=== PATIENT | male | born 1940 | race Caucasian/White ===

== ENCOUNTER 2016-09-26 13:39 | Observation (INO) | payer OTHER, MEDICARE ==
[~2016-09-26] VITALS: Ht 175.3 cm; Wt 65.2 kg
[~2016-09-26 13:39] MED LIST: AMLO-110 PO; ASPI81TA28 PO; ATOR-22 PO; CLOP1TAB15 PO; CYAN100020 PO; ISOS30TA35 PO; MECL1TAB42 PO; METO25TA3 PO; NTRGSL/4 SL; ONDA8TAB6 SL; PRT/20 PO
[2016-09-26] MEDS ORDERED: ASPIRIN 81 MG CHEW PO STA (13:55)
--- NOTE | 2016-09-26 14:14 | DIAGNOSTIC IMAGING REPORT ---
CHEST ONE VIEW PORTABLE CLINICAL HISTORY: Chest pain. COMPARISON STUDY: Chest radiograph June 01, 2014. FINDINGS: There is no pneumothorax or pleural effusion. Cardiac size is normal. Mediastinal contours are normal. There is mild lower lung interstitial thickening. There is no lobar consolidation. There may be underlying emphysema. IMPRESSION: Mild lower lung interstitial thickening. This may reflect atelectasis. An infectious process or pulmonary edema could appear similar but are considered less likely. Electronically signed by: Eliseo Mendenhall M.D. 09/26/2016 2:13 PM Dictated Date/Time: 09/26/2016 2:11 PM
[2016-09-26 14:17] LABS: BASO % 0.2 %; BASO ABS # 0.01 K/uL (0-0.2); COMPLETE YES; EOS % 2.7 %; HEMATOCRIT 39.3 % (42-52); IG% 0.2 %; LYMPH ABS # 1.26 K/uL (1.2-3.4); MEAN CELL VOLUME 88.1 fL (80-100); MEAN CORPUSCULAR HEMOGLOBIN 29.8 pg (25-34); MEAN CORPUSCULAR HGB CONC 33.8 g/dl (32-36); MEAN PLATELET VOLUME 9.4 fL (7.4-10.4); MONO % 8.4 %; NEUT % 65.5 %; PLATELET COUNT 200 K/uL (130-400); RED BLOOD COUNT 4.46 M/uL (4.7-6.1); WHITE BLOOD COUNT 5.48 K/uL (4.8-10.8)
[2016-09-26 14:33] LABS: PARTIAL THROMBOPLASTIN RATIO 1.2; PROTHROMBIN TIME (PATIENT) 11.1 SECONDS (9.0-12.0)
[2016-09-26 14:37] LABS: BUN/CREATININE RATIO 12.4 (10-20); CALCIUM 8.8 mg/dl (8.5-10.1); CREATININE 1.3 mg/dl (0.60-1.40); POTASSIUM 3.8 mmol/L (3.5-5.1)
[2016-09-26 14:41] LABS: CKMB/CK RATIO 1.2 (0-3.0)
--- NOTE | 2016-09-26 15:30 | EMERGENCY ROOM VISIT NOTE ---
History Report prepared by Jose Antonio: Nic Saldana Under the Supervision of: Dr. Ramana Morales D.O. First contact with patient: 13:50 Chief Complaint: CHEST PAIN Stated Complaint: CHEST PAIN Nursing Triage Summary: pt here with chest pain x one hour . pt states pain is in mid chest, intermittently. took 2 nitro at home with min relief. hx of mi in 2013 with no stent placement. pt states some sob, no diaphoresis or nausea. History of Present Illness The patient is a 76 year old male who presents to the Emergency Room with complaints of an episode of chest pain beginning about 1 hour ago. He notes he woke up with the pain and that it does not radiate. He reports the pain resolved upon taking 2 nitroglycerin. He denies any shortness of breath or leg swelling with his symptoms. but admits to having baseline shortness of breath upon exertion beginning about 1 year ago. He also notes having diarrhea at baseline. 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 He notes he saw Dr. Ramirez 2 weeks ago for a regular check-up. He had a similar episode of chest pain 3 weeks ago, and discussed taking nitroglycerin with Dr. Ramirez. The patient states he follows with Yoni Hermosillo PA-C for cardiology, and notes his medications were recently changed. The patient states he recently wore a 24 hour monitor which he returned yesterday. He has not received the results of that study. Source of History: patient Onset: about 1 hour ago Position: chest Quality: other (chest pain) Timing: other (episode) Modifying Factors (Relieving): other (2 nitroglycerin) Associated Symptoms: + diarrhea (baseline), No SOB Note: The patient denies leg swelling. Review of Systems See HPI for pertinent positives & negatives. A total of 10 systems reviewed and were otherwise negative. Past Medical & Surgical Medical Problems: (1) CAD (coronary artery disease) (2) Calculus Of Kidney (3) Chest pain (4) CKD (chronic kidney disease) stage 3, GFR 30-59 ml/min (5) COPD, mild (6) Coron Atheroscler Nos Type Vessel, [place] Or Graft (7) Dyslipidemia (8) Emphysema Nec (9) GERD (gastroesophageal reflux disease) (10) HTN (hypertension) (11) Hypertrophy (Benign) Of Prostate W/O Urinary Obst & Oth Luts (12) Moderate aortic stenosis (13) Unilat Inguinal Hernia Surgical Problems: (1) H/O coronary angioplasty (2) History of back surgery (3) History of inguinal hernia repair Family History Cancer Hypertension Social History Smoking Status: Never Smoker Marital Status: Housing Status: lives alone Occupation Status: retired Current/Historical Medications Scheduled Amlodipine (Norvasc), 5 MG PO DAILY Atorvastatin (Lipitor), 20 MG PO DAILY Cyanocobalamin (Vitamin B12), 1,000 MG PO DAILY Isosorbide Mononitrate Ext Rel (Imdur Ext Rel), 15 MG PO DAILY Metoprolol Succ (Toprol Xl) (Toprol-Xl), 12.5 MG PO DAILY Pantoprazole (Protonix), 20 MG PO DAILY Scheduled PRN Meclizine Hcl (Meclizine Hcl), 1 TAB PO TID PRN for dizziness Nitroglycerin (Nitrostat), 0.4 MG SL UD PRN for Chest Pain Ondansetron Hcl (Zofran), 8 MG SL Q8 PRN for Nausea or Vomiting Allergies Coded Allergies: Iodinated Diagnostic Agents (Verified Allergy, Unknown, RASH, 09/26/16) Pt reports allergy to Iodinated contrast. No Food allergy to Iodine per pt. Tetracycline (Verified Allergy, Unknown, Unknown., 09/26/16) Reported by PT. Physical Exam Vital Signs Date Time Temp Pulse Resp B/P Pulse Ox O2 Delivery O2 Flow Rate FiO2 09/26/16 15:28 158/92 09/26/16 15:09 66 26 95 Room Air 09/26/16 14:58 120/71 09/26/16 14:39 75 14 96 Room Air 09/26/16 14:28 135/81 09/26/16 14:10 95 Room Air 09/26/16 14:10 95 Room Air 09/26/16 14:09 70 13 97 09/26/16 14:05 74 09/26/16 13:58 147/91 09/26/16 13:49 36.4 77 16 170/87 95 Room Air Physical Exam GENERAL: Patient is awake alert, mildly anxious but comfortable; does not appear to be in pain. EYES: The conjunctivae are clear. The pupils are round and reactive. EARS, NOSE, MOUTH AND THROAT: The nose is without any evidence of any deformity. Mucous membranes are moist tongue is midline NECK: The neck is nontender and supple. RESPIRATORY: Normal respiratory effort is noted there is no evidence of wheezing rhonchi or rales CARDIOVASCULAR: Regular rate and rhythm noted there no murmurs rubs or gallops normal S1 normal S2 GASTROINTESTINAL: The abdomen is soft. Bowel sounds are present in all quadrants. Abdomen is nontender MUSCULOSKELETAL/EXTREMITIES: There is no evidence of gross deformity full range of motion is noted in the hips and shoulders SKIN: Trace pedal edema bilaterally noted. NEUROLOGIC: Patient is awake alert and oriented x3. Medical Decision & Procedures ER Provider Diagnostic Interpretation: Radiology results as stated below per my review and radiologist interpretation: CHEST ONE VIEW PORTABLE FINDINGS: There is no pneumothorax or pleural effusion. Cardiac size is normal. Mediastinal contours are normal. There is mild lower lung interstitial thickening. There is no lobar consolidation. There may be underlying emphysema. IMPRESSION: Mild lower lung interstitial thickening. This may reflect atelectasis. An infectious process or pulmonary edema could appear similar but are considered less likely. Electronically signed by: Eliseo Mendenhall M.D. 09/26/2016 2:13 PM Dictated Date/Time: 09/26/2016 2:11 PM Laboratory Results 09/26/16 14:07 Red Blood Count 4.46, Mean Corpuscular Volume 88.1, Mean Corpuscular Hemoglobin 29.8, Mean Corpuscular Hemoglobin Concent 33.8, Mean Platelet Volume 9.4, Neutrophils (%) (Auto) 65.5, Lymphocytes (%) (Auto) 23.0, Monocytes (%) (Auto) 8.4, Eosinophils (%) (Auto) 2.7, Basophils (%) (Auto) 0.2, Neutrophils # (Auto) 3.59, Lymphocytes # (Auto) 1.26, Monocytes # (Auto) 0.46, Eosinophils # (Auto) 0.15, Basophils # (Auto) 0.01 09/26/16 14:07 Test 09/26/16 14:07 09/26/16 14:15 White Blood Count 5.48 K/uL (4.8-10.8) Red Blood Count 4.46 M/uL (4.7-6.1) Hemoglobin 13.3 g/dL (14.0-18.0) Hematocrit 39.3 % (42-52) Mean Corpuscular Volume 88.1 fL (80-100) Mean Corpuscular Hemoglobin 29.8 pg (25-34) Mean Corpuscular Hemoglobin Concent 33.8 g/dl (32-36) Platelet Count 200 K/uL (130-400) Mean Platelet Volume 9.4 fL (7.4-10.4) Neutrophils (%) (Auto) 65.5 % Lymphocytes (%) (Auto) 23.0 % Monocytes (%) (Auto) 8.4 % Eosinophils (%) (Auto) 2.7 % Basophils (%) (Auto) 0.2 % Neutrophils # (Auto) 3.59 K/uL (1.4-6.5) Lymphocytes # (Auto) 1.26 K/uL (1.2-3.4) Monocytes # (Auto) 0.46 K/uL (0.11-0.59) Eosinophils # (Auto) 0.15 K/uL (0-0.5) Basophils # (Auto) 0.01 K/uL (0-0.2) RDW Standard Deviation 44.2 fL (36.4-46.3) RDW Coefficient of Variation 13.7 % (11.5-14.5) Immature Granulocyte % (Auto) 0.2 % Immature Granulocyte # (Auto) 0.01 K/uL (0.00-0.02) Prothrombin Time 11.1 SECONDS (9.0-12.0) Prothromb Time International Ratio 1.0 (0.9-1.1) Activated Partial Thromboplast Time 30.0 SECONDS (21.0-31.0) Partial Thromboplastin Ratio 1.2 Anion Gap 12.0 mmol/L (3-11) Est Creatinine Clear Calc Drug Dose 44.4 ml/min Estimated GFR () 61.4 Estimated GFR (Non- 53.0 BUN/Creatinine Ratio 12.4 (10-20) Calcium Level 8.8 mg/dl (8.5-10.1) Total Bilirubin 0.5 mg/dl (0.2-1) Direct Bilirubin 0.1 mg/dl (0-0.2) Aspartate Amino Transf (AST/SGOT) 21 U/L (15-37) Alanine Aminotransferase (ALT/SGPT) 18 U/L (12-78) Alkaline Phosphatase 99 U/L (45-117) Total Creatine Kinase 196 U/L (39-308) Creatine Kinase MB 2.3 ng/ml (0.5-3.6) Creatine Kinase MB Ratio 1.2 (0-3.0) Total Protein 6.9 gm/dl (6.4-8.2) Albumin 3.7 gm/dl (3.4-5.0) Lipase 229 U/L (73-393) Bedside Troponin I 0.010 ng/ml (0-0.045) Laboratory results per my review. Medications Administered Medications (Trade) Dose Ordered Sig/Amber Route Start Time Stop Time Status Last Admin Dose Admin Aspirin (Aspirin Chew) 324 mg NOW STAT PO 09/26/16 13:55 09/26/16 13:56 DC 09/26/16 14:40 324 MG ECG Indication: chest pain Rate (beats per minute): 72 Rhythm: normal sinus Findings: no ectopy, other (no ST abnormalities) Comparison ECG Date: October 25, 2015 Change: no significant change ED Course 1352: The patient was evaluated in room C11A. A complete history and physical examination were performed. 1355: Ordered Aspirin 324 mg PO. 1500:I discussed the patient's case with Dr. Madrigal. The patient will be evaluated for further management. Medical Decision Prior records/ancillary studies reviewed. Triage Nursing notes reviewed. Additional history obtained from the patient's daughter. The patient's history was concerning for chest pain. Differential diagnosis: Etiologies such as cardiac ischemia, aortic dissection, pulmonary embolism, pneumonia, pneumothorax, musculoskeletal, infections, pericarditis, myocarditis , esophageal rupture, gastrointestinal, as well as others were entertained. The patient is a 76-year-old male who presented to the emergency department for evaluation of anterior chest pain. The patient describes an episode he had a few weeks ago for he developed chest pain at rest. He saw his primary care physician for this pain and was told to use his nitroglycerin if the pain returned. The patient doesn't a history of coronary artery disease. He had a heart catheterization in 2013 but he had some complications from this catheterization. He has known coronary artery disease. The patient nitroglycerin prior to arrival with good resolution of his pain. His EKG did not show any acute changes from previous. His initial cardiac biomarkers were negative. I discussed the patient's laboratory and radiographic studies with him. I also discussed the limitations of the emergency department workup for chest pain with him. Given the patient's past medical history and his use of nitrates at this time I do feel that he is high risk and this could represent a new angina pattern for him. This reason I discussed his case with the on-call [facility] hospitalist group. They've agreed to evaluate the patient in the emergency department for further management and disposition. Consults Time Called: 1455 Consulting Physician: Dr. Madrigal Returned Call: 1500 I discussed the patient's case with Dr. Madrigal. The patient will be evaluated for further management. Scribe Attestation The scribe's documentation has been prepared under my direction and personally reviewed by me in its entirety. I confirm that the note above accurately reflects all work, treatment, procedures, and medical decision making performed by me. Departure Information Dispostion Being Evaluated By Hospitalist Referrals Fritz Ramirez D.O. (PCP) Patient Instructions My [facility]
[2016-09-26] MEDS ORDERED: LORAZEPAM 0.5 MG TAB PO PRN (15:45)
[2016-09-26] MEDS ORDERED: NITROGLYCERIN 0.4 MG SL PER TAB CHARGE SL PRN (15:45)
[2016-09-26] MEDS ORDERED: MECLIZINE HCL 25 MG TAB PO PRN (15:45)
[2016-09-26] MEDS ORDERED: ACETAMINOPHEN 325 MG TAB PO PRN (15:45)
[2016-09-26] MEDS ORDERED: ONDANSETRON INJ 2 MG/ML 2 ML VIAL IV PRN (15:45)
[2016-09-26] MEDS ORDERED: HYT/2 PO (15:58)
[2016-09-26] MEDS ORDERED: ARFO15NE INH (15:58)
[2016-09-26] MEDS ORDERED: LORA-741 PO (15:58)
[2016-09-26] MEDS ORDERED: FINA5TAB4 PO (15:58)
[2016-09-26] MEDS ORDERED: ERYOPO OPB (15:58)
[2016-09-26] MEDS ORDERED: CLOP1TAB5 PO (15:58)
[2016-09-26] MEDS ORDERED: TERA5CAP PO (15:58)
[2016-09-26] MEDS ORDERED: KETO0.5S33 OPL (15:58)
[2016-09-26] MEDS ORDERED: ISOS30TA3 PO (15:58)
[2016-09-26] MEDS ORDERED: CLS1 PO (15:58)
--- NOTE | 2016-09-26 16:20 | History and Physical ---
History & Physical Date & Time of Service: Sep 26, 2016 at 16:02 Chief Complaint: Chest Pain Primary Care Physician: Fritz Ramirez D.O. History of Present Illness Source: patient This is a 76 y/o male with PMHx of CAD, mild COPD, CKD stage 3, HTN, Dyslipidemia and other problems as outlined below who presents to the ED c/o chest pain that began this afternoon. Pt reports that he was woken up from an afternoon nap with chest pain. He describes the chest pain as 10/10 central substernal chest pain that did not radiate anywhere. Sxs were assoc with SOB. He took 2 nitro which relieved most of his pain. He estimates that the pain persisted for about an hour and a half. Pt mentions he had a mild episode of chest pain 3 weeks ago which resolved without intervention. He saw his trousseau consultant who increased his Imdur and ordered a 24-hour Holter. The Holter monitor (pt wore yesterday) results were unremarkable. Pt has a history of CAD. 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 A cardiac catheterization was attempted @ [facility]. The catheterization was unsuccessful as LAD ended up dissecting during the procedure. No stents were placed and patient was managed medically. Pt follows with cardiology, Dr. Green. Pt denies fever/chills, diaphoresis, palpitations, abd pain, N/V, bowel or bladder issues, LE edema , calf pain, lightheadedness/dizziness. In the ED, vitals are stable. Pt is afebrile with no leukocytosis. Initial troponin is negative and EKG unremarkable. Pt is currently chest pain free and will be admitted for further evaluation and treatment. Past Medical/Surgical History Medical Problems: (1) CAD (coronary artery disease) Status: Chronic (2) Calculus Of Kidney Status: Chronic (3) CKD (chronic kidney disease) stage 3, GFR 30-59 ml/min Status: Chronic (4) COPD, mild Status: Chronic (5) Coron Atheroscler Nos Type Vessel, [place] Or Graft Status: Chronic (6) Dyslipidemia Status: Chronic (7) Emphysema Nec Status: Chronic (8) GERD (gastroesophageal reflux disease) Status: Chronic (9) HTN (hypertension) Status: Chronic (10) Hypertrophy (Benign) Of Prostate W/O Urinary Obst & Oth Luts Status: Chronic (11) Moderate aortic stenosis Status: Chronic (12) Unilat Inguinal Hernia Status: Chronic Surgical Problems: (1) H/O coronary angioplasty Permanent Comment: PTCA, CARDIAC ANGIOPLASTY, PERCUTANEOUS, 1 ARTERY performed by Paty Rasheed MD at [facility] [place] 05/23/14 Status: Resolved (2) History of back surgery Permanent Comment: Lumbar Spine Fusion ,Post Interbody Status: Resolved (3) History of inguinal hernia repair Permanent Comment: R inguinal hernia repair with mesh performed by Dr. Vazquez 2005 Status: Resolved Family History Cancer Hypertension Social History Smoking Status: Former Smoker (25 pack year history; quit 2013) Alcohol Use: none Drug Use: none Marital Status: Housing status: lives alone Occupational Status: retired Immunizations History of Influenza Vaccine: Unknown History of Tetanus Vaccine?: Unknown History of Pneumococcal: Unknown History of Hepatitis B Vaccine: Unknown Multi-Drug Resistant Organisms History of MDRO: No Allergies Coded Allergies: Iodinated Diagnostic Agents (Verified Allergy, Unknown, RASH, 09/26/16) Pt reports allergy to Iodinated contrast. No Food allergy to Iodine per pt. Tetracycline (Verified Allergy, Unknown, Unknown., 09/26/16) Reported by PT. Home Medications Scheduled Amlodipine (Norvasc), 5 MG PO DAILY Atorvastatin (Lipitor), 20 MG PO DAILY Clopidogrel Bisulfate (Plavix), 75 MG PO DAILY Colestipol HCl (Colestid), 1 GM PO DAILY Cyanocobalamin (Vitamin B12), 1,000 MG PO DAILY Erythromycin Opth (Erythromycin Opth), 0.25 INCH OPB HS Finasteride (Proscar), 5 MG PO DAILY Isosorbide Mononitrate Ext Rel (Imdur Ext Rel), 30 MG PO DAILY Ketorolac Tromethamine (Ophth) (Acular Oph), 1 DROPS OPL QID Metoprolol Succ (Toprol Xl) (Toprol-Xl), 12.5 MG PO DAILY Terazosin Hcl (Hytrin), 5 MG PO HS Terazosin Hcl (Hytrin), 2 MG PO HS Scheduled PRN Arformoterol Tartrate (Brovana), 15 MCG INH BID PRN for SOB/Wheezing Lorazepam (Ativan), 0.5 MG PO TID PRN for Anxiety Meclizine Hcl (Meclizine Hcl), 1 TAB PO TID PRN for dizziness Nitroglycerin (Nitrostat), 0.4 MG SL UD PRN for Chest Pain Ondansetron Hcl (Zofran), 8 MG SL Q8 PRN for Nausea or Vomiting Review of Systems Constitutional: + fatigue, No chills, No fever, No sweats, No weakness Eyes: No worsening of vision ENT: No hearing loss Respiratory: + shortness of breath (resolved), No cough Cardiovascular: + chest pain, No claudication, No edema Abdomen: No constipation, No diarrhea, No nausea, No pain, No vomiting Musculoskeletal: No calf pain, No swelling Genitourinary - Male: No dysuria Neurologic: No weakness Psychiatric: No depression symptoms Endocrine: + fatigue Hematologic / Lymphatic: No abnormal bleeding/bruising Integumentary: No new/changing skin lesions Physical Exam Vital Signs Date Time Temp Pulse Resp B/P Pulse Ox O2 Delivery O2 Flow Rate FiO2 09/26/16 15:28 158/92 09/26/16 15:09 66 26 95 Room Air 09/26/16 14:58 120/71 09/26/16 14:39 75 14 96 Room Air 09/26/16 14:28 135/81 09/26/16 14:10 95 Room Air 09/26/16 14:10 95 Room Air 09/26/16 14:09 70 13 97 09/26/16 14:05 74 09/26/16 13:58 147/91 09/26/16 13:49 36.4 77 16 170/87 95 Room Air General Appearance: WD/WN, no apparent distress, + pertinent finding (Pt is sitting up in bed with daughter at bedside ) Head: normocephalic, atraumatic Eyes: normal inspection ENT: hearing grossly normal Neck: supple Respiratory/Chest: chest non-tender, lungs clear, normal breath sounds, no respiratory distress Cardiovascular: regular rate, rhythm, no edema, no murmur Abdomen/GI: normal bowel sounds, non tender, soft Back: normal inspection Extremities/Musculoskelatal: normal inspection, no calf tenderness, no pedal edema Neurologic/Psych: alert, normal mood/affect, oriented x 3 Skin: normal color, warm/dry Diagnostics Laboratory Results Results Past 24 Hours Test 09/26/16 14:07 09/26/16 14:15 Range/Units White Blood Count 5.48 4.8-10.8 K/uL Red Blood Count 4.46 4.7-6.1 M/uL Hemoglobin 13.3 14.0-18.0 g/dL Hematocrit 39.3 42-52 % Mean Corpuscular Volume 88.1 80-100 fL Mean Corpuscular Hemoglobin 29.8 25-34 pg Mean Corpuscular Hemoglobin Concent 33.8 32-36 g/dl Platelet Count 200 130-400 K/uL Mean Platelet Volume 9.4 7.4-10.4 fL Neutrophils (%) (Auto) 65.5 % Lymphocytes (%) (Auto) 23.0 % Monocytes (%) (Auto) 8.4 % Eosinophils (%) (Auto) 2.7 % Basophils (%) (Auto) 0.2 % Neutrophils # (Auto) 3.59 1.4-6.5 K/uL Lymphocytes # (Auto) 1.26 1.2-3.4 K/uL Monocytes # (Auto) 0.46 0.11-0.59 K/uL Eosinophils # (Auto) 0.15 0-0.5 K/uL Basophils # (Auto) 0.01 0-0.2 K/uL RDW Standard Deviation 44.2 36.4-46.3 fL RDW Coefficient of Variation 13.7 11.5-14.5 % Immature Granulocyte % (Auto) 0.2 % Immature Granulocyte # (Auto) 0.01 0.00-0.02 K/uL Prothrombin Time 11.1 9.0-12.0 SECONDS Prothromb Time International Ratio 1.0 0.9-1.1 Activated Partial Thromboplast Time 30.0 21.0-31.0 SECONDS Partial Thromboplastin Ratio 1.2 Sodium Level 144 136-145 mmol/L Potassium Level 3.8 3.5-5.1 mmol/L Chloride Level 108 98-107 mmol/L Carbon Dioxide Level 24 21-32 mmol/L Anion Gap 12.0 3-11 mmol/L Blood Urea Nitrogen 16 7-18 mg/dl Creatinine 1.30 0.60-1.40 mg/dl Est Creatinine Clear Calc Drug Dose 44.4 ml/min Estimated GFR () 61.4 Estimated GFR (Non- 53.0 BUN/Creatinine Ratio 12.4 10-20 Random Glucose 107 70-99 mg/dl Calcium Level 8.8 8.5-10.1 mg/dl Total Bilirubin 0.5 0.2-1 mg/dl Direct Bilirubin 0.1 0-0.2 mg/dl Aspartate Amino Transf (AST/SGOT) 21 15-37 U/L Alanine Aminotransferase (ALT/SGPT) 18 12-78 U/L Alkaline Phosphatase 99 45-117 U/L Total Creatine Kinase 196 39-308 U/L Creatine Kinase MB 2.3 0.5-3.6 ng/ml Creatine Kinase MB Ratio 1.2 0-3.0 Total Protein 6.9 6.4-8.2 gm/dl Albumin 3.7 3.4-5.0 gm/dl Lipase 229 73-393 U/L Bedside Troponin I 0.010 0-0.045 ng/ml Diagnostic Radiology CXR IMPRESSION: Mild lower lung interstitial thickening. This may reflect atelectasis. An infectious process or pulmonary edema could appear similar but are considered less likely. EKG EKG: NSR at 72 bpm with possible L atrial enlargement; no change when compared to EKG from 10/28/15 Impression Assessment and Plan CHEST PAIN R/O ACS -observation status to telemetry; h/o CAD s/p heart catheterization in 2013 (se HPI) -RFs include prior tobacco use, CAD, HTN, Dyslipidemia, age and sex -EKG no acute ischemic change ;repeat EKG PRN chest pain and in AM -Initial troponin is negative; continue to monitor with serial cardiac enzymes q6h -obtain echo to r/o cardiac wall motion abnormalities -cont Plavix, BB, statin and Imdur; nitro PRN -consult cardiology, Dr. See-pending input -pt is currently chest pain free -continue to monitor CKD STAGE 3 -creatinine is at baseline -cont to monitor daily and avoid nephrotoxic agents when able MILD COPD -stable; no evidence of acute exacerbation -cont inhalers -pt quit smoking 2 years ago BPH -cont Proscar and Hytrin HTN -BP stable -cont amlodipine and metoprolol -monitor DYSLIPIDEMIA -cont statin DVT PROPHYLAXIS -subq heparin CODE STATUS -FULL CODE per discussion with patient DISPO Observation status until further workup is complete. Pt seen in collaboration with Dr. Madrigal. Please see his addendum for further details. Thanks! agree with above h and p.Briefly 76M with hx of cad and cath done [id number] at [place] complicated by LAd dissection and since then on medical management presents with chest pain. About 3 weeks ago had chest pain which resolved on its own. Again today woke from chest pain in afternoon and it took two nitros to relieve his pain.Currently pain free and denies any sob. hemodynamics stable. p/e Ge not in distress cvs s1 and s2 heard no murmurs Rs cta b/l no added sounds Abd benign [employer] non focal ext no edema a/p Chest pain rule out Acs hx of cad and complicated cath with LAD dissection in 2013 initial troponin and ekg unremarkable f/u serial CE continue home meds of , plavix, b adam, Imdur, amlodipine and statin cardiology consult monitor in tele VTE Prophylaxis VTE Risk Assessment Done? Y/N: Yes Risk Level: Moderate
[2016-09-26] MEDS ORDERED: NITROGLYCERIN 0.4 MG SL PER TAB CHARGE ONE ×2 (17:33→17:35)
[2016-09-26] MEDS ORDERED: IV FLUIDS COMPLETED PRN (19:00)
[2016-09-26 19:20] VITALS: O2SAT 98
[2016-09-26 19:36] VITALS: BP 184/89; PULSE 61; TEMP 36.4; Ht 175.3 cm; Wt 65.2 kg
[2016-09-26] MEDS: ATORVASTATIN 20 MG TAB PO SCH (21:39)
[2016-09-26] MEDS: FINASTERIDE 5 MG TAB PO SCH (21:39)
[2016-09-26] MEDS: KETOROLAC 0.5% OP SOLN 3 ML BTL OPL SCH (21:39)
[2016-09-26] MEDS: ERYTHROMYCIN OP OINT 5 MG/GM 3.5 GM TUBE OPB SCH (21:39)
[2016-09-26] MEDS: HEPARIN SOD 5000 UNIT/0.5 ML CARP SQ SCH (21:42)
[2016-09-27] VITALS (8 sets, daily range): BP systolic 103–173; BP diastolic 61–93; PULSE 56–69; TEMP 36.4–36.8; O2SAT 95–98
[2016-09-27 02:17] LABS: HEMATOCRIT 37.3 % (42-52); MEAN CELL VOLUME 89.4 fL (80-100); MEAN CORPUSCULAR HEMOGLOBIN 30.2 pg (25-34); MEAN CORPUSCULAR HGB CONC 33.8 g/dl (32-36); MEAN PLATELET VOLUME 9.9 fL (7.4-10.4); PLATELET COUNT 189 K/uL (130-400); RED BLOOD COUNT 4.17 M/uL (4.7-6.1); WHITE BLOOD COUNT 5.44 K/uL (4.8-10.8)
[2016-09-27] MEDS: HEPARIN SOD 5000 UNIT/0.5 ML CARP SQ SCH ×3 (06:16→21:35)
[2016-09-27] MEDS: AMLODIPINE BESYLATE 5 MG TAB PO SCH (07:19)
[2016-09-27] MEDS: CYANOCOBALAMIN 500 MCG TAB (VIT B-12) PO SCH (07:20)
[2016-09-27] MEDS: METOPROLOL SUCC 25MG EXT REL TAB PO SCH (07:20)
[2016-09-27] MEDS: COLESTIPOL HCL 1 GM TAB PO SCH (07:21)
[2016-09-27] MEDS: CLOPIDOGREL BISULFATE 75 MG TAB PO SCH (07:21)
[2016-09-27] MEDS: KETOROLAC 0.5% OP SOLN 3 ML BTL OPL SCH ×4 (07:22→20:15)
[2016-09-27] MEDS: ISOSORBIDE MONONITRATE 30 MG TABCR PO SCH (08:32)
--- NOTE | 2016-09-27 10:20 | DIAGNOSTIC IMAGING REPORT ---
BILATERAL LOWER EXTREMITY VENOUS DOPPLER CLINICAL HISTORY: Chest pain. History of deep venous thrombus. COMPARISON STUDY: Left lower extremity venous Doppler May 31, 2014 TECHNIQUE: Sonography of the deep venous system of the bilateral lower extremities was performed. Compression and augmentation were evaluated. FINDINGS: The bilateral common femoral, superficial femoral and popliteal veins were compressible. Augmentation was normal. Flow was shown within the deep calf vessels. IMPRESSION: No evidence of deep venous thrombus within the bilateral lower extremities. Electronically signed by: Eliseo Mendenhall M.D. 09/27/2016 10:19 AM Dictated Date/Time: 09/27/2016 10:18 AM
[2016-09-27 11:13] LABS: BUN/CREATININE RATIO 13.1 (10-20); CALCIUM 8.9 mg/dl (8.5-10.1); CREATININE 1.2 mg/dl (0.60-1.40); POTASSIUM 3.9 mmol/L (3.5-5.1)
[2016-09-27] MEDS ORDERED: DiphenhydrAMINE INJ 25 MG in SYRINGE 0 ML IV STA (11:17)
--- NOTE | 2016-09-27 11:22 | Cardiology Progress Note ---
Cardiology Progress Note Cardiology consult in progress. Pt with h/o past DVT. LEVDuplex was neative. D-dimer elevated. Has contrast allergy with documented rash. Did well with prednisone and benadryl prep before cardiac cath in 2013. Plan : need stat CT to r/o PE. Solucortef 100 mg IV x 1 stat, benadryl, pepcid IV stat, IVF NS for renal prophylaxis. Trini Morales DO
--- NOTE | 2016-09-27 11:23 | Progress Note ---
Internal Med Progress Note Date of Service: Sep 27, 2016. Provider Documentation: SUBJECTIVE: Seen and examined at bedside. Currently denies any chest pain, SOB, dizziness, nausea, palpitations. Offers no complaints. OBJECTIVE: Vital Signs-as noted below Physical Exam: General Appearance:Thin, fragile, no apparent distress Head: normocephalic, Atraumatic Eyes: normal inspection, EOMI, PERRLA Neck: supple, Trachea midline Respiratory/Chest: Normal breath sounds, CTA, No accessory muscle use Cardiovascular: S1, S2, No murmur Abdomen/GI:Soft, Non tender, Bowel sounds present Extremities/Musculoskelatal:normal inspection, no calf tenderness, no edema Neurologic/Psych:AAOX3, grossly no focal neurological deficits Skin: normal color, warm Lab data as noted below. ASSESSMENT & PLAN: CHEST PAIN R/O ACS Patient has h/o CAD s/p heart catheterization in 2013 complicated cath with LAD dissection at the time RFs: Former tobacco use, CAD, HTN, Dyslipidemia, age and sex EKG:no acute ischemic change Troponin: negative X 2 ECHO: pending continue Plavix, BB, statin and Imdur; nitro PRN Appreciate cardiology help ELEVATED D-dimer: Venous Doppler: Negative for DVT Will get CTA for PE : pending CKD STAGE III creatinine is at baseline cont to monitor daily and avoid nephrotoxic agents when able MILD COPD stable; no evidence of acute exacerbation continue inhalers Quit smoking 2 years ago BPH continue Proscar and Hytrin HTN stable continue amlodipine and metoprolol DYSLIPIDEMIA continue statin DVT PROPHYLAXIS Heparin SQ CODE STATUS -FULL CODE per discussion with patient DISPOSITION: Continue to monitor in Tele Vital Signs: Date Time Temp Pulse Resp B/P Pulse Ox O2 Delivery O2 Flow Rate FiO2 09/27/16 10:35 144/81 09/27/16 08:35 162/79 09/27/16 08:00 Room Air 09/27/16 07:35 36.8 56 18 171/93 97 Room Air 09/27/16 04:17 36.7 56 20 173/81 97 Room Air 09/27/16 04:00 Room Air 09/27/16 00:11 36.5 57 20 166/82 97 Room Air 09/26/16 23:59 Room Air 09/26/16 20:00 Room Air 09/26/16 19:36 36.4 61 22 184/89 Room Air 09/26/16 19:20 36.4 63 21 190/103 98 09/26/16 18:43 63 21 98 09/26/16 18:13 62 19 97 09/26/16 17:43 70 19 09/26/16 17:39 62 18 190/103 100 Room Air 09/26/16 17:38 190/103 09/26/16 17:25 /53 09/26/16 15:43 62 19 98 09/26/16 15:38 63 17 98 09/26/16 15:33 66 16 97 Room Air 09/26/16 15:28 158/92 09/26/16 15:09 66 26 95 Room Air 09/26/16 14:58 120/71 09/26/16 14:39 75 14 96 Room Air 09/26/16 14:28 135/81 09/26/16 14:10 95 Room Air 09/26/16 14:10 95 Room Air 09/26/16 14:09 70 13 97 09/26/16 14:05 74 09/26/16 13:58 147/91 09/26/16 13:49 36.4 77 16 170/87 95 Room Air Lab Results: Results Past 24 Hours Test 09/26/16 14:07 09/26/16 14:15 09/26/16 20:15 09/27/16 02:00 Range/Units White Blood Count 5.48 5.44 4.8-10.8 K/uL Red Blood Count 4.46 4.17 4.7-6.1 M/uL Hemoglobin 13.3 12.6 14.0-18.0 g/dL Hematocrit 39.3 37.3 42-52 % Mean Corpuscular Volume 88.1 89.4 80-100 fL Mean Corpuscular Hemoglobin 29.8 30.2 25-34 pg Mean Corpuscular Hemoglobin Concent 33.8 33.8 32-36 g/dl Platelet Count 200 189 130-400 K/uL Mean Platelet Volume 9.4 9.9 7.4-10.4 fL Neutrophils (%) (Auto) 65.5 % Lymphocytes (%) (Auto) 23.0 % Monocytes (%) (Auto) 8.4 % Eosinophils (%) (Auto) 2.7 % Basophils (%) (Auto) 0.2 % Neutrophils # (Auto) 3.59 1.4-6.5 K/uL Lymphocytes # (Auto) 1.26 1.2-3.4 K/uL Monocytes # (Auto) 0.46 0.11-0.59 K/uL Eosinophils # (Auto) 0.15 0-0.5 K/uL Basophils # (Auto) 0.01 0-0.2 K/uL RDW Standard Deviation 44.2 45.3 36.4-46.3 fL RDW Coefficient of Variation 13.7 13.7 11.5-14.5 % Immature Granulocyte % (Auto) 0.2 % Immature Granulocyte # (Auto) 0.01 0.00-0.02 K/uL Prothrombin Time 11.1 9.0-12.0 SECONDS Prothromb Time International Ratio 1.0 0.9-1.1 Activated Partial Thromboplast Time 30.0 21.0-31.0 SECONDS Partial Thromboplastin Ratio 1.2 Sodium Level 144 136-145 mmol/L Potassium Level 3.8 3.5-5.1 mmol/L Chloride Level 108 98-107 mmol/L Carbon Dioxide Level 24 21-32 mmol/L Anion Gap 12.0 3-11 mmol/L Blood Urea Nitrogen 16 7-18 mg/dl Creatinine 1.30 0.60-1.40 mg/dl Est Creatinine Clear Calc Drug Dose 44.4 ml/min Estimated GFR () 61.4 Estimated GFR (Non- 53.0 BUN/Creatinine Ratio 12.4 10-20 Random Glucose 107 70-99 mg/dl Calcium Level 8.8 8.5-10.1 mg/dl Total Bilirubin 0.5 0.2-1 mg/dl Direct Bilirubin 0.1 0-0.2 mg/dl Aspartate Amino Transf (AST/SGOT) 21 15-37 U/L Alanine Aminotransferase (ALT/SGPT) 18 12-78 U/L Alkaline Phosphatase 99 45-117 U/L Total Creatine Kinase 196 39-308 U/L Creatine Kinase MB 2.3 2.0 1.9 0.5-3.6 ng/ml Creatine Kinase MB Ratio 1.2 0-3.0 Total Protein 6.9 6.4-8.2 gm/dl Albumin 3.7 3.4-5.0 gm/dl Lipase 229 73-393 U/L Bedside Troponin I 0.010 0-0.045 ng/ml Troponin I < 0.015 < 0.015 0-0.045 ng/ml Test 09/27/16 10:26 Range/Units D-Dimer 950 0-500 ug/L FEU Sodium Level 143 136-145 mmol/L Potassium Level 3.9 3.5-5.1 mmol/L Chloride Level 107 98-107 mmol/L Carbon Dioxide Level 29 21-32 mmol/L Anion Gap 7.0 3-11 mmol/L Blood Urea Nitrogen 16 7-18 mg/dl Creatinine 1.20 0.60-1.40 mg/dl Est Creatinine Clear Calc Drug Dose 47.5 ml/min Estimated GFR () 67.7 Estimated GFR (Non- 58.4 BUN/Creatinine Ratio 13.1 10-20 Random Glucose 83 70-99 mg/dl Calcium Level 8.9 8.5-10.1 mg/dl
[2016-09-27] MEDS ORDERED: SODIUM CHLORIDE 0.9% 1000ML 1,000 ML IV SCH (11:30)
[2016-09-27] MEDS ORDERED: OPTIRAY 320 IV PRN (11:30)
[2016-09-27] MEDS ORDERED: DiphenhydrAMINE HCL 50 MG/ML VIAL IV SCH (12:00)
[2016-09-27] MEDS ORDERED: HYDROCORTISONE IV 100 MG in SYRINGE 0 ML IV SCH (12:00)
[2016-09-27] MEDS ORDERED: FAMOTIDINE IV INJ 20 MG in DEXTROSE 5% 100ML 100 ML IV SCH (12:00)
--- NOTE | 2016-09-27 12:20 | ECHOCARDIOGRAM REPORT ---
*NOTICE TO RECEIVING [employer]Y This information is strictly Confidential and protected under [place] law. [place] law prohibits you from making any further disclosure of this information unless further disclosure is expressly permitted by the written consent of the person to whom it pertains or is authorized by law. A general authorization for the release of medical or other information is not sufficient for this purpose. Hospital accepts no responsibility if the information is made available to any other person, INCLUDING THE PATIENT. Interpretation Summary * Name: KIKO GORDON JR Study Date: 09/27/2016 10:14 AM BP: 162/79 mmHg * Patient Location: .2T\S\S236\S\1 HR: 65 * : 1940 (M/d/yyy) Gender: Male Height: 69 in * Age: 76 yrs Ethnicity: [place] Weight: 143 lb * Ordering Physician: Mary Hernandez * Referring Physician: Self, Referred * Performed By: Suni Isaac RCS * * Reason For Study: CHEST PAIN / R/O ACS * BSA: 1.8 m2 * -- Conclusions -- * There is a small wall motion abnormality in the mid and apical portion of the anterior wall with hypokinesis of the segments. * Left ventricular systolic function is normal. * Ejection Fraction = 55-60%. * The Doppler data and 2 D appearance of the aortic valve are discordant. The Doppler suggest only mild aortic stenosis, the appearance of the valve appears consistent with moderate aortic stenosis. * Mild to moderate valvular aortic stenosis. * Compared to the prior study dated 10/19/15, the LAD territory wall motion abnormality is felt to not be new, just better visualized on the current study as the wall motion abnormality was previously reported in 2014. Procedure Details * A complete two-dimensional transthoracic echocardiogram was performed (2D, M-mode, Doppler and color flow Doppler). Left Ventricle * The left ventricle is normal in size. * There is mild concentric left ventricular hypertrophy. * Ejection Fraction = 55-60%. * Left ventricular systolic function is normal. * There is a small wall motion abnormality in the mid and apical portion of the anterior wall with hypokinesis of the segments. Right Ventricle * The right ventricle is normal in size and function. Atria * The left atrial size is normal. * Right atrial size is normal. * There is no evidence of atrial septal defect, but resolution does not allow assessment for a patent foramen ovale. Mitral Valve * The mitral valve is normal. * There is no mitral valve stenosis. * Significant mitral regurgitation is absent. Tricuspid Valve * The tricuspid valve is normal. * There is no tricuspid stenosis. * Significant tricuspid regurgitation is absent. Aortic Valve * The aortic valve is moderately calcified. * The Doppler data and 2 D appearance of the aortic valve are discordant. The Doppler suggest only mild aortic stenosis, the appearce of the valve appears consistent with moderate aortic stenosis. * Mild to moderate valvular aortic stenosis. * There is no significant aortic regurgitation. Pulmonic Valve * The pulmonary valve is not well seen, but the Doppler examination is normal without significant regurgitation or stenosis. Great Vessels * The aortic root and proximal ascending aorta are normal sized. Pericardium/Pleural * There is a small anterior loculated pericardial effusion. * There are no echocardiographic indications of cardiac tamponade. Left Ventricular Diastolic Function * Grade I diastolic dysfunction, (abnormal relaxation pattern). MMode 2D Measurements and Calculations IVSd 1.1 cm IVSs 1.1 cm LVIDd 3.9 cm LVIDs 2.9 cm LVPWd 1.1 cm LVPWs 1.1 cm IVS/LVPW 1.0 FS 25.5 % EDV(Teich) 66.5 ml ESV(Teich) 32.7 ml EF(Teich) 50.9 % EDV(cubed) 60.0 ml ESV(cubed) 24.8 ml EF(cubed) 58.6 % % IVS thick 0.22 % % LVPW thick 3.9 % LV mass(C)d 144.4 grams LV mass(C)dI 80.6 grams/m\S\2 LV mass(C)s 96.9 grams LV mass(C)sI 54.1 grams/m\S\2 SV(Teich) 33.8 ml SI(Teich) 18.9 ml/m\S\2 SV(cubed) 35.2 ml SI(cubed) 19.6 ml/m\S\2 Ao root diam 2.7 cm Ao root area 5.6 cm\S\2 LA dimension 2.8 cm LA/Ao 1.0 LVOT diam 2.0 cm LVOT area 3.1 cm\S\2 LVAd ap4 17.4 cm\S\2 LVLd ap4 6.3 cm EDV(MOD-sp4) 38.8 ml EDV(sp4-el) 40.6 ml LVAs ap4 9.5 cm\S\2 LVLs ap4 5.8 cm ESV(MOD-sp4) 13.3 ml ESV(sp4-el) 13.0 ml EF(MOD-sp4) 65.7 % EF(sp4-el) 67.9 % LVAd ap2 28.0 cm\S\2 LVLd ap2 8.1 cm EDV(MOD-sp2) 78.0 ml EDV(sp2-el) 82.5 ml LVAs ap2 15.5 cm\S\2 LVLs ap2 6.6 cm ESV(MOD-sp2) 29.9 ml ESV(sp2-el) 31.1 ml EF(MOD-sp2) 61.7 % EF(sp2-el) 62.3 % LVLd %diff 21.4 % EDV(MOD-bp) 62.1 ml LVLs %diff 11.1 % ESV(MOD-bp) 21.1 ml EF(MOD-bp) 66.0 % SV(MOD-sp4) 25.5 ml SI(MOD-sp4) 14.2 ml/m\S\2 SV(MOD-sp2) 48.1 ml SI(MOD-sp2) 26.9 ml/m\S\2 SV(MOD-bp) 41.0 ml SI(MOD-bp) 22.9 ml/m\S\2 SV(sp4-el) 27.5 ml SI(sp4-el) 15.4 ml/m\S\2 SV(sp2-el) 51.4 ml SI(sp2-el) 28.7 ml/m\S\2 Doppler Measurements and Calculations MV E max sy[place] 57.7 cm/sec MV A max [place] 51.8 cm/sec MV E/A 1.1 MV P1/2t max [place] 64.7 cm/sec MV P1/2t 92.1 msec MVA(P1/2t) 2.4 cm\S\2 MV dec slope 205.8 cm/sec\S\2 MV dec time 0.39 sec Ao V2 max 248.2 cm/sec Ao max PG 24.7 mmHg Ao max PG (full) 21.6 mmHg Ao V2 mean 146.2 cm/sec Ao mean PG 10.6 mmHg Ao V2 VTI 46.0 cm ARTUR(V,A) 1.1 cm\S\2 ARTUR(V,D) 1.1 cm\S\2 LV V1 max PG 3.0 mmHg LV V1 max 86.8 cm/sec SV(Ao) 259.3 ml SI(Ao) 144.8 ml/m\S\2 PA V2 max 116.5 cm/sec PA max PG 5.4 mmHg TR max sy[place] 253.1 cm/sec
--- NOTE | 2016-09-27 14:06 | DIAGNOSTIC IMAGING REPORT ---
CT ANGIOGRAPHY OF THE CHEST, PULMONARY EMBOLUS PROTOCOL CLINICAL HISTORY: Chest pain. Elevated d-dimer. COMPARISON STUDY: Chest radiograph June 01, 2014 and September 26, 2016. TECHNIQUE: The patient was premedicated for an iodinated IV contrast allergy. Following IV administration of 99 mL of Optiray-320, helical axial images of the chest were obtained utilizing the pulmonary embolus protocol. Maximal intensity projections and sagittal and coronal reformats were viewed on an independent 3D workstation. IV contrast was administered without complication. CT DOSE: 301.72 mGy.cm FINDINGS: No pulmonary emboli are identified. The size of the heart is at the upper limits of normal. There is extensive coronary artery calcification. No enlarged thoracic lymph nodes are present. Bilateral hilar lymph nodes are noted. There is moderate emphysema. There is no consolidation to suggest pneumonia. Central airways are patent. Mild ground glass opacities represent atelectasis. No pneumothorax or pleural effusion is present. Bony thorax and upper abdomen are unremarkable. There is moderate atherosclerotic plaque of the thoracic aorta. There is no evidence for dissection of the thoracic aorta although the distal descending thoracic aorta is suboptimally opacified. IMPRESSION: 1. No pulmonary emboli identified. 2. No acute intrathoracic findings. 3. Moderate emphysema. No consolidation to suggest pneumonia. 4. Borderline cardiomegaly with extensive coronary artery calcification. Electronically signed by: Eliseo Mendenhall M.D. 09/27/2016 2:05 PM Dictated Date/Time: 09/27/2016 1:52 PM
--- NOTE | 2016-09-27 14:45 | Cardiology Consultation ---
Cardiology Consultation Date of Consultation: Sep 27, 2016 History of Present Illness Tyler Eason is a 76 year old male seen in cardiology consultation per the request of James Multani PA-C For the evaluation of chest discomfort. The patient states that yesterday he was taking a nap and he woke up appropriately with severe midline chest discomfort that concerned him significantly. He took a nitroglycerin with little change in his symptoms. He took a second nitroglycerin on his own home any feels that the symptoms improved to a mild degree. He called his daughter lives nearby and ultimately she brought him to the emergency department by private automobile. In the emergency department he also noted a left shoulder discomfort that went into his anterior chest. EKG revealed sinus rhythm, with mild repolarization changes in the form of subtle T- wave inversions in the lateral leads which were unchanged compared to a prior tracing at [facility] in October,. his cardiac enzymes have been negative x3, and he rested well overnight, and is without chest discomfort today. History Past Medical History: Mild to moderate aortic stenosis CAD: in 2013 a routine echocardiogram had been performed to follow up his aortic valve murmur revealing new anteroseptal, apical wall motion abnormality. An EKG revealed changes of an age undetermined anterior anteroseptal infarction. Further testing with pharmacologic nuclear stress testing revealed that he silent LAD territory myocardial infarction with scar in superimposed ischemia. Diagnostic cardiac catheterization performed 04/18/2014 at [facility] by Dr. Green revealed a complete proximal LAD occlusion with [id number] collaterals. Patient was initially treated with medication, but ultimately had recurrent symptoms and was referred for high risk percutaneous coronary intervention on 05/23/2014. The cardiac catheterization was technically challenging, ultimately unsuccessful and no stent could be passed through the calcified obstruction. There was a small dissection noted in the LAD, and ultimately continued medical management was recommended with noted residual 99% stenosis. 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 His daughter, Gabriela, told me that this continues to be difficult for the patient and he has been tearful this week. He is a former smoker, 25 pack years, he does not use alcohol, he lives independently and his daught Family History: father with history of lung disease Review Of Systems a 10 point review of systems was reviewed is negative with the exception of that noted above Allergies Coded Allergies: Iodinated Diagnostic Agents (Verified Allergy, Unknown, RASH, 09/26/16) Pt reports allergy to Iodinated contrast. No Food allergy to Iodine per pt. Tetracycline (Verified Allergy, Unknown, Unknown., 09/26/16) Reported by PT. Medications Reported Home Medications Medications Dose Route/Sig Max Daily Dose Days Date Category Dose Instructions Brovana (Arformoterol Tartrate) 15 Mcg/2 Ml Neb 15 Mcg INH BID PRN 09/26/16 Reported Ativan (Lorazepam) 0.5 Mg Tab 0.5 Mg PO TID PRN 09/26/16 Reported Acular Oph (Ketorolac Tromethamine (Ophth)) 0.5 % Marie 1 Drops OPL QID 09/26/16 Reported Erythromycin Opth (Erythromycin) 12 Appln/3.5 Gm Oint 0.25 Inch OPB HS 09/26/16 Reported Hytrin (Terazosin Hcl) 2 Mg Cap 2 Mg PO HS 09/26/16 Reported Take 5 mg PO HS in addition to 2mg for a total of 7mg PO HS Hytrin (Terazosin Hcl) 5 Mg Cap 5 Mg PO HS 09/26/16 Reported Take 5 mg PO HS in addition to 2mg for a total of 7mg PO HS Proscar (Finasteride) 5 Mg Tab 5 Mg PO DAILY 09/26/16 Reported Imdur Ext Rel (Isosorbide Mononitrate) 30 Mg Ertab 30 Mg PO DAILY 09/26/16 Reported Colestid (Colestipol HCl) 1 Gm Tab 1 Gm PO DAILY 09/26/16 Reported Plavix (Clopidogrel Bisulfate) 75 Mg Tab 75 Mg PO DAILY 09/26/16 Reported Zofran (Ondansetron HCl) 8 Mg Tab 8 Mg SL Q8 PRN 10/26/15 Reported Meclizine Hcl 25 Mg Tab 1 Tab PO TID PRN 30 10/26/15 Reported Norvasc (Amlodipine Besylate) 5 Mg Tab 5 Mg PO DAILY 10/26/15 Reported Lipitor (Atorvastatin Calcium) 20 Mg Tab 20 Mg PO DAILY 10/18/15 Reported Toprol-Xl (Metoprolol Succinate) 25 Mg Tabcr 12.5 Mg PO DAILY 10/18/15 Reported Vitamin B12 (Cyanocobalamin) 1,000 Mcg Tab 1,000 Mg PO DAILY 04/12/15 Reported Nitrostat (Nitroglycerin) 0.4 Mg Tab 0.4 Mg SL UD PRN 05/31/[address] ONE TABLET UNDER THE TONGUE EVERY FIVE MINUTES DIRECTED IF NEEDED FOR CHEST PAIN. Physical Exam Vital Signs (Last 8hrs): Last 8 Hrs Date Time Temp Pulse Resp B/P Pulse Ox O2 Delivery O2 Flow Rate FiO2 09/27/16 12:00 Room Air 09/27/16 11:46 36.5 61 20 145/82 98 Room Air 09/27/16 10:35 144/81 09/27/16 08:35 162/79 09/27/16 08:00 Room Air 09/27/16 07:35 36.8 56 18 171/93 97 Room Air General Appearance: Alert and Oriented x3. NAD. Head: Normocephalic Atraumatic. Eyes: PERRLA, EOMI, conjunctiva and sclera clear Neck: Supple. No carotid bruits noted. No JVD. No HJD. Respiratory: Breath sounds clear to auscultation bilaterally. No w/r/r. Cardiovascular: Reg rate and rhythm. 1/6 systolic murmur Abdomen: Normal bowel sounds, soft nontender. no abdominal bruits. Extremities: No edema, no clubbing or cyanosis. distal pulses 2/4 bilaterally. Neuro: No focal deficits. Psychiatric: Normal affect. Data Last Resulted 09/27/16 02:00 Last Resulted 09/27/16 10:26 Past 24 Hours Test 09/26/16 20:15 09/27/16 02:00 Range/Units Creatine Kinase MB 2.0 1.9 0.5-3.6 ng/ml Creatine Kinase MB Ratio 0-3.0 Troponin I < 0.015 < 0.015 0-0.045 ng/ml Imaging: CT was negative for pulmonary embolism, lower extremity venous duplex was negative for DVT EKG: as noted above, with lateral ST changes, noted in 2015, although a little bit more prominent than his recent tracing performed in the office in September, Telemetry reviewed: sinus rhythm Assessment & Plan Impression: 76-year-old male 1. chest discomfort, with stable EKG, and negative serial cardiac enzymes 2. Elevated D-dimer, follow up lower extremity venous duplex and CT angiogram were negative for DVT and pulmonary embolism 3. Hypertension with elevated blood pressure this admission 4. Stable mild to moderate aortic stenosis on echocardiogram performed today 5. Stable LAD territory wall motion abnormality with preserved LV EF Recommendations: Patient had a recent Holter monitor within the last week as an outpatient which revealed stable mild supraventricular ectopy. His symptoms are somewhat concerning for angina especially given his past history. I however I am concerned that his stress test will not help with his management as given his chronic LAD occlusion, I anticipate that stress testing will definitely be abnormal, and it would be difficult to distinguish between LAD territory ischemia versus new circumflex or RCA territory ischemia. I discussed the strategy of going right to cardiac catheterization to know for sure if he has progressive disease. The patient however is very hesitant about this as he had a difficult time with his last procedure with complications. He would prefer to avoid any invasive procedure if at all possible. We therefore decided to proceed with conservative medication changes in observation. He is not on the standard medication treatment for known chronic coronary artery disease due to past intolerance is to multiple agents. At his recent outpatient visit, he has been encouraged to take isosorbide mononitrate which she thought had been helping as an outpatient. His possible, that this episode does not represent a new anginal event, and that it is related to emotional distress, as the patient has apparently been having a difficult time emotionally this week. Since CT is negative, I think we could increase his activity as tolerated, and see if his chest pain is reproduced. Assuming that he remains stable, perhaps we can treat his hypertension and continue to treat his presumed underlying coronary artery disease conservatively. If he develops breakthrough angina, the benefits and risks of coronary angiography may have to be readdressed. I discussed this with his daughter Gabriela, she was in agreement with proceeding with conservative therapy. Hank Morales DO
[2016-09-27] MEDS: ERYTHROMYCIN OP OINT 5 MG/GM 3.5 GM TUBE OPB SCH (20:15)
[2016-09-28] VITALS: BP 146/79; PULSE 65; TEMP 36.4; O2SAT 95
[2016-09-28 04:00] VITALS: BP 135/76; PULSE 66; TEMP 36.6; O2SAT 96
[2016-09-28 05:45] LABS: BASO % 0.4 %; BASO ABS # 0.03 K/uL (0-0.2); COMPLETE YES; EOS % 1.6 %; HEMATOCRIT 40.7 % (42-52); IG% 0.1 %; LYMPH % 24.6 %; LYMPH ABS # 2.04 K/uL (1.2-3.4); MEAN CELL VOLUME 88.5 fL (80-100); MEAN CORPUSCULAR HEMOGLOBIN 29.8 pg (25-34); MEAN CORPUSCULAR HGB CONC 33.7 g/dl (32-36); MEAN PLATELET VOLUME 9.6 fL (7.4-10.4); MONO % 8.9 %; NEUT % 64.4 %; PLATELET COUNT 210 K/uL (130-400)
[2016-09-28] MEDS: HEPARIN SOD 5000 UNIT/0.5 ML CARP SQ SCH (06:00)
[2016-09-28 06:16] LABS: BUN/CREATININE RATIO 17.2 (10-20); CALCIUM 8.9 mg/dl (8.5-10.1); CREATININE 1.3 mg/dl (0.60-1.40); POTASSIUM 3.4 mmol/L (3.5-5.1)
[2016-09-28] MEDS: KETOROLAC 0.5% OP SOLN 3 ML BTL OPL SCH (07:32)
[2016-09-28] MEDS: ISOSORBIDE MONONITRATE 30 MG TABCR PO SCH (07:33)
[2016-09-28] MEDS: CYANOCOBALAMIN 500 MCG TAB (VIT B-12) PO SCH (07:33)
[2016-09-28] MEDS: AMLODIPINE BESYLATE 5 MG TAB PO SCH (07:33)
[2016-09-28] MEDS: FINASTERIDE 5 MG TAB PO SCH (07:33)
[2016-09-28] MEDS: ATORVASTATIN 20 MG TAB PO SCH (07:33)
[2016-09-28] MEDS: METOPROLOL SUCC 25MG EXT REL TAB PO SCH (07:34)
[2016-09-28] MEDS: CLOPIDOGREL BISULFATE 75 MG TAB PO SCH (07:34)
[2016-09-28 07:53] VITALS: BP_SYST 184; BP_SYST 189; BP_DIAS 95; BP_DIAS 97; PULSE 68; TEMP 36.7; O2SAT 95
[2016-09-28] MEDS ORDERED: POTASSIUM CHLORIDE 10 MEQ TABCR PO ONE (08:00)
--- NOTE | 2016-09-28 08:24 | Cardiology Follow-Up ---
Subjective General Date of Service: Sep 28, 2016. Chief Complaint: follow up chest pain Pt evaluation today including: conversation w/ patient, physical exam History of Present Illness The patient is a 76 year old male seen in follow up. He feels well. He denies any recurrent chest discomfort. He is eating his meal. He walked in the hallway without recurrence of any chest pain symptoms yesterday. Telemetry reveals stable sinus rhythm with occasional PVCs. CT of the chest yesterday excluded the presence of pulmonary embolism. Chronic emphysematous changes were noted in his lungs. Allergies Coded Allergies: Iodinated Diagnostic Agents (Verified Allergy, Unknown, RASH, 09/26/16) Pt reports allergy to Iodinated contrast. No Food allergy to Iodine per pt. Tetracycline (Verified Allergy, Unknown, Unknown., 09/26/16) Reported by PT. Social History Smoking Status: Former Smoker Hx Tobacco Use In Past Year?: No Hx Alcohol Use - Type And Amou: No Hx Substance Use - Type And Am: No Physical Exam Vital Signs Last Vital Signs Documentation Date Time Temp Pulse Resp B/P Pulse Ox O2 Delivery O2 Flow Rate FiO2 09/28/16 07:53 36.7 68 16 184/97 95 Room Air 189/95 Physical Exam Constitutional: Level of Distress: NAD Head: normocephalic Neck: supple Lungs: Auscultation: no wheezing, no rales/crackles, no rhonchi Cardiovascular: Heart Auscultation: RRR, no murmurs, no rubs Abdomen: Inspection & Palpation: soft, non-distended Extremities: no cyanosis, no edema Neurologic: Gait & Station: pertinent finding (no focal neurologic deficits) Assessment and Plan Assessment and Plan Impression: 76-year-old male 1. chest discomfort, with stable EKG, and negative serial cardiac enzymes 2. Hypertension with elevated blood pressure this admission 3.. Stable mild to moderate aortic stenosis on echocardiogram performed 09/27/16 4.. 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 Blood pressure had trended toward improvement, but was elevated first thing in the morning this morning on his vital signs. He has since received his morning medications. Plan to reassess his blood pressure, and if it is stable, plan to discharge him on medications including metoprolol succinate 25 mg, increased from 12.5 mg daily, and isosorbide mononitrate 30 mEq daily. He previously had not been taking the isosorbide dinitrate mononitrate as recommended. His blood pressure remains elevated after her a.m. medications, would increase amlodipine to 10 mg by mouth daily. I've requested outpatient cardiology follow-up for him in 1-2 weeks. Laboratory Results Last 24 Hours Test 09/27/16 10:26 09/28/16 05:21 D-Dimer 950 ug/L FEU Sodium Level 143 mmol/L 143 mmol/L Potassium Level 3.9 mmol/L 3.4 mmol/L Chloride Level 107 mmol/L 107 mmol/L Carbon Dioxide Level 29 mmol/L 28 mmol/L Anion Gap 7.0 mmol/L 8.0 mmol/L Blood Urea Nitrogen 16 mg/dl 22 mg/dl Creatinine 1.20 mg/dl 1.30 mg/dl Est Creatinine Clear Calc Drug Dose 47.5 ml/min 43.8 ml/min Estimated GFR () 67.7 61.4 Estimated GFR (Non- 58.4 53.0 BUN/Creatinine Ratio 13.1 17.2 Random Glucose 83 mg/dl 90 mg/dl Calcium Level 8.9 mg/dl 8.9 mg/dl White Blood Count 8.30 K/uL Red Blood Count 4.60 M/uL Hemoglobin 13.7 g/dL Hematocrit 40.7 % Mean Corpuscular Volume 88.5 fL Mean Corpuscular Hemoglobin 29.8 pg Mean Corpuscular Hemoglobin Concent 33.7 g/dl Platelet Count 210 K/uL Mean Platelet Volume 9.6 fL Neutrophils (%) (Auto) 64.4 % Lymphocytes (%) (Auto) 24.6 % Monocytes (%) (Auto) 8.9 % Eosinophils (%) (Auto) 1.6 % Basophils (%) (Auto) 0.4 % Neutrophils # (Auto) 5.35 K/uL Lymphocytes # (Auto) 2.04 K/uL Monocytes # (Auto) 0.74 K/uL Eosinophils # (Auto) 0.13 K/uL Basophils # (Auto) 0.03 K/uL RDW Standard Deviation 44.9 fL RDW Coefficient of Variation 13.8 % Immature Granulocyte % (Auto) 0.1 % Immature Granulocyte # (Auto) 0.01 K/uL
[2016-09-28] MEDS ORDERED: METOPROLOL SUCC 25MG EXT REL TAB PO ONE (08:45)
[2016-09-28] MEDS ORDERED: METOPROLOL SUCC 50MG EXT REL TAB PO ONE (08:45)
[2016-09-28 08:50] VITALS: BP 154/76
[2016-09-28] MEDS: COLESTIPOL HCL 1 GM TAB PO SCH (10:07)
--- NOTE | 2016-09-28 10:49 | Progress Note ---
Internal Med Progress Note Date of Service: Sep 28, 2016. Provider Documentation: SUBJECTIVE: Seen and examined at bedside. Feels well. Paul any chest pain, SOB, dizziness, nausea, palpitations. Offers no complaints. Eager to get discharged. OBJECTIVE: Vital Signs-as noted below Physical Exam: General Appearance:Thin, fragile, no apparent distress Head: normocephalic, Atraumatic Eyes: normal inspection, EOMI, PERRLA Neck: supple, Trachea midline Respiratory/Chest: Normal breath sounds, CTA, No accessory muscle use Cardiovascular: S1, S2, No murmur Abdomen/GI:Soft, Non tender, Bowel sounds present Extremities/Musculoskelatal:normal inspection, no calf tenderness, no edema Neurologic/Psych:AAOX3, grossly no focal neurological deficits Skin: normal color, warm Lab data as noted below. ASSESSMENT & PLAN: CHEST PAIN R/O ACS Patient has h/o CAD (chronic proximal LAD occlusion with collaterals to the distal LAD territory) s/p heart catheterization in 2013 complicated cath with LAD dissection at the time RFs: Former tobacco use, CAD, HTN, Dyslipidemia, age and sex EKG:no acute ischemic change Troponin: negative X 2 ECHO: Stable LAD territory wall motion abnormality with preserved LV EF continue Plavix, BB, statin and Imdur; nitro PRN Appreciate cardiology help Telemetry reveals stable sinus rhythm with occasional PVCs No plan for any procedure and plan for conservative management per discussion with cardiology and patient/family preferences. ELEVATED D-dimer: Venous Doppler: Negative for DVT CTA for PE :Negative HTN Uncontrolled continue amlodipine and metoprolol succinate 25 mg, increased from 12.5 mg daily Isosorbide mononitrate 30 mEq daily (Patient not taking previously as recommended) Cardiology on board CKD STAGE III creatinine is at baseline cont to monitor daily and avoid nephrotoxic agents when able MILD COPD stable; no evidence of acute exacerbation continue inhalers Quit smoking 2 years ago BPH continue Proscar and Hytrin DYSLIPIDEMIA continue statin DVT PROPHYLAXIS Heparin SQ CODE STATUS -FULL CODE per discussion with patient DISPOSITION: Plan to discharge home today Follow up with on Oct 04, 2016 at 10:50AM Follow up with on Oct 08, 2016 at 8:45AM PROCEDURES: ECHO: * There is a small wall motion abnormality in the mid and apical portion of the anterior wall with hypokinesis of the segments. * Left ventricular systolic function is normal. * Ejection Fraction = 55-60%. * The Doppler data and 2 D appearance of the aortic valve are discordant. The Doppler suggest only mild aortic stenosis, the appearance of the valve appears consistent with moderate aortic stenosis. * Mild to moderate valvular aortic stenosis. * Compared to the prior study dated 10/19/15, the LAD territory wall motion abnormality is felt to not be new, just better visualized on the current study as the wall motion abnormality was previously reported in 2014. CTA: 1. No pulmonary emboli identified. 2. No acute intrathoracic findings. 3. Moderate emphysema. No consolidation to suggest pneumonia. 4. Borderline cardiomegaly with extensive coronary artery calcification. Venous Duplex: No evidence of deep venous thrombus within the bilateral lower extremities. CXR: Mild lower lung interstitial thickening. This may reflect atelectasis. An infectious process or pulmonary edema could appear similar but are considered less likely. Vital Signs: Date Time Temp Pulse Resp B/P Pulse Ox O2 Delivery O2 Flow Rate FiO2 09/28/16 08:50 154/76 09/28/16 08:00 Room Air 09/28/16 07:53 36.7 68 16 184/97 95 Room Air 189/95 09/28/16 04:00 36.6 66 19 135/76 96 Room Air 09/28/16 04:00 Room Air 09/28/16 00:00 Room Air 09/28/16 00:00 36.4 65 20 146/79 95 Room Air 09/27/16 21:38 36.7 63 22 103/61 95 Room Air 09/27/16 20:15 Room Air 09/27/16 16:00 Room Air 09/27/16 15:45 36.4 69 18 135/78 95 Room Air 09/27/16 12:00 Room Air 09/27/16 11:46 36.5 61 20 145/82 98 Room Air Lab Results: Results Past 24 Hours Test 09/28/16 05:21 Range/Units White Blood Count 8.30 4.8-10.8 K/uL Red Blood Count 4.60 4.7-6.1 M/uL Hemoglobin 13.7 14.0-18.0 g/dL Hematocrit 40.7 42-52 % Mean Corpuscular Volume 88.5 80-100 fL Mean Corpuscular Hemoglobin 29.8 25-34 pg Mean Corpuscular Hemoglobin Concent 33.7 32-36 g/dl Platelet Count 210 130-400 K/uL Mean Platelet Volume 9.6 7.4-10.4 fL Neutrophils (%) (Auto) 64.4 % Lymphocytes (%) (Auto) 24.6 % Monocytes (%) (Auto) 8.9 % Eosinophils (%) (Auto) 1.6 % Basophils (%) (Auto) 0.4 % Neutrophils # (Auto) 5.35 1.4-6.5 K/uL Lymphocytes # (Auto) 2.04 1.2-3.4 K/uL Monocytes # (Auto) 0.74 0.11-0.59 K/uL Eosinophils # (Auto) 0.13 0-0.5 K/uL Basophils # (Auto) 0.03 0-0.2 K/uL RDW Standard Deviation 44.9 36.4-46.3 fL RDW Coefficient of Variation 13.8 11.5-14.5 % Immature Granulocyte % (Auto) 0.1 % Immature Granulocyte # (Auto) 0.01 0.00-0.02 K/uL Sodium Level 143 136-145 mmol/L Potassium Level 3.4 3.5-5.1 mmol/L Chloride Level 107 98-107 mmol/L Carbon Dioxide Level 28 21-32 mmol/L Anion Gap 8.0 3-11 mmol/L Blood Urea Nitrogen 22 7-18 mg/dl Creatinine 1.30 0.60-1.40 mg/dl Est Creatinine Clear Calc Drug Dose 43.8 ml/min Estimated GFR () 61.4 Estimated GFR (Non- 53.0 BUN/Creatinine Ratio 17.2 10-20 Random Glucose 90 70-99 mg/dl Calcium Level 8.9 8.5-10.1 mg/dl
[2016-09-28] MEDS ORDERED: ISOS30TA3 PO (10:57)
[2016-09-28] MEDS ORDERED: TPRSR25 PO (10:58)
--- NOTE | 2016-09-28 11:01 | Discharge Summary ---
Discharge Summary Admission Date: Sep 26, 2016 at 15:42 Discharge Date: Sep 28, 2016 Discharge Disposition: Home Principal Diagnosis: Atypical chest pain Procedures: ECHO: * There is a small wall motion abnormality in the mid and apical portion of the anterior wall with hypokinesis of the segments. * Left ventricular systolic function is normal. * Ejection Fraction = 55-60%. * The Doppler data and 2 D appearance of the aortic valve are discordant. The Doppler suggest only mild aortic stenosis, the appearance of the valve appears consistent with moderate aortic stenosis. * Mild to moderate valvular aortic stenosis. * Compared to the prior study dated 10/19/15, the LAD territory wall motion abnormality is felt to not be new, just better visualized on the current study as the wall motion abnormality was previously reported in 2014. CTA: 1. No pulmonary emboli identified. 2. No acute intrathoracic findings. 3. Moderate emphysema. No consolidation to suggest pneumonia. 4. Borderline cardiomegaly with extensive coronary artery calcification. Venous Duplex: No evidence of deep venous thrombus within the bilateral lower extremities. CXR: Mild lower lung interstitial thickening. This may reflect atelectasis. An infectious process or pulmonary edema could appear similar but are considered less likely. Consultations: Cardiology Pending Studies/Follow-Up: Follow up with on Oct 04, 2016 at 10:50AM Follow up with on Oct 08, 2016 at 8:45AM Medication Reconciliation New Medications: Metoprolol Succinate (Metoprolol Succinate ER) 25 Mg Tabcr 25 MG PO QAM for 30 Days, #30 1 Refill Continued Medications: Amlodipine (Norvasc) 5 Mg Tab 5 MG PO DAILY, TAB Arformoterol Tartrate (Brovana) 15 Mcg/2 Ml Neb 15 MCG INH BID PRN for SOB/Wheezing, INHALER Atorvastatin (Lipitor) 20 Mg Tab 20 MG PO DAILY Clopidogrel Bisulfate (Plavix) 75 Mg Tab 75 MG PO DAILY, TAB Colestipol HCl (Colestid) 1 Gm Tab 1 GM PO DAILY Cyanocobalamin (Vitamin B12) 1,000 Mcg Tab 1000 MG PO DAILY Erythromycin Opth (Erythromycin Opth) 12 Appln/3.5 Gm Oint 0.25 INCH OPB HS Finasteride (Proscar) 5 Mg Tab 5 MG PO DAILY, TAB Isosorbide Mononitrate Ext Rel (Imdur Ext Rel) 30 Mg Ertab 30 MG PO DAILY for 30 Days, #30 TAB 1 Refill (This prescription has been renewed ) Ketorolac Tromethamine (Ophth) (Acular Oph) 0.5 % Marie 1 DROPS OPL QID, #10 ML Lorazepam (Ativan) 0.5 Mg Tab 0.5 MG PO TID PRN for Anxiety, TAB Meclizine Hcl (Meclizine Hcl) 25 Mg Tab 1 TAB PO TID PRN for dizziness for 30 Days, #90 TAB Nitroglycerin (Nitrostat) 0.4 Mg Tab 0.4 MG SL UD PRN for Chest Pain PLACE ONE TABLET UNDER THE TONGUE EVERY FIVE MINUTES DIRECTED IF NEEDED FOR CHEST PAIN. Ondansetron Hcl (Zofran) 8 Mg Tab 8 MG SL Q8 PRN for Nausea or Vomiting, TAB Terazosin Hcl (Hytrin) 5 Mg Cap 5 MG PO HS, CAP Take 5 mg PO HS in addition to 2mg for a total of 7mg PO HS Terazosin Hcl (Hytrin) 2 Mg Cap 2 MG PO HS, CAP Take 5 mg PO HS in addition to 2mg for a total of 7mg PO HS Discontinued Medications: Metoprolol Succ (Toprol Xl) (Toprol-Xl) 25 Mg Tabcr 12.5 MG PO DAILY Admission Information HPI (per Admitting provider): This is a 76 y/o male with PMHx of CAD, mild COPD, CKD stage 3, HTN, Dyslipidemia and other problems as outlined below who presents to the ED c/o chest pain that began this afternoon. Pt reports that he was woken up from an afternoon nap with chest pain. He describes the chest pain as 10/10 central substernal chest pain that did not radiate anywhere. Sxs were assoc with SOB. He took 2 nitro which relieved most of his pain. He estimates that the pain persisted for about an hour and a half. Pt mentions he had a mild episode of chest pain 3 weeks ago which resolved without intervention. He saw his share dairy farmer who increased his Imdur and ordered a 24-hour Holter. The Holter monitor (pt wore yesterday) results were unremarkable. Pt has a history of CAD. He had a suspected silent LAD MS in 2013. A cardiac catheterization was attempted @ [facility]. The catheterization was unsuccessful as LAD ended up dissecting during the procedure. No stents were placed and patient was managed medically. Pt follows with cardiology, Dr. Green. Pt denies fever/chills, diaphoresis, palpitations, abd pain, N/V, bowel or bladder issues, LE edema , calf pain, lightheadedness/dizziness. In the ED, vitals are stable. Pt is afebrile with no leukocytosis. Initial troponin is negative and EKG unremarkable. Pt is currently chest pain free and will be admitted for further evaluation and treatment. Physical Exam (per Admitting): General Appearance: WD/WN, no apparent distress, + pertinent finding (Pt is sitting up in bed with daughter at bedside ) Head: normocephalic, atraumatic Eyes: normal inspection ENT: hearing grossly normal Neck: supple Respiratory/Chest: chest non-tender, lungs clear, normal breath sounds, no respiratory distress Cardiovascular: regular rate, rhythm, no edema, no murmur Abdomen/GI: normal bowel sounds, non tender, soft Back: normal inspection Extremities/Musculoskelatal: normal inspection, no calf tenderness, no pedal edema Neurologic/Psych: alert, normal mood/affect, oriented x 3 Skin: normal color, warm/dry Hospital Course CHEST PAIN R/O ACS Patient has h/o CAD (chronic proximal LAD occlusion with collaterals to the distal LAD territory) s/p heart catheterization in 2013 complicated cath with LAD dissection at the time RFs: Former tobacco use, CAD, HTN, Dyslipidemia, age and sex EKG:no acute ischemic change Troponin: negative X 2 ECHO: Stable LAD territory wall motion abnormality with preserved LV EF continue Plavix, BB, statin and Imdur; nitro PRN Appreciate cardiology help Telemetry reveals stable sinus rhythm with occasional PVCs No plan for any procedure and plan for conservative management per discussion with cardiology and patient/family preferences. ELEVATED D-dimer: Venous Doppler: Negative for DVT CTA for PE :Negative HTN Uncontrolled continue amlodipine and metoprolol succinate 25 mg, increased from 12.5 mg daily Isosorbide mononitrate 30 mEq daily (Patient not taking previously as recommended) Cardiology on board CKD STAGE III creatinine is at baseline cont to monitor daily and avoid nephrotoxic agents when able MILD COPD stable; no evidence of acute exacerbation continue inhalers Quit smoking 2 years ago BPH continue Proscar and Hytrin DYSLIPIDEMIA continue statin DVT PROPHYLAXIS Heparin SQ CODE STATUS -FULL CODE per discussion with patient DISPOSITION: Plan to discharge home today Follow up with on Oct 04, 2016 at 10:50AM Follow up with on Oct 08, 2016 at 8:45AM PROCEDURES: ECHO: * There is a small wall motion abnormality in the mid and apical portion of the anterior wall with hypokinesis of the segments. * Left ventricular systolic function is normal. * Ejection Fraction = 55-60%. * The Doppler data and 2 D appearance of the aortic valve are discordant. The Doppler suggest only mild aortic stenosis, the appearance of the valve appears consistent with moderate aortic stenosis. * Mild to moderate valvular aortic stenosis. * Compared to the prior study dated 10/19/15, the LAD territory wall motion abnormality is felt to not be new, just better visualized on the current study as the wall motion abnormality was previously reported in 2014. CTA: 1. No pulmonary emboli identified. 2. No acute intrathoracic findings. 3. Moderate emphysema. No consolidation to suggest pneumonia. 4. Borderline cardiomegaly with extensive coronary artery calcification. Venous Duplex: No evidence of deep venous thrombus within the bilateral lower extremities. CXR: Mild lower lung interstitial thickening. This may reflect atelectasis. An infectious process or pulmonary edema could appear similar but are considered less likely. Total time spent on discharge = 35 minutes This includes examination of the patient, discharge planning, medication reconciliation, and communication with other providers. Discharge Instructions Discharge Instructions Admission Reason for Admission: Chest Pain Discharge Discharge Diagnosis / Problem: Atypical chest pain Discharge Goals Goal(s): Decrease discomfort, Improve function Activity Recommendations Activity Limitations: resume your previous activity Exercise/Sports Limitations: as tolerated Driving or Machine Use: resume 3 days after discharge . Instructions / Follow-Up Instructions / Follow-Up Follow up with on Oct 04, 2016 at 10:50AM Follow up with on Oct 08, 2016 at 8:45AM Take medications as prescribed Seek immediate medical attention if your symptoms reoccur or worsen Current Hospital Diet Patient's current hospital diet: AHA Diet (Heart Healthy) Discharge Diet Recommended Diet: AHA Diet (Heart Healthy) Pending Studies Studies pending at discharge: no Medical Emergencies . Who to Call and When: Medical Emergencies: If at any time you feel your situation is an emergency, please call 911 immediately. . Non-Emergent Contact Non-Emergency issues call your: Primary Care Provider, Control Director Call Non-Emergent contact if: you have a fever, your pain is not controlled, your pain is worsening, your pain is unusual for you, you have any medication questions . . "Provider Documentation" section prepared by Hudson Cabezas. VTE Core Measure Inpt VTE Proph given/why not?: Unfractionated heparin SQ
[2016-09-28 11:05] VITALS: BP 154/76; PULSE 68; TEMP 36.7; O2SAT 95
[2016-09-29] MEDS ORDERED: METOPROLOL SUCC 25MG EXT REL TAB PO SCH (09:00)
== END 2016-09-28 11:24 | disposition home or self-care (01) ==
LOC: ENRESERVDT → ENRESERVTM → C.EDC 13:59 → C.2T 15:42
PROVIDERS: ADMIT Internal Medicine; ATTEND Internal Medicine
DX: R07.89 Other chest pain (principal); I25.10 Atherosclerotic heart disease of native coronary artery without angina pectoris; N18.3 Chronic kidney disease, stage 3 (moderate); I12.9 Hypertensive chronic kidney disease with stage 1 through stage 4 chronic kidney disease, or unspecified chronic kidney disease; J44.9 Chronic obstructive pulmonary disease, unspecified; N40.0 Benign prostatic hyperplasia without lower urinary tract symptoms; K21.9 Gastro-esophageal reflux disease without esophagitis; I35.0 Nonrheumatic aortic (valve) stenosis; E78.5 Hyperlipidemia, unspecified; I25.2 Old myocardial infarction; Z87.891 Personal history of nicotine dependence; Z91.041 Radiographic dye allergy status; Z95.5 Presence of coronary angioplasty implant and graft; Z82.49 Family history of ischemic heart disease and other diseases of the circulatory system

== ENCOUNTER 2017-11-19 19:59 | Emergency (ER) | payer OTHER, MEDICARE ==
[~2017-11-19] VITALS: Ht 175.3 cm; Wt 65.3 kg
[~2017-11-19 19:59] MED LIST changes: +ARFO15NE INH; -ASPI81TA28 PO; -CLOP1TAB15 PO; +CLOP1TAB5 PO; +CLS1 PO; +ERYOPO OPB; +FINA5TAB4 PO; +HYT/2 PO; +ISOS30TA3 PO; -ISOS30TA35 PO; +KETO0.5S33 OPL; +LORA-741 PO; -METO25TA3 PO; +ONDA-170 SL; -ONDA8TAB6 SL; -PRT/20 PO; +TERA5CAP PO; +TPRSR25 PO
[2017-11-19 21:30] VITALS: TEMP 36.6
[2017-11-19] MEDS ORDERED: SODIUM CHLORIDE 0.9% 500ML 500 ML IV STA (21:30)
[2017-11-19] MEDS ORDERED: ONDANSETRON INJ 2 MG/ML 2 ML VIAL IV STA (21:39)
--- NOTE | 2017-11-19 21:54 | DIAGNOSTIC IMAGING REPORT ---
CHEST ONE VIEW PORTABLE CLINICAL HISTORY: Fever. Sepsis. COMPARISON STUDY: Chest CT September 27, 2016. FINDINGS: Emphysema is noted. There is no consolidation to suggest pneumonia. There is no evidence for pulmonary edema. Cardiomediastinal silhouette is normal. No pneumothorax or pleural effusion is noted. IMPRESSION: 1. No acute cardiopulmonary findings. 2. Emphysema. Electronically signed by: Eliseo Mendenhall M.D. 11/19/2017 9:52 PM Dictated Date/Time: 11/19/2017 9:51 PM
[2017-11-19 22:20] VITALS: Ht 175.3 cm; Wt 65.3 kg
[2017-11-19 22:20] LABS: BASO % 0.3 %; BASO ABS # 0.02 K/uL (0-0.2); EOS % 1.7 %; HEMOGLOBIN 14.1 g/dL (14.0-18.0); IG# 0.01 K/uL (0.00-0.02); LYMPH % 9.4 %; LYMPH ABS # 0.54 K/uL (1.2-3.4); MEAN CELL VOLUME 90.7 fL (80-100); MEAN CORPUSCULAR HEMOGLOBIN 30.5 pg (25-34); MEAN CORPUSCULAR HGB CONC 33.6 g/dl (32-36); MEAN PLATELET VOLUME 9.9 fL (7.4-10.4); MONO % 12.2 %; NEUT % 76.2 %; NEUT ABS # 4.36 K/uL (1.4-6.5); PLATELET COUNT 159 K/uL (130-400); RED CELL DISTRIBUTION WIDTH CV 13.9 % (11.5-14.5); RED CELL DISTRIBUTION WIDTH SD 46.1 fL (36.4-46.3); WHITE BLOOD COUNT 5.73 K/uL (4.8-10.8)
[2017-11-19 22:35] LABS: INR 1.1 (0.9-1.1); PTT PATIENT 29.8 SECONDS (21.0-31.0)
[2017-11-19 22:40] LABS: ALBUMIN 3.7 gm/dl (3.4-5.0); ALT/SGPT 18 U/L (12-78); BLOOD UREA NITROGEN 19 mg/dl (7-18); CALCIUM 8.6 mg/dl (8.5-10.1); CARBON DIOXIDE 30 mmol/L (21-32); CREATININE 1.45 mg/dl (0.60-1.40); GLUCOSE 88 mg/dl (70-99); SODIUM 140 mmol/L (136-145)
[2017-11-19 22:45] LABS: INFLUENZA B ANTIGEN Neg for Influ B (NEG)
[2017-11-19 22:45] LABS: ALKALINE PHOSPHATASE 90 U/L (45-117); AST/SGOT 20 U/L (15-37); TOTAL PROTEIN 6.6 gm/dl (6.4-8.2)
[2017-11-19] MEDS ORDERED: ALBUTEROL HFA 8 GM INHALER INH STA (23:25)
[2017-11-19] MEDS ORDERED: AZITHROMYCIN 250 MG TAB PO STA (23:25)
[2017-11-19] MEDS ORDERED: AZIT250T PO (23:52)
[2017-11-20 00:02] VITALS: BP 140/75; PULSE 72; O2SAT 94
--- NOTE | 2017-11-20 01:24 | EMERGENCY ROOM VISIT NOTE ---
ED Visit Note First contact with patient: 21:26 I have personally seen and evaluated the patient with the PA. I agree with the diagnosis and management decisions and have been personally involved in the case. Please see Mariama Murray PA-C's notes for further details of the history, physical and visit.
--- NOTE | 2017-11-20 06:28 | EMERGENCY ROOM VISIT NOTE ---
History First contact with patient: 21:26 Chief Complaint: RESPIRATORY PROBLEMS Stated Complaint: FEVER, SORE THROAT, DIFFICULTY BREATHING Nursing Triage Summary: Patient reports he has had a high fever and sorethroat. Patient has taken 6 extra strength tylenol today. Patient also reports shortness of breath. Patient reports cough as well. History of Present Illness The patient is a 77 year old male who presents to the Emergency Room with complaints of fever, chills, cough, congestion, body aches and pains and sore throat for the past day. Other people in his family are sick with similar illness. He did receive the flu vaccine. He has taking Tylenol already today. Patient denies chest pain, dyspnea, abdominal pain, vomiting, diarrhea, neck stiffness he is tolerating p.o. fluids but has a lack of appetite.. Review of Systems An 10 system review of systems was completed with positives and pertinent negatives listed in the HPI. Past Medical/Surgical History Medical Problems: (1) CAD (coronary artery disease) (2) Calculus Of Kidney (3) Chest pain (4) CKD (chronic kidney disease) stage 3, GFR 30-59 ml/min (5) COPD, mild (6) Coron Atheroscler Nos Type Vessel, [place] (7) Dyslipidemia (8) Emphysema Nec (9) GERD (gastroesophageal reflux disease) (10) HTN (hypertension) (11) Hypertrophy (Benign) Of Prostate W/O Urinary Obst & Oth Luts (12) Moderate aortic stenosis (13) Unilat Inguinal Hernia Surgical Problems: (1) H/O coronary angioplasty (2) History of back surgery (3) History of inguinal hernia repair Family History Cancer Hypertension Social History Smoking Status: Never Smoker Drug Use: none Marital Status: Housing Status: lives alone Occupation Status: retired Current/Historical Medications Scheduled Amlodipine (Norvasc), 5 MG PO DAILY Atorvastatin (Lipitor), 20 MG PO DAILY Azithromycin (Zithromax), 250 MG PO DAILY Clopidogrel Bisulfate (Plavix), 75 MG PO DAILY Colestipol HCl (Colestid), 1 GM PO DAILY Cyanocobalamin (Vitamin B12), 1,000 MG PO DAILY Erythromycin Opth (Erythromycin Opth), 0.25 INCH OPB HS Finasteride (Proscar), 5 MG PO DAILY Isosorbide Mononitrate Ext Rel (Imdur Ext Rel), 30 MG PO DAILY Ketorolac Tromethamine (Ophth) (Acular Oph), 1 DROPS OPL QID Metoprolol Succinate (Metoprolol Succinate ER), 25 MG PO QAM Terazosin Hcl (Hytrin), 5 MG PO HS Terazosin Hcl (Hytrin), 2 MG PO HS Scheduled PRN Arformoterol Tartrate (Brovana), 15 MCG INH BID PRN for SOB/Wheezing Lorazepam (Ativan), 0.5 MG PO TID PRN for Anxiety Meclizine Hcl (Meclizine Hcl), 1 TAB PO TID PRN for dizziness Nitroglycerin (Nitrostat), 0.4 MG SL UD PRN for Chest Pain Ondansetron Hcl (Zofran), 8 MG SL Q8 PRN for Nausea or Vomiting Physical Exam Vital Signs Date Time Temp Pulse Resp B/P (MAP) Pulse Ox O2 Delivery O2 Flow Rate FiO2 11/20/17 00:02 72 18 140/75 94 11/19/17 22:30 74 20 147/82 99 Room Air 11/19/17 22:20 Room Air 11/19/17 21:30 36.6 72 20 164/90 98 Room Air 11/19/17 20:12 36.9 87 18 97/60 95 Room Air Physical Exam VITALS: Vitals are noted on the nurse's note and reviewed by myself. Vital signs stable. GENERAL: Pleasant male, in no acute distress, nondiaphoretic, well-developed well-nourished. SKIN: The skin was without rashes, erythema, edema, or bruising. There is no tenting of the skin. Capillary reflex less than 2 seconds. HEAD: Normocephalic atraumatic. EARS: External auditory canals clear, tympanic membranes pearly rojas without erythema or effusion bilaterally. EYES: Pupils equal round and reactive to light and accommodation. Conjunctivae without injection, sclerae without icterus. Extraocular movements intact. NOSE: Patent, turbinates without inflammation or discharge. No sinus tenderness. MOUTH: Mucous membranes mildly dry. Pharynx without erythema or exudate. Uvula midline. Airway patent. Tongue does not deviate. NECK: Supple without nuchal rigidity. No lymphadenopathy. No thyromegaly. Cervical spine is nontender. No JVD. HEART: Regular rate and rhythm LUNGS: Clear to auscultation bilaterally without wheezes, rales or rhonchi. No retractions or accessory muscle use. ABDOMEN: Positive bowel sounds x 4. Normal tympanic percussion. Soft, nontender, without masses or organomegaly. Givens sign negative. No guarding or rebound tenderness. No CVA tenderness MUSCULOSKELETAL: No muscle atrophy, erythema, or edema noted. NEURO: Patient was alert and oriented to person place and time. Normal sensation to light and sharp touch. No focal neurological deficits. Medical Decision & Procedures Laboratory Results 11/19/17 21:50 Red Blood Count 4.63, Mean Corpuscular Volume 90.7, Mean Corpuscular Hemoglobin 30.5, Mean Corpuscular Hemoglobin Concent 33.6, Mean Platelet Volume 9.9, Neutrophils (%) (Auto) 76.2, Lymphocytes (%) (Auto) 9.4, Monocytes (%) (Auto) 12.2, Eosinophils (%) (Auto) 1.7, Basophils (%) (Auto) 0.3, Neutrophils # (Auto ) 4.36, Lymphocytes # (Auto) 0.54, Monocytes # (Auto) 0.70, Eosinophils # (Auto ) 0.10, Basophils # (Auto) 0.02 11/19/17 21:50 Test 11/19/17 21:50 11/19/17 21:55 11/19/17 22:10 11/19/17 22:11 White Blood Count 5.73 K/uL (4.8-10.8) Red Blood Count 4.63 M/uL (4.7-6.1) Hemoglobin 14.1 g/dL (14.0-18.0) Hematocrit 42.0 % (42-52) Mean Corpuscular Volume 90.7 fL (80-100) Mean Corpuscular Hemoglobin 30.5 pg (25-34) Mean Corpuscular Hemoglobin Concent 33.6 g/dl (32-36) Platelet Count 159 K/uL (130-400) Mean Platelet Volume 9.9 fL (7.4-10.4) Neutrophils (%) (Auto) 76.2 % Lymphocytes (%) (Auto) 9.4 % Monocytes (%) (Auto) 12.2 % Eosinophils (%) (Auto) 1.7 % Basophils (%) (Auto) 0.3 % Neutrophils # (Auto) 4.36 K/uL (1.4-6.5) Lymphocytes # (Auto) 0.54 K/uL (1.2-3.4) Monocytes # (Auto) 0.70 K/uL (0.11-0.59) Eosinophils # (Auto) 0.10 K/uL (0-0.5) Basophils # (Auto) 0.02 K/uL (0-0.2) RDW Standard Deviation 46.1 fL (36.4-46.3) RDW Coefficient of Variation 13.9 % (11.5-14.5) Immature Granulocyte % (Auto) 0.2 % Immature Granulocyte # (Auto) 0.01 K/uL (0.00-0.02) Prothrombin Time 11.1 SECONDS (9.0-12.0) Prothromb Time International Ratio 1.1 (0.9-1.1) Activated Partial Thromboplast Time 29.8 SECONDS (21.0-31.0) Partial Thromboplastin Ratio 1.1 Anion Gap 4.0 mmol/L (3-11) Est Creatinine Clear Calc Drug Dose 39.4 ml/min Estimated GFR () 53.5 Estimated GFR (Non- 46.1 BUN/Creatinine Ratio 13.2 (10-20) Calcium Level 8.6 mg/dl (8.5-10.1) Total Bilirubin 0.7 mg/dl (0.2-1) Aspartate Amino Transf (AST/SGOT) 20 U/L (15-37) Alanine Aminotransferase (ALT/SGPT) 18 U/L (12-78) Alkaline Phosphatase 90 U/L (45-117) Troponin I < 0.015 ng/ml (0-0.045) Total Protein 6.6 gm/dl (6.4-8.2) Albumin 3.7 gm/dl (3.4-5.0) Globulin 2.9 gm/dl (2.5-4.0) Albumin/Globulin Ratio 1.3 (0.9-2) Influenza Type A Antigen Neg for Influ A (NEG) Influenza Type B Antigen Neg for Influ B (NEG) Bedside Lactic Acid Venous 0.83 mmol/L (0.90-1.70) Bedside Troponin I < 0.030 ng/ml (0-0.045) Test 11/19/17 22:25 Urine Color YELLOW Urine Appearance CLOUDY (CLEAR) Urine pH 8.0 (4.5-7.5) Urine Specific [place] 1.025 (1.000-1.030) Urine Protein NEG (NEG) Urine Glucose (UA) NEG (NEG) Urine Ketones TRACE (NEG) Urine Occult Blood NEG (NEG) Urine Nitrite NEG (NEG) Urine Bilirubin NEG (NEG) Urine Urobilinogen NEG (NEG) Urine Leukocyte Esterase NEG (NEG) Urine WBC (Auto) 1-5 /hpf (0-5) Urine RBC (Auto) 5-10 /hpf (0-4) Urine Hyaline Casts (Auto) 1-5 /lpf (0-5) Urine Epithelial Cells (Auto) 10-20 /lpf (0-5) Urine Bacteria (Auto) NEG (NEG) Medications Administered Medications (Trade) Dose Ordered Sig/Amber Route Start Time Stop Time Status Last Admin Dose Admin Sodium Chloride 500 ml @ 999 mls/hr Q31M STAT IV 11/19/17 21:30 11/19/17 22:00 DC 11/19/17 22:22 999 MLS/HR Ondansetron HCl (Zofran Inj) 4 mg NOW STAT IV 11/19/17 21:39 11/19/17 21:40 DC 11/19/17 22:22 4 MG Azithromycin (Zithromax Tab) 500 mg NOW STAT PO 11/19/17 23:25 11/19/17 23:28 DC 11/19/17 23:56 500 MG Albuterol (Ventolin Hfa Inhaler) 2 puffs ONE STAT INH 11/19/17 23:25 11/19/17 23:28 DC 11/19/17 23:55 2 PUFFS ED Course Prior records/ancillary studies reviewed. Triage Nursing notes reviewed. Additional history obtained from family. The patient's history was concerning for fever. Differential diagnosis: Etiologies such as viral syndrome, otitis, pharyngitis, pneumonia, influenza, meningitis, urinary tract infection, sepsis, bacteremia, as well as others were entertained. Physical examination: Patient is alert and tolerating fluids ER treatment provided: Albuterol, Zithromax On reassessment the patient felt better. Diagnostics interpreted by me: ECG: Normal sinus, normal intervals, no acute ST-T wave changes. Impression normal sinus rhythm interpreted by myself The labs revealed negative influenza. No worrisome leukocytosis. Negative troponin Imaging studies: Chest x-ray with no acute consolidation, pneumothorax free of my interpretation This appears to be consistent with bronchitis. Patient had no pneumonia on x- ray. Negative flu. Other family members are sick with similar illness. His son-in-law is currently in the ER similar complaints. Patient was not hypoxic. He felt better and requested leave. He was advised to take medications as directed, rest, stay well-hydrated and follow-up in a few days with family care here in the ER sooner for high fevers, difficulty breathing, worsening signs or symptoms or as needed. Patient had a negative lactic acid. Blood cultures pending.. By the evaluation outlined above emergent etiologies such as otitis, pharyngitis, pneumonia, meningitis, urinary tract infection, sepsis, bacteremia , as well as others were deemed relatively unlikely. The pt informed about the findings as listed above. All questions were answered and pleased with the treatment. Return instructions were outlined and the patient was discharged in stable condition. Outpatient prescription management: Zithromax Referral: The patient was referred back to their primary care physician for follow-up in 2 to 3 days for a recheck of the current condition. Case reviewed with my attending The chart was completed utilizing [email or web address] Speech voice recognition software. Grammatical errors, random word insertions, pronoun errors, and incomplete sentences are an occassional consequence of this system due to software limitations, ambient noise, and hardware issues. Any formal questions or concerns about the content, text, or information contained within the body of this dictation should be directly addressed to the physician export sales assistant for clarification. Medical Decision As above Medication Reconcilliation Current Medication List: was personally reviewed by me Blood Pressure Screening Patient's blood pressure: Normal blood pressure Impression Primary Impression: Bronchitis Departure Information Dispostion Home / Self-Care Condition GOOD Prescriptions Azithromycin (Zithromax) 250 Mg Tab 250 MG PO DAILY for 4 Days, #4 TAB Prov: Tosha Murray PA-C 11/19/17 Forms WORK / SCHOOL INSTRUCTIONS, HOME CARE DOCUMENTATION FORM, IMPORTANT VISIT INFORMATION Patient Instructions Bronchitis Acute, My [facility] Additional Instructions DO NOT drive, drink alcohol, operate machinery, or perform dangerous activities today. You were given medications in the ER that can affect your ability to safely function or operate a vehicle. Azithromycin(Zithromax) 250mg: Take one a day for 4 additional days. All antibiotics can cause diarrhea. If this occurs and you feel worse or it does not resolve in 1-2 days follow up with your doctor or return to the Emergency Department as this could be signs of serious underlying problems. Any medication can cause an allergic reaction, stop the pills immediately and return to the ER for rash, hives, breathing difficulties, or swelling. Albuterol Inhaler: Take 2 puffs four times daily for seven days, then as needed. Acetaminophen(Tylenol) may be used for fever or pain. Use 1000mg every six hours as needed. Avoid using more than 3000mg in a 24 hour period. AND/OR Ibuprofen(Motrin, Advil) may be used for fever or pain. Use 600mg every six hours as needed. Take with food. Avoid using more than 2400mg in a 24 hour period. Do not use 2400mg per day for more than three consecutive days without physician direction. Prolonged inappropriate use can lead to stomach upset or ulcers. Controlling your fever with Tylenol and Ibuprofen as above will make you feel better. Rest and drink plenty of fluids. Avoid strenuous activity until your symptoms resolve and your breathing returns to normal. Continue current medications. Return to the ER for chest pain, difficulty breathing, persistent fevers, vomiting, worsening of your condition, or as needed. Follow-up with family care in 2-3 days.
== END 2017-11-20 00:03 | disposition home or self-care (01) ==
LOC: C.EDB 20:01
DX: J20.9 Acute bronchitis, unspecified (principal); I25.10 Atherosclerotic heart disease of native coronary artery without angina pectoris; N18.3 Chronic kidney disease, stage 3 (moderate); J44.9 Chronic obstructive pulmonary disease, unspecified; E78.5 Hyperlipidemia, unspecified; K21.9 Gastro-esophageal reflux disease without esophagitis; I10 Essential (primary) hypertension; N40.0 Benign prostatic hyperplasia without lower urinary tract symptoms; Z79.899 Other long term (current) drug therapy

== ENCOUNTER 2018-03-27 17:01 | Emergency (ER) | payer OTHER, MEDICARE ==
[~2018-03-27] VITALS: Ht 177.8 cm; Wt 62.8 kg
[~2018-03-27 17:01] MED LIST changes: -AMLO-110 PO; +AMLO5TAB3 PO; -NTRGSL/4 SL
[2018-03-27 17:04] VITALS: TEMP 36.4; Ht 177.8 cm; Wt 62.8 kg
[2018-03-27 18:23] LABS: BASO % 0.4 %; BASO ABS # 0.03 K/uL (0-0.2); EOS % 1.9 %; EOS ABS # 0.13 K/uL (0-0.5); HEMOGLOBIN 13.7 g/dL (14.0-18.0); IG# 0.01 K/uL (0.00-0.02); LYMPH % 29.4 %; LYMPH ABS # 1.97 K/uL (1.2-3.4); MEAN CELL VOLUME 91.1 fL (80-100); MEAN CORPUSCULAR HEMOGLOBIN 30.4 pg (25-34); MEAN CORPUSCULAR HGB CONC 33.4 g/dl (32-36); MEAN PLATELET VOLUME 9.5 fL (7.4-10.4); MONO % 10.7 %; MONO ABS # 0.72 K/uL (0.11-0.59); NEUT % 57.5 %; NEUT ABS # 3.85 K/uL (1.4-6.5); PLATELET COUNT 176 K/uL (130-400); RED CELL DISTRIBUTION WIDTH CV 13.4 % (11.5-14.5); RED CELL DISTRIBUTION WIDTH SD 44.7 fL (36.4-46.3); WHITE BLOOD COUNT 6.71 K/uL (4.8-10.8)
--- NOTE | 2018-03-27 18:32 | DIAGNOSTIC IMAGING REPORT ---
SINGLE VIEW CHEST CLINICAL HISTORY: Weakness. Change in mental status. FINDINGS: 2 AP, portable, upright chest radiographs our compared to study dated 11/19/2017 and correlated with chest CT dated 09/27/2016. The examination is degraded by portable technique, apical lordotic positioning, and patient rotation. The cardiomediastinal silhouette is unremarkable. Enlargement of the central pulmonary arteries suggests pulmonary artery hypertension. Noting atherosclerotic calcification of the thoracic aorta. Advanced emphysema and chronic interstitial thickening are similar to previous. No airspace consolidation or large pleural effusion is identified. Apical scarring is noted. No pneumothorax is seen. The skeletal structures are osteopenic. The bony thorax is grossly intact. IMPRESSION: Advanced emphysema with no acute cardiopulmonary abnormality. Electronically signed by: Taras Vences M.D. 03/27/2018 6:31 PM Dictated Date/Time: 03/27/2018 6:30 PM
[2018-03-27 18:35] LABS: PTT PATIENT 27.7 SECONDS (21.0-31.0)
--- NOTE | 2018-03-27 18:43 | DIAGNOSTIC IMAGING REPORT ---
CT SCAN OF THE BRAIN WITHOUT IV CONTRAST CLINICAL HISTORY: Weakness. Change in mental status. COMPARISON STUDY: CT of the brain dated 10/18/2015. TECHNIQUE: Unenhanced axial CT scan of the brain is performed from the vertex to the skull base. A dose lowering technique was utilized adhering to the principles of ALARA. CT DOSE: 537.48 mGy.cm FINDINGS: Brain parenchyma: There are age-related involutional changes noting moderate patchy subcortical and periventricular microangiopathic change. There is no hemorrhage, mass effect, or evidence of acute territorial ischemia by CT criteria. [place]-white matter is preserved. No extra-axial fluid collection is seen. Ventricles, sulci, cisterns: Prominent secondary to involutional change. Intracranial vasculature: There is atherosclerotic calcification of the cavernous carotid and vertebral arteries. Calvarium: Unremarkable. Sinuses and mastoids: The visualized paranasal sinuses are clear. The mastoid air cells are well pneumatized. Orbits: The bony orbits are grossly intact. IMPRESSION: There is no hemorrhage, mass effect, or evidence of acute territorial ischemia by CT criteria. Electronically signed by: Taras Vences M.D. 03/27/2018 6:42 PM Dictated Date/Time: 03/27/2018 6:40 PM
[2018-03-27 18:57] LABS: BLOOD UREA NITROGEN 20 mg/dl (7-18); CALCIUM 8.8 mg/dl (8.5-10.1); CARBON DIOXIDE 28 mmol/L (21-32); CREATININE 1.33 mg/dl (0.60-1.40); GLUCOSE 86 mg/dl (70-99); POTASSIUM 4.2 mmol/L (3.5-5.1); SODIUM 140 mmol/L (136-145)
[2018-03-27] MEDS ORDERED: ISOS30TA35 PO (19:35)
[2018-03-27] MEDS ORDERED: LPT40 PO (19:35)
[2018-03-27] MEDS ORDERED: TPRSR/25 PO (19:35)
[2018-03-27] MEDS ORDERED: NTRGSL/4 SL (20:02)
--- NOTE | 2018-03-27 21:15 | DIAGNOSTIC IMAGING REPORT ---
MRI OF THE BRAIN WITHOUT CONTRAST CLINICAL HISTORY: Left arm and leg numbness. COMPARISON STUDY: MRI of the brain October 18, [address] performed earlier today. TECHNIQUE: Utilizing a 1.5 Mita magnet and dedicated coil, multiplanar, multiecho imaging of the brain was performed without IV contrast. FINDINGS: There are no foci of restricted diffusion to suggest acute infarct. No acute intracranial hemorrhage, midline shift or mass effect is present. Ventricular system is stable. The basilar cisterns are patent. There are no extra-axial collections. Flow-voids for the major intracranial vessels are present. No intracranial masses are identified on this unenhanced exam. Moderate cerebral atrophy is noted. White matter T2 hyperintense foci suggest small vessel disease. Calvarial signal is maintained. Orbits are unremarkable. IMPRESSION: No acute intracranial findings. Electronically signed by: Eliseo Mendenhall M.D. 03/27/2018 9:14 PM Dictated Date/Time: 03/27/2018 9:11 PM
[2018-03-27 22:26] VITALS: BP 166/81; PULSE 64; O2SAT 97
--- NOTE | 2018-03-27 22:27 | EMERGENCY ROOM VISIT NOTE ---
History Report prepared by Jose Antonio: Adriana Abdi Under the Supervision of: Dr. Ishaan Fernandez D.O. First contact with patient: 17:21 Chief Complaint: HYPERTENSION Stated Complaint: HIGH BLOOD PRESSURE,NUMBNESS IN LEG History of Present Illness The patient is a 78 year old male who presents to the Emergency Room with complaints of waxing and waning numbness in his legs that started last week when he woke up one morning. The patient notes that the numbness runs up his legs and sometimes up his hands, arms, and shoulders. He describes the numbness as "running/moving." The patient notes that the numbness worsens for 10-15 minutes at a time, and that it travels up his body about 4-5 times a day. The patient states his symptoms are not associated with any particular activity. He states that his big toe has been numb since he went to [place] in May 2014 for surgery. Per family, the patient was referred to the ED today because the patient's blood pressure was high and numbness symptoms. The patient currently feels numbness only in his toe. The patient reports a history of a blood clot in his left leg. The patient states that he frequently has leg cramps in his left leg at night. Source of History: patient, family Onset: last week Position: leg Quality: numbness Timing: waxes/wanes Associated Symptoms: No fevers Review of Systems See HPI for pertinent positives & negatives. A total of 10 systems reviewed and were otherwise negative. Past Medical & Surgical Medical Problems: (1) CAD (coronary artery disease) (2) Calculus Of Kidney (3) Chest pain (4) CKD (chronic kidney disease) stage 3, GFR 30-59 ml/min (5) COPD, mild (6) Coron Atheroscler Nos Type Vessel, [place] (7) Dyslipidemia (8) Emphysema Nec (9) GERD (gastroesophageal reflux disease) (10) HTN (hypertension) (11) Hypertrophy (Benign) Of Prostate W/O Urinary Obst & Oth Luts (12) Moderate aortic stenosis (13) Unilat Inguinal Hernia Surgical Problems: (1) H/O coronary angioplasty (2) History of back surgery (3) History of inguinal hernia repair Family History Cancer Hypertension Social History Smoking Status: Never Smoker Drug Use: none Marital Status: Housing Status: lives alone Occupation Status: retired Current/Historical Medications Scheduled Atorvastatin (Lipitor), 20 MG PO DAILY Clopidogrel Bisulfate (Plavix), 75 MG PO DAILY Colestipol HCl (Colestid), 1 GM PO DAILY Cyanocobalamin (Vitamin B12), 1,000 MG PO DAILY Finasteride (Proscar), 5 MG PO DAILY Isosorbide Mononitrate Ext Rel (Imdur Ext Rel), 30 MG PO DAILY Metoprolol Succinate (Metoprolol Succinate ER), 25 MG PO DAILY Terazosin Hcl (Hytrin), 5 MG PO HS Terazosin Hcl (Hytrin), 2 MG PO HS Scheduled PRN Arformoterol Tartrate (Brovana), 15 MCG INH BID PRN for SOB/Wheezing Erythromycin Opth (Erythromycin Opth), 0.25 INCH OPB HS PRN for FLARE UP Ketorolac Tromethamine (Ophth) (Acular Oph), 1 DROPS OPL QID PRN for Lorazepam (Ativan), 0.5 MG PO TID PRN for Anxiety Meclizine Hcl (Meclizine Hcl), 1 TAB PO TID PRN for dizziness Nitroglycerin (Nitrostat), 0.4 MG SL UD PRN for Chest Pain Ondansetron Hcl (Zofran), 8 MG SL Q8 PRN for Nausea or Vomiting Allergies Coded Allergies: Iodinated Diagnostic Agents (Verified Allergy, Unknown, RASH, 09/26/16) Pt reports allergy to Iodinated contrast. No Food allergy to Iodine per pt. Tetracycline (Verified Allergy, Unknown, Unknown., 09/26/16) Reported by PT. Physical Exam Vital Signs Date Time Temp Pulse Resp B/P (MAP) Pulse Ox O2 Delivery O2 Flow Rate FiO2 03/27/18 22:26 64 16 166/81 97 Room Air 03/27/18 22:09 62 03/27/18 21:00 55 20 150/92 96 03/27/18 20:06 62 18 160/109 98 Room Air 03/27/18 19:02 54 16 188/102 100 Room Air 03/27/18 18:29 45 16 168/86 98 Room Air 03/27/18 18:15 59 03/27/18 17:04 36.4 60 18 183/90 100 Room Air Physical Exam VITAL SIGNS: were reviewed as above. GENERAL:Non-toxic in appearance. SKIN: Warm dry and pink. HEAD: Normocephalic and atraumatic. OROPHARYNX: Is clear and moist NECK: Supple without lymphadenopathy or meningismus. LUNGS: clear. HEART: Regular rate and rhythm. ABDOMEN: Soft and nontender. EXTREMITIES: Warm and well perfused. NEUROLOGICALLY: Awake alert and oriented without focal deficit. Cranial nerves 2 -12 are intact. There is no pronator drift. Cerebellar testing is within normal limits. There is no nystagmus. There is no facial droop. Speech is clear. Vision is grossly normal. MUSCULOSKELETAL: Good muscle tone. No evidence of trauma. Medical Decision & Procedures ER Provider Diagnostic Interpretation: Radiology results as stated below per my review and radiologist interpretation: CT SCAN OF THE BRAIN WITHOUT IV CONTRAST CLINICAL HISTORY: Weakness. Change in mental status. COMPARISON STUDY: CT of the brain dated 10/18/2015. TECHNIQUE: Unenhanced axial CT scan of the brain is performed from the vertex to the skull base. A dose lowering technique was utilized adhering to the principles of ALARA. CT DOSE: 537.48 mGy.cm FINDINGS: Brain parenchyma: There are age-related involutional changes noting moderate patchy subcortical and periventricular microangiopathic change. There is no hemorrhage, mass effect, or evidence of acute territorial ischemia by CT criteria. [place]-white matter is preserved. No extra-axial fluid collection is seen. Ventricles, sulci, cisterns: Prominent secondary to involutional change. Intracranial vasculature: There is atherosclerotic calcification of the cavernous carotid and vertebral arteries. Calvarium: Unremarkable. Sinuses and mastoids: The visualized paranasal sinuses are clear. The mastoid air cells are well pneumatized. Orbits: The bony orbits are grossly intact. IMPRESSION: There is no hemorrhage, mass effect, or evidence of acute territorial ischemia by CT criteria. Electronically signed by: Taras Vences M.D. 03/27/2018 6:42 PM Dictated Date/Time: 03/27/2018 6:40 PM SINGLE VIEW CHEST CLINICAL HISTORY: Weakness. Change in mental status. FINDINGS: 2 AP, portable, upright chest radiographs our compared to study dated 11/19/2017 and correlated with chest CT dated 09/27/2016. The examination is degraded by portable technique, apical lordotic positioning, and patient rotation. The cardiomediastinal silhouette is unremarkable. Enlargement of the central pulmonary arteries suggests pulmonary artery hypertension. Noting atherosclerotic calcification of the thoracic aorta. Advanced emphysema and chronic interstitial thickening are similar to previous. No airspace consolidation or large pleural effusion is identified. Apical scarring is noted. No pneumothorax is seen. The skeletal structures are osteopenic. The bony thorax is grossly intact. IMPRESSION: Advanced emphysema with no acute cardiopulmonary abnormality. Electronically signed by: Taras Vences M.D. 03/27/2018 6:31 PM Dictated Date/Time: 03/27/2018 6:30 PM MRI OF THE BRAIN WITHOUT CONTRAST CLINICAL HISTORY: Left arm and leg numbness. COMPARISON STUDY: MRI of the brain October 18, [address] performed earlier today. TECHNIQUE: Utilizing a 1.5 Mita magnet and dedicated coil, multiplanar, multiecho imaging of the brain was performed without IV contrast. FINDINGS: There are no foci of restricted diffusion to suggest acute infarct. No acute intracranial hemorrhage, midline shift or mass effect is present. Ventricular system is stable. The basilar cisterns are patent. There are no extra-axial collections. Flow-voids for the major intracranial vessels are present. No intracranial masses are identified on this unenhanced exam. Moderate cerebral atrophy is noted. White matter T2 hyperintense foci suggest small vessel disease. Calvarial signal is maintained. Orbits are unremarkable. IMPRESSION: No acute intracranial findings. Electronically signed by: Eliseo Mendenhall M.D. 03/27/2018 9:14 PM Dictated Date/Time: 03/27/2018 9:11 PM Laboratory Results 03/27/18 18:14 Red Blood Count 4.50, Mean Corpuscular Volume 91.1, Mean Corpuscular Hemoglobin 30.4, Mean Corpuscular Hemoglobin Concent 33.4, Mean Platelet Volume 9.5, Neutrophils (%) (Auto) 57.5, Lymphocytes (%) (Auto) 29.4, Monocytes (%) (Auto) 10.7, Eosinophils (%) (Auto) 1.9, Basophils (%) (Auto) 0.4, Neutrophils # (Auto ) 3.85, Lymphocytes # (Auto) 1.97, Monocytes # (Auto) 0.72, Eosinophils # (Auto ) 0.13, Basophils # (Auto) 0.03 03/27/18 18:14 Test 03/27/18 18:14 White Blood Count 6.71 K/uL (4.8-10.8) Red Blood Count 4.50 M/uL (4.7-6.1) Hemoglobin 13.7 g/dL (14.0-18.0) Hematocrit 41.0 % (42-52) Mean Corpuscular Volume 91.1 fL (80-100) Mean Corpuscular Hemoglobin 30.4 pg (25-34) Mean Corpuscular Hemoglobin Concent 33.4 g/dl (32-36) Platelet Count 176 K/uL (130-400) Mean Platelet Volume 9.5 fL (7.4-10.4) Neutrophils (%) (Auto) 57.5 % Lymphocytes (%) (Auto) 29.4 % Monocytes (%) (Auto) 10.7 % Eosinophils (%) (Auto) 1.9 % Basophils (%) (Auto) 0.4 % Neutrophils # (Auto) 3.85 K/uL (1.4-6.5) Lymphocytes # (Auto) 1.97 K/uL (1.2-3.4) Monocytes # (Auto) 0.72 K/uL (0.11-0.59) Eosinophils # (Auto) 0.13 K/uL (0-0.5) Basophils # (Auto) 0.03 K/uL (0-0.2) RDW Standard Deviation 44.7 fL (36.4-46.3) RDW Coefficient of Variation 13.4 % (11.5-14.5) Immature Granulocyte % (Auto) 0.1 % Immature Granulocyte # (Auto) 0.01 K/uL (0.00-0.02) Prothrombin Time 10.9 SECONDS (9.0-12.0) Prothromb Time International Ratio 1.0 (0.9-1.1) Activated Partial Thromboplast Time 27.7 SECONDS (21.0-31.0) Partial Thromboplastin Ratio 1.1 Anion Gap 7.0 mmol/L (3-11) Est Creatinine Clear Calc Drug Dose 40.7 ml/min Estimated GFR () 58.9 Estimated GFR (Non- 50.8 BUN/Creatinine Ratio 14.9 (10-20) Calcium Level 8.8 mg/dl (8.5-10.1) Magnesium Level 2.4 mg/dl (1.8-2.4) Total Creatine Kinase 230 U/L (39-308) Troponin I < 0.015 ng/ml (0-0.045) Thyroid Stimulating Hormone (TSH) 1.560 uIu/ml (0.300-4.500) Laboratory results as stated above per my review. ECG Per My Interpretation Indication: other (leg numbness) Rate (beats per minute): 51 Rhythm: sinus bradycardia Findings: no ectopy, other (no ST elevation) ED Course 1752: Previous medical records were reviewed. The patient was evaluated in room C9. A complete history and physical examination was performed. 191: I checked on the patient and updated him on his results. Medical Decision Differential includes acute coronary syndrome, myocardial infarction, CVA, TIA, anemia, infection, pneumonia, UTI, pyelonephritis, poor nutrition, dehydration, electrolyte disturbance,hypoglycemia. This is a 78-year-old male who presents to the ED with a chief complaint of numbness that originates in his left leg and travels through his left hip up to his left axilla/shoulder area. The patient states that he has had the symptoms intermittently for the past 10 days or so. He states that the symptoms last for about 10 or 15 minutes and he gets the symptoms about 4 or 5 times a day. He is currently not having the symptoms. He does report some chronic numbness in his left big toe since 2013. The patient was seen by the PCP today and because his blood pressure was elevated, the patient was sent here for further evaluation. His initial blood pressure here was 183/90. His neurologic exam was normal. An EKG shows a sinus bradycardia at a rate of 50 without acute injury or ectopy. CBC and complete metabolic panel are normal. TSH was normal , troponin was negative, chest x-ray did not show acute disease. COPD was found. CT scan of the brain did not show acute process. MRI of the brain did not show any abnormality. The patient was told the results. He is felt to be stable for discharge. The blood pressure did improve some during his stay. He was told to have this rechecked by his doctor. Medication Reconcilliation Current Medication List: was personally reviewed by me Blood Pressure Screening Patient's blood pressure: Elevated blood pressure Blood pressure disposition: Referred to PCP Impression Primary Impression: HTN (hypertension) Additional Impression: Paresthesia Scribe Attestation The scribe's documentation has been prepared under my direction and personally reviewed by me in its entirety. I confirm that the note above accurately reflects all work, treatment, procedures, and medical decision making performed by me. Departure Information Dispostion Home / Self-Care Referrals No Doctor, Assigned (PCP) Forms HOME CARE DOCUMENTATION FORM, IMPORTANT VISIT INFORMATION, WORK / SCHOOL INSTRUCTIONS Patient Instructions My [facility] Problem Qualifiers
== END 2018-03-27 22:35 | disposition home or self-care (01) ==
LOC: C.EDB 17:02 → C.EDC 22:35
DX: I10 Essential (primary) hypertension (principal); R20.2 Paresthesia of skin; E78.5 Hyperlipidemia, unspecified; N40.0 Benign prostatic hyperplasia without lower urinary tract symptoms; Z79.02 Long term (current) use of antithrombotics/antiplatelets; Z82.49 Family history of ischemic heart disease and other diseases of the circulatory system; Z91.041 Radiographic dye allergy status; Z88.1 Allergy status to other antibiotic agents

== ENCOUNTER 2020-05-15 10:21 | Observation (INO) ==
--- OUTSIDE RECORDS SUMMARY | 2020-05-15 10:23 | External Medical Summary | Continuity of Care Document ---
:1940 Author Name Jorge Power Address Unavailable Unavailable , Care Team Providers Name Role Phone Terri Power Unavailable [email or web address] Unavailable Problems Active medical history not documented Allergies and Adverse Reactions Allergy history not documented Medications Medications not documented Procedures Procedures not documented Immunizations Immunizations not documented Plan of Treatment Planned Observations Planned Goals not documented Results No Known Results Results not documented
--- OUTSIDE RECORDS SUMMARY | 2020-05-15 10:23 | External Medical Summary | Continuity of Care Document ---
:1940 Author Name Jorge Power Address Unavailable Unavailable , Care Team Providers Name Role Phone Terri Power Unavailable [email or web address] Unavailable Unavailable Problems Active medical history not documented Allergies and Adverse Reactions Allergy history not documented Medications Medications not documented Procedures Procedures not documented Immunizations Immunizations not documented Plan of Treatment Planned Observations Planned Goals not documented Results No Known Results Results not documented
[2020-05-15] MEDS ORDERED: ASPIRIN CHEW 324 MG PO STA (10:36)
--- NOTE | 2020-05-15 10:40 | Emergency Department Note ---
Impression & Plan Chest pain, Angina pectoris, unspecified ED Provider Note NAME: KIKO GORDON JR AGE: 80 SEX: M : 1940 ARRIVES VIA: Walk-In INFORMANT: Patient, ED PROVIDER(S): Ramana Morales DO CHIEF COMPLAINT: Chest pain HPI: The patient is an 80-year-old male who presented to the emergency department with his daughter for an evaluation of chest pain. The patient has a history of coronary artery disease. He also has a history of calcific valvular heart disease. He normally follows with Dr. Green. He awoke this morning and started having chest discomfort. He states the pain was very severe and in the retrosternal region. The pain was dull but also sharp at times. The patient took 1 nitroglycerin with some relief and then took a second nitroglycerin which completely resolved his pain. The patient also noticed that he was having dizziness and felt as though he may pass out. He denies having any swelling in his feet. He had no shortness of breath. At this time his pain is completely gone after 2 nitroglycerin. The patient states he has not had to take nitroglycerin in 3 years. He denies having any abdominal pain or back pain. The pain was nonradiating. The patient presented directly to the emergency department. ROS: See above HPI for pertinent positives & negatives. A total of 10 systems reviewed and were otherwise negative. PAST MEDICAL HISTORY: See Below PAST SURGICAL HISTORY: See Below FAMILY HISTORY: See Below SOCIAL HISTORY: See Below HOME MEDICATIONS: See Below ALLERGIES: See Below VITALS: See Below PHYSICAL EXAMINATION: GENERAL: Patient is awake alert in no acute distress patient is resting comfortably and showing no signs of anxiety EYES: The conjunctivae are clear. The pupils are round and reactive. EARS, NOSE, MOUTH AND THROAT: The nose is without any evidence of any deformity. NECK: The neck is nontender and supple. RESPIRATORY: Normal respiratory effort is noted there is no evidence of wheezing rhonchi or rales CARDIOVASCULAR: Regular rate and rhythm noted there no murmurs rubs or gallops normal S1 normal S2. GASTROINTESTINAL: The abdomen is soft. Abdomen is nontender. MUSCULOSKELETAL/EXTREMITIES: There is no evidence of gross deformity full range of motion is noted in the hips and shoulders. SKIN: There is no obvious evidence of any rash. There are no petechiae, pallor or cyanosis noted. NEUROLOGIC: Patient is awake alert and oriented x3. MEDICAL DECISION MAKING: The patient is an 80-year-old male who presented to the emergency department for an evaluation of chest discomfort. The patient was experiencing anterior chest pain which was very severe. It was associated with dizziness. The patient has a history of coronary artery disease. He did take 2 nitroglycerin prior to arrival and at this time is pain-free. The patient has not had to use nitroglycerin in over a year. He states he has no lower extremity swelling or pain. I discussed the patient's laboratory and radiographic studies with him. I also discussed the limitations of the emergency department work-up for chest pain with him. Ultimately given the patient's medical history I do feel he may be at high risk for an acute coronary syndrome. For this reason [facility] The patient was given aspirin in the emergency department. He was reevaluated multiple times. Triage Nursing notes reviewed. Prior medical records reviewed Vital Signs: reviewed and remarkable for bradycardia Differential diagnosis: Cardiac ischemia, aortic dissection, pulmonary embolism, pneumothorax, pneumonia, pericarditis, myocarditis, esophageal rupture, GERD, cholecystitis, pancreatitis, musculoskeletal, as well as other pathologies. ER treatment provided: See below Diagnostics interpreted by me: ECG: EKG was obtained in the emergency department. My interpretation is sinus rhythm at 60 bpm. Frequent PVCs were noted. Low lateral ST segment abnormalities were noted. This was compared to a tracing from March [id number]. The ectopy as well as the ST segment abnormalities are new compared to the previous tracing. Cardiac Monitoring: An order was placed for continuous cardiac monitoring. The monitor shows a rate of 60 bpm With sinus bradycardia rhythm. Laboratory studies: As stated above and show below. Imaging studies: See below Consultation(s): 1140: I discussed this case with Ida who [facility] They will evaluate the patient in the emergency department for further management and disposition. Past Med/Surg History Medical History Bronchitis CAD (coronary artery disease) Chest pain CKD (chronic kidney disease) stage 3, GFR 30-59 ml/min COPD, mild Dyslipidemia GERD (gastroesophageal reflux disease) HTN (hypertension) Moderate aortic stenosis Paresthesia Surgical History H/O coronary angioplasty "PTCA, CARDIAC ANGIOPLASTY, PERCUTANEOUS, 1 ARTERY performed by Paty Rasheed MD at [facility] [place] [facility] [place]" History of back surgery "Lumbar Spine Fusion ,Post Interbody" History of inguinal hernia repair "R inguinal hernia repair with mesh performed by Dr. Vazquez 2005" Social History Smoking Status: Former smoker Tobacco Type: Cigarettes Preferred Language: Spanish Feels Safe at Home: Yes Allergies Allergies Allergy/AdvReac Type Severity Reaction Status Date / Time Iodinated Contrast Media Allergy Unknown RASH Verified 05/15/20 11:40 tetracycline Allergy Unknown Unknown. Verified 05/15/20 11:40 Home Meds Home Medications Medication Instructions Recorded Confirmed arformoterol [Brovana] 2 ml INHALATION BID PRN 07/23/19 05/15/20 atorvastatin [Lipitor] 20 mg PO DAILY 07/23/19 05/15/20 clopidogrel [Plavix] 75 mg PO DAILY 07/23/19 05/15/20 colestipol 1 g PO DAILY 07/23/19 05/15/20 cyanocobalamin (vitamin B-12) 1,000 mcg PO DAILY 07/23/19 05/15/20 [Vitamin B-12] finasteride [Proscar] 5 mg PO DAILY 07/23/19 05/15/20 isosorbide mononitrate 30 mg PO DAILY 07/23/19 05/15/20 ketorolac 1 drp OPL QID 07/23/19 05/15/20 lorazepam [Ativan] 0.25 mg PO TID PRN 07/23/19 05/15/20 meclizine 25 mg PO TID PRN 07/23/19 05/15/20 metoprolol succinate [Toprol XL] 12.5 mg PO DAILY 07/23/19 05/15/20 nitroglycerin [Nitrostat] 0.4 mg SUBLINGUAL UD PRN 07/23/19 05/15/20 ondansetron HCl [Zofran] 8 mg PO TID PRN 07/23/19 05/15/20 terazosin 2 mg PO HS 07/23/19 05/15/20 terazosin 5 mg PO HS 07/23/19 05/15/20 acetaminophen [Tylenol Extra 500 mg PO Q6H PRN 05/15/20 05/15/20 Strength] Results & Data (ED) Vital Signs Vital Signs - 24 hr 05/15/20 10:25 05/15/20 10:52 05/15/20 10:55 Temperature 36.5 C Temperature Source Oral Pulse Rate 62 58 L Pulse Rate [Left] 58 L Respiratory Rate 18 16 Respiratory Effort / Characteristics Non-Labored Spontaneous Non-Labored Spontaneous Respiratory Depth Normal Normal Respiratory Pattern Regular Blood Pressure 168/63 H Blood Pressure [Left Arm] 132/72 Blood Pressure Mean 98 Blood Pressure Mean [Left Arm] 92 Blood Pressure Position Sitting Blood Pressure Position [Left Arm] Lying Pulse Oximetry 95 96 Oxygen Delivery Method Room Air Room Air Room Air Sepsis Recent Fever Within 48 Hours No Sepsis New/Unexplained Change in Mental Status N/A Sepsis Action Taken by Nursing No Action Required Home Medications Current Medication List: was personally reviewed by me Laboratory Data Attestation: I reviewed the patient's lab results. Result diagrams: 05/15/20 10:47 05/15/20 10:47 Lab Results 05/15/20 05/15/20 05/15/20 Range/Units 10:47 10:47 10:47 WBC 5.95 (4.8-10.8) K/uL RBC 4.59 L (4.7-6.1) M/uL Hgb 14.0 (14.0-18.0) g/dL Hct 42.4 (42-52) % MCV 92.4 (80-100) fL MCH 30.5 (25-34) pg MCHC 33.0 (32-36) g/dL RDW Std Deviation 46.1 (36.4-46.3) fL RDW Coeff of Macey 13.7 (11.5-14.5) % Plt Count 187 (130-400) K/uL MPV 10.1 (7.4-10.4) fL Immature Gran % (Auto) 0.0 % Neut % (Auto) 71.3 % Lymph % (Auto) 18.7 % [place] % (Auto) 7.2 % Eos % (Auto) 2.5 % Baso % (Auto) 0.3 % Neut # (Auto) 4.24 (1.4-6.5) K/uL Lymph # (Auto) 1.11 L (1.2-3.4) K/uL [place] # (Auto) 0.43 (0.11-0.59) K/uL Eos # (Auto) 0.15 (0-0.5) K/uL Baso # (Auto) 0.02 (0-0.2) K/uL Immature Gran # (Auto) 0.00 (0.00-0.02) K/uL PT 11.2 (9.0-12.0) Seconds INR 1.1 (0.9-1.1) APTT 32.1 H (21.0-31.0) Seconds PTT Ratio 1.2 Sodium 140 (136-145) mmol/L Potassium 3.8 (3.5-5.1) mmol/L Chloride 107 (98-107) mmol/L Carbon Dioxide 28 (21-32) mmol/L Anion Gap 5.0 (3-11) BUN 20 H (7-18) mg/dl Creatinine 1.34 (0.6-1.4) mg/dl Est Cr Clr Drug Dosing 40.6 ml/min Est GFR ( Amer) 57.6 Est GFR (Non-Af Amer) 49.7 BUN/Creatinine Ratio 15.2 (10-20) Glucose 96 (70-99) mg/dl Calcium 9.1 (8.5-10.1) mg/dl Total Bilirubin 0.4 (0.2-1) mg/dl AST 19 (15-37) U/L ALT 17 (12-78) U/L Alkaline Phosphatase 112 (45-117) U/L Troponin I < 0.015 (0-0.045) ng/ml Total Protein 6.6 (6.4-8.2) gm/dl Albumin 3.5 (3.4-5.0) gm/dl Globulin 3.1 (2.5-4.0) gm/dl Albumin/Globulin Ratio 1.1 (0.9-2) Lipase 207 (73-393) U/L Administered Medications Discontinued Medications Aspirin (Aspirin Chew 324 Mg) 324 mg PO NOW STA Stop: 05/15/20 10:37 Last Admin: 05/15/20 10:54 Dose: 324 mg Documented by: [id number] Imaging Data Radiologist's Impression: XR chest 1V portable CLINICAL HISTORY: Atypical chest pain COMPARISON STUDY: 03/27/2018 FINDINGS: The cardiac and mediastinal contours are normal. There is no evidence of focal pulmonary consolidation. There is no evidence of failure. No pleural effusions are visualized.[Underlying pulmonary emphysema is suspected. IMPRESSION: 1. Pulmonary emphysema 2. No active disease in the chest.. ACT 112: Negative or not required by law. Electronically signed by: Seferino Bower M.D. 05/15/2020 10:58 AM Dictated: 05/15/20 1058 Transcribed: 05/15/201057 Blood Pressure Blood Pressure Findings: Normal blood pressure Discharge Plan Visit Data Chief Complaint: Cardiac Assessment Stated Complaint: CHEST PAIN TOOK [address] BILL Provider: Ramana Morales Discharge Problem: Chest pain, Angina pectoris, unspecified Patient Disposition: Being Evaluated by Hospitalist Condition: Good Forms Stand Alone Forms: [facility] Prescriptions Prescriptions: No Action acetaminophen [Tylenol Extra Strength] 500 mg Tablet 500 mg PO Q6H PRN (Reason: Pain) RF: 0 terazosin 5 mg capsule 5 mg PO HS RF: 0 atorvastatin [Lipitor] 40 mg tablet 20 mg PO DAILY RF: 0 isosorbide mononitrate 30 mg tablet extended release 24 hr 30 mg PO DAILY RF: 0 clopidogrel [Plavix] 75 mg tablet 75 mg PO DAILY RF: 0 terazosin 2 mg capsule 2 mg PO HS RF: 0 meclizine 25 mg Tablet 25 mg PO TID PRN (Reason: DIZZY) RF: 0 nitroglycerin [Nitrostat] 0.4 mg Tablet, Sublingual 0.4 mg sublingual UD PRN (Reason: Chest Pain) RF: 0 metoprolol succinate [Toprol XL] 25 mg tablet extended release 24 hr 12.5 mg PO DAILY RF: 0 finasteride [Proscar] 5 mg tablet 5 mg PO DAILY RF: 0 ondansetron HCl [Zofran] 8 mg Tablet 8 mg PO TID PRN (Reason: Nausea) RF: 0 cyanocobalamin (vitamin B-12) [Vitamin B-12] 1,000 mcg Tablet 1,000 mcg PO DAILY RF: 0 lorazepam [Ativan] 0.5 mg Tablet 0.25 mg PO TID PRN (Reason: ANXIETY/VERTIGO) RF: 0 colestipol 1 gram Tablet 1 g PO DAILY RF: 0 ketorolac 0.4 % Drops 1 drp OPL QID RF: 0 Brovana 15 mcg/2 mL Solution For Nebulization 2 ml INHALATION BID PRN (Reason: Shortness Of Breath Or Wheezing) RF: 0 Referrals Referrals: Fritz Ramirez DO [Primary Care Provider] -
[2020-05-15 10:53] LABS: Basophils # (auto) 0.02 K/uL (0-0.2); Basophils % (auto) 0.3 %; Eosinophils # (auto) 0.15 K/uL (0-0.5); Eosinophils % (auto) 2.5 %; Hematocrit (blood only) 42.4 % (42-52); Lymphocytes # (auto) 1.11 K/uL (1.2-3.4); Lymphocytes % (auto) 18.7 %; Mean Corpuscular Hemoglobin 30.5 pg (25-34); Mean Corpuscular Volume 92.4 fL (80-100); Mean Platelet Volume 10.1 fL (7.4-10.4); Monocytes # (auto) 0.43 K/uL (0.11-0.59); Monocytes % (auto) 7.2 %; Neutrophils # (auto) 4.24 K/uL (1.4-6.5); Neutrophils % (auto) 71.3 %; Platelet Count 187 K/uL (130-400); RDW Coefficient of Variation 13.7 % (11.5-14.5); RDW Standard Deviation 46.1 fL (36.4-46.3); Red Blood Count 4.59 M/uL (4.7-6.1); White Blood Count 5.95 K/uL (4.8-10.8)
--- NOTE | 2020-05-15 11:00 | XRay Report ---
XR chest 1V portable CLINICAL HISTORY: Atypical chest pain COMPARISON STUDY: 03/27/2018 FINDINGS: The cardiac and mediastinal contours are normal. There is no evidence of focal pulmonary co nsolidation. There is no evidence of failure. No pleural effusions are visualized.[Underlying pulmona ry emphysema is suspected. IMPRESSION: 1. Pulmonary emphysema 2. No active disease in the chest.. ACT 112: Negative or not required by law. Electronically signed by: Seferino Bower M.D. 05/15/2020 10:58 AM
[2020-05-15 11:06] LABS: INR 1.1 (0.9-1.1); Partial Thromboplastin Ratio 1.2; Partial Thromboplastin Time 32.1 Seconds (21.0-31.0); Prothrombin Time 11.2 Seconds (9.0-12.0)
[2020-05-15 11:19] LABS: Alanine Aminotransferase 17 U/L (12-78); Albumin Level 3.5 gm/dl (3.4-5.0); Aspartate Aminotransferase 19 U/L (15-37); BUN Creatinine Ratio 15.2 (10-20); Blood Urea Nitrogen 20 mg/dl (7-18); Calcium 9.1 mg/dl (8.5-10.1); Carbon Dioxide 28 mmol/L (21-32); Chloride 107 mmol/L (98-107); Creatinine Clr Calc Pharmacy 40.6 ml/min; Est GFR (African American) 57.6; Est GFR (Non-African American) 49.7; Glucose 96 mg/dl (70-99); Lipase 207 U/L (73-393); Potassium 3.8 mmol/L (3.5-5.1); Sodium 140 mmol/L (136-145)
[2020-05-15 11:24] LABS: Albumin Globulin Ratio 1.1 (0.9-2); Alkaline Phosphatase 112 U/L (45-117); Bilirubin,Total 0.4 mg/dl (0.2-1); Globulin 3.1 gm/dl (2.5-4.0); Total Protein 6.6 gm/dl (6.4-8.2); Troponin I < 0.015 ng/ml (0-0.045)
--- NOTE | 2020-05-15 12:15 | History & Physical Report ---
Date of Service May 15, 2020 Assessment & Plan (1) Chest pain: This is an 80-year-old male who has significant past medical history of CAD, moderate aortic valve stenosis, HTN, HLD, COPD, CKD stage III, BPH, femoral artery pseudoaneurysm, history DVT who presents to ED secondary to chest pain upon awakening this morning. He does have significant atherosclerotic coronary disease secondary to chronic left anterior descending occlusion by cardiac cath in 2013. 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 Also of significance the echocardiogram on March 2020 revealed moderately severe aortic stenosis. He presents to ED today secondary to chest pain upon arrival that resolved after taking nitro x2. Admit to tele obtain echocardiogram cycle troponins consult cardiology continue present meds (2) CAD (coronary artery disease): hx of complex CAD with hx of PTCA 2013 and unsuccessful attempt at opening chronic total occlusion of LAD on plavix, metoprolol, imdur plan as above (3) Moderate aortic stenosis: documented via echo 03/2020 obtain repeat echo today given acute onset chest pain monitor (4) HTN (hypertension): blood pressure stable continue metoprolol, imdur (5) Dyslipidemia: continue statin (6) CKD (chronic kidney disease) stage 3, GFR 30-59 ml/min: baseline cr 1.3-1.5 bun/cr 20/1.34 today, monitor and avoid nephrotoxic agents when able (7) COPD, mild: no acute exac continue prn brovana (8) BPH (benign prostatic hyperplasia): continue finasteride and terazosin (9) DVT prophylaxis: SQ Heparin Disposition: admit to tele Follow up: PCP Dr. Ramirez upon discharge Pt was seen and examined in collaboration with Dr. Levy, please see addendum History of Present Illness Chief Complaint: Chest pain upon awaking this morning. Primary Care Provider: Fritz Ramirez, This is an 80-year-old male who has significant past medical history of CAD, moderate aortic valve stenosis, HTN, HLD, COPD, CKD stage III, BPH, femoral artery pseudoaneurysm, history DVT who presents to ED secondary to chest pain upon awakening this morning. He does have significant atherosclerotic coronary disease secondary to chronic left anterior descending occlusion by cardiac cath in 2013. 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 Also of significance the echocardiogram on March 2020 revealed moderately severe aortic stenosis. He presents to ED today secondary to chest pain upon arrival that resolved after taking nitro x2. Patient states he was sitting down eating breakfast when he went to stand up and developed substernal, nonradiating chest discomfort. He also experienced lightheadedness and dizziness. He returned to his seat where he continued to have chest discomfort. He took 1 sublingual nitro which alleviated his symptoms, but they did not resolve. After 5 to 10 minutes he took an additional second nitro which did alleviate symptoms totally. His chest pain lasted approximately 1 hour. During symptoms he denies any diaphoresis or nausea. He has not had to take nitro in quite some time. He has been compliant with his medications. He denies any other recent illness. He denies fever, chills, sweats, syncope, cough, hemoptysis, nausea, vomiting, abdominal pain, change in bowel or urinary habits. Daughter is at bedside. In ED patient remained hemodynamically stable. CBC and CMP were generally unremarkable. His EKG revealed sinus rhythm with PVC, regular rate [address] or T wave changes. Troponin undetectable. Chest x-ray consistent with pulmonary emphysema but no overt acute disease. He did receive ASA 324mg in ED x 1. Allergies Allergy/AdvReac Type Severity Reaction Status Date / Time Iodinated Contrast Media Allergy Unknown RASH Verified 05/15/20 11:40 tetracycline Allergy Unknown Unknown. Verified 05/15/20 11:40 Home Medications Home Medications Medication Instructions Recorded Confirmed Type arformoterol [Brovana] 2 ml INHALATION BID PRN 07/23/19 05/15/20 History atorvastatin [Lipitor] 20 mg PO DAILY 07/23/19 05/15/20 History clopidogrel [Plavix] 75 mg PO DAILY 07/23/19 05/15/20 History colestipol 1 g PO DAILY 07/23/19 05/15/20 History cyanocobalamin (vitamin B-12) 1,000 mcg PO DAILY 07/23/19 05/15/20 History [Vitamin B-12] finasteride [Proscar] 5 mg PO DAILY 07/23/19 05/15/20 History isosorbide mononitrate 30 mg PO DAILY 07/23/19 05/15/20 History ketorolac 1 drp OPL QAM 07/23/19 05/15/20 History lorazepam [Ativan] 0.25 mg PO TID PRN 07/23/19 05/15/20 History meclizine 25 mg PO TID PRN 07/23/19 05/15/20 History metoprolol succinate [Toprol XL] 12.5 mg PO DAILY 07/23/19 05/15/20 History nitroglycerin [Nitrostat] 0.4 mg SUBLINGUAL UD PRN 07/23/19 05/15/20 History ondansetron HCl [Zofran] 8 mg PO TID PRN 07/23/19 05/15/20 History terazosin 2 mg PO HS 07/23/19 05/15/20 History terazosin 5 mg PO HS 07/23/19 05/15/20 History acetaminophen [Tylenol Extra 500 mg PO Q6H PRN 05/15/20 05/15/20 History Strength] Past Med/Surg History Medical History (Updated 05/15/20 @ 12:15 by Ida Chun PA-C) BPH (benign prostatic hyperplasia) Bronchitis CAD (coronary artery disease) Chest pain CKD (chronic kidney disease) stage 3, GFR 30-59 ml/min COPD, mild Dyslipidemia GERD (gastroesophageal reflux disease) HTN (hypertension) Moderate aortic stenosis Paresthesia Surgical History (Updated 05/15/20 @ 12:11 by Ida Chun PA-C) H/O coronary angioplasty "PTCA, CARDIAC ANGIOPLASTY, PERCUTANEOUS, 1 ARTERY performed by Paty Rasheed MD at [facility] [place] 05/23/14" History of back surgery "Lumbar Spine Fusion ,Post Interbody" History of inguinal hernia repair "R inguinal hernia repair with mesh performed by Dr. Vazquez 2005" History of knee surgery History of repair of rotator cuff Family History Father Silicosis Brother , 67 Cancer Social History Smoking Status: Former smoker Tobacco Type: Cigarettes Hx Alcohol Use: No Hx Substance Use: No Preferred Language: Algerian Communication Ability: Effective Beliefs That Will Affect Care: None Current Living Situation: Alone Other Information That Helps Us Care for You: No Feels Safe at Home: Yes Safety Concerns: Feels Safe At This Time Assistive Devices: Denture - Upper, Denture - Lower and Glasses Review of Systems Review of Systems: All systems reviewed & are unremarkable except as noted in HPI & below Physical Exam Physical Exam: Constitutional: WD/WN, M, Elderly, vitals as above, NAD, sitting up in bed, pleasant, conversing easily Head: Normocephalic, Atraumatic Eyes: PERRL, conjunctivae normal, anicteric sclerae ENMT: external ear and nose normal, oropharynx normal Neck: trachea midline, no thyromegaly normal visual inspection Respiratory: normal respiratory effort, lungs clear to auscultation, no wheeze, rales, rhonchi. Normal insp/exp effort, no accessory muscle use Cardiovascular: RRR, 2/6 STEVEN RUSB, no edema Vessels: no JVD or carotid bruit Chest: normal inspection of chest Abdomen: normal bowel sounds, soft, nontender, no hepatosplenomegaly Musculoskeletal: no cyanosis or clubbing, extremities motor strength 5/5 Skin: no rashes, warm and dry normal turgor Neurologic: PERRL, EOMI, accommodation nl, no face palsy, no dysarthria CN's II-XI intact bilaterally and moves all extremities Psychiatric: A+Ox3, euthymic affect Lymphatic: no cervical or axillary lymphadenopathy : deferred Results & Data Results & Data ([facility]) Vital Signs (Past 12 Hours) Vital Signs Temp Pulse Pulse Resp BP BP Pulse Ox 05/15/20 10:52 58 L 58 L 16 132/72 96 05/15/20 10:25 36.5 C 62 18 168/63 H 95 Laboratory Results Short CBC 05/15/20 Range/Units 10:47 WBC 5.95 (4.8-10.8) K/uL Hgb 14.0 (14.0-18.0) g/dL Hct 42.4 (42-52) % Plt Count 187 (130-400) K/uL BMP 05/15/20 10:47 Sodium 140 Potassium 3.8 Chloride 107 Carbon Dioxide 28 BUN 20 H Creatinine 1.34 Glucose 96 Calcium 9.1 Cardiac Enzymes 05/15/20 Range/Units 10:47 Troponin I < 0.015 (0-0.045) ng/ml Liver Function 05/15/20 Range/Units 10:47 Total Bilirubin 0.4 (0.2-1) mg/dl AST 19 (15-37) U/L ALT 17 (12-78) U/L Alkaline Phosphatase 112 (45-117) U/L Albumin 3.5 (3.4-5.0) gm/dl Diagnostic Findings CXR: IMPRESSION: 1. Pulmonary emphysema 2. No active disease in the chest.. Medications Administered Discontinued Medications Aspirin (Aspirin Chew 324 Mg) 324 mg PO NOW STA Stop: 05/15/20 10:37 Last Admin: 05/15/20 10:54 Dose: 324 mg Documented by: [id number] ECG Rate (beats per minute): 60 Rhythm: normal sinus Findings: + PVC Code Status & VTE Plan Code Status Full Code VTE Prophylaxis Plan VTE Prophylaxis will be ordered: Yes Supervising Physician Co-Signing Physician Notes I, Dr. Pedro Levy, have seen and examined the patient Tyler Eason with physician bankruptcy assistant and would like to comment that On Physical Exam General: no acute distress, patient had echocardiogram just completed Heart: regular rate Lung: clear to auscultation bilaterally, no wheezing Abdomen: soft, nontender, positive bowel sounds Neuro/Extremities: moves all extremities, no facial droop Assessment and plan -This is a patient with chest pain and the pain was relieved with nitro. Patient received aspirin 324 mg x 1 in the ED. Initial troponin negative. The ED physician assessed and patient with no further chest pain. The ED physician requested hospitalist evaluation. Hospitalist ordered TTE to be performed and requested cardiology consult. The TTE performed on 05/15/2020 while patient still in the ED bed. Trend the troponins, telemetry monitoring -further cardiology assessments pending. Cardiology will compare the TTE results on 05/15/2020 with outpatient echocardiogram that had previously shown aortic stenosis -chronic kidney disease stage III and renal function around baseline -patient reports severe allergies to dye contrast -heparin subcutaneous for DVT prophylaxis -agree with other assessments and plans as documented by physician bankruptcy assistant -My colleague Dr. Ochoa will be following the patient as consult hospitalist starting on 05/16/2020 (1) Chest pain Chest pain type: unspecified Qualified Code(s): R07.9 - Chest pain, unspecified
--- NOTE | 2020-05-15 12:28 | Cardiology Consultation ---
Date of Consultation May 15, 2020 Assessment & Plan (1) Angina pectoris, unspecified: (2) CAD (coronary artery disease): (3) Moderate aortic stenosis: The patient is clinically stable. He has not had any additional chest pain after taking his second nitroglycerin at home prehospital. He does have chronic but stable angina. He has a history of extensive coronary artery disease as previously described. If his cardiac markers remain negative I think the best option would be to discharge him to outpatient follow-up. Stress testing would most likely not provide any additional information. Also, repeat cardiac catheterization may provide more risk than then actual benefit. We will observe the patient overnight and have further suggestions tomorrow. History of Present Illness History of Present Illness This is an 80-year-old male patient who is usually followed by Dr. Green through our clinic. He was in his usual state of health and then woke up this morning with chest discomfort. He went to the kitchen and got something to eat. He was sitting at the table and stood up and became dizzy. He has medication that he takes for dizziness on an as-needed basis and took 1 of those. He continued to have mild retrosternal chest discomfort and decided to take a nitroglycerin. After 2 sublingual nitroglycerin his chest pain completely resolved. He has not had a return of his chest pain and is currently asymptomatic. He denies shortness of breath orthopnea. He has had no lower extremity edema or increasing abdominal girth. No heart palpitations or tachycardia. He has an extensive history of coronary artery disease as outlined below with a chronically occluded LAD and chronic stable Sampson class I2 angina. Past medical history: 1.Atherosclerotic coronary disease. 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 3.Class stable I-II angina pectoris 2.Aortic stenosis. Moderately severe via March 2020 resting echocardiogram, without interim symptom change 3.Hypertension. Blood pressure borderline today, well controlled on sporadic home monitoring. 4.Dyslipidemia. LDL 58 mg/dL on 06/21/2019 with normal LFT's observed at that time. Patient prescribed moderate intensity statin therapy, atorvastatin 40 mg/day. Allergies Allergy/AdvReac Type Severity Reaction Status Date / Time Iodinated Contrast Media Allergy Unknown RASH Verified 05/15/20 11:40 tetracycline Allergy Unknown Unknown. Verified 05/15/20 11:40 Home Medications Home Medications Medication Instructions Recorded Confirmed Type arformoterol [Brovana] 2 ml INHALATION BID PRN 07/23/19 05/15/20 History atorvastatin [Lipitor] 20 mg PO DAILY 07/23/19 05/15/20 History clopidogrel [Plavix] 75 mg PO DAILY 07/23/19 05/15/20 History colestipol 1 g PO DAILY 07/23/19 05/15/20 History cyanocobalamin (vitamin B-12) 1,000 mcg PO DAILY 07/23/19 05/15/20 History [Vitamin B-12] finasteride [Proscar] 5 mg PO DAILY 07/23/19 05/15/20 History isosorbide mononitrate 30 mg PO DAILY 07/23/19 05/15/20 History ketorolac 1 drp OPL QAM 07/23/19 05/15/20 History lorazepam [Ativan] 0.25 mg PO TID PRN 07/23/19 05/15/20 History meclizine 25 mg PO TID PRN 07/23/19 05/15/20 History metoprolol succinate [Toprol XL] 12.5 mg PO DAILY 07/23/19 05/15/20 History nitroglycerin [Nitrostat] 0.4 mg SUBLINGUAL UD PRN 07/23/19 05/15/20 History ondansetron HCl [Zofran] 8 mg PO TID PRN 07/23/19 05/15/20 History terazosin 2 mg PO HS 07/23/19 05/15/20 History terazosin 5 mg PO HS 07/23/19 05/15/20 History acetaminophen [Tylenol Extra 500 mg PO Q6H PRN 05/15/20 05/15/20 History Strength] Patient History Medical History BPH (benign prostatic hyperplasia) Bronchitis CAD (coronary artery disease) Chest pain CKD (chronic kidney disease) stage 3, GFR 30-59 ml/min COPD, mild Dyslipidemia GERD (gastroesophageal reflux disease) HTN (hypertension) Moderate aortic stenosis Paresthesia Surgical History H/O coronary angioplasty "PTCA, CARDIAC ANGIOPLASTY, PERCUTANEOUS, 1 ARTERY performed by Paty Rasheed MD at [facility] 05/23/14" History of back surgery "Lumbar Spine Fusion ,Post Interbody" History of inguinal hernia repair "R inguinal hernia repair with mesh performed by Dr. Vazquez 2005" History of knee surgery History of repair of rotator cuff Family History Father Silicosis Brother , 67 Cancer Social History Smoking Status: Former smoker Tobacco Type: Cigarettes Hx Alcohol Use: No Hx Substance Use: No Preferred Language: Uzbek Communication Ability: Effective Beliefs That Will Affect Care: None Current Living Situation: Alone Other Information That Helps Us Care for You: No Feels Safe at Home: Yes Safety Concerns: Feels Safe At This Time Assistive Devices: Denture - Upper, Denture - Lower and Glasses Review of Systems Review of Systems: All systems reviewed & are unremarkable except as noted in HPI & below Nothing additional to add. Physical Exam Physical Exam: General: no acute distress and stated age Head: normocephalic, no masses, lesions, tenderness or abnormalities Eyes: conjunctiva are pink and non-injected, sclera clear Neck: supple, no adenopathy, no bruits, normal jugular venous pulse, no hepatojugular reflux Chest: normal shape and normal respiratory effort Lungs: clear to auscultation and percussion Cardiac Exam: - regular rate & rhythm, systolic murmur- normal S1, normal S2 Pulses: 2(+) throughout Abdomen: abdomen soft, non-tender, no abnormal masses and no hepatosplenomegaly Musculoskeletal: no gait disturbance, no joint inflammation, no deforming arthritis Extremities: no edema and no cyanosis Neuro: grossly normal exam Results & Data ([facility]) Vital Signs (Past 12 Hours) Vital Signs Temp Pulse Pulse Resp BP BP Pulse Ox 05/15/20 10:52 58 L 58 L 30 H 132/72 132/72 96 05/15/20 10:25 36.5 C 62 18 168/63 H 95 Laboratory Results Laboratory Results - last 24 hr 05/15/20 05/15/20 05/15/20 10:47 10:47 10:47 WBC 5.95 RBC 4.59 L Hgb 14.0 Hct 42.4 MCV 92.4 MCH 30.5 MCHC 33.0 RDW Std Deviation 46.1 RDW Coeff of Macey 13.7 Plt Count 187 MPV 10.1 Immature Gran % (Auto) 0.0 Neut % (Auto) 71.3 Lymph % (Auto) 18.7 [place] % (Auto) 7.2 Eos % (Auto) 2.5 Baso % (Auto) 0.3 Neut # (Auto) 4.24 Lymph # (Auto) 1.11 L [place] # (Auto) 0.43 Eos # (Auto) 0.15 Baso # (Auto) 0.02 Immature Gran # (Auto) 0.00 PT 11.2 INR 1.1 APTT 32.1 H PTT Ratio 1.2 Sodium 140 Potassium 3.8 Chloride 107 Carbon Dioxide 28 Anion Gap 5.0 BUN 20 H Creatinine 1.34 Est Cr Clr Drug Dosing 40.6 Est GFR ( Amer) 57.6 Est GFR (Non-Af Amer) 49.7 BUN/Creatinine Ratio 15.2 Glucose 96 Calcium 9.1 Total Bilirubin 0.4 AST 19 ALT 17 Alkaline Phosphatase 112 Troponin I < 0.015 Total Protein 6.6 Albumin 3.5 Globulin 3.1 Albumin/Globulin Ratio 1.1 Lipase 207 Medications Administered Current Inpatient Medications Acetaminophen (Acetaminophen 325 Mg Tab) 650 mg PO Q4H PRN PRN Reason: Pain or Fever Stop: 06/14/20 13:15 Al Hydrox/Mg Hydrox/Simethicone (Aluminum/Magnesium Susp 30 Ml Udc) 15 ml PO Q4H PRN PRN Reason: Dyspepsia Stop: 06/14/20 13:15 Atorvastatin Calcium (Atorvastatin 20 Mg Tab) 20 mg PO DAILY [facility] Stop: 06/15/20 08:59 Clopidogrel Bisulfate (Clopidogrel Bisulfate 75 Mg Tab) 75 mg PO DAILY [facility] Stop: 06/15/20 08:59 Colestipol HCl (Colestipol Hcl 1 Gm Tab) 1 gm PO DAILY@1000 [facility] Stop: 06/15/20 09:59 Cyanocobalamin (Cyanocobalamin 500 Mcg Tablet (Vitamin B-12)) 1,000 mcg PO DAILY [facility] Stop: 06/15/20 08:59 Finasteride (Finasteride 5 Mg Tab) 5 mg PO DAILY [facility] Stop: 06/15/20 08:59 Formoterol Fumarate (Formoterol 20 Mcg/2 Ml Vial) 20 mcg INH BID PRN PRN Reason: Shortness Of Breath Or Wheezing Stop: 06/14/20 13:48 Heparin Sodium (Porcine) (Heparin Sod 5,000 Unit/0.5 Ml Vial) 5,000 units SQ Q8 [facility] Stop: 06/14/20 21:59 Isosorbide Mononitrate (Isosorbide [place] Extended Rel 30 Mg Tabcr) 30 mg PO DAILY [facility] Stop: 06/15/20 08:59 Ketorolac Tromethamine (Ketorolac Ls 0.4% Op Soln 5 Ml Btl) 1 drops OPL QAM [facility] Stop: 06/15/20 08:59 Lisinopril (Lisinopril 10 Mg Tab) 10 mg PO QAM [facility] Stop: 06/14/20 14:59 Lorazepam (Lorazepam 0.5 Mg Tab) 0.25 mg PO TID PRN PRN Reason: ANXIETY/VERTIGO Stop: 06/14/20 13:15 Magnesium Hydroxide (Magnesium Hydroxide Susp 30 Ml Udc) 30 ml PO Q12H PRN PRN Reason: Constipation Stop: 06/14/20 13:15 Metoprolol Succinate (Metoprolol Succ 25mg Ext Rel Tab) 12.5 mg PO DAILY [facility] Stop: 06/15/20 08:59 Nitroglycerin (Nitroglycerin Sl 0.4 Mg/Tab Tab) 0.4 mg SL UD PRN PRN Reason: Chest Pain Stop: 06/14/20 13:15 Ondansetron HCl (Ondansetron Inj 2 Mg/Ml 2 Ml Vial) 4 mg IV Q6H PRN PRN Reason: Nausea Stop: 06/14/20 13:15 Polyethylene Glycol (Polyethylene (Miralax) 17 Gm Pack) 17 gm PO DAILY PRN PRN Reason: Constipation Stop: 06/14/20 13:15 Terazosin HCl (Terazosin Hcl 5 Mg Cap) 5 mg PO HS [facility] Stop: 06/14/20 20:59 Terazosin HCl (Terazosin Hcl 1 Mg Cap) 2 mg PO HS [facility] Stop: 06/14/20 20:59
[2020-05-15] MEDS ORDERED: ONDANSETRON INJ 2 MG/ML 2 ML VIAL IV PRN (13:16)
[2020-05-15] MEDS ORDERED: NITROGLYCERIN SL 0.4 MG/TAB TAB SL PRN (13:16)
[2020-05-15] MEDS ORDERED: POLYETHYLENE (MIRALAX) 17 GM PACK PO PRN (13:16)
[2020-05-15] MEDS ORDERED: ACETAMINOPHEN 325 MG TAB PO PRN (13:16)
[2020-05-15] MEDS ORDERED: MAGNESIUM HYDROXIDE SUSP 30 ML UDC PO PRN (13:16)
[2020-05-15] MEDS ORDERED: ALUMINUM/MAGNESIUM SUSP 30 ML UDC PO PRN (13:16)
[2020-05-15] MEDS ORDERED: LORazepam 0.5 MG TAB PO PRN (13:16)
[2020-05-15] MEDS ORDERED: FORMOTEROL 20 MCG/2 ML VIAL INH PRN (13:49)
[2020-05-15] MEDS: lisinopriL 10 MG TAB PO SCH (16:50)
--- NOTE | 2020-05-15 17:17 | Electrocardiogram Report ---
Test Reason : Blood Pressure : / mmHG Vent. Rate : 060 BPM Atrial Rate : 060 BPM P-R Int : 134 ms QRS Dur : 078 ms QT Int : 406 ms P-R-T Axes : 078 074 080 degrees QTc Int : 406 ms Sinus rhythm with occasional Premature ventricular complexes Abnormal ECG When compared with ECG of 27-MAR-2018 18:06, Premature ventricular complexes are now Present Confirmed by Michael Bernardo ([id number]) on 05/15/2020 5:17:25 PM Referred By: Confirmed By:Mamadou Bernardo
[2020-05-15] MEDS ORDERED: TERAZOSIN HCL 1 MG CAP PO SCH (21:00)
[2020-05-15] MEDS ORDERED: TERAZOSIN HCL 5 MG CAP PO SCH (21:00)
[2020-05-15] MEDS: HEPARIN SOD 5,000 UNIT/0.5 ML VIAL SQ SCH (22:09)
[2020-05-16 01:04] LABS: Basophils # (auto) 0.03 K/uL (0-0.2); Basophils % (auto) 0.6 %; Eosinophils # (auto) 0.27 K/uL (0-0.5); Eosinophils % (auto) 5.3 %; Hematocrit (blood only) 39.8 % (42-52); Hemoglobin 13.3 g/dL (14.0-18.0); Lymphocytes # (auto) 1.43 K/uL (1.2-3.4); Lymphocytes % (auto) 27.9 %; Mean Corpuscular Hemoglobin 30.6 pg (25-34); Mean Corpuscular Hgb Conc 33.4 g/dL (32-36); Mean Corpuscular Volume 91.5 fL (80-100); Mean Platelet Volume 10.1 fL (7.4-10.4); Monocytes # (auto) 0.64 K/uL (0.11-0.59); Monocytes % (auto) 12.5 %; Neutrophils # (auto) 2.75 K/uL (1.4-6.5); Neutrophils % (auto) 53.7 %; Platelet Count 181 K/uL (130-400); RDW Coefficient of Variation 13.6 % (11.5-14.5); RDW Standard Deviation 45.8 fL (36.4-46.3); Red Blood Count 4.35 M/uL (4.7-6.1); White Blood Count 5.12 K/uL (4.8-10.8)
[2020-05-16 01:23] LABS: Alanine Aminotransferase 15 U/L (12-78); Albumin Level 3.1 gm/dl (3.4-5.0); Anion Gap 0 (3-11); Aspartate Aminotransferase 13 U/L (15-37); BUN Creatinine Ratio 15.8 (10-20); Blood Urea Nitrogen 21 mg/dl (7-18); Calcium 8.4 mg/dl (8.5-10.1); Carbon Dioxide 33 mmol/L (21-32); Chloride 109 mmol/L (98-107); Creatinine Clr Calc Pharmacy 40.3 ml/min; Est GFR (African American) 57.1; Est GFR (Non-African American) 49.2; Glucose 91 mg/dl (70-99); Sodium 142 mmol/L (136-145)
[2020-05-16 01:28] LABS: Albumin Globulin Ratio 1.1 (0.9-2); Alkaline Phosphatase 92 U/L (45-117); Bilirubin,Total 0.5 mg/dl (0.2-1); Globulin 2.9 gm/dl (2.5-4.0); Troponin I < 0.015 ng/ml (0-0.045)
[2020-05-16] MEDS: HEPARIN SOD 5,000 UNIT/0.5 ML VIAL SQ SCH ×2 (06:24→13:59)
[2020-05-16 07:13] LABS: Hematocrit (blood only) 43.5 % (42-52); Hemoglobin 14.3 g/dL (14.0-18.0); Mean Corpuscular Hemoglobin 30.3 pg (25-34); Mean Corpuscular Hgb Conc 32.9 g/dL (32-36); Mean Corpuscular Volume 92.2 fL (80-100); Mean Platelet Volume 10.1 fL (7.4-10.4); Platelet Count 179 K/uL (130-400); RDW Coefficient of Variation 13.8 % (11.5-14.5); RDW Standard Deviation 46.8 fL (36.4-46.3); Red Blood Count 4.72 M/uL (4.7-6.1)
[2020-05-16 07:44] LABS: BUN Creatinine Ratio 14.8 (10-20); Calcium 8.9 mg/dl (8.5-10.1); Est GFR (African American) 56.1; Est GFR (Non-African American) 48.4; Magnesium 2.4 mg/dl (1.8-2.4)
[2020-05-16] MEDS: lisinopriL 10 MG TAB PO SCH (08:27)
[2020-05-16] MEDS ORDERED: CYANOCOBALAMIN 500 MCG TABLET (VITAMIN B-12) PO SCH (09:00)
[2020-05-16] MEDS ORDERED: ATORVASTATIN 20 MG TAB PO SCH (09:00)
[2020-05-16] MEDS ORDERED: CLOPIDOGREL BISULFATE 75 MG TAB PO SCH (09:00)
[2020-05-16] MEDS ORDERED: KETOROLAC LS 0.4% OP SOLN 5 ML BTL OPL SCH (09:00)
[2020-05-16] MEDS ORDERED: METOPROLOL SUCC 25MG EXT REL TAB PO SCH (09:00)
[2020-05-16] MEDS ORDERED: ISOSORBIDE MONO EXTENDED REL 30 MG TABCR PO SCH (09:00)
[2020-05-16] MEDS ORDERED: FINASTERIDE 5 MG TAB PO SCH (09:00)
[2020-05-16] MEDS ORDERED: COLESTIPOL HCL 1 GM TAB PO SCH (10:00)
--- NOTE | 2020-05-16 11:09 | Cardiology Progress Note ---
Date of Service May 16, 2020 Assessment & Plan (1) Angina pectoris, unspecified: (2) CAD (coronary artery disease): (3) Moderate aortic stenosis: The patient is clinically stable. He has chronic angina along with known aortic stenosis. I believe that he can be discharged home to outpatient follow- up. I will arrange follow-up through our office. Admission and Anticipated Discharge Date Admission Date: May 15, 2020 Subjective The patient had an uneventful night. He has had no additional chest pain. Review of Systems Review of Systems: All systems reviewed & are unremarkable except as noted in HPI & below Nothing additional to add. Physical Exam Physical Exam: General: no acute distress and stated age Head: normocephalic, no masses, lesions, tenderness or abnormalities Eyes: conjunctiva are pink and non-injected, sclera clear Neck: supple, no adenopathy, no bruits, normal jugular venous pulse, no hepatojugular reflux Chest: normal shape and normal respiratory effort Lungs: clear to auscultation and percussion Cardiac Exam: - regular rate & rhythm, systolic murmur left sternal border- normal S1, normal S2 Pulses: 2(+) throughout Abdomen: abdomen soft, non-tender, no abnormal masses and no hepatosplenomegaly Musculoskeletal: no gait disturbance, no joint inflammation, no deforming arthritis Extremities: no edema and no cyanosis Neuro: grossly normal exam Results & Data ([facility]) Vital Signs (Past 12 Hours) Vital Signs Temp Pulse Pulse Resp BP Pulse Ox 05/16/20 08:35 64 05/16/20 08:00 61 05/16/20 06:57 36.3 C L 58 L 20 179/89 H 95 05/16/20 03:25 36.5 C 56 L 18 139/77 97 05/15/20 23:53 59 L 05/15/20 23:30 138/86 Laboratory Results Laboratory Results - last 24 hr 05/15/20 05/15/20 05/16/20 10:47 16:54 00:48 WBC 5.12 RBC 4.35 L Hgb 13.3 L Hct 39.8 L MCV 91.5 MCH 30.6 MCHC 33.4 RDW Std Deviation 45.8 RDW Coeff of Macey 13.6 Plt Count 181 MPV 10.1 Immature Gran % (Auto) 0.0 Neut % (Auto) 53.7 Lymph % (Auto) 27.9 [place] % (Auto) 12.5 Eos % (Auto) 5.3 Baso % (Auto) 0.6 Neut # (Auto) 2.75 Lymph # (Auto) 1.43 [place] # (Auto) 0.64 H Eos # (Auto) 0.27 Baso # (Auto) 0.03 Immature Gran # (Auto) 0.00 Sodium 140 Potassium 3.8 Chloride 107 Carbon Dioxide 28 Anion Gap 5.0 BUN 20 H Creatinine 1.34 Est Cr Clr Drug Dosing 40.6 Est GFR ( Amer) 57.6 Est GFR (Non-Af Amer) 49.7 BUN/Creatinine Ratio 15.2 Glucose 96 Calcium 9.1 Magnesium Total Bilirubin 0.4 AST 19 ALT 17 Alkaline Phosphatase 112 Troponin I < 0.015 < 0.015 Total Protein 6.6 Albumin 3.5 Globulin 3.1 Albumin/Globulin Ratio 1.1 Lipase 207 05/16/20 05/16/20 05/16/20 00:48 07:01 07:01 WBC 5.00 RBC 4.72 Hgb 14.3 Hct 43.5 MCV 92.2 MCH 30.3 MCHC 32.9 RDW Std Deviation 46.8 H RDW Coeff of Macey 13.8 Plt Count 179 MPV 10.1 Immature Gran % (Auto) Neut % (Auto) Lymph % (Auto) [place] % (Auto) Eos % (Auto) Baso % (Auto) Neut # (Auto) Lymph # (Auto) [place] # (Auto) Eos # (Auto) Baso # (Auto) Immature Gran # (Auto) Sodium 142 141 Potassium 4.0 4.0 Chloride 109 H 107 Carbon Dioxide 33 H 32 Anion Gap 0 L 2.0 L BUN 21 H 20 H Creatinine 1.35 1.37 Est Cr Clr Drug Dosing 40.3 39.0 Est GFR ( Amer) 57.1 56.1 Est GFR (Non-Af Amer) 49.2 48.4 BUN/Creatinine Ratio 15.8 14.8 Glucose 91 88 Calcium 8.4 L 8.9 Magnesium 2.4 Total Bilirubin 0.5 AST 13 L ALT 15 Alkaline Phosphatase 92 Troponin I < 0.015 Total Protein 6.0 L Albumin 3.1 L Globulin 2.9 Albumin/Globulin Ratio 1.1 Lipase Medications Administered Current Inpatient Medications Acetaminophen (Acetaminophen 325 Mg Tab) 650 mg PO Q4H PRN PRN Reason: Pain or Fever Stop: 06/14/20 13:15 Al Hydrox/Mg Hydrox/Simethicone (Aluminum/Magnesium Susp 30 Ml Udc) 15 ml PO Q4H PRN PRN Reason: Dyspepsia Stop: 06/14/20 13:15 Atorvastatin Calcium (Atorvastatin 20 Mg Tab) 20 mg PO DAILY [facility] Stop: 06/15/20 08:59 Last Admin: 05/16/20 08:28 Dose: 20 mg Documented by: Clopidogrel Bisulfate (Clopidogrel Bisulfate 75 Mg Tab) 75 mg PO DAILY [facility] Stop: 06/15/20 08:59 Last Admin: 05/16/20 08:29 Dose: 75 mg Documented by: Colestipol HCl (Colestipol Hcl 1 Gm Tab) 1 gm PO DAILY@1000 [facility] Stop: 06/15/20 09:59 Last Admin: 05/16/20 10:18 Dose: 1 gm Documented by: Cyanocobalamin (Cyanocobalamin 500 Mcg Tablet (Vitamin B-12)) 1,000 mcg PO D AILY [facility] Stop: 06/15/20 08:59 Last Admin: 05/16/20 08:28 Dose: 1,000 mcg Documented by: Finasteride (Finasteride 5 Mg Tab) 5 mg PO DAILY [facility] Stop: 06/15/20 08:59 Last Admin: 05/16/20 08:29 Dose: 5 mg Documented by: Formoterol Fumarate (Formoterol 20 Mcg/2 Ml Vial) 20 mcg INH BID PRN PRN Reason: Shortness Of Breath Or Wheezing Stop: 06/14/20 13:48 Heparin Sodium (Porcine) (Heparin Sod 5,000 Unit/0.5 Ml Vial) 5,000 units SQ Q8 [facility] Stop: 06/14/20 21:59 Last Admin: 05/16/20 06:24 Dose: Not Given Documented by: Isosorbide Mononitrate (Isosorbide [place] Extended Rel 30 Mg Tabcr) 30 mg PO DAILY [facility] Stop: 06/15/20 08:59 Last Admin: 05/16/20 08:29 Dose: 30 mg Documented by: Ketorolac Tromethamine (Ketorolac Ls 0.4% Op Soln 5 Ml Btl) 1 drops OPL QAM [facility] Stop: 06/15/20 08:59 Lisinopril (Lisinopril 10 Mg Tab) 10 mg PO QAM [facility] Stop: 06/14/20 14:59 Last Admin: 05/16/20 08:27 Dose: 10 mg Documented by: Lorazepam (Lorazepam 0.5 Mg Tab) 0.25 mg PO TID PRN PRN Reason: ANXIETY/VERTIGO Stop: 06/14/20 13:15 Magnesium Hydroxide (Magnesium Hydroxide Susp 30 Ml Udc) 30 ml PO Q12H PRN PRN Reason: Constipation Stop: 06/14/20 13:15 Metoprolol Succinate (Metoprolol Succ 25mg Ext Rel Tab) 12.5 mg PO DAILY [facility] Stop: 06/15/20 08:59 Last Admin: 05/16/20 08:28 Dose: 12.5 mg Documented by: Nitroglycerin (Nitroglycerin Sl 0.4 Mg/Tab Tab) 0.4 mg SL UD PRN PRN Reason: Chest Pain Stop: 06/14/20 13:15 Ondansetron HCl (Ondansetron Inj 2 Mg/Ml 2 Ml Vial) 4 mg IV Q6H PRN PRN Reason: Nausea Stop: 06/14/20 13:15 Polyethylene Glycol (Polyethylene (Miralax) 17 Gm Pack) 17 gm PO DAILY PRN PRN Reason: Constipation Stop: 06/14/20 13:15 Terazosin HCl (Terazosin Hcl 5 Mg Cap) 5 mg PO HS [facility] Stop: 06/14/20 20:59 Last Admin: 05/15/20 22:09 Dose: 5 mg Documented by: Terazosin HCl (Terazosin Hcl 1 Mg Cap) 2 mg PO HS [facility] Stop: 06/14/20 20:59 Last Admin: 05/15/20 22:08 Dose: 2 mg Documented by:
--- NOTE | 2020-05-16 12:26 | Hospitalist Progress Note ---
Date of Service May 16, 2020 Assessment & Plan (1) Chest pain: This is an 80-year-old male who has significant past medical history of CAD, moderate aortic valve stenosis, HTN, HLD, COPD, CKD stage III, BPH, femoral artery pseudoaneurysm, history DVT who presents to ED secondary to chest pain upon awakening this morning. He does have significant atherosclerotic coronary disease secondary to chronic left anterior descending occlusion by cardiac cath in 2013. 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 Also of significance the echocardiogram on March 2020 revealed moderately severe aortic stenosis. He presents to ED today secondary to chest pain upon arrival that resolved after taking nitro x2. Serial troponins and EKG did not show any significant change to suggest ACS Echo of the heart showed heavily calcified aortic root and valve, possible severe calcific aortic stenosis, moderate concentric LVH with EF of 55 to 60%, LV wall motion is normal, RV systolic function is normal, atrial sizes are normal and there is mild mitral and tricuspid regurgitation. Appreciate cardiology input and recommendation She remains free from any symptom Be discharged home this afternoon (2) CAD (coronary artery disease): hx of complex CAD with hx of PTCA 2013 and unsuccessful attempt at opening chronic total occlusion of LAD on plavix, metoprolol, imdur plan as above (3) Moderate aortic stenosis: documented via echo 03/2020 obtain repeat echo today given acute onset chest pain Recent echo shows severe aortic stenosis (4) HTN (hypertension): blood pressure stable continue metoprolol, imdur (5) Dyslipidemia: continue statin (6) CKD (chronic kidney disease) stage 3, GFR 30-59 ml/min: baseline cr 1.3-1.5 bun/cr 20/1.34 today, monitor and avoid nephrotoxic agents when able (7) COPD, mild: no acute exac continue prn brovana (8) BPH (benign prostatic hyperplasia): continue finasteride and terazosin (9) DVT prophylaxis: SQ Heparin Disposition: admit to tele Follow up: PCP Dr. Ramirez upon discharge Admission and Anticipated Discharge Date Admission Date: May 15, 2020 Subjective 05/16/2020 The patient was seen and examined in medical telemetry unit He has significant CAD with moderate aortic stenosis and was admitted with the chest pain He has been ruled out for any ACS He denies any symptoms as of today this morning Review of Systems Review of Systems: All systems reviewed and are unremarkable except as noted below Respiratory: no cough and no dyspnea Cardiovascular: no chest pain, no palpitations, no lightheadedness and no edema Physical Exam Physical Exam: Sitting on a chair without any acute symptoms Constitutional: + thin; no acute distress and not ill appearing Eyes: PERRL, conjunctivae normal, anicteric sclerae ENMT: external ear and nose normal, oropharynx normal Neck: trachea midline, no thyromegaly Respiratory: normal respiratory effort; no respiratory distress Auscu ltation: lungs clear to auscultation bilaterally and + crackles (Minimal crackles at the bases) Cardiovascular: Rate/Rhythm: regular rate and regular rhythm Heart Sounds: + murmur (2/6 ESM over aortic area) Gastrointestinal (Abdomen): Inspection/Auscultation: abdomen normal to inspection and normal bowel sounds; abdomen not distended Percussion/Palpation: abdomen soft; abdomen nontender Musculoskeletal: No acute arthritis involving any joint Neurologic: moves all extremities; no focal motor deficits Alert, awake and oriented x3 Psychiatric: A+Ox3, euthymic affect Lymphatic: no cervical or axillary lymphadenopathy Results & Data Results & Data [facility]) Vital Signs (Past 12 Hours) Vital Signs Temp Pulse Pulse Resp BP Pulse Ox 05/16/20 11:10 36.5 C 76 18 116/71 94 05/16/20 08:35 64 05/16/20 08:00 61 05/16/20 06:57 36.3 C L 58 L 20 179/89 H 95 05/16/20 03:25 36.5 C 56 L 18 139/77 97 Laboratory Results Short CBC 05/16/20 05/16/20 Range/Units 00:48 07:01 WBC 5.12 5.00 (4.8-10.8) K/uL Hgb 13.3 L 14.3 (14.0-18.0) g/dL Hct 39.8 L 43.5 (42-52) % Plt Count 181 179 (130-400) K/uL BMP 05/16/20 05/16/20 00:48 07:01 Sodium 142 141 Potassium 4.0 4.0 Chloride 109 H 107 Carbon Dioxide 33 H 32 BUN 21 H 20 H Creatinine 1.35 1.37 Glucose 91 88 Calcium 8.4 L 8.9 Cardiac Enzymes 05/15/20 05/16/20 Range/Units 16:54 00:48 Troponin I < 0.015 < 0.015 (0-0.045) ng/ml Liver Function 05/16/20 Range/Units 00:48 Total Bilirubin 0.5 (0.2-1) mg/dl AST 13 L (15-37) U/L ALT 15 (12-78) U/L Alkaline Phosphatase 92 (45-117) U/L Albumin 3.1 L (3.4-5.0) gm/dl Medications Administered Current Inpatient Medications Acetaminophen (Acetaminophen 325 Mg Tab) 650 mg PO Q4H PRN PRN Reason: Pain or Fever Stop: 06/14/20 13:15 Al Hydrox/Mg Hydrox/Simethicone (Aluminum/Magnesium Susp 30 Ml Udc) 15 ml PO Q4H PRN PRN Reason: Dyspepsia Stop: 06/14/20 13:15 Atorvastatin Calcium (Atorvastatin 20 Mg Tab) 20 mg PO DAILY [facility] Stop: 06/15/20 08:59 Last Admin: 05/16/20 08:28 Dose: 20 mg Documented by: Clopidogrel Bisulfate (Clopidogrel Bisulfate 75 Mg Tab) 75 mg PO DAILY [facility] Stop: 06/15/20 08:59 Last Admin: 05/16/20 08:29 Dose: 75 mg Documented by: Colestipol HCl (Colestipol Hcl 1 Gm Tab) 1 gm PO DAILY@1000 [facility] Stop: 06/15/20 09:59 Last Admin: 05/16/20 10:18 Dose: 1 gm Documented by: Cyanocobalamin (Cyanocobalamin 500 Mcg Tablet (Vitamin B-12)) 1,000 mcg PO DAILY [facility] Stop: 06/15/20 08:59 Last Admin: 05/16/20 08:28 Dose: 1,000 mcg Documented by: Finasteride (Finasteride 5 Mg Tab) 5 mg PO DAILY [facility] Stop: 06/15/20 08:59 Last Admin: 05/16/20 08:29 Dose: 5 mg Documented by: Formoterol Fumarate (Formoterol 20 Mcg/2 Ml Vial) 20 mcg INH BID PRN PRN Reason: Shortness Of Breath Or Wheezing Stop: 06/14/20 13:48 Heparin Sodium (Porcine) (Heparin Sod 5,000 Unit/0.5 Ml Vial) 5,000 units SQ Q8 [facility] Stop: 06/14/20 21:59 Last Admin: 05/16/20 06:24 Dose: Not Given Documented by: Isosorbide Mononitrate (Isosorbide [place] Extended Rel 30 Mg Tabcr) 30 mg PO DAILY [facility] Stop: 06/15/20 08:59 Last Admin: 05/16/20 08:29 Dose: 30 mg Documented by: Ketorolac Tromethamine (Ketorolac Ls 0.4% Op Soln 5 Ml Btl) [facility] Stop: 06/15/20 08:59 Last Admin: 05/16/20 12:20 Dose: Not Given Documented by: Lisinopril (Lisinopril 10 Mg Tab) 10 mg PO QAM [facility] Stop: 06/14/20 14:59 Last Admin: 05/16/20 08:27 Dose: 10 mg Documented by: Lorazepam (Lorazepam 0.5 Mg Tab) 0.25 mg PO TID PRN PRN Reason: ANXIETY/VERTIGO Stop: 06/14/20 13:15 Magnesium Hydroxide (Magnesium Hydroxide Susp 30 Ml Udc) 30 ml PO Q12H PRN PRN Reason: Constipation Stop: 06/14/20 13:15 Metoprolol Succinate (Metoprolol Succ 25mg Ext Rel Tab) 12.5 mg PO DAILY [facility] Stop: 06/15/20 08:59 Last Admin: 05/16/20 08:28 Dose: 12.5 mg Documented by: Nitroglycerin (Nitroglycerin Sl 0.4 Mg/Tab Tab) 0.4 mg SL UD PRN PRN Reason: Chest Pain Stop: 06/14/20 13:15 Ondansetron HCl (Ondansetron Inj 2 Mg/Ml 2 Ml Vial) 4 mg IV Q6H PRN PRN Reason: Nausea Stop: 06/14/20 13:15 Polyethylene Glycol (Polyethylene (Miralax) 17 Gm Pack) 17 gm PO DAILY PRN PRN Reason: Constipation Stop: 06/14/20 13:15 Terazosin HCl (Terazosin Hcl 5 Mg Cap) 5 mg PO HS [facility] Stop: 06/14/20 20:59 Last Admin: 05/15/20 22:09 Dose: 5 mg Documented by: Terazosin HCl (Terazosin Hcl 1 Mg Cap) 2 mg PO HS [facility] Stop: 06/14/20 20:59 Last Admin: 05/15/20 22:08 Dose: 2 mg Documented by: (1) Chest pain Chest pain type: unspecified Qualified Code(s): R07.9 - Chest pain, unspecified
--- NOTE | 2020-05-16 17:26 | Electrocardiogram Report ---
Test Reason : Blood Pressure : / mmHG Vent. Rate : 061 BPM Atrial Rate : 061 BPM P-R Int : 148 ms QRS Dur : 078 ms QT Int : 416 ms P-R-T Axes : 073 064 082 degrees QTc Int : 418 ms Sinus rhythm with frequent Premature ventricular complexes Anterior infarct (cited on or before 16-MAY-2020) Abnormal ECG When compared with ECG of 15-MAY-2020 10:38, No significant change was found Confirmed by Michael Bernardo ([id number]) on 05/16/2020 5:26:15 PM Referred By: Jorge Morales Confirmed By:Mamadou Bernardo
--- NOTE | 2020-05-17 10:48 | Discharge Summary ---
Date of Service May 17, 2020 Admission HPI Per Admitting Provider This is an 80-year-old male who has significant past medical history of CAD, moderate aortic valve stenosis, HTN, HLD, COPD, CKD stage III, BPH, femoral artery pseudoaneurysm, history DVT who presents to ED secondary to chest pain upon awakening this morning. He does have significant atherosclerotic coronary disease secondary to chronic left anterior descending occlusion by cardiac cath in 2013. 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 Also of significance the echocardiogram on March 2020 revealed moderately severe aortic stenosis. He presents to ED today secondary to chest pain upon arrival that resolved after taking nitro x2. Patient states he was sitting down eating breakfast when he went to stand up and developed substernal, nonradiating chest discomfort. He also experienced lightheadedness and dizziness. He returned to his seat where he continued to have chest discomfort. He took 1 sublingual nitro which alleviated his symptoms, but they did not resolve. After 5 to 10 minutes he took an additional second nitro which did alleviate symptoms totally. His chest pain lasted approximately 1 hour. During symptoms he denies any diaphoresis or nausea. He has not had to take nitro in quite some time. He has been compliant with his medications. He denies any other recent illness. He denies fever, chills, sweats, syncope, cough, hemoptysis, nausea, vomiting, abdominal pain, change in bowel or urinary habits. Daughter is at bedside. In ED patient remained hemodynamically stable. CBC and CMP were generally unremarkable. His EKG revealed sinus rhythm with PVC, regular rate [address] or T wave changes. Troponin undetectable. Chest x-ray consistent with pulmonary emphysema but no overt acute disease. He did receive ASA 324mg in ED x 1. Admission Exam Per Admitting Provider Physical Exam: Constitutional: WD/WN, M, Elderly, vitals as above, NAD, sitting up in bed, pleasant, conversing easily Head: Normocephalic, Atraumatic Eyes: PERRL, conjunctivae normal, anicteric sclerae ENMT: external ear and nose normal, oropharynx normal Neck: trachea midline, no thyromegaly normal visual inspection Respiratory: normal respiratory effort, lungs clear to auscultation, no wheeze, rales, rhonchi. Normal insp/exp effort, no accessory muscle use Cardiovascular: RRR, 2/6 STEVEN RUSB, no edema Vessels: no JVD or carotid bruit Chest: normal inspection of chest Abdomen: normal bowel sounds, soft, nontender, no hepatosplenomegaly Musculoskeletal: no cyanosis or clubbing, extremities motor strength 5/5 Skin: no rashes, warm and dry normal turgor Neurologic: PERRL, EOMI, accommodation nl, no face palsy, no dysarthria CN's II-XI intact bilaterally and moves all extremities Psychiatric: A+Ox3, euthymic affect Lymphatic: no cervical or axillary lymphadenopathy : deferred Principal Diagnosis Chest pain-no ACS, CAD, moderate aortic stenosis, hypertension, COPD, CKD stage III Discharge Exam Constitutional + thin; no acute distress and not ill appearing Eyes PERRL, conjunctivae normal, anicteric sclerae ENMT external ear and nose normal, oropharynx normal Neck trachea midline, no thyromegaly Respiratory normal respiratory effort; no respiratory distress Auscultation: lungs clear to auscultation bilaterally and + crackles (Minimal crackles at the bases) Cardiovascular Rate/Rhythm: regular rate and regular rhythm Heart Sounds: + murmur (2/6 ESM over aortic area) Gastrointestinal (Abdomen) Inspection/Auscultation: abdomen normal to inspection and normal bowel sounds; abdomen not distended Percussion/Palpation: abdomen soft; abdomen nontender Neurologic moves all extremities; no focal motor deficits Psychiatric A+Ox3, euthymic affect Lymphatic no cervical or axillary lymphadenopathy Discharge Data Allergies Allergy/AdvReac Type Severity Reaction Status Date / Time Iodinated Contrast Media Allergy Unknown RASH Verified 05/15/20 11:40 tetracycline Allergy Unknown Unknown. Verified 05/15/20 11:40 Consultations 05/15/20 11:42 ED Decision to Admit Stat 05/15/20 11:43 Consult Cardiology Routine 05/15/20 11:49 Consult Case Management - Discharge Planning Routine Hospital Course (1) Chest pain: This is an 80-year-old male who has significant past medical history of CAD, moderate aortic valve stenosis, HTN, HLD, COPD, CKD stage III, BPH, femoral artery pseudoaneurysm, history DVT who presents to ED secondary to chest pain upon awakening this morning. He does have significant atherosclerotic coronary disease secondary to chronic left anterior descending occlusion by cardiac cath in 2013. 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 Also of significance the echocardiogram on March 2020 revealed moderately severe aortic stenosis. He presents to ED today secondary to chest pain upon arrival that resolved after taking nitro x2. Serial troponins and EKG did not show any significant change to suggest ACS Echo of the heart showed heavily calcified aortic root and valve, possible severe calcific aortic stenosis, moderate concentric LVH with EF of 55 to 60%, LV wall motion is normal, RV systolic function is normal, atrial sizes are normal and there is mild mitral and tricuspid regurgitation. Appreciate cardiology input and recommendation She remains free from any symptom Be discharged home this afternoon (2) CAD (coronary artery disease): hx of complex CAD with hx of PTCA 2013 and unsuccessful attempt at opening food checker johnathon total occlusion of LAD on plavix, metoprolol, imdur plan as above (3) Moderate aortic stenosis: documented via echo 03/2020 obtain repeat echo today given acute onset chest pain Recent echo shows severe aortic stenosis (4) HTN (hypertension): blood pressure stable continue metoprolol, imdur (5) Dyslipidemia: continue statin (6) CKD (chronic kidney disease) stage 3, GFR 30-59 ml/min: baseline cr 1.3-1.5 bun/cr 20/1.34 today, monitor and avoid nephrotoxic agents when able (7) COPD, mild: no acute exac continue prn brovana (8) BPH (benign prostatic hyperplasia): continue finasteride and terazosin (9) DVT prophylaxis: SQ Heparin Disposition: admit to tele Follow up: PCP Dr. Ramirez upon discharge Total Time Total Time Spent Total Time Spent (In Minutes): 35 minutes Total Time Includes: Examination of the Patient, Discharge Planning, Medication Reconciliation and Communication With Other Providers Discharge Plan Discharge Items Patient Disposition: Home - Self-Care Reason For Visit: CHEST PAIN Discharge Diagnosis: Chest pain-no ACS, CAD, moderate aortic stenosis, hypertension, COPD, CKD stage III Condition on Discharge: Good Activity: Resume your previous activity Non-emergency contact: Primary Care Provider Call non-emergency contact if: you have any medication questions and your symptoms worsen Follow-up/Referrals: Fritz Ramirez DO [Primary Care Provider] - (Date & Time 05/22/2020 3:00 PM Provider Fritz Ramirez DO Department General Internal Medicine [facility] ) Diet: Heart Healthy Addtl Attending Provider Instructions: Please take precaution to avoid falls No change in your current medication Pending Studies at Discharge: No Stand-Alone Forms: My [facility] [id number], Smoking Cessation Medications and DC Order Prescriptions: New lisinopril 10 mg Tablet 10 mg PO QAM 30 Days Qty: 30 RF: 0 Continued acetaminophen [Tylenol Extra Strength] 500 mg Tablet 500 mg PO Q6H PRN (Reason: Pain) RF: 0 terazosin 5 mg capsule 5 mg PO HS RF: 0 atorvastatin [Lipitor] 40 mg tablet 20 mg PO DAILY RF: 0 isosorbide mononitrate 30 mg tablet extended release 24 hr 30 mg PO DAILY RF: 0 clopidogrel [Plavix] 75 mg tablet 75 mg PO DAILY RF: 0 terazosin 2 mg capsule 2 mg PO HS RF: 0 meclizine 25 mg Tablet 25 mg PO TID PRN (Reason: DIZZY) RF: 0 nitroglycerin [Nitrostat] 0.4 mg Tablet, Sublingual 0.4 mg sublingual UD PRN (Reason: Chest Pain) RF: 0 metoprolol succinate [Toprol XL] 25 mg tablet extended release 24 hr 12.5 mg PO DAILY RF: 0 finasteride [Proscar] 5 mg tablet 5 mg PO DAILY RF: 0 ondansetron HCl [Zofran] 8 mg Tablet 8 mg PO TID PRN (Reason: Nausea) RF: 0 cyanocobalamin (vitamin B-12) [Vitamin B-12] 1,000 mcg Tablet 1,000 mcg PO DAILY RF: 0 lorazepam [Ativan] 0.5 mg Tablet 0.25 mg PO TID PRN (Reason: ANXIETY/VERTIGO) RF: 0 colestipol 1 gram Tablet 1 g PO DAILY RF: 0 ketorolac 0.4 % Drops 1 drp OPL QAM RF: 0 Brovana 15 mcg/2 mL Solution For Nebulization 2 ml INHALATION BID PRN (Reason: Shortness Of Breath Or Wheezing) RF: 0 Discharge Orders: Discharge Order (Routine); Ordered 05/16/20 Ordered By: Shavon Ochoa Admission Data Admit Date/Time: 05/15/20 11:53 Attending Provider: Shavon Ochoa Admit Provider: Pedro Levy Primary Care Provider: Fritz Ramirez Other Providers: Pedro Levy ; Luis See Other Interventions: Discharge Summary Assessment (RN) Last Done: 05/16/20 17:10
== END 2020-05-16 17:45 | disposition home or self-care (01) ==
LOC: 2W 10:21 → ED 10:21 → SUATTDRO 11:53 → 2W 12:37

== ENCOUNTER 2022-06-09 12:49 | Inpatient (IN) ==
[2022-06-09] MEDS ORDERED: SODIUM CHLORIDE 0.9% 500 ML IV SCH (13:15)
[2022-06-09 13:19] LABS: Basophils # (auto) 0.02 K/uL (0-0.2); Basophils % (auto) 0.4 %; Eosinophils # (auto) 0.07 K/uL (0-0.50); Eosinophils % (auto) 1.3 %; Hematocrit (blood only) 41.4 % (40.1-51.0); Hemoglobin 13.8 g/dl (14.0-18.0); Immature Granulocytes # (auto) 0.02 K/uL (0.00-0.02); Immature Granulocytes % (auto) 0.4 %; Lymphocytes # (auto) 0.92 K/uL (1.2-3.4); Lymphocytes % (auto) 17.1 %; Mean Corpuscular Hemoglobin 31.4 pg (25.0-34.0); Mean Corpuscular Hgb Conc 33.3 g/dL (32.0-36.0); Mean Corpuscular Volume 94.1 fL (80.0-100.0); Monocytes # (auto) 0.75 K/uL (0.24-0.82); Monocytes % (auto) 13.9 %; Neutrophils # (auto) 3.61 K/uL (1.4-6.5); Neutrophils % (auto) 66.9 %; Platelet Count 179 K/uL (130-400); RDW Coefficient of Variation 12.8 % (11.5-14.5); RDW Standard Deviation 44.4 fL (36.4-46.3); White Blood Count 5.39 K/ul (4.8-10.8)
[2022-06-09 13:36] LABS: Albumin Globulin Ratio 1.6 (0.9-2); Albumin Level 4.1 gm/dl (3.4-5.0); BUN Creatinine Ratio 15.5 (10-20); Bilirubin,Total 0.6 mg/dl (0.2-1.0); Calcium 8.9 mg/dl (8.5-10.1); Creatinine Clr Calc Pharmacy 20.3 ml/min; Est GFR (African American) 26.6 ml/min; Est GFR (Non-African American) 22.9 ml/min; Globulin 2.6 gm/dl (2.5-4.0); Magnesium 2.1 mg/dl (1.7-2.4); Potassium 4.7 mmol/L (3.5-5.1); Total Protein 6.7 gm/dl (6.0-8.3)
[2022-06-09 13:39] LABS: Troponin I High Sensitivity 13.7 pg/ml (0-20)
--- NOTE | 2022-06-09 13:57 | XRay Report ---
XR chest 1V portable CLINICAL HISTORY: COVID, weak, syncope COMPARISON STUDY: Chest radiograph May 15, 2020. Chest CT July 23, 2019. FINDINGS: Lung volumes are normal. Lungs are clear. There is no pneumothorax or pleural effusion. Car diac size is normal. Mediastinal contours are normal. There is no evidence for pulmonary edema. IMPRESSION: No acute cardiopulmonary findings. ACT 112: Negative or not required by law. Electronically signed by: Eliseo Mendenhall M.D. 06/09/2022 1:55 PM
[2022-06-09] MEDS: SODIUM CHLORIDE 0.9% 500 ML IV SCH (14:07)
[2022-06-09 16:20] LABS: Appearance Urine Clear (Clear); Bacteria Urine Automated Negative (Negative); Bilirubin Urine Negative (Negative); Blood Urine Negative (Negative); Color Urine Dark Yellow; Epithelial Cell Urine Auto 0-5 /lpf (0-5); Glucose Urine UA Trace (Negative); Ketones Urine Trace (Negative); Leukocyte Esterase Urine Negative (Negative); Nitrite Urine Negative (Negative); Protein Urine Trace (Negative); RBC Urine Automated 0-4 /hpf (0-4); Specific Gravity Urine 1.019 (1.000-1.030); Urobilinogen Urine Negative (Negative); pH Urine 5.5 (4.5-7.5)
--- NOTE | 2022-06-09 17:11 | History & Physical Report ---
Date of Service June 09, 2022 Assessment & Plan (1) Syncope: Plan: Patient is a 18-year-old male with PMH CAD, moderate aortic valve stenosis, HTN, HLD, COPD, CKD IIIb/IV, BPH, femoral artery pseudoaneurysm, history DVT who presents to ED with c/o syncope today. In ER vitals stable Initial troponin: 13, EKG without acute ST changes CT head: No acute intracranial abnormality Suspect orthostatic hypotension with current COVID-19 infection and dehydration Monitor on telemetry for arrhythmias Orthostatic vitals In ER given 500 mL NSS Gentle IVF Trend troponin Echo EKG in a.m. (2) COVID-19: Plan: Symptom onset on 06/06/2022. Positive COVID-19 PCR on 06/08/2022 at [facility] ER with negative influenza, negative RSV Today in ER afebrile, no hypoxia. No leukocytosis CXR: No infiltrate No chest pain, shortness of breath, productive cough Isolation precautions Did not start Paxlovid. We will continue to hold Monitor Incentive spirometer (3) SAM (acute kidney injury): Plan: SAM on CKD IIIb/CKD IV Cr: 2.5. Baseline creatinine 1.9-2.2 Gentle IVF Monitor renal functions Hold losartan, avoid other nephrotoxic agents when possible (4) CAD (coronary artery disease): Plan: History of complex CAD with cardiac cath in 2013 and unsuccessful attempt at op ening chronic total occlusion of LAD, with complication femoral artery pseudoaneurysm Continue Plavix, isosorbide, metoprolol succinate, atorvastatin (5) HTN (hypertension): Plan: Continue amlodipine Hold lisinopril with SAM BP elevated during ER course. Hydralazine as needed hypertension (6) Dyslipidemia: Plan: Continue atorvastatin (7) COPD, mild: (8) BPH (benign prostatic hyperplasia): Plan: Continue terazosin, finasteride DVT Prophylaxis Heparin SQ Full Code as per discussion with pt Follows with Dr Mcdonough for routine care Pt was seen and care coordinated with Dr Ochoa. See addendum History of Present Illness Chief Complaint: syncope Primary Care Provider: Rashi Mcdonough MD Patient is a 82-year-old male with PMH CAD, moderate aortic valve stenosis, HTN, HLD, COPD, CKD IIIb/IV, BPH, femoral artery pseudoaneurysm, history DVT who presents to ED with c/o syncope today. Patient states 06/06/2022 started with scratchy throat, rhinorrhea, tactile fevers, chills, body aches, generalized weakness. Reports mild nonproductive cough. Denies shortness of breath or chest pain. Patient seen in ER 06/08/2022 with flulike symptoms and positive COVID-19 test. No labs or imaging completed at that time secondary to stable vitals and no hypoxia. Patient was given prescription for Paxlovid. Unfortunately was unable to obtain Paxil from pharmacy until today. Patient's daughter went to patient's house to give him the prescription. Patient states he was lying on couch resting when he heard his daughter at the door so he got up to go on May and as he was walking he felt dizzy. Patient remembers on walking or for daughter and then next thing he remembers is lying on floor. Patient's daughter fills in the gap. She states after he opened the door he walked to the kitchen and appeared to be wobbly when walking and stood by counter and put his head on countertop and said he did not feel well. She states he then passed out and fell knocking her over with him. Daughter states patient fell on her. She states he had LOC for a few seconds and then woke up. Reports at baseline patient has known mild orthostatic hypotension. Patient states only had 1 bottle of water today and 1 piece of toast. Currently he reports he feels back at baseline and has generalized weakness. Denies any chest pain, palpitations, shortness of breath prior to fall. Denies any history of syncope. Had COVID-19 -two vaccines and one booster, last in 2020. Denies N/V/D/C, SHIPLEY, vision changes, neck pain,orthopnea, palpitations, choking, otalgia, abdominal pain, paresthesias, extremity edema, rashes, urinary symptoms. Allergies Allergy/AdvReac Type Severity Reaction Status Date / Time Iodinated Contrast Media Allergy Intermediate RASH Verified 06/09/22 16:34 tetracycline Allergy Unknown Unknown. Verified 06/09/22 16:34 Home Medications Medication Instructions Recorded Confirmed Type arformoterol 15 mcg/2 mL solution 2 ml inhalation BID PRN Shortness 07/23/19 06/09/22 History for nebulization (Brovana) Of Breath Or Wheezing clopidogrel 75 mg tablet (Plavix) 75 mg PO QAM 07/23/19 06/09/22 History colestipol 1 gram tablet 1 g PO QAM PRN Diarrhea 07/23/19 06/09/22 History cyanocobalamin (vitamin B-12) 1,000 mcg PO QAM 07/23/19 06/09/22 History 1,000 mcg tablet (Vitamin B-12) finasteride 5 mg tablet (Proscar) 5 mg PO HS 07/23/19 06/09/22 History ketorolac 0.4 % eye drops 1 drp OPL QAM 07/23/19 06/09/22 History lorazepam 0.5 mg tablet (Ativan) 0.25 mg PO TID PRN ANXIETY/VERTIGO 07/23/19 06/09/22 History meclizine 25 mg tablet 25 mg PO TID PRN DIZZY 07/23/19 06/09/22 History metoprolol succinate 25 mg 12.5 mg PO QAM 07/23/19 06/09/22 History tablet,extended release 24 hr (Toprol XL) nitroglycerin 0.4 mg sublingual 0.4 mg sublingual UD PRN Chest Pain 07/23/19 06/09/22 History tablet (Nitrostat) terazosin 2 mg capsule 2 mg PO HS 07/23/19 06/09/22 History terazosin 5 mg capsule 5 mg PO HS 07/23/19 06/09/22 History acetaminophen 500 mg tablet 500 mg PO Q6H PRN Pain 05/15/20 06/09/22 History (Tylenol Extra Strength) ondansetron HCl 8 mg tablet 8 mg PO TID PRN NAUSEA/VOMITING 10/08/21 06/09/22 History amlodipine 2.5 mg tablet 2.5 mg PO QAM 12/20/21 06/09/22 History lisinopril 10 mg tablet 10 mg PO QAM 12/20/21 06/09/22 History nirmatrelvir 300 mg (150 mg See Rx Instructions PO .COMPLEX 06/08/22 06/09/22 Rx x2)-ritonavir 100 mg tablet,dose #30 tabs pack(EUA) (Paxlovid) atorvastatin 20 mg tablet 20 mg PO HS 06/09/22 06/09/22 History erythromycin 5 mg/gram (0.5 %) eye 1 applic ophthalmic (eye) DAILY 06/09/22 06/09/22 History ointment isosorbide mononitrate 60 mg 60 mg PO QAM 06/09/22 06/09/22 History tablet,extended release 24 hr Past Med/Surg History Medical History BPH (benign prostatic hyperplasia) Bronchitis CAD (coronary artery disease) Chest pain CKD (chronic kidney disease) stage 3, GFR 30-59 ml/min COPD, mild Dyslipidemia GERD (gastroesophageal reflux disease) History of kidney stones HTN (hypertension) Moderate aortic stenosis Paresthesia Status post myocardial infarction daughter reports AR during angioplasty procedure 05/2014 Surgical History H/O coronary angioplasty "PTCA, CARDIAC ANGIOPLASTY, PERCUTANEOUS, 1 ARTERY performed by Paty Rasheed MD at [facility] [place] 05/23/14" History of back surgery "Lumbar Spine Fusion ,Post Interbody" History of inguinal hernia repair "R inguinal hernia repair with mesh performed by Dr. Vazquez 2005" History of knee surgery History of repair of rotator cuff Hx of right cataract extraction S/P colonoscopy Family History Father Silicosis Brother , 67 Cancer Social History Smoking Status: Former smoker Tobacco Type: Cigarettes Second Hand Exposure: No; Hx Alcohol Use: No Hx Substance Use: No Preferred Language: Pashto Communication Ability: Effective Consultative Sales Associate Required: No Beliefs That Will Affect Care: None marital status: / Current Living Situation: Alone Current Living Situation Comment: SOY DAUGHTER HELPS DAILY Feels Safe at Home: Yes Assistive Devices: Denture - Upper, Denture - Lower and Glasses Review of Systems Review of Systems: All systems reviewed & are unremarkable except as noted in HPI & below Physical Exam Physical Exam: General: no distress, WDWN elderly male Head: normocephalic, atraumatic Eyes: PERRL, EOM's intact, conjunctiva non-injected, anicteric ENT: Hard of hearing, normal inspection external ears, nose, mucous membranes dry Neck: supple, trachea midline, non-tender Lungs: clear, no respiratory distress, no wheezing/rhonchi/rales CV: RRR, no pretibial edema Abd: normal BS, soft, non-tender Ext: no cyanosis, no calf tenderness Neuro: A&O x 3, no focal deficits noted, normal affect, pleasant Skin: warm, dry Results & Data Results & Data ([facility]) Vital Signs (Past 12 Hours) Vital Signs Temp Pulse Pulse Resp BP BP Pulse Ox 06/09/22 13:43 52 L 17 108/64 95 06/09/22 13:13 97 06/09/22 12:55 36.9 C 58 L 18 115/66 98 O2 Del Method 06/09/22 13:43 Room Air 06/09/22 13:13 Room Air 06/09/22 12:55 Room Air Laboratory Results Short CBC 06/09/22 Range/Units 13:00 WBC 5.39 (4.8-10.8) K/ul Hgb 13.8 L (14.0-18.0) g/dl Hct 41.4 (40.1-51.0) % Plt Count 179 (130-400) K/uL BMP 06/09/22 13:00 Sodium 138 Potassium 4.7 Chloride 104 Carbon Dioxide 26 BUN 39 H Creatinine 2.51 H Glucose 99 Calcium 8.9 Liver Function 06/09/22 Range/Units 13:00 Total Bilirubin 0.6 (0.2-1.0) mg/dl AST 16 (13-39) U/L ALT 10 (7-52) U/L Alkaline Phosphatase 68 (34-104) U/L Albumin 4.1 (3.4-5.0) gm/dl Urine 06/09/22 Range/Units 16:05 Urine Color Dark Yellow Urine Appearance Clear (Clear) Urine pH 5.5 (4.5-7.5) Ur Specific [place] 1.019 (1.000-1.030) Urine Protein Trace H (Negative) Urine Glucose (UA) Trace H (Negative) Diagnostic Findings Chest X-Ray 06/09/22 13:11 XR chest 1V portable CLINICAL HISTORY: COVID, weak, syncope COMPARISON STUDY: Chest radiograph May 15, 2020. Chest CT July 23, 2019. FINDINGS: Lung volumes are normal. Lungs are clear. There is no pneumothorax or pleural effusion. Cardiac size is normal. Mediastinal contours are normal. There is no evidence for pulmonary edema. IMPRESSION: No acute cardiopulmonary findings. ACT 112: Negative or not required by law. Electronically signed by: Eliseo Mendenhall M.D. 06/09/2022 1:55 PM ECG Rate (beats per minute): 55 Rhythm: sinus bradycardia Findings: + Q waves (Anterior (seen previous EKGs) Supervising Physician Co-Signing Physician Notes Attending addendum: The patient was seen and examined in emergency room in presence of the daughter He was in the ER on with the dizziness and examination remained unremarkable and was sent home Has been complaining of weakness and dizziness with ambulation and has had a fall with possible loss of consciousness for few seconds Was diagnosed with COVID-19 virus infection and was given Paxil with and started taking from today In the ER noted to be hypertensive without any other significant findings On examination Lying in bed comfortably Blood pressure noted to be very high at 197/97 with heart rate around 58 Chestclear to auscultate bilaterally HeartS1, S2 Abdomenbenign Extremitiesno edema CNSalert, awake and oriented x3. No focal sensory or no motor deficit appreciated His investigations including labs, EKG and imaging studies reviewed Orthostasis likely secondary to the conditions as mentioned below with syncope Has SAM with COVID-19 virus infection Very high blood pressure Will get echo, give IV fluid and monitor in telemetry unit No treatment for COVID-19 virus infection Agree with assessment and plan as outlined above by DEVEN Zavaleta DR
--- NOTE | 2022-06-09 17:44 | CT Scan Report ---
CT OF THE HEAD WITHOUT CONTRAST CLINICAL HISTORY: Syncope. COMPARISON STUDY: Head CT and MRI of the brain October 08, 2021. CT DOSE: 537.48 mGy.cm TECHNIQUE: Helical axial images of the head were obtained without IV contrast. Automated exposure con trol was utilized for the study. A dose lowering technique was utilized adhering to the principles o f ALARA. FINDINGS: No acute intracranial hemorrhage, midline shift or mass effect is present. The ventricular system is unremarkable. The basal cisterns are patent. No extra-axial collections are present. There are no findings to suggest acute dural sinus thrombosis or acute territorial infarct. Atrophy is agai n noted. White matter hypodensity suggests small vessel disease. Trace fluid within the right mastoid air cells is unchanged. There is mild sinus mucosal thickening. IMPRESSION: No acute intracranial findings. No change in appearance of the brain. ACT 112: Negative or not required by law. Electronically signed by: Eliseo Mendenhall M.D. 06/09/2022 5:42 PM
[2022-06-09] MEDS ORDERED: ACETAMINOPHEN 325 MG TAB PO PRN (20:32)
[2022-06-09] MEDS ORDERED: SODIUM CHLORIDE 0.9% 1000ML 1,000 ML IV SCH (20:32)
[2022-06-09] MEDS ORDERED: hydrALAZINE HCL 20 MG/ML VIAL IV PRN (20:32)
[2022-06-09] MEDS ORDERED: POLYETHYLENE (MIRALAX) 17 GM PACK PO PRN (20:32)
[2022-06-09] MEDS: FINASTERIDE 5 MG TAB PO SCH (21:37)
[2022-06-09] MEDS: TERAZOSIN HCL 5 MG CAP PO SCH (21:38)
[2022-06-09] MEDS: ATORVASTATIN 20 MG TAB PO SCH (21:38)
[2022-06-09] MEDS: TERAZOSIN HCL 1 MG CAP PO SCH (21:39)
[2022-06-09] MEDS: HEPARIN SOD 5,000 UNIT/0.5 ML VIAL SQ SCH (23:05)
--- NOTE | 2022-06-10 05:27 | Electrocardiogram Report ---
Test Reason : Blood Pressure : / mmHG Vent. Rate : 055 BPM Atrial Rate : 055 BPM P-R Int : 128 ms QRS Dur : 078 ms QT Int : 438 ms P-R-T Axes : 061 056 090 degrees QTc Int : 419 ms Poor data quality, interpretation may be adversely affected Sinus bradycardia Anterior infarct (cited on or before 09-JUN-2022) Abnormal ECG When compared with ECG of 29-JAN-2022 11:54, No significant change was found Confirmed by Abdirashid Cosby ([id number]) on 06/10/2022 5:27:15 AM Referred By: Confirmed By:Abdirashid Cosby
[2022-06-10] MEDS: HEPARIN SOD 5,000 UNIT/0.5 ML VIAL SQ SCH ×3 (06:09→21:17)
[2022-06-10 08:44] LABS: Hematocrit (blood only) 40.2 % (40.1-51.0); Hemoglobin 13.7 g/dl (14.0-18.0); Mean Corpuscular Hemoglobin 31.3 pg (25.0-34.0); Mean Corpuscular Hgb Conc 34.1 g/dL (32.0-36.0); Mean Corpuscular Volume 91.8 fL (80.0-100.0); Mean Platelet Volume 10.2 fL (9.4-12.4); Platelet Count 172 K/uL (130-400); RDW Coefficient of Variation 12.9 % (11.5-14.5); RDW Standard Deviation 43.1 fL (36.4-46.3); Red Blood Count 4.38 M/uL (4.63-6.08); White Blood Count 4.87 K/ul (4.8-10.8)
[2022-06-10] MEDS: METOPROLOL SUCC 25MG EXT REL TAB PO SCH (08:45)
[2022-06-10] MEDS: ISOSORBIDE MONO EXTENDED REL 60 MG TABCR PO SCH (08:45)
[2022-06-10] MEDS: CYANOCOBALAMIN (B-12) 500 MCG TABLET PO SCH (08:45)
[2022-06-10] MEDS: CLOPIDOGREL BISULFATE 75 MG TAB PO SCH (08:45)
[2022-06-10] MEDS: ERYTHROMYCIN OP OINT 5 MG/GM 3.5 GM TUBE OP SCH (08:46)
[2022-06-10] MEDS: amLODIPine BESYLATE 5 MG TAB PO SCH (08:46)
[2022-06-10 09:06] LABS: BUN Creatinine Ratio 15.9 (10-20); Calcium 8.6 mg/dl (8.5-10.1); Creatinine Clr Calc Pharmacy 28.1 ml/min; Est GFR (African American) 42.6 ml/min; Est GFR (Non-African American) 36.7 ml/min; Potassium 3.8 mmol/L (3.5-5.1)
--- NOTE | 2022-06-10 10:13 | Hospitalist Progress Note ---
Date of Service June 10, 2022 Assessment & Plan (1) Syncope: Plan: 82year-old male with PMH CAD, moderate aortic valve stenosis, HTN, HLD, COPD, CKD IIIb/IV, BPH, femoral artery pseudoaneurysm, history DVT who presents to ED with c/o syncope today. In ER vitals stable Troponin trend was negative, EKG without acute ST changes CT head: No acute intracranial abnormality Syncope likely due to orthostatic hypotension in a patient with COVID 19 infection based on history +orthostatic vitals Supine 142/81, Sitting 119/85, Standing 111/72 Patient advised to get up slowly Monitor for now Continue to hold losartan for now (2) COVID-19: Plan: Symptom onset on 06/06/2022. Positive COVID-19 PCR on 06/08/2022 at [facility] ER with negative influenza, negative RSV Afebrile, no hypoxia. No leukocytosis CXR: No infiltrate Isolation precautions Monitor Incentive spirometer Supportive care (3) SAM (acute kidney injury): Plan: SAM on CKD IIIb/CKD IV On admission Cr: 2.5. Baseline creatinine 1.9-2.2 within the past year Got IVF Cr is improved to 1.7 today Monitor renal functions Continue to hold losartan Avoid other nephrotoxic agents when possible (4) CAD (coronary artery disease): Plan: History of complex CAD with cardiac cath in 2013 and unsuccessful attempt at opening chronic total occlusion of LAD, with complication femoral artery pseudoaneurysm Continue Plavix, isosorbide, metoprolol succinate, atorvastatin (5) HTN (hypertension): Plan: Continue amlodipine 2.5mg daily Continue to hold lisinopril with SAM and orthostatic hypotension BP was elevated on presentation, improved now (6) Dyslipidemia: Plan: Continue atorvastatin (7) COPD, mild: Plan: Stable (8) BPH (benign prostatic hyperplasia): Plan: Continue terazosin, finasteride DVT Prophylaxis Heparin SQ Full Code Follows with Dr Mcdonough for routine care Admission and Anticipated Discharge Date Admission Date: June 09, 2022 Subjective Patient seen and examined. Reports feeling better today. Denies any dizziness, headache Reports some cough. Denies chest pain, palpitations, shortness of breath Denies any nausea, vomiting, abdominal pain. Reported an episode of diarrhea yesterday night and this morning. Denied hematochezia or melena. Denied any dysuria, frequency or urgency Denied fevers or chills Physical Exam Constitutional: + well hydrated; no acute distress Elderly man Eyes: PERRL, conjunctivae normal, anicteric sclerae ENMT: external ear and nose normal, oropharynx normal Respiratory: normal respiratory effort, lungs clear to auscultation Cardiovascular: Rate/Rhythm: regular rate and regular rhythm S1-S2 Gastrointestinal (Abdomen): normal bowel sounds, soft, nontender, no hepatosplenomegaly Musculoskeletal: no cyanosis or clubbing, extremities motor strength 5/5 Neurologic: PERRL, EOMI, accommodation nl, no face palsy, no dysarthria Results & Data Results & Data ([facility]) Vital Signs (Past 12 Hours) Vital Signs Temp Pulse Pulse Pulse Resp BP Pulse Ox 06/10/22 08:30 36.5 C 67 21 135/78 96 06/10/22 07:13 57 L 06/09/22 23:00 58 L 06/10/22 03:06 36.6 C 59 L 20 181/87 H 97 06/10/22 03:27 58 L 06/09/22 22:45 06/09/22 22:45 36.7 C 61 18 193/52 H 95 O2 Del Method 06/10/22 08:30 Room Air 06/10/22 07:13 06/09/22 23:00 06/10/22 03:06 Room Air 06/10/22 03:27 06/09/22 22:45 Room Air 06/09/22 22:45 Room Air Laboratory Results Abnormal lab results 06/09/22 06/09/22 06/09/22 Range/Units 13:00 13:00 16:05 RBC 4.40 L (4.63-6.08) M/uL Hgb 13.8 L (14.0-18.0) g/dl Lymph # (Auto) 0.92 L (1.2-3.4) K/uL BUN 39 H (6-23) mg/dl Creatinine 2.51 H (0.6-1.4) mg/dl Urine Protein Trace H (Negative) Urine Glucose (UA) Trace H (Negative) Urine Ketones Trace H (Negative) 06/10/22 06/10/22 Range/Units 07:41 07:41 RBC 4.38 L (4.63-6.08) M/uL Hgb 13.7 L (14.0-18.0) g/dl Lymph # (Auto) (1.2-3.4) K/uL BUN 27 H (6-23) mg/dl Creatinine 1.70 H D (0.6-1.4) mg/dl Urine Protein (Negative) Urine Glucose (UA) (Negative) Urine Ketones (Negative)
--- NOTE | 2022-06-10 10:59 | Electrocardiogram Report ---
Test Reason : Blood Pressure : / mmHG Vent. Rate : 063 BPM Atrial Rate : 063 BPM P-R Int : 134 ms QRS Dur : 078 ms QT Int : 410 ms P-R-T Axes : 086 022 093 degrees QTc Int : 419 ms Poor data quality, interpretation may be adversely affected Normal sinus rhythm Poor R wave progression, consider anterior AL vs. lead placement vs. LVH Abnormal ECG When compared with ECG of 09-JUN-2022 12:54, T wave inversion no longer evident in Anterior leads Confirmed by Michael Bernardo ([id number]) on 06/10/2022 10:59:14 AM Referred By: REFERRED SELF Confirmed By:Mamadou Bernardo
[2022-06-10] MEDS: ATORVASTATIN 20 MG TAB PO SCH (21:16)
[2022-06-10] MEDS: TERAZOSIN HCL 1 MG CAP PO SCH (21:16)
[2022-06-10] MEDS: TERAZOSIN HCL 5 MG CAP PO SCH (21:17)
[2022-06-10] MEDS: FINASTERIDE 5 MG TAB PO SCH (21:21)
[2022-06-11] MEDS: SODIUM CHLORIDE 0.9% 500 ML IV SCH (03:53)
[2022-06-11] MEDS: HEPARIN SOD 5,000 UNIT/0.5 ML VIAL SQ SCH (05:11)
--- NOTE | 2022-06-11 06:40 | Emergency Department Note ---
Impression & Plan COVID-19, CKD (chronic kidney disease) stage 3, GFR 30-59 ml/min, Syncope due to orthostatic hypotension ED Provider Note CHIEF COMPLAINT: Weakness, fall HISTORY OF PRESENT ILLNESS: This 82-year-old male patient presents to the emergency department after a near syncopal event/fall. The patient was diagnosed with COVID yesterday and discharged home with a prescription for Paxlovid. Patient's daughter states she just picked up the prescription today, he is yet to initiate it. Patient had reported it took him an hour to get upstairs to try and shower this morning. He does live at home by himself. Patient's daughter arrived to check on him this morning and he had a witnessed near syncopal/fall in the kitchen. She was able to break the fall however they both fell to the ground. Either feels as though they are injured. Patient does not feel as though he can be managed at home. He is not eating well, he denies any high fevers but generally feels fatigued, short of breath. REVIEW OF SYSTEMS: A review of systems was performed with positives and pertinent negatives listed in the history of present illness. 10 systems were reviewed and are otherwise negative. ALLERGIES: see below MEDICATIONS: see below PMH: see below SOCIAL HISTORY: see below DDx:Infection, dehydration, metabolic abnormality, hypo/hyperglycemia, electrolyte disturbance, anemia, hypoxia, cardiac sources, intracerebral event, toxicologic, neurologic, as well as other pathologies. PHYSICAL EXAM: Vital signs reviewed. General: Elderly, somewhat ill-appearing 82-year-old male, in no significant distress. HEENT: No scleral icterus, PERRLA, neck supple. Atraumatic. Dry mucous membranes. Hard of hearing. Cardiovascular: Regular rate and rhythm, systolic ejection murmur Pulmonary: Clear to auscultation bilaterally, normal work of breathing. Abdomen: Soft, nontender, nondistended, positive bowel sounds. Musculoskeletal: Atraumatic, no peripheral edema. Nontender to palpation of the cervical, thoracic and lumbar spines. Neurologic: Patient awake alert and oriented x 3, speech is clear Skin: Warm, dry, no rash EMERGENCY DEPARTMENT COURSE/MDM: This patient was evaluated and appeared to be in no significant distress. IV access was obtained and laboratory work was drawn. The patient was hydrated with normal saline solution. Laboratory work reveals an acute on chronic kidney injury. Patient is likely dehydrated from not taking in significant fluids. Chest x-ray was performed and is clear. Head CT is negative for acute intracranial abnormality. Patient's case was discussed with hospitalist service will evaluate the patient for admission and further management. Daughter and patient are aware of the plan and agreed. MONITORING: An order for cardiac monitoring was placed and the patient is noted to be in a sinus rhythm at 58 beats per minute. RADIOLOGY: See below EKG: Normal sinus rhythm at 63 bpm. Poor R wave progression. Normal ST segments. QTC is 419. No PVC, no PAC. When compared to previous dated June 09, 2022, T wave inversion no longer evident in the anterior leads. DISPOSITION: Admission Past Med/Surg History Medical History BPH (benign prostatic hyperplasia) Bronchitis CAD (coronary artery disease) Chest pain CKD (chronic kidney disease) stage 3, GFR 30-59 ml/min COPD, mild Dyslipidemia GERD (gastroesophageal reflux disease) History of kidney stones HTN (hypertension) Moderate aortic stenosis Paresthesia Status post myocardial infarction daughter reports MS during angioplasty procedure 05/2014 Surgical History H/O coronary angioplasty "PTCA, CARDIAC ANGIOPLASTY, PERCUTANEOUS, 1 ARTERY performed [place] Paty Rasheed [place] [facility] [place] History of back surgery "Lumbar Spine Fusion ,Post Interbody" History of inguinal hernia repair "R inguinal hernia repair with mesh performed by Dr. Vazquez 2005" History of knee surgery History of repair of rotator cuff Hx of right cataract extraction S/P colonoscopy Family History Father Silicosis Brother , 67 Cancer Social History Smoking Status: Former smoker Tobacco Type: Cigarettes Second Hand Exposure: No; Hx Alcohol Use: No Hx Substance Use: No Preferred Language: Divehi Communication Ability: Effective Helminthologist Required: No Beliefs That Will Affect Care: None marital status: / Current Living Situation: Alone Current Living Situation Comment: SOY DAUGHTER HELPS DAILY Feels Safe at Home: Yes Assistive Devices: Glasses Allergies Allergies Allergy/AdvReac Type Severity Reaction Status Date / Time Iodinated Contrast Media Allergy Intermediate RASH Verified 06/09/22 16:34 tetracycline Allergy Unknown Unknown. Verified 06/09/22 16:34 Home Meds Home Medications Medication Instructions Recorded Confirmed arformoterol 15 mcg/2 mL solution 2 ml inhalation BID PRN Shortness 07/23/19 06/09/22 for nebulization (Brovana) Of Breath Or Wheezing clopidogrel 75 mg tablet (Plavix) 75 mg PO QAM 07/23/19 06/09/22 colestipol 1 gram tablet 1 g PO QAM PRN Diarrhea 07/23/19 06/09/22 cyanocobalamin (vitamin B-12) 1,000 mcg PO QAM 07/23/19 06/09/22 1,000 mcg tablet (Vitamin B-12) finasteride 5 mg tablet (Proscar) 5 mg PO HS 07/23/19 06/09/22 ketorolac 0.4 % eye drops 1 drp OPL QAM 07/23/19 06/09/22 lorazepam 0.5 mg tablet (Ativan) 0.25 mg PO TID PRN ANXIETY/VERTIGO 07/23/19 06/09/22 meclizine 25 mg tablet 25 mg PO TID PRN DIZZY 07/23/19 06/09/22 metoprolol succinate 25 mg 12.5 mg PO QAM 07/23/19 06/09/22 tablet,extended release 24 hr (Toprol XL) nitroglycerin 0.4 mg sublingual 0.4 mg sublingual UD PRN Chest Pain 07/23/19 06/09/22 tablet (Nitrostat) terazosin 2 mg capsule 2 mg PO HS 07/23/19 06/09/22 terazosin 5 mg capsule 5 mg PO HS 07/23/19 06/09/22 acetaminophen 500 mg tablet 500 mg PO Q6H PRN Pain 05/15/20 06/09/22 (Tylenol Extra Strength) ondansetron HCl 8 mg tablet 8 mg PO TID PRN NAUSEA/VOMITING 10/08/21 06/09/22 amlodipine 2.5 mg tablet 2.5 mg PO QAM 12/20/21 06/09/22 atorvastatin 20 mg tablet 20 mg PO HS 06/09/22 06/09/22 erythromycin 5 mg/gram (0.5 %) eye 1 applic ophthalmic (eye) DAILY 06/09/22 06/09/22 ointment isosorbide mononitrate 60 mg 60 mg PO QAM 06/09/22 06/09/22 tablet,extended release 24 hr Previous Rx's Medication Instructions Recorded lisinopril 10 mg tablet 10 mg PO HS #30 tabs 06/11/22 Results & Data (ED) Home Medications Current Medication List: was personally reviewed by me Laboratory Data Attestation: I reviewed the patient's lab results. Result diagrams: 06/11/22 10:10 06/11/22 10:10 Lab Results 06/09/22 06/09/22 06/09/22 Range/Units 13:00 13:00 13:00 WBC 5.39 (4.8-10.8) K/ul RBC 4.40 L (4.63-6.08) M/uL Hgb 13.8 L (14.0-18.0) g/dl Hct 41.4 (40.1-51.0) % MCV 94.1 (80.0-100.0) fL MCH 31.4 (25.0-34.0) pg MCHC 33.3 (32.0-36.0) g/dL RDW Std Deviation 44.4 (36.4-46.3) fL RDW Coeff of Macey 12.8 (11.5-14.5) % Plt Count 179 (130-400) K/uL MPV 10.0 (9.4-12.4) fL Immature Gran % (Auto) 0.4 % Neut % (Auto) 66.9 % Lymph % (Auto) 17.1 % Otoe % (Auto) 13.9 % Eos % (Auto) 1.3 % Baso % (Auto) 0.4 % Neut # (Auto) 3.61 (1.4-6.5) K/uL Lymph # (Auto) 0.92 L (1.2-3.4) K/uL Otoe # (Auto) 0.75 (0.24-0.82) K/uL Eos # (Auto) 0.07 (0-0.50) K/uL Baso # (Auto) 0.02 (0-0.2) K/uL Immature Gran # (Auto) 0.02 (0.00-0.02) K/uL Sodium 138 (136-145) mmol/L Potassium 4.7 (3.5-5.1) mmol/L Chloride 104 (98-107) mmol/L Carbon Dioxide 26 (21-32) mmol/L Anion Gap 8 (3-11) BUN 39 H (6-23) mg/dl Creatinine 2.51 H (0.6-1.4) mg/dl Est Cr Clr Drug Dosing 20.3 ml/min Est GFR ( Amer) 26.6 ml/min Est GFR (Non-Af Amer) 22.9 ml/min BUN/Creatinine Ratio 15.5 (10-20) Glucose 99 (70-99(Fasting)) mg/dl Calcium 8.9 (8.5-10.1) mg/dl Magnesium 2.1 (1.7-2.4) mg/dl Total Bilirubin 0.6 (0.2-1.0) mg/dl AST 16 (13-39) U/L ALT 10 (7-52) U/L Alkaline Phosphatase 68 (34-104) U/L Troponin I High Sens 13.7 (0-20) pg/ml Total Protein 6.7 (6.0-8.3) gm/dl Albumin 4.1 (3.4-5.0) gm/dl Globulin 2.6 (2.5-4.0) gm/dl Albumin/Globulin Ratio 1.6 (0.9-2) TSH 3.406 (0.300-4.500) uIu/ml Urine Color Urine Appearance (Clear) Urine pH (4.5-7.5) Ur Specific Angelica (1.000-1.030) Urine Protein (Negative) Urine Glucose (UA) (Negative) Urine Ketones (Negative) Urine Blood (Negative) Urine Nitrite (Negative) Urine Bilirubin (Negative) Urine Urobilinogen (Negative) Ur Leukocyte Esterase (Negative) Urine WBC (Auto) (0-5) /hpf Urine RBC (Auto) (0-4) /hpf U Hyaline Cast (Auto) (0-5) /lpf U Epithel Cells (Auto) (0-5) /lpf Urine Bacteria (Auto) (Negative) 06/09/22 Range/Units 16:05 WBC (4.8-10.8) K/ul RBC (4.63-6.08) M/uL Hgb (14.0-18.0) g/dl Hct (40.1-51.0) % MCV (80.0-100.0) fL MCH (25.0-34.0) pg MCHC (32.0-36.0) g/dL RDW Std Deviation (36.4-46.3) fL RDW Coeff of Macey (11.5-14.5) % Plt Count (130-400) K/uL MPV (9.4-12.4) fL Immature Gran % (Auto) % Neut % (Auto) % Lymph % (Auto) % Otoe % (Auto) % Eos % (Auto) % Baso % (Auto) % Neut # (Auto) (1.4-6.5) K/uL Lymph # (Auto) (1.2-3.4) K/uL Otoe # (Auto) (0.24-0.82) K/uL Eos # (Auto) (0-0.50) K/uL Baso # (Auto) (0-0.2) K/uL Immature Gran # (Auto) (0.00-0.02) K/uL Sodium (136-145) mmol/L Potassium (3.5-5.1) mmol/L Chloride (98-107) mmol/L Carbon Dioxide (21-32) mmol/L Anion Gap (3-11) BUN (6-23) mg/dl Creatinine (0.6-1.4) mg/dl Est Cr Clr Drug Dosing ml/min Est GFR ( Amer) ml/min Est GFR (Non-Af Amer) ml/min BUN/Creatinine Ratio (10-20) Glucose (70-99(Fasting)) mg/dl Calcium (8.5-10.1) mg/dl Magnesium (1.7-2.4) mg/dl Total Bilirubin (0.2-1.0) mg/dl AST (13-39) U/L ALT (7-52) U/L Alkaline Phosphatase (34-104) U/L Troponin I High Sens (0-20) pg/ml Total Protein (6.0-8.3) gm/dl Albumin (3.4-5.0) gm/dl Globulin (2.5-4.0) gm/dl Albumin/Globulin Ratio (0.9-2) TSH (0.300-4.500) uIu/ml Urine Color Dark Yellow Urine Appearance Clear (Clear) Urine pH 5.5 (4.5-7.5) Ur Specific Angelica 1.019 (1.000-1.030) Urine Protein Trace H (Negative) Urine Glucose (UA) Trace H (Negative) Urine Ketones Trace H (Negative) Urine Blood Negative (Negative) Urine Nitrite Negative (Negative) Urine Bilirubin Negative (Negative) Urine Urobilinogen Negative (Negative) Ur Leukocyte Esterase Negative (Negative) Urine WBC (Auto) 1-5 (0-5) /hpf Urine RBC (Auto) 0-4 (0-4) /hpf U Hyaline Cast (Auto) 1-5 (0-5) /lpf U Epithel Cells (Auto) 0-5 (0-5) /lpf Urine Bacteria (Auto) Negative (Negative) Administered Medications Discontinued Medications Amlodipine Besylate (Amlodipine Besylate 5 Mg Tab) 2.5 mg PO [facility] Stop: 07/10/22 08:59 Last Admin: 06/11/22 08:03 Dose: 2.5 mg Documented By: Admin: 06/10/22 08:46 Dose: 2.5 mg Documented By: ISIDORO Atorvastatin Calcium (Atorvastatin 20 Mg Tab) 20 mg PO [facility] Stop: 07/09/22 20:59 Last Admin: 06/10/22 21:16 Dose: 20 mg Documented By: Admin: 06/09/22 21:38 Dose: 20 mg Documented By: [facility] Clopidogrel Bisulfate (Clopidogrel Bisulfate 75 Mg Tab) 75 mg PO [facility] Stop: 07/10/22 08:59 Last Admin: 06/11/22 08:03 Dose: 75 mg Documented By: Admin: 06/10/22 08:45 Dose: 75 mg Documented By: ISIDORO Cyanocobalamin (Cyanocobalamin (B-12) 500 Mcg Tablet) 1,000 mcg PO [facility] Stop: 07/10/22 08:59 Last Admin: 06/11/22 08:03 Dose: 1,000 mcg Documented By: Admin: 06/10/22 08:45 Dose: 1,000 mcg Documented By: ISIDORO Erythromycin (Erythromycin Op Oint 5 Mg/Gm 3.5 Gm Tube) 1 appln OP DAILY [facility] Stop: 06/20/22 08:59 Last Admin: 06/11/22 08:03 Dose: 1 appln Documented By: Admin: 06/10/22 08:46 Dose: 1 appln Documented By: ISIDORO Finasteride (Finasteride 5 Mg Tab) 5 mg PO HS [facility] Stop: 07/09/22 20:59 Last Admin: 06/10/22 21:21 Dose: 5 mg Documented By: Admin: 06/09/22 21:37 Dose: 5 mg Documented By: EDER Heparin Sodium (Porcine) (Heparin Sod 5,000 Unit/0.5 Ml Vial) 5,000 units SQ Q8 [facility] Stop: 07/09/22 21:59 Last Admin: 06/11/22 05:11 Dose: 5,000 units Documented By: Admin: 06/10/22 21:17 Dose: 5,000 units Documented By: Admin: 06/10/22 13:18 Dose: 5,000 units Documented By: Admin: 06/10/22 06:09 Dose: 5,000 units Documented By: Admin: 06/09/22 23:05 Dose: 5,000 units Documented By: RAMANA Sodium Chloride (Nss) 500 mls @ 999 mls/hr IV .Q31M [facility] Stop: 06/09/22 13:45 Last Infusion: 06/09/22 17:10 Dose: 0 mls/hr Documented By: Admin: 06/09/22 13:43 Dose: 999 mls/hr Documented By: SLB Sodium Chloride (Nss) 500 mls @ 125 mls/hr IV .Q4H [facility] Stop: 07/09/22 13:14 Last Admin: 06/11/22 03:53 Dose: Not Given Documented By: Infusion: 06/09/22 19:35 Dose: 0 mls/hr Documented By: Admin: 06/09/22 14:07 Dose: 125 mls/hr Documented By: WILMAR Sodium Chloride (Nss 1000ml) 1,000 mls @ 80 mls/hr IV .[id number] [facility] Stop: 06/10/22 09:01 Last Infusion: 06/11/22 03:40 Dose: 0 mls/hr Documented By: Infusion: 06/10/22 09:05 Dose: 0 mls/hr Documented By: Admin: 06/09/22 21:40 Dose: 80 mls/hr Documented By: EDER Isosorbide Mononitrate (Isosorbide Otoe Extended Rel 60 Mg Tabcr) 60 mg PO [facility] Stop: 07/10/22 08:59 Last Admin: 06/11/22 09:35 Dose: 60 mg Documented By: Admin: 06/10/22 08:45 Dose: 60 mg Documented By: ISIDORO Metoprolol Succinate (Metoprolol Succ 25mg Ext Rel Tab) 12.5 mg PO [facility] Stop: 07/10/22 08:59 Last Admin: 06/11/22 08:03 Dose: 12.5 mg Documented By: Admin: 06/10/22 08:45 Dose: 12.5 mg Documented By: ISIDORO Miscellaneous (Order Awaiting Action) 1 each N/A QS [facility] Stop: 07/10/22 00:00 Last Admin: 06/11/22 07:46 Dose: Not Given Documented By: Admin: 06/10/22 23:24 Dose: Not Given Documented By: Admin: 06/10/22 15:26 Dose: Not Given Documented By: Admin: 06/10/22 07:33 Dose: Not Given Documented By: [facility] Admin: 06/10/22 04:10 Dose: Not Given Documented By: RAMANA Terazosin HCl (Terazosin Hcl 5 Mg Cap) 5 mg PO [facility] Stop: 07/09/22 20:59 Last Admin: 06/10/22 21:17 Dose: 5 mg Documented By: Admin: 06/09/22 21:38 Dose: 5 mg Documented By: EDER Terazosin HCl (Terazosin Hcl 1 Mg Cap) 2 mg PO [facility] Stop: 07/09/22 20:59 Last Admin: 06/10/22 21:16 Dose: 2 mg Documented By: Admin: 06/09/22 21:39 Dose: 2 mg Documented By: FIDEL Imaging Data Radiologist's Impression: Chest X-Ray 06/09/22 13:11 XR chest 1V portable CLINICAL HISTORY: COVID, weak, syncope COMPARISON STUDY: Chest radiograph May 15, 2020. Chest CT July 23, 2019. FINDINGS: Lung volumes are normal. Lungs are clear. There is no pneumothorax or pleural effusion. Cardiac size is normal. Mediastinal contours are normal. There is no evidence for pulmonary edema. IMPRESSION: No acute cardiopulmonary findings. ACT 112: Negative or not required by law. Electronically signed by: Eliseo Mendenhall M.D. 06/09/2022 1:[address] 06/09/22 17:00 CT OF THE HEAD WITHOUT CONTRAST CLINICAL HISTORY: Syncope. COMPARISON STUDY: Head CT and MRI of the brain October 08, 2021. CT DOSE: 537.48 mGy.cm TECHNIQUE: Helical axial images of the head were obtained without IV contrast. Automated exposure control was utilized for the study. A dose lowering technique was utilized adhering to the principles of ALARA. FINDINGS: No acute intracranial hemorrhage, midline shift or mass effect is present. The ventricular system is unremarkable. The basal cisterns are patent. No extra-axial collections are present. There are no findings to suggest acute dural sinus thrombosis or acute territorial infarct. Atrophy is again noted. White matter hypodensity suggests small vessel disease. Trace fluid within the right mastoid air cells is unchanged. There is mild sinus mucosal thickening. IMPRESSION: No acute intracranial findings. No change in appearance of the brain. ACT 112: Negative or not required by law. Electronically signed by: Eliseo Mendenhall M.D. 06/09/2022 5:42 PM Blood Pressure Blood Pressure Findings: Normal blood pressure Blood Pressure Disposition: did not require urgent referral Discharge Plan Visit Data Chief Complaint: Syncope (Near Syncope) Stated Complaint: NEAR SYNCOPE, DIZZINESS ED Provider: Esther Douglas Discharge Problem: COVID-19, CKD (chronic kidney disease) stage 3, GFR 30-59 ml/min, Syncope due to orthostatic hypotension Patient Disposition: Admitted As Inpatient Discharge Instructions Interventions: ED Discharge Assessment Last Done: 06/09/22 22:08
[2022-06-11] MEDS: CLOPIDOGREL BISULFATE 75 MG TAB PO SCH (08:03)
[2022-06-11] MEDS: CYANOCOBALAMIN (B-12) 500 MCG TABLET PO SCH (08:03)
[2022-06-11] MEDS: ERYTHROMYCIN OP OINT 5 MG/GM 3.5 GM TUBE OP SCH (08:03)
[2022-06-11] MEDS: amLODIPine BESYLATE 5 MG TAB PO SCH (08:03)
[2022-06-11] MEDS: METOPROLOL SUCC 25MG EXT REL TAB PO SCH (08:03)
[2022-06-11] MEDS: ISOSORBIDE MONO EXTENDED REL 60 MG TABCR PO SCH (09:35)
[2022-06-11 10:26] LABS: Hematocrit (blood only) 42.7 % (40.1-51.0); Hemoglobin 14.2 g/dl (14.0-18.0); Mean Corpuscular Hemoglobin 30.9 pg (25.0-34.0); Mean Corpuscular Hgb Conc 33.3 g/dL (32.0-36.0); Mean Platelet Volume 9.9 fL (9.4-12.4); Platelet Count 171 K/uL (130-400); RDW Coefficient of Variation 12.8 % (11.5-14.5); RDW Standard Deviation 43.6 fL (36.4-46.3); Red Blood Count 4.59 M/uL (4.63-6.08); White Blood Count 4.17 K/ul (4.8-10.8)
[2022-06-11 10:58] LABS: BUN Creatinine Ratio 13.9 (10-20); Calcium 9.5 mg/dl (8.5-10.1); Creatinine Clr Calc Pharmacy 26.6 ml/min; Est GFR (African American) 39.7 ml/min; Est GFR (Non-African American) 34.3 ml/min; Magnesium 2.1 mg/dl (1.7-2.4); Phosphorus 2.2 mg/dl (2.5-4.9); Potassium 4.1 mmol/L (3.5-5.1)
--- NOTE | 2022-06-11 11:35 | Discharge Summary ---
Discharge Summary Date of Service June 11, 2022 Notes For Next Care Provider Continue management of chronic medical problems Medication Changes From Visit Home lisinopril was changed from AM to HS Admission HPI Per Admitting Provider Patient is a 82-year-old male with PMH CAD, moderate aortic valve stenosis, HTN, HLD, COPD, CKD IIIb/IV, BPH, femoral artery pseudoaneurysm, history DVT who presents to ED with c/o syncope today. Patient states 06/06/2022 started with scratchy throat, rhinorrhea, tactile fevers, chills, body aches, generalized weakness. Reports mild nonproductive cough. Denies shortness of breath or chest pain. Patient seen in ER 06/08/2022 with flulike symptoms and positive COVID-19 test. No labs or imaging completed at that time secondary to stable vitals and no hypoxia. Patient was given prescription for Paxlovid. Unfortunately was unable to obtain Paxil from pharmacy until today. Patient's daughter went to patient's house to give him the prescription. Patient states he was lying on couch resting when he heard his daughter at the door so he got up to go on May and as he was walking he felt dizzy. Patient remembers on walking or for daughter and then next thing he remembers is lying on floor. Patient's daughter fills in the gap. She states after he opened the door he walked to the kitchen and appeared to be wobbly when walking and stood by counter and put his head on countertop and said he did not feel well. She states he then passed out and fell knocking her over with him. Daughter states patient fell on her. She states he had LOC for a few seconds and then woke up. Reports at baseline patient has known mild orthostatic hypotension. Patient states only had 1 bottle of water today and 1 piece of toast. Currently he reports he feels back at baseline and has generalized weakness. Denies any chest pain, palpitations, shortness of breath prior to fall. Denies any history of syncope. Had COVID-19 -two vaccines and one booster, last in 2020. Denies N/V/D/C, SHIPLEY, vision changes, neck pain,orthopnea, palpitations, choking, otalgia, abdominal pain, paresthesias, extremity edema, rashes, urinary symptoms. Admission Exam Per Admitting Provider General: no distress, WDWN elderly male Head: normocephalic, atraumatic Eyes: PERRL, EOM's intact, conjunctiva non-injected, anicteric ENT: Hard of hearing, normal inspection external ears, nose, mucous membranes dry Neck: supple, trachea midline, non-tender Lungs: clear, no respiratory distress, no wheezing/rhonchi/rales CV: RRR, no pretibial edema Abd: normal BS, soft, non-tender Ext: no cyanosis, no calf tenderness Neuro: A&O x 3, no focal deficits noted, normal affect, pleasant Skin: warm, dry Principal Dx & Hospital Course #1 = Principal Diagnosis (1) Syncope: 82year-old male with PMH CAD, moderate aortic valve stenosis, HTN, HLD, COPD, CKD IIIb/IV, BPH, femoral artery pseudoaneurysm, history DVT who presents to ED with c/o syncope. In ER vitals stable Troponin trend was negative, EKG without acute ST changes CT head: No acute intracranial abnormality Syncope likely due to orthostatic hypotension in a patient with COVID 19 infection based on history and positive +orthostatic vitals Patient advised to get up slowly Home lisinopril changed from QAM to HS (2) COVID-19: Symptom onset on 06/06/2022. Positive COVID-19 PCR on 06/08/2022 at [facility] ER with negative influenza, negative RSV Afebrile, no hypoxia. No leukocytosis CXR: No infiltrate Supportive care No COVID specific therapies Reports only mild cough today which is improving (3) SAM (acute kidney injury): SAM on CKD IIIb/CKD IV On admission Cr: 2.5. Baseline creatinine 1.9-2.2 within the past year Got IVF Cr is improved to 1.8 today Monitor renal functions Avoid other nephrotoxic agents when possible (4) CAD (coronary artery disease): History of complex CAD with cardiac cath in 2013 and unsuccessful attempt at opening chronic total occlusion of LAD, with complication femoral artery pseudoaneurysm Continue Plavix, isosorbide, metoprolol succinate, atorvastatin (5) HTN (hypertension): Continue amlodipine 2.5mg daily Continue to hold lisinopril with SAM and orthostatic hypotension BP was elevated on presentation, improved now (6) Dyslipidemia: Continue atorvastatin (7) COPD, mild: Stable (8) BPH (benign prostatic hyperplasia): Continue terazosin, finasteride Discharge Exam Constitutional + well hydrated; no acute distress Eyes PERRL, conjunctivae normal, anicteric sclerae ENMT external ear and nose normal, oropharynx normal Respiratory normal respiratory effort, lungs clear to auscultation Cardiovascular Rate/Rhythm: regular rate and regular rhythm S1 S2 Gastrointestinal (Abdomen) normal bowel sounds, soft, nontender, no hepatosplenomegaly Musculoskeletal no cyanosis or clubbing, extremities motor strength 5/5 Neurologic PERRL, EOMI, accommodation nl, no face palsy, no dysarthria Updated Medication List Medication Instructions Recorded Confirmed Type arformoterol 15 mcg/2 mL solution 2 ml inhalation BID PRN Shortness 07/23/19 06/09/22 History for nebulization (Brovana) Of Breath Or Wheezing clopidogrel 75 mg tablet (Plavix) 75 mg PO QAM 07/23/19 06/09/22 History colestipol 1 gram tablet 1 g PO QAM PRN Diarrhea 07/23/19 06/09/22 History cyanocobalamin (vitamin B-12) 1,000 mcg PO QAM 07/23/19 06/09/22 History 1,000 mcg tablet (Vitamin B-12) finasteride 5 mg tablet (Proscar) 5 mg PO HS 07/23/19 06/09/22 History ketorolac 0.4 % eye drops 1 drp OPL QAM 07/23/19 06/09/22 History lorazepam 0.5 mg tablet (Ativan) 0.25 mg PO TID PRN ANXIETY/VERTIGO 07/23/19 06/09/22 History meclizine 25 mg tablet 25 mg PO TID PRN DIZZY 07/23/19 06/09/22 History metoprolol succinate 25 mg 12.5 mg PO QAM 07/23/19 06/09/22 History tablet,extended release 24 hr (Toprol XL) nitroglycerin 0.4 mg sublingual 0.4 mg sublingual UD PRN Chest Pain 07/23/19 06/09/22 History tablet (Nitrostat) terazosin 2 mg capsule 2 mg PO HS 07/23/19 06/09/22 History terazosin 5 mg capsule 5 mg PO HS 07/23/19 06/09/22 History acetaminophen 500 mg tablet 500 mg PO Q6H PRN Pain 10/05/20 10/30/22 History (Tylenol Extra Strength) ondansetron HCl 8 mg tablet 8 mg PO TID PRN NAUSEA/VOMITING 10/08/21 06/09/22 History amlodipine 2.5 mg tablet 2.5 mg PO QAM 12/20/21 06/09/22 History atorvastatin 20 mg tablet 20 mg PO HS 06/09/22 06/09/22 History erythromycin 5 mg/gram (0.5 %) eye 1 applic ophthalmic (eye) DAILY 06/09/22 06/09/22 History ointment isosorbide mononitrate 60 mg 60 mg PO QAM 06/09/22 06/09/22 History tablet,extended release 24 hr lisinopril 10 mg tablet 10 mg PO HS #30 tabs 06/11/22 06/09/22 Rx Hospital Stay Data Consultations 06/09/22 17:00 ED Decision to Admit Stat Diagnostic Imagining Performed 06/09/22 17:00 CT head/brain wo con Stat No acute intracranial hemorrhage, midline shift or mass effect is present. The ventricular system is unremarkable. The basal cisterns are patent. No extra- axial collections are present. There are no findings to suggest acute dural sinus thrombosis or acute territorial infarct. Atrophy is again noted. White matter hypodensity suggests small vessel disease. Trace fluid within the right mastoid air cells is unchanged. There is mild sinus mucosal thickening. IMPRESSION: No acute intracranial findings. No change in appearance of the brain. Pending Results Patient Have Any Pending Studies at Discharge: No Discharge Instructions Given to Patient (Per Discharging Provider) Mr Eason. You came to the hospital after a fainting episode at home. You were evaluated in the hospital. Your lisinopril was changed to bedtime. Please always get up slowly as we discussed. Please ensure follow up with your Primary Doctor. It was a pleasure taking care of you. Total Time Total Time Spent Total Time Spent (In Minutes): 35 Total Time Includes: Examination of the Patient, Discharge Planning and Medication Reconciliation
== END 2022-06-11 12:24 | disposition home or self-care (01) | DRG 178 ==
LOC: ED 12:49 → SUATTDRO 17:34 → EDINP 17:34 → 2N 22:08

== ENCOUNTER 2025-05-27 10:29 | Inpatient (IN) ==
[2025-05-27 11:11] LABS: Appearance Urine Cloudy (Clear); Bacteria Urine Automated None Seen (None Seen); Cast Urine Automated 0-2 /lpf (0-2); Epithelial Cell Urine Auto 0-2 /hpf (0-2); Glucose Urine UA Negative (Negative); RBC Urine Automated 0-2 /hpf (0-2); WBC Urine Automated 0-5 /hpf (0-5)
[2025-05-27 11:14] LABS: Hematocrit (blood only) 39.1 % (42.0-52.0); Hemoglobin 13.0 g/dl (14.0-18.0); Immature Granulocytes # (auto) 0.01 K/uL (0.01-0.20); Immature Granulocytes % (auto) 0.2 %; Mean Corpuscular Hemoglobin 30.2 pg (25.0-34.0); Mean Corpuscular Volume 90.9 fL (80.0-100.0); Platelet Count 170 K/uL (130-400); RDW Standard Deviation 43.4 fL (36.4-46.3); Red Blood Count 4.30 M/uL (4.70-6.10); White Blood Count 5.62 K/ul (4.8-10.8)
--- NOTE | 2025-05-27 11:20 | Emergency Department Note ---
Impression & Plan Dizziness, Fall, Lung nodule, multiple, Numbness ED Provider Note Provider: Raj Herzog MD CHIEF COMPLAINT: Dizziness, fall HISTORY OF PRESENT ILLNESS: Patient is a 85-year-old gentleman history of CAD, CKD, and COPD presenting here via ambulance from home. Patient states yesterday start experience dizziness symptoms. This worsened overnight. Denies head pain. States he is trying to walk overnight and lost balance and fell to the ground onto his knees and left side. Denies pain from this. Denies striking head losing consciousness. Denies new numbness or weakness. Denies recent fevers. For MS was noted that his blood pressure was somewhat elevated. Dizziness present at rest a little bit worse with moving around. Family later arrived and states that the patient did get up this morning and after a fall around midnight crawled to the couch when they found him this morning. Has been having some low blood pressure issues recently and recently stopped lisinopril. Did not take his medicines this morning. They note his blood pressure significantly elevated in the 160s to 170s at home which is atypical for him. He reports patient evidently evidently had left facial numbness and maybe some numbness of the left leg earlier. Patient states occasionally had some cramping his left leg but no swelling. PAST MEDICAL HISTORY: As noted above MEDICATIONS: Reviewed home medications SOCIAL HISTORY: Lives at home PHYSICAL EXAM: GENERAL: alert and oriented in no acute distress on stretcher Head: normocephalic and atraumatic EYES: No injection, discharge or icterus. PERRL, EOMI. NECK: Trachea midline. Supple with good range of motion. No midline posterior cervical tenderness. ENT: Mucous membranes pink and moist. LUNGS: Airway patent. No retractions. Breath sounds clear with good air entry bilaterally. HEART: Regular rate and rhythm. No chest wall tenderness ABDOMEN: Soft and non-tender, without guarding or rebound. No flank tenderness SKIN: Acyanotic, warm, dry, without rashes EXTREMITIES: Without swelling, tenderness or deformity on exam. Good range of motion of the lower extremities. NEUROLOGICAL: No focal deficits. No aphasia. No facial droop or slurred speech. Normal strength and tone in the extremities. Sensation to gross touch normal. Ambulatory but after approximately 7-8 steps begins to experience dizziness. EK bpm. Normal sinus rhythm. No PVC or PAC. No acute ST segment elevation with a QTc of 426. CONTINUOUS CARDIAC MONITORING: was ordered and showed a heart rate of 60s bpm in normal sinus rhythm GCS 15. Patient's laboratory studies and imaging reviewed. Differential includes Benign positional vertigo, dehydration, hypovolemia, anemia, tumor, infection, hypoglycemia, electrolyte abnormalities, cardiac sources, intracerebral event, toxicologic, neurologic, as well as other pathologies. IMPRESSION/MEDICAL DECISION MAKING: Patient noted be hypertensive here. Did fall. Denies significant injury but given his age and complaint of dizziness will complain CT of the head as well as CT tineo scan. Renal dysfunction as well as allergy profile prevents angiograms at this time. I doubt an LVO. Do a question if this could represent a possible CVA. Dizziness is been fairly consistent although maybe a little bit worse with movement. No other numbness or weakness or speech issues reported. No significant pain reported. No fevers reported and no significant leukocytosis or evidence of UTI. Chemistries without significant abnormality creatinine 1.6 is a bit better than previous noted here. CT of the head without acute findings per radiology. CT of the abdomen pelvis without acute findings noted. CT of the chest completed without traumatic finding but evidence of some right upper lobe spiculated nodules. Discussed with patient and family these findings. Will need further pulmonary follow-up and likely biopsy to exclude developing oncological process. Patient without numbness or focal weakness. Not dizzy but ambulating in the room quickly becomes dizzy with ambulation. Does not seem positionally related. Long discussion with patient and family. Patient lives alone. Discussed concerns about his ability to live at home and go home by himself today. Question if blood pressure changes as well as perhaps the dizziness and his facial numbness or related to TIA. Again unable to complete in angiograms given his renal dysfunction and allergy profile. But given improvement seem possibly more TIA and doubt LVO. In shared decision making they do not feel comfortable with him going home at this time and agree with his plan to stay for further evaluation. Will need pulmonary follow-up regarding chest CT findings and they are aware of this. DIAGNOSIS: Dizziness, fall, hypertension, lung nodules DISPOSITION: Hospitalist will evaluate Patient was agreeable with this plan. Past Med/Surg History Problem List (Updated 05/27/25 @ 15:11 by Raj Herzog M.D.) Numbness (Acute) Lung nodule, multiple (Acute) Fall (Acute) Dizziness (Acute) Syncope due to orthostatic hypotension (Acute) SAM (acute kidney injury) Syncope COVID-19 (Acute) Angina pectoris, unspecified (Acute) Encounter for pre-operative examination BPH (benign prostatic hyperplasia) Paresthesia (Acute) Chest pain (Acute) GERD (gastroesophageal reflux disease) (Chronic) CAD (coronary artery disease) (Chronic) CKD (chronic kidney disease) stage 3, GFR 30-59 ml/min (Chronic) Dyslipidemia (Chronic) Moderate aortic stenosis (Chronic) COPD, mild (Chronic) HTN (hypertension) (Chronic) Medical History History of kidney stones Status post myocardial infarction daughter reports [place] during angioplasty procedure 05/2014 BPH (benign prostatic hyperplasia) Paresthesia Chest pain Bronchitis GERD (gastroesophageal reflux disease) CAD (coronary artery disease) CKD (chronic kidney disease) stage 3, GFR 30-59 ml/min Dyslipidemia Moderate aortic stenosis COPD, mild HTN (hypertension) Surgical History H/O coronary angioplasty "PTCA, CARDIAC ANGIOPLASTY, PERCUTANEOUS, 1 ARTERY performed by Paty Rasheed MD at [facility] 05/23/14" History of back surgery "Lumbar Spine Fusion ,Post Interbody" History of inguinal hernia repair "R inguinal hernia repair with mesh performed by Dr. Vazquez 2005" History of knee surgery History of repair of rotator cuff Hx of right cataract extraction S/P colonoscopy Family History Father Silicosis Brother , 67 Cancer Social History Smoking Status: Former smoker Tobacco Type: Cigarettes Second Hand Exposure: No; Do You Dip or Chew Tobacco: Yes; Hx Alcohol Use: No Hx Substance Use: No Preferred Language: Mongolian Communication Ability: Effective Communication Ability Comment: Very hard of hearing - does not wear hearing aids Carbonizer Required: No Beliefs That Will Affect Care: None marital status: / Current Living Situation: Alone Current Living Situation Comment: SOY DAUGHTER HELPS DAILY Feels Safe at Home: Yes Assistive Devices: Glasses Allergies Allergies Allergy/AdvReac Type Severity Reaction Status Date / Time Iodinated Contrast Media Allergy Intermediate RASH/HYPOTENSION Verified 05/27/25 14:54 PER [email or web address] tetracycline Allergy Unknown ON Verified 05/27/25 14:54 [facility] MED LIST Home Meds Home Medications Medication Instructions Recorded Confirmed arformoterol 15 mcg/2 mL solution 2 ml inhalation BID PRN Shortness 07/23/19 08/24/23 for nebulization (Brovana) Of Breath Or Wheezing clopidogrel 75 mg tablet (Plavix) 75 mg PO QAM 07/23/19 08/24/23 cyanocobalamin (vitamin B-12) 1,000 mcg PO PM 07/23/19 08/24/23 1,000 mcg tablet (Vitamin B-12) finasteride 5 mg tablet (Proscar) 5 mg PO QAM 07/23/19 08/24/23 ketorolac 0.4 % eye drops 1 drp OPL BID 07/23/19 08/24/23 lorazepam 0.5 mg tablet (Ativan) 0.25 mg PO TID PRN ANXIETY/VERTIGO 07/23/19 08/24/23 meclizine 25 mg tablet 25 mg PO TID PRN DIZZY 07/23/19 08/24/23 metoprolol succinate 25 mg 12.5 mg PO QAM 07/23/19 08/24/23 tablet,extended release 24 hr (Toprol XL) nitroglycerin 0.4 mg sublingual 0.4 mg sublingual UD PRN Chest Pain 07/23/19 08/24/23 tablet (Nitrostat) terazosin 2 mg capsule See Rx Instructions .Route .COMPLEX 07/23/19 08/24/23 terazosin 5 mg capsule See Rx Instructions .Route .COMPLEX 07/23/19 08/24/23 acetaminophen 500 mg tablet 500 mg PO Q6H PRN Pain 05/15/20 08/24/23 (Tylenol Extra Strength) ondansetron HCl 8 mg tablet 8 mg PO TID PRN NAUSEA/VOMITING 10/08/21 08/24/23 amlodipine 2.5 mg tablet 2.5 mg PO QAM 12/20/21 08/24/23 atorvastatin 20 mg tablet 20 mg PO HS 06/09/22 08/24/23 erythromycin 5 mg/gram (0.5 %) eye See Rx Instructions .Route .COMPLEX 06/09/22 08/24/23 ointment isosorbide mononitrate 60 mg See Rx Instructions .Route .COMPLEX 06/09/22 08/24/23 tablet,extended release 24 hr artificial tears(hypromellose) 0.3 1 drp OPL QID 08/24/23 08/24/23 % eye gel (Systane Gel) isosorbide mononitrate 30 mg See Rx Instructions .Route .COMPLEX 08/24/23 08/24/23 tablet,extended release 24 hr Results & Data (ED) Vital Signs Vital Signs - 24 hr 05/27/25 10:34 05/27/25 10:45 05/27/25 10:47 Temperature 36.4 C L Temperature Source Oral Pulse Rate 70 60 Pulse Rate [Right Finger] Pulse Rhythm [Right Finger] Pulse Strength [Right Finger] Respiratory Rate 20 Respiratory Effort / Characteristics Non-Labored Spontaneous Respiratory Depth Normal Respiratory Pattern Regular Blood Pressure 174/90 H Blood Pressure [Left Arm] Blood Pressure Mean 118 Blood Pressure Mean [Left Arm] Blood Pressure Position Sitting Pulse Oximetry 98 98 Oxygen Delivery Method Room Air Room Air Sepsis Recent Fever Within 48 Hours No Sepsis New/Unexplained Change in Mental Status No Sepsis Action Taken by Nursing No Action Required 05/27/25 11:38 05/27/25 11:38 05/27/25 12:42 Temperature Temperature Source Pulse Rate Pulse Rate [Right Finger] 56 L 57 L Pulse Rhythm [Right Finger] Regular Pulse Strength [Right Finger] Normal Respiratory Rate 16 18 Respiratory Effort / Characteristics Non-Labored Spontaneous Non-Labored Spontaneous Respiratory Depth Normal Normal Respiratory Pattern Regular Blood Pressure Blood Pressure [Left Arm] 149/82 H 130/70 Blood Pressure Mean Blood Pressure Mean [Left Arm] 104 90 Blood Pressure Position Pulse Oximetry 97 97 99 Oxygen Delivery Method Room Air Room Air Room Air Sepsis Recent Fever Within 48 Hours Sepsis New/Unexplained Change in Mental Status Sepsis Action Taken by Nursing 05/27/25 13:33 05/27/25 14:14 05/27/25 14:47 Temperature Temperature Source Pulse Rate 53 L Pulse Rate [Right Finger] 57 L 55 L Pulse Rhythm [Right Finger] Pulse Strength [Right Finger] Respiratory Rate 16 16 Respiratory Effort / Characteristics Non-Labored Spontaneous Non-Labored Spontaneous Respiratory Depth Normal Normal Respiratory Pattern Regular Regular Blood Pressure Blood Pressure [Left Arm] 132/71 147/79 H Blood Pressure Mean Blood Pressure Mean [Left Arm] 91 101 Blood Pressure Position Pulse Oximetry 97 97 Oxygen Delivery Method Room Air Oxyhood Room Air Sepsis Recent Fever Within 48 Hours Sepsis New/Unexplained Change in Mental Status Sepsis Action Taken by Nursing Laboratory Data 05/27/25 10:55 05/27/25 10:55 Lab Results 05/27/25 05/27/25 Range/Units 10:46 10:55 WBC 5.62 (4.8-10.8) K/ul RBC 4.30 L (4.70-6.10) M/uL Hgb 13.0 L (14.0-18.0) g/dl Hct 39.1 L (42.0-52.0) % MCV 90.9 (80.0-100.0) fL MCH 30.2 (25.0-34.0) pg MCHC 33.2 (32.0-36.0) g/dL RDW Std Deviation 43.4 (36.4-46.3) fL RDW Coeff of Macey 13.1 (11.5-14.5) % Plt Count 170 (130-400) K/uL MPV 9.9 (9.4-12.4) fL Immature Gran % (Auto) 0.2 % Neut % (Auto) 72.3 % Lymph % (Auto) 15.5 % [place] % (Auto) 7.7 % Eos % (Auto) 3.6 % Baso % (Auto) 0.7 % Neut # (Auto) 4.07 (1.40-6.50) K/uL Lymph # (Auto) 0.87 L (1.20-3.40) K/uL [place] # (Auto) 0.43 (0.11-0.59) K/uL Eos # (Auto) 0.20 (0.00-0.50) K/uL Baso # (Auto) 0.04 (0.00-0.20) K/uL Immature Gran # (Auto) 0.01 (0.01-0.20) K/uL Sodium 140 (136-145) mmol/L Potassium 4.3 (3.5-5.1) mmol/L Chloride 105 (98-107) mmol/L Carbon Dioxide 29 (21-32) mmol/L Anion Gap 6 (3-11) BUN 24 H (6-23) mg/dl Creatinine 1.60 H (0.6-1.4) mg/dl Est Cr Clr Drug Dosing 28.8 ml/min eGFR 41.96 BUN/Creatinine Ratio 15.0 (10-20) Glucose 144 H (70-99(Fasting)) mg/dl Calcium 9.2 (8.6-10.3) mg/dl Total Bilirubin 0.7 (0.2-1.0) mg/dl AST 18 (13-39) U/L ALT 8 (7-52) U/L Alkaline Phosphatase 79 (34-104) U/L Troponin I High Sens 9.5 (0-20) pg/ml Total Protein 6.4 (6.0-8.3) gm/dl Albumin 3.6 (3.4-5.0) gm/dl Globulin 2.8 (2.5-4.0) gm/dl Albumin/Globulin Ratio 1.3 (0.9-2) Urine Color Yellow Urine Appearance Cloudy A (Clear) Urine pH 7.5 (4.5-7.5) Ur Specific [place] 1.014 (1.000-1.030) Urine Protein Negative (Negative) Urine Glucose (UA) Negative (Negative) Urine Ketones Negative (Negative) Urine Blood Negative (Negative) Urine Nitrite Negative (Negative) Urine Bilirubin Negative (Negative) Urine Urobilinogen Negative (Negative) Ur Leukocyte Esterase Negative (Negative) Urine WBC (Auto) 0-5 (0-5) /hpf Urine RBC (Auto) 0-2 (0-2) /hpf U Hyaline Cast (Auto) 0-2 (0-2) /lpf U Epithel Cells (Auto) 0-2 (0-2) /hpf Urine Bacteria (Auto) None Seen (None Seen) Urine Comment Administered Medications Discontinued Medications Meclizine HCl (Meclizine Hcl 25 Mg Tab) 25 mg PO NOW STA Stop: 05/27/25 10:40 Last Admin: 05/27/25 11:53 Dose: 25 mg Documented By: NRB Imaging Data Radiologist's Impression: Abdomen/Pelvis CT 05/27/25 10:39 CT OF THE ABDOMEN AND PELVIS WITHOUT CONTRAST CLINICAL HISTORY: Fall. COMPARISON STUDY: Pelvis and left hip radiographs August 24, 2023, CT of the abdomen and pelvis April 20, 2008 . TECHNIQUE: Axial images of the abdomen and pelvis were obtained without IV contrast. Images were reviewed in the axial, sagittal, and coronal planes. Automated exposure control was utilized for the study. A dose lowering technique was utilized adhering to the principles of ALARA. FINDINGS: Please note that the chest CT will be reported separately. Emphysema is incidentally noted within the lower lung bases. No hemoperitoneum or pneumoperitoneum is present. Evaluation of the solid abdominal viscera is suboptimal on this unenhanced exam. There is no evidence for traumatic injury to the liver, spleen, adrenal glands, kidneys or pancreas. The right kidney is markedly atrophic. There is a 9 mm left lower pole renal calculus. There are no ureteral calculi. There is no hydronephrosis. There is colonic diverticulosis without evidence for acute diverticulitis. Moderate amount of stool within the colon and rectum is present. There is trace fluid within the pelvis. There is extensive aortoiliac atherosclerotic plaque. No acute lumbar spine, pelvis or hip fractures are identified. Lumbar spine dextroscoliosis is incidentally noted. No suspicious osseous lesions. IMPRESSION: 1. No acute traumatic findings within the abdomen or pelvis on unenhanced exam. 2. Trace pelvic fluid. 3. 9 mm left renal calculus. Right renal atrophy. 4. Colonic diverticulosis. No evidence for acute diverticulitis. ACT 112: Negative or not required by law. Electronically signed by: Eliseo Mendenhall M.D. 05/27/2025 11:[address] 05/27/25 10:39 CT cervical spine wo con CT DOSE: 1176.71 mGy.cm CLINICAL HISTORY: fall. COMPARISON: 07/23/2019 TECHNIQUE: Multiple axial CT images of the cervical spine were obtained without contrast. A dose lowering technique was utilized adhering to the principles of ALARA. 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 There is grade 1 anterolisthesis of C3 on C4, C7 on T1, and T1 on T2, stable. No cervical spine fracture seen. There are carotid bulb calcifications. IMPRESSION: No cervical spine fracture seen. ACT 112: Negative or not required by law. The above report was generated using voice recognition software. It may contain grammatical, syntax or spelling errors. Electronically signed by: Sean Post M.D. 05/27/2025 11:[address] 05/27/25 10:39 CT SCAN OF THE CHEST WITHOUT IV CONTRAST CLINICAL HISTORY: Fall. COMPARISON STUDY: Chest CT dated 07/23/2019. Chest x-ray dated 05/27/2025. TECHNIQUE: CT scan of the thorax was performed from the thoracic inlet to the upper abdomen. Images are reviewed in the axial, sagittal, and coronal planes. IV contrast was not administered for this examination as per the referring clinician. A dose lowering technique was utilized adhering to the principles of ALARA. CT DOSE: 675.38 mGy.cm FINDINGS: Thyroid: Mild atrophic and heterogeneous. Thoracic aorta: There is atherosclerotic calcification of the thoracic aorta, which is normal in caliber and demonstrates standard 3-vessel arch anatomy. Heart: The heart is enlarged noting a small pericardial effusion. The coronary arteries are densely calcified. Lungs and pleural spaces: There is moderate to advanced emphysema. A 1.4 x 1.2 x 0.6 cm spiculated nodule in the anterior right upper lobe on image #72 is new from 2019 and highly suspicious for a bronchogenic neoplasm. A second 8 mm spiculated nodule in the right apex on image #56 is also new from the prior study. 6 mm right lower lobe nodules seen on images #158 and #189, a 6 mm left lower lobe nodule on image #211, and a 4 mm left upper lobe nodule on image #136 are unchanged from 2019 and of low suspicion. No airspace consolidation no pneumothorax is seen. Trace pleural fluid is seen bilaterally. Scarring/atelectasis is noted at the lung bases A fat-containing Bochdalek hernia is seen on the right. There are scattered calcified granulomas. Mediastinum: There is no mediastinal hematoma. A mildly enlarged AP window node on image #112 measures 12 mm in short axis. This is unchanged in 2019. No additional enlarged mediastinal lymph nodes are identified. [place]: Not well assessed without IV contrast. Axillae: There is no axillary lymphadenopathy. Upper abdomen: A small hiatal hernia is noted. There is trace perihepatic ascites. Skeletal structures: The skeletal structures are osteopenic. The bony thorax appears intact. Degenerative change is noted in the shoulders and spine. No lytic or blastic bony lesions are seen. IMPRESSION: 1. No acute posttraumatic intrathoracic abnormality is identified. 2. There is no airspace consolidation or pneumothorax. 3. Cardiomegaly and emphysema noting advanced coronary artery atherosclerosis and trace pleural effusions. 4. There is a 1.4 cm spiculated right upper lobe pulmonary nodule which is new from 2019. A bronchogenic neoplasm is the diagnosis of exclusion. Pulmonology follow-up is advised. At a minimum, short-term CT follow-up will be required. PET could also be considered. 5. A second 0.8 cm spiculated nodule at the right apex is also new from previous and suspicious. 6. Additional subcentimeter pulmonary nodules are similar to the prior study and of low suspicion. 7. Additional findings as above. ACT 112: Positive. There are findings on this exam that require communication between the performing entity and the patient following Patient Test Result Information Act ([place] Act 112) guidelines. Electronically signed by: Taras Vences M.D. 05/27/2025 12:04 PM Chest X-Ray 05/27/25 10:39 XR chest 1V portable CLINICAL HISTORY: dizzy, fall COMPARISON STUDY: 08/24/2023 FINDINGS: Heart size and pulmonary vasculature are normal. There are findings of emphysema. No consolidation or pleural effusion. No pneumothorax. No grossly displaced rib fracture seen. IMPRESSION: No acute findings. ACT 112: Negative or not required by law. Electronically signed by: Sean Post M.D. 05/27/2025 11:[address] 05/27/25 10:39 CT SCAN OF THE BRAIN WITHOUT IV CONTRAST CLINICAL HISTORY: Fall. COMPARISON STUDY: MRI of the brain October 08, [address] June 09, 2022. TECHNIQUE: Unenhanced axial CT scan of the brain was performed from the vertex to the skull base. A dose lowering technique was utilized adhering to the principles of ALARA. FINDINGS: Brain parenchyma: No acute intracranial hemorrhage, midline shift or mass effect is present. [place]eda-white matter differentiation is preserved. There are no extra- axial fluid collections. There are no findings to suggest acute dural sinus thrombosis or acute territorial infarct. White matter hypodensities are similar to prior exam and represent small vessel disease. Ventricles, sulci, cisterns: There is no hydrocephalus. The basal cisterns are patent. Calvarium: There are no calvarial fractures. Sinuses and mastoids: The visualized paranasal sinuses are clear. The mastoid air cells are well pneumatized. Orbits: The bony orbits are grossly intact. IMPRESSION: 1. No acute intracranial findings. 2. No calvarial fractures. ACT 112: Negative or not required by law. Electronically signed by: Eliseo Mendenhall M.D. 05/27/2025 11:23 AM Discharge Plan Visit Data Chief Complaint: Dizziness Stated Complaint: FALL, WEAKNESS, DIZZINESS, KNEE PAIN ED Provider: Raj Herzog Discharge Problem: Dizziness, Fall, Lung nodule, multiple, Numbness Patient Disposition: Being Evaluated by Hospitalist Condition: Fair Forms Stand Alone Forms: [facility] Prescriptions Prescriptions: No Action acetaminophen [Tylenol Extra Strength] 500 mg Tablet 500 mg PO Q6H PRN (Reason: Pain) terazosin 5 mg capsule See Rx Instructions .ROUTE .COMPLEX Rx Instructions: Take 5mg with 2mg to equal 7mg by mouth nightly clopidogrel [Plavix] 75 mg tablet 75 mg PO QAM terazosin 2 mg capsule See Rx Instructions .ROUTE .COMPLEX Rx Instructions: Take 2mg with 5mg to equal 7mg by mouth nightly meclizine 25 mg Tablet 25 mg PO TID PRN (Reason: DIZZY) nitroglycerin [Nitrostat] 0.4 mg Tablet, Sublingual 0.4 mg sublingual UD PRN (Reason: Chest Pain) Rx Instructions: TAKE 1 TAB SL Q 5 MIN PRN metoprolol succinate [Toprol XL] 25 mg tablet extended release 24 hr 12.5 mg PO QAM finasteride [Proscar] 5 mg tablet 5 mg PO QAM cyanocobalamin (vitamin B-12) [Vitamin B-12] 1,000 mcg Tablet 1,000 mcg PO PM lorazepam [Ativan] 0.5 mg Tablet 0.25 mg PO TID PRN (Reason: ANXIETY/VERTIGO) ketorolac 0.4 % Drops 1 drp OPL BID arformoterol [Brovana] 15 mcg/2 mL Solution For Nebulization 2 ml INHALATION BID PRN (Reason: Shortness Of Breath Or Wheezing) ondansetron HCl 8 mg Tablet 8 mg PO TID PRN (Reason: NAUSEA/VOMITING) amlodipine 2.5 mg Tablet 2.5 mg PO QAM atorvastatin 20 mg tablet 20 mg PO HS isosorbide mononitrate 60 mg tablet extended release 24 hr See Rx Instructions .ROUTE .COMPLEX Rx Instructions: Take 60mg with 30mg to equal 90mg by mouth every morning erythromycin 5 mg/gram (0.5 %) Ointment See Rx Instructions .ROUTE .COMPLEX Rx Instructions: Apply 1 application to area around the left eye three times daily isosorbide mononitrate 30 mg Tablet Extended Release 24 Hr See Rx Instructions .ROUTE .COMPLEX Rx Instructions: Take 30mg with 60mg to equal 90mg by mouth every morning Systane Gel 0.3 % Gel 1 drp OPL QID Referrals Referrals: Rashi Mcdonough MD [Primary Care Provider] -
[2025-05-27 11:26] LABS: Alanine Aminotransferase 8.0 U/L (7-52); Albumin Globulin Ratio 1.3 (0.9-2); Albumin Level 3.6 gm/dl (3.4-5.0); Alkaline Phosphatase 79.0 U/L (34-104); Anion Gap 6.0 (3-11); Bilirubin,Total 0.7 mg/dl (0.2-1.0); Blood Urea Nitrogen 24.0 mg/dl (6-23); Calcium 9.2 mg/dl (8.6-10.3); Carbon Dioxide 29.0 mmol/L (21-32); Chloride 105.0 mmol/L (98-107); Creatinine Clr Calc Pharmacy 28.8 ml/min; Globulin 2.8 gm/dl (2.5-4.0); Glucose 144.0 mg/dl (70-99(Fasting)); Potassium 4.3 mmol/L (3.5-5.1); Sodium 140.0 mmol/L (136-145); Total Protein 6.4 gm/dl (6.0-8.3)
--- NOTE | 2025-05-27 11:26 | CT Scan Report ---
CT SCAN OF THE BRAIN WITHOUT IV CONTRAST CLINICAL HISTORY: Fall. COMPARISON STUDY: MRI of the brain October 08, [address] June 09, 2022. TECHNIQUE: Unenhanced axial CT scan of the brain was performed from the vertex to the skull base. A dose lowering technique was utilized adhering to the principles of ALARA. FINDINGS: Brain parenchyma: No acute intracranial hemorrhage, midline shift or mass effect is present. [place]eda-whi te matter differentiation is preserved. There are no extra-axial fluid collections. There are no find ings to suggest acute dural sinus thrombosis or acute territorial infarct. White matter hypodensities are similar to prior exam and represent small vessel disease. Ventricles, sulci, cisterns: There is no hydrocephalus. The basal cisterns are patent. Calvarium: There are no calvarial fractures. Sinuses and mastoids: The visualized paranasal sinuses are clear. The mastoid air cells are well pneu matized. Orbits: The bony orbits are grossly intact. IMPRESSION: 1. No acute intracranial findings. 2. No calvarial fractures. ACT 112: Negative or not required by law. Electronically signed by: Eliseo Mendenhall M.D. 05/27/2025 11:23 AM
--- NOTE | 2025-05-27 11:30 | XRay Report ---
XR chest 1V portable CLINICAL HISTORY: dizzy, fall COMPARISON STUDY: 08/24/2023 FINDINGS: Heart size and pulmonary vasculature are normal. There are findings of emphysema. No consol idation or pleural effusion. No pneumothorax. No grossly displaced rib fracture seen. IMPRESSION: No acute findings. ACT 112: Negative or not required by law. Electronically signed by: Sean Post M.D. 05/27/2025 11:29 AM
--- NOTE | 2025-05-27 11:31 | CT Scan Report ---
CT OF THE ABDOMEN AND PELVIS WITHOUT CONTRAST CLINICAL HISTORY: Fall. COMPARISON STUDY: Pelvis and left hip radiographs August 24, 2023, CT of the abdomen and pelvis Sep tem2007 . TECHNIQUE: Axial images of the abdomen and pelvis were obtained without IV contrast. Images were revi ewed in the axial, sagittal, and coronal planes. Automated exposure control was utilized for the ras dy. A dose lowering technique was utilized adhering to the principles of ALARA. FINDINGS: Please note that the chest CT will be reported separately. Emphysema is incidentally noted within the lower lung bases. No hemoperitoneum or pneumoperitoneum is present. Evaluation of the ifrah d abdominal viscera is suboptimal on this unenhanced exam. There is no evidence for traumatic injury to the liver, spleen, adrenal glands, kidneys or pancreas. The right kidney is markedly atrophic. The re is a 9 mm left lower pole renal calculus. There are no ureteral calculi. There is no hydronephrosi s. There is colonic diverticulosis without evidence for acute diverticulitis. Moderate amount of stoo l within the colon and rectum is present. There is trace fluid within the pelvis. There is extensive aortoiliac atherosclerotic plaque. No acute lumbar spine, pelvis or hip fractures are identified. Lum bar spine dextroscoliosis is incidentally noted. No suspicious osseous lesions. IMPRESSION: 1. No acute traumatic findings within the abdomen or pelvis on unenhanced exam. 2. Trace pelvic fluid. 3. 9 mm left renal calculus. Right renal atrophy. 4. Colonic diverticulosis. No evidence for acute diverticulitis. ACT 112: Negative or not required by law. Electronically signed by: Eliseo Mendenhall M.D. 05/27/2025 11:30 AM
--- NOTE | 2025-05-27 11:40 | CT Scan Report ---
CT cervical spine wo con CT DOSE: 1176.71 mGy.cm CLINICAL HISTORY: fall. COMPARISON: 07/23/2019 TECHNIQUE: Multiple axial CT images of the cervical spine were obtained without contrast. A dose low ering technique was utilized adhering to the principles of ALARA. 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 There is gra de 1 anterolisthesis of C3 on C4, C7 on T1, and T1 on T2, stable. No cervical spine fracture seen. Th ere are carotid bulb calcifications. IMPRESSION: No cervical spine fracture seen. ACT 112: Negative or not required by law. The above report was generated using voice recognition software. It may contain grammatical, syntax o r spelling errors. Electronically signed by: Sean Post M.D. 05/27/2025 11:38 AM
[2025-05-27] MEDS: MECLIZINE HCL 25 MG TAB PO STA (11:53)
--- NOTE | 2025-05-27 12:05 | CT Scan Report ---
CT SCAN OF THE CHEST WITHOUT IV CONTRAST CLINICAL HISTORY: Fall. COMPARISON STUDY: Chest CT dated 07/23/2019. Chest x-ray dated 05/27/2025. TECHNIQUE: CT scan of the thorax was performed from the thoracic inlet to the upper abdomen. Images are reviewed in the axial, sagittal, and coronal planes. IV contrast was not administered for this ex amination as per the referring clinician. A dose lowering technique was utilized adhering to the salbador Purcell. CT DOSE: 675.38 mGy.cm FINDINGS: Thyroid: Mild atrophic and heterogeneous. Thoracic aorta: There is atherosclerotic calcification of the thoracic aorta, which is normal in joe ronnie and demonstrates standard 3-vessel arch anatomy. Heart: The heart is enlarged noting a small pericardial effusion. The coronary arteries are densely c alcified. Lungs and pleural spaces: There is moderate to advanced emphysema. A 1.4 x 1.2 x 0.6 cm spiculated no dule in the anterior right upper lobe on image #72 is new from 2019 and highly suspicious for a bronc hogenic neoplasm. A second 8 mm spiculated nodule in the right apex on image #56 is also new from the prior study. 6 mm right lower lobe nodules seen on images #158 and #189, a 6 mm left lower lobe nodu le on image #211, and a 4 mm left upper lobe nodule on image #136 are unchanged from 2019 and of low suspicion. No airspace consolidation no pneumothorax is seen. Trace pleural fluid is seen bilaterally . 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 There are scattered calcified granulomas. Mediastinum: There is no mediastinal hematoma. A mildly enlarged AP window node on image #112 measure s 12 mm in short axis. This is unchanged in 2019. No additional enlarged mediastinal lymph nodes are identified. Chio: Not well assessed without IV contrast. Axillae: There is no axillary lymphadenopathy. Upper abdomen: A small hiatal hernia is noted. There is trace perihepatic ascites. Skeletal structures: The skeletal structures are osteopenic. The bony thorax appears intact. Degenera tive change is noted in the shoulders and spine. No lytic or blastic bony lesions are seen. IMPRESSION: 1. No acute posttraumatic intrathoracic abnormality is identified. 2. There is no airspace consolidation or pneumothorax. 3. Cardiomegaly and emphysema noting advanced coronary artery atherosclerosis and trace pleural effus ions. 4. There is a 1.4 cm spiculated right upper lobe pulmonary nodule which is new from 2019. A bronchoge johnathon neoplasm is the diagnosis of exclusion. Pulmonology follow-up is advised. At a minimum, short-ter m CT follow-up will be required. PET could also be considered. 5. A second 0.8 cm spiculated nodule at the right apex is also new from previous and suspicious. 6. Additional subcentimeter pulmonary nodules are similar to the prior study and of low suspicion. 7. Additional findings as above. ACT 112: Positive. There are findings on this exam that require communication between the performing entity and the patient following Patient Test Result Information Act ([place] Act 112) guidelines. Electronically signed by: Taras Vences M.D. 05/27/2025 12:04 PM
--- NOTE | 2025-05-27 14:36 | History & Physical Report ---
<Statement entered by Mateo Blandon, DO - 05/29/25 09:18> I have seen and examined the patient and have discussed the case with the advance practice provider. I have reviewed the advanced practitioner's documentation, and I agree with, and take responsibility for that plan of care. Patient's history seems somewhat consistent with micturition near syncope/presyncope. Continue with workup as outlined below Did discuss lung nodule findings with the patient. He is aware that he needs to follow-up and consider biopsy should he so choose. I spent a total of 18 minutes coordinating, documenting, and providing care for this patient excluding time spent by another provider/QHP. Date of Service May 27, 2025 Assessment & Plan (1) Dizziness: Plan: Patient is a 85year old M with a past medical history of HTN, PVD, COPD, Dy slipidemia, aortic valve stenosis, LAD occlusion, Coronary artery dissection, Femoral artery pseudoaneurysm, History of DVT, h/o myocardial infarction, BPH with LUTS, CKD stage IV presenting with dizziness s/p fall. Reportedly, patient ambulated from his bed to bathroom with mild dizziness last night and then experienced dizziness with fall when changing position from sitting on the toilet to standing. He denies loss of consciousness. Reports feeling as though his legs "gave out from under him when standing". Unable to stand up and needed to lay on the bathroom floor all night. Also reports left leg numbness lasting all night with improvement now; however, still has left leg numbness with intact sensation to bottom of foot. #Dizziness * Admit to [facility] for additional management and workup * Positional dizziness s/p fall with no apparent head injury; now w/ persistent numbness to LLE * Meclizine x 1 given in ED * EKG showing NSR with vent rate 65 bpm, QTc 426. * History of chronic LAD occlusion w/ failed attempt to open occlusion by cardiac catheterization in 2013 d/t femoral artery pseudoaneurysms; patient on aspirin and plavix * No focal deficits with a norm neuro exam; low suspicion for stroke; CT head w/o acute findings; Per external chart review, history DVT to LLE w/ chronic left leg numbness since then * Repeat Echo ordered * PT/OT eval ordered * Discharge planning: Patient lives alone with family support daily for meals and care. Discuss with family needs and possible additional home services for safety #Hypertension * Known hypotensive episodes with adjustments to HTN meds- recent decrease in lisinopril dosing 10 mg-> 5mg per Cardiology record 05/16/25 * Maintain higher BP target d/t history of lability and recent dizziness with mechanical fall * Will continue home amlodipine, imdur, Metoprolol-->Lisinopril on hold per patient report of discontinuation * Check orthostatic BP's in the morning #Dyslipidemia * Continue home Lipitor #CKD Stage III * Renal functioning at baseline; Creatinine 1.6; has been higher to 2.1-2.5 over past 2 years * Follows [facility] closely #BPH * Continue home meds DVT Ppx: SCDs Code status: Full PCP: Dr. Mcdonough Dispo: Admit Patient seen in collaboration with Dr. Blandon. Please see addendum.I spent a total of 65 minutes coordinating, documenting and providing care for this patient excluding time spent in the performance of separately billed services or time spent by another provider/QHP. (2) HTN (hypertension): (3) Dyslipidemia: (4) CKD (chronic kidney disease) stage 3, GFR 30-59 ml/min: (5) BPH (benign prostatic hyperplasia): History of Present Illness Primary Care Provider: Rashi Mcdonough MD Patient is a 85year old M with a past medical history of HTN, PVD, COPD, Dyslipidemia, aortic valve stenosis, LAD occlusion, Coronary artery dissection, Femoral artery pseudoaneurysm, History of DVT, h/o myocardial infarction, BPH with LUTS, CKD stage IV presenting with dizziness s/p fall. Reportedly, patient ambulated from his bed to bathroom with mild dizziness last night and then experienced dizziness with fall when changing position from sitting on the toilet to standing. He denies loss of consciousness. Reports feeling as though his legs "gave out from under him when standing". Unable to stand up and needed to lay on the bathroom floor all night. Also reports left leg numbness lasting all night with improvement now; however, still has left leg numbness with intact sensation to bottom of foot. Denies fever, chills, weight loss, headache, cognitive changes, vision/hearing changes, chest pain, SOB, swelling, difficulty breathing, urinary concerns, N/V/D, joint swelling/pain, skin rashes, lesions, bleeding, bruising. In the emergency department, patient was hypertensive 174/90 upon arrival to the ED. Possibly related to not taking morning meds. No fevers reported and no evide nce of leukocytosis noted on lab workup.Urine clean. CT of the head without acute findings. CT of the abdomen pelvis without acute findings. Incidental findings on chest CT of right upper lobe spiculated nodules with possible neoplasm etiology. Patient will need outpatient follow-up for this finding and repeat imaging. Patient experienced dizziness when ambulating from the bed to bathroom, but did not fall. No dizziness reported with position change from lying to sitting. As per external chart review, patient follows [facility] and has been reporting dizziness previously. Patient reports Lisinopril was discontinued at last Cardiology appointment, but his last dose taken was in the morning of yesterday's fall. He has a history of hypotension. As per external chart review, patient was seen by [facility] on 05/16/25. 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 Hypotension was discussed at that appointment and lisinopril dosing was decreased from 10mg/day to 5mg/day. Echo interpretation from March 14, 2025 showing sinus bradycardia during the examination. Rates 48-50 beats per minute. The left ventricular cavity size is normal. The LV wall thickness is mildly increased (concentric). The left ventricular wall motion is normal. LVEF 55-59% (normal). The left ventricular diastolic function is moderately abnormal (grade II). The left atrium is moderately enlarged (42-48 ml/m^2). The aortic valve is moderately calcified. Moderate aortic valve stenosis is present. Mild mitral regurgitation is present. Moderate tricuspid regurgitation is present. In March 2025, 7-day Zio Monitor showing predominant sinus Rhythm with 6 runs of SVT. Notation of weight loss noted in patient record. History obtained primarily from the patient and via hospitalization record. External chart review obtained from [employer] Allergies Allergy/AdvReac Type Severity Reaction Status Date / Time Iodinated Contrast Media Allergy Intermediate RASH/HYPOTENSION Verified 05/27/25 14:54 PER [place]ish tetracycline Allergy Unknown ON Verified 05/27/25 14:54 [place] MED LIST Home Medications Medication Instructions Recorded Confirmed Type arformoterol 15 mcg/2 mL solution 2 ml inhalation BID PRN Shortness 07/23/19 05/27/25 History for nebulization (Brovana) Of Breath Or Wheezing clopidogrel 75 mg tablet (Plavix) 75 mg PO QAM 07/23/19 05/27/25 History cyanocobalamin (vitamin B-12) 1,000 mcg PO QAM 07/23/19 05/27/25 History 1,000 mcg tablet (Vitamin B-12) finasteride 5 mg tablet (Proscar) 5 mg PO QAM 07/23/19 05/27/25 History ketorolac 0.4 % eye drops 1 drp OPL BID 07/23/19 05/27/25 History meclizine 25 mg tablet 25 mg PO TID PRN DIZZY 07/23/19 05/27/25 History metoprolol succinate 25 mg 12.5 mg PO QAM 07/23/19 05/27/25 History tablet,extended release 24 hr (Toprol XL) terazosin 2 mg capsule 2 mg PO HS 07/23/19 05/27/25 History terazosin 5 mg capsule 5 mg PO HS 07/23/19 05/27/25 History acetaminophen 500 mg tablet 500 mg PO Q6H PRN Pain 05/15/20 05/27/25 History (Tylenol Extra Strength) ondansetron HCl 8 mg tablet 8 mg PO TID PRN NAUSEA/VOMITING 10/08/21 05/27/25 History amlodipine 2.5 mg tablet 2.5 mg PO BID 12/20/21 05/27/25 History atorvastatin 20 mg tablet 20 mg PO QAM 06/09/22 05/27/25 History isosorbide mononitrate 60 mg 90 mg PO QAM 06/09/22 05/27/25 History tablet,extended release 24 hr aspirin 81 mg tablet,delayed 81 mg PO DAILY 05/27/25 05/27/25 History release ketoconazole 2 % shampoo 1 ea topical DIRECTED 05/27/25 05/27/25 History Past Med/Surg History Problem List (Updated 05/27/25 @ 15:11 by Raj Herzog M.D.) Numbness (Acute) Lung nodule, multiple (Acute) Fall (Acute) Dizziness (Acute) Syncope due to orthostatic hypotension (Acute) SAM (acute kidney injury) Syncope COVID-19 (Acute) Angina pectoris, unspecified (Acute) Encounter for pre-operative examination BPH (benign prostatic hyperplasia) Paresthesia (Acute) Chest pain (Acute) GERD (gastroesophageal reflux disease) (Chronic) CAD (coronary artery disease) (Chronic) CKD (chronic kidney disease) stage 3, GFR 30-59 ml/min (Chronic) Dyslipidemia (Chronic) Moderate aortic stenosis (Chronic) COPD, mild (Chronic) HTN (hypertension) (Chronic) Medical History History of kidney stones Status post myocardial infarction daughter reports ND during angioplasty procedure 05/2014 BPH (benign prostatic hyperplasia) Paresthesia Chest pain Bronchitis GERD (gastroesophageal reflux disease) CAD (coronary artery disease) CKD (chronic kidney disease) stage 3, GFR 30-59 ml/min Dyslipidemia Moderate aortic stenosis COPD, mild HTN (hypertension) Surgical History H/O coronary angioplasty "PTCA, CARDIAC ANGIOPLASTY, PERCUTANEOUS, 1 ARTERY performed by Paty Rasheed [facility] [place]23[place]" History of back surgery "Lumbar Spine Fusion ,Post Interbody" History of inguinal hernia repair "R inguinal hernia repair with mesh performed by Dr. Vazquez 2005" History of knee surgery History of repair of rotator cuff Hx of right cataract extraction S/P colonoscopy Family History Father Silicosis Brother , 67 Cancer Social History Smoking Status: Former smoker Tobacco Type: Cigarettes Second Hand Exposure: No; Do You Dip or Chew Tobacco: Yes; Hx Alcohol Use: No Hx Substance Use: No Preferred Language: Luxembourgish Communication Ability: Effective Communication Ability Comment: Very hard of hearing - does not wear hearing aids Industrial Sociologist Required: No Beliefs That Will Affect Care: None marital status: / Current Living Situation: Alone Current Living Situation Comment: lives at home alone Feels Safe at Home: Yes Safety Concerns: Feels Safe At This Time Assistive Devices: None Review of Systems Review of Systems: All systems reviewed & are unremarkable except as noted in HPI & below Physical Exam Physical Exam: VITALS: Reviewed. WEIGHT/BMI reviewed. GEN: Thin, frail, well-developed, NAD. PSYCH: Good Judgment. AOx3. Normal memory, mood, and affect. HEENT -Head: NC/AT; -Eyes: PERRL, EOMI. No discharge or redn ess; -Ears: External ears are normal. Normal TMs. -Nose: Normal nares. -Mouth and throat: MMM. Normal gums, muc radha, palate,. Good dentition. NECK: Supple, with no masses. CV: RRR, no m/r/g. LUNGS: CTAB, no w/r/c. ABD: Soft, NT/ND, NBS, no masses or organomegaly. : N/A SKIN: Warm, well perfused. No skin rashes or abnormal lesions. MSK: No deformities, Normal gait. EXT: No clubbing, cyanosis, or edema. NEURO: CN II-XII grossly intact. No focal deficits. Results & Data Results & Data Vital Signs (Past 12 Hours) Vital Signs Temp Pulse Pulse Resp BP BP Pulse Ox 05/27/25 13:33 57 L 16 132/71 97 05/27/25 12:42 57 L 18 130/70 99 05/27/25 11:38 97 05/27/25 11:38 56 L 16 149/82 H 97 05/27/25 10:47 60 05/27/25 10:45 98 05/27/25 10:34 36.4 C L 70 20 174/90 H 98 O2 Del Method 05/27/25 13:33 Room Air, Oxyhood 05/27/25 12:42 Room Air 05/27/25 11:38 Room Air 05/27/25 11:38 Room Air 05/27/25 10:47 05/27/25 10:45 Room Air 05/27/25 10:34 Room Air Laboratory Results Short CBC 05/27/25 Range/Units 10:55 WBC 5.62 (4.8-10.8) K/ul Hgb 13.0 L (14.0-18.0) g/dl Hct 39.1 L (42.0-52.0) % Plt Count 170 (130-400) K/uL BMP 05/27/25 10:55 Sodium 140 Potassium 4.3 Chloride 105 Carbon Dioxide 29 BUN 24 H Creatinine 1.60 H Glucose 144 H Calcium 9.2 Liver Function 05/27/25 Range/Units 10:55 Total Bilirubin 0.7 (0.2-1.0) mg/dl AST 18 (13-39) U/L ALT 8 (7-52) U/L Alkaline Phosphatase 79 (34-104) U/L Albumin 3.6 (3.4-5.0) gm/dl Urine 05/27/25 Range/Units 10:46 Urine Color Yellow Urine Appearance Cloudy A (Clear) Urine pH 7.5 (4.5-7.5) Ur Specific [place] 1.014 (1.000-1.030) Urine Protein Negative (Negative) Urine Glucose (UA) Negative (Negative) Diagnostic Findings Abdomen/Pelvis CT 05/27/25 10:39 CT OF THE ABDOMEN AND PELVIS WITHOUT CONTRAST CLINICAL HISTORY: Fall. COMPARISON STUDY: Pelvis and left hip radiographs August 24, 2023, CT of the abdomen and pelvis April 20, 2008 . TECHNIQUE: Axial images of the abdomen and pelvis were obtained without IV co ntrast. Images were reviewed in the axial, sagittal, and coronal planes. Automated exposure control was utilized for the study. A dose lowering technique was utilized adhering to the principles of ALARA. FINDINGS: Please note that the chest CT will be reported separately. Emphysema is incidentally noted within the lower lung bases. No hemoperitoneum or pneumoperitoneum is present. Evaluation of the solid abdominal viscera is suboptimal on this unenhanced exam. There is no evidence for traumatic injury to the liver, spleen, adrenal glands, kidneys or pancreas. The right kidney is markedly atrophic. There is a 9 mm left lower pole renal calculus. There are no ureteral calculi. There is no hydronephrosis. There is colonic diverticulosis without evidence for acute diverticulitis. Moderate amount of stool within the colon and rectum is present. There is trace fluid within the pelvis. There is extensive aortoiliac atherosclerotic plaque. No acute lumbar spine, pelvis or hip fractures are identified. Lumbar spine dextroscoliosis is incidentally noted. No suspicious osseous lesions. IMPRESSION: 1. No acute traumatic findings within the abdomen or pelvis on unenhanced exam. 2. Trace pelvic fluid. 3. 9 mm left renal calculus. Right renal atrophy. 4. Colonic diverticulosis. No evidence for acute diverticulitis. ACT 112: Negative or not required by law. Electronically signed by: Eliseo Mendenhall M.D. 05/27/2025 11:[address] 05/27/25 10:39 CT cervical spine wo con CT DOSE: 1176.71 mGy.cm CLINICAL HISTORY: fall. COMPARISON: 07/23/2019 TECHNIQUE: Multiple axial CT images of the cervical spine were obtained without contrast. A dose lowering technique was utilized adhering to the principles of ALARA. 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 There is grade 1 anterolisthesis of C3 on C4, C7 on T1, and T1 on T2, stable. No cervical spine fracture seen. There are carotid bulb calcifications. IMPRESSION: No cervical spine fracture seen. ACT 112: Negative or not required by law. The above report was generated using voice recognition software. It may contain grammatical, syntax or spelling errors. Electronically signed by: Sean Post M.D. 05/27/2025 11:[address] 05/27/25 10:39 CT SCAN OF THE CHEST WITHOUT IV CONTRAST CLINICAL HISTORY: Fall. COMPARISON STUDY: Chest CT dated 07/23/2019. Chest x-ray dated 05/27/2025. TECHNIQUE: CT scan of the thorax was performed from the thoracic inlet to the upper abdomen. Images are reviewed in the axial, sagittal, and coronal planes. IV contrast was not administered for this examination as per the referring clinician. A dose lowering technique was utilized adhering to the principles of ALARA. CT DOSE: 675.38 mGy.cm FINDINGS: Thyroid: Mild atrophic and heterogeneous. Thoracic aorta: There is atherosclerotic calcification of the thoracic aorta, which is normal in caliber and demonstrates standard 3-vessel arch anatomy. Heart: The heart is enlarged noting a small pericardial effusion. The coronary arteries are densely calcified. Lungs and pleural spaces: There is moderate to advanced emphysema. A 1.4 x 1.2 x 0.6 cm spiculated nodule in the anterior right upper lobe on image #72 is new from 2019 and highly suspicious for a bronchogenic neoplasm. A second 8 mm spiculated nodule in the right apex on image #56 is also new from the prior study. 6 mm right lower lobe nodules seen on images #158 and #189, a 6 mm left lower lobe nodule on image #211, and a 4 mm left upper lobe nodule on image #136 are unchanged from 2019 and of low suspicion. No airspace consolidation no pneumothorax is seen. Trace pleural fluid is seen bilaterally. Scarring/atelectasis is noted at the lung bases A fat-containing Bochdalek hernia is seen on the right. There are scattered calcified granulomas. Mediastinum: There is no mediastinal hematoma. A mildly enlarged AP window node on image #112 measures 12 mm in short axis. This is unchanged in 2019. No additional enlarged mediastinal lymph nodes are identified. Chio: Not well assessed without IV contrast. Axillae: There is no axillary lymphadenopathy. Upper abdomen: A small hiatal hernia is noted. There is trace perihepatic ascites. Skeletal structures: The skeletal structures are osteopenic. The bony thorax appears intact. Degenerative change is noted in the shoulders and spine. No lytic or blastic bony lesions are seen. IMPRESSION: 1. No acute posttraumatic intrathoracic abnormality is identified. 2. There is no airspace consolidation or pneumothorax. 3. Cardiomegaly and emphysema noting advanced coronary artery atherosclerosis and trace pleural effusions. 4. There is a 1.4 cm spiculated right upper lobe pulmonary nodule which is new from 2019. A bronchogenic neoplasm is the diagnosis of exclusion. Pulmonology follow-up is advised. At a minimum, short-term CT follow-up will be required. PET could also be considered. 5. A second 0.8 cm spiculated nodule at the right apex is also new from previous and suspicious. 6. Additional subcentimeter pulmonary nodules are similar to the prior study and of low suspicion. 7. Additional findings as above. ACT 112: Positive. There are findings on this exam that require communication between the performing entity and the patient following Patient Test Result Information Act ([place] Act 112) guidelines. Electronically signed by: Taras Vences M.D. 05/27/2025 12:04 PM Chest X-Ray 05/27/25 10:39 XR chest 1V portable CLINICAL HISTORY: dizzy, fall COMPARISON STUDY: 08/24/2023 FINDINGS: Heart size and pulmonary vasculature are normal. There are findings of emphysema. No consolidation or pleural effusion. No pneumothorax. No grossly displaced rib fracture seen. IMPRESSION: No acute findings. ACT 112: Negative or not required by law. Electronically signed by: Sean Post M.D. 05/27/2025 11:[address] 05/27/25 10:39 CT SCAN OF THE BRAIN WITHOUT IV CONTRAST CLINICAL HISTORY: Fall. COMPARISON STUDY: MRI of the brain October 08, [address] June 09, 2022. TECHNIQUE: Unenhanced axial CT scan of the brain was performed from the vertex to the skull base. A dose lowering technique was utilized adhering to the principles of ALARA. FINDINGS: Brain parenchyma: No acute intracranial hemorrhage, midline shift or mass effect is present. [place]eda-white matter differentiation is preserved. There are no extra- axial fluid collections. There are no findings to suggest acute dural sinus thrombosis or acute territorial infarct. White matter hypodensities are similar to prior exam and represent small vessel disease. Ventricles, sulci, cisterns: There is no hydrocephalus. The basal cisterns are patent. Calvarium: There are no calvarial fractures. Sinuses and mastoids: The visualized paranasal sinuses are clear. The mastoid air cells are well pneumatized. Orbits: The bony orbits are grossly intact. IMPRESSION: 1. No acute intracranial findings. 2. No calvarial fractures. ACT 112: Negative or not required by law. Electronically signed by: Eliseo Mendenhall M.D. 05/27/2025 11:23 AM
[2025-05-27] MEDS: GADOBUTROL 30ML VIAL IV ONE (17:39)
[2025-05-27] MEDS ORDERED: MAGNESIUM HYDROXIDE SUSP 30 ML UDC PO PRN (18:21)
[2025-05-27] MEDS ORDERED: PHARMACIST DISCHARGE MED REC CONSULT PRN (18:21)
[2025-05-27] MEDS ORDERED: ONDANSETRON INJ 2 MG/ML 2 ML VIAL IV PRN (18:21)
[2025-05-27] MEDS ORDERED: ALUMINUM/MAGNESIUM SUSP 30 ML UDC PO PRN (18:21)
--- NOTE | 2025-05-27 18:34 | Magnetic Resonance Report ---
MRI of the brain performed with and without IV contrast History: Weakness Comparison: 10/08/2021 Technique: Multiplanar T1 weighted, axial T2/FLAIR, and susceptibility images were obtained without intravenous contrast. Following intravenous gadolinium based contrast administration, axial T2 weighted, diffusion, and T1-weighted images were obtained. Findings: No evidence for intracranial mass lesion, mass-effect, midline shift, or abnormal extra-axial fluid collection. Postcontrast images demonstrate no abnormal intracranial enhancement. The orbits are grossly unremarkable. There is moderate to marked cerebral atrophy. No abnormally reduced diffusion or evidence for acute infarct. Normal intravascular flow voids. Impression: Normal brain MRI with and without IV contrast Electronically signed by Michael Isaac 05-27-2025 6:30 PM
[2025-05-27] MEDS: TERAZOSIN HCL 5 MG CAP PO SCH (20:44)
[2025-05-27] MEDS: TERAZOSIN HCL 1 MG CAP PO SCH (20:44)
[2025-05-27] MEDS: KETOROLAC 0.5% OP SOLN 5 ML BTL OPL SCH (20:45)
[2025-05-28] MEDS: LACTATED RINGER'S 1,000 ML IV ONE (06:13)
--- NOTE | 2025-05-28 06:29 | Communication Note ---
Date of Service: May 28, 2025 Patient complaining of dizziness symptoms. Orthostatic vitals positive as per RN. AP Dizziness secondary to orthostasis IVF Hold amlodipine for now
[2025-05-28 08:01] LABS: Hematocrit (blood only) 40.3 % (42.0-52.0); Hemoglobin 13.2 g/dl (14.0-18.0); Immature Granulocytes # (auto) 0.01 K/uL (0.01-0.20); Immature Granulocytes % (auto) 0.2 %; Mean Corpuscular Hemoglobin 29.9 pg (25.0-34.0); Mean Corpuscular Volume 91.4 fL (80.0-100.0); Platelet Count 168 K/uL (130-400); RDW Standard Deviation 44.4 fL (36.4-46.3); Red Blood Count 4.41 M/uL (4.70-6.10); White Blood Count 5.56 K/ul (4.8-10.8)
[2025-05-28 08:26] LABS: Anion Gap 6.0 (3-11); Blood Urea Nitrogen 21.0 mg/dl (6-23); Calcium 9.0 mg/dl (8.6-10.3); Carbon Dioxide 30.0 mmol/L (21-32); Chloride 107.0 mmol/L (98-107); Cholesterol 138.0 mg/dl (0-200); Creatinine Clr Calc Pharmacy 26.8 ml/min; Glucose 97.0 mg/dl (70-99(Fasting)); Potassium 4.3 mmol/L (3.5-5.1); Sodium 143.0 mmol/L (136-145); Triglycerides 66.0 mg/dl (0-150)
[2025-05-28 08:51] LABS: HDL Cholesterol 53.0 mg/dl
[2025-05-28] MEDS ORDERED: METOPROLOL SUCC 25MG EXT REL TAB PO SCH (09:00)
[2025-05-28] MEDS ORDERED: ISOSORBIDE MONO EXTENDED REL 30 MG TABCR PO SCH (09:00)
[2025-05-28 09:05] LABS: Hemoglobin A1C 6.1 % (4.5-5.6)
[2025-05-28] MEDS: ASPIRIN 81 MG ECTAB PO SCH (09:25)
[2025-05-28] MEDS: CLOPIDOGREL BISULFATE 75 MG TAB PO SCH (09:25)
[2025-05-28] MEDS: CYANOCOBALAMIN (B-12) 500 MCG TABLET PO SCH (09:25)
[2025-05-28] MEDS: FINASTERIDE 5 MG TAB PO SCH (09:25)
[2025-05-28] MEDS: ATORVASTATIN 20 MG TAB PO SCH (09:26)
--- NOTE | 2025-05-28 11:45 | XCELERA ---
[id number]
--- NOTE | 2025-05-28 13:30 | XRay Report ---
LEFT FOOT 2 VIEWS CLINICAL HISTORY: First toe infection. FINDINGS: AP and lateral views of the left foot are obtained. No prior studies are available for pascale fulton at the time of dictation. The skeletal structures are osteopenic. No fracture is seen. No bony erosion or periostitis is identified. There is moderate osteoarthritic change at the first metatarso phalangeal joint. Mild degenerative change is seen throughout the remainder of the foot. The overlyin g soft tissues are normal as imaged. IMPRESSION: No acute bony abnormality is identified. Electronically signed by: Taras Vences M.D. 05/28/2025 1:29 PM
--- NOTE | 2025-05-28 14:08 | Hospitalist Progress Note ---
Date of Service May 28, 2025 Assessment & Plan (1) Dizziness: Plan: Patient is a 85year old M with a past medical history of HTN, PVD, COPD, Dyslipidemia, aortic valve stenosis, LAD occlusion, Coronary artery dissection, Femoral artery pseudoaneurysm, History of DVT, h/o myocardial infarction, BPH with LUTS, CKD stage IV presenting with dizziness s/p fall. Reportedly, patient ambulated from his bed to bathroom with mild dizziness last night and then expe rienced dizziness with fall when changing position from sitting on the toilet to standing. He denies loss of consciousness. Reports feeling as though his legs "gave out from under him when standing". Unable to stand up and needed to lay on the bathroom floor all night. Also reports left leg numbness lasting all night with improvement now; however, still has left leg numbness with intact sensation to bottom of foot. #Dizziness, Orthostasis * Admit to [facility] for additional management and workup * Positional dizziness s/p fall with no apparent head injury; now w/ persistent numbness to LLE * Meclizine x 1 given in ED * EKG showing NSR with vent rate 65 bpm, QTc 426. * History of chronic LAD occlusion w/ failed attempt to open occlusion by cardiac catheterization in 2013 d/t femoral artery pseudoaneurysms; patient on aspirin and plavix * No focal deficits with a norm neuro exam; low suspicion for stroke; CT head w/o acute findings; Per external chart review, history DVT to LLE w/ chronic left leg numbness since then * Repeat Echo ordered * PT/OT eval ordered * Discharge planning: Patient lives alone with family support daily for meals and care. Discuss with family needs and possible additional home services for safety 05/28 Echocardiogram noted Blood pressure on the lower side today Hold amlodipine, Imdur, metoprolol Patient's daughter reports patient has lost 11 pounds since September Will likely need to continue only metoprolol Monitor blood pressure trend #Left great toe cellulitis History of nail removal 3 weeks ago as an outpatient Patient as per daughter was not able to complete antibiotic course Appears to be having cellulitis, no appreciable fluctuant mass to suggest abscess Will obtain blood cultures Check foot x-ray to rule out osteomyelitis Start daptomycin Podiatry consult #Hypertension * Known hypotensive episodes with adjustments to HTN meds- recent decrease in lisinopril dosing 10 mg-> 5mg per Cardiology record 05/16/25 * Maintain higher BP target d/t history of lability and recent dizziness with mechanical fall - management per above #Dyslipidemia * Continue home Lipitor #CKD Stage III * Renal functioning at baseline; Creatinine 1.6; has been higher to 2.1-2.5 over past 2 years * Follows [facility] closely #BPH * Continue home meds DVT Ppx: SCDs Code status: Full PCP: Dr. Mcdonough Dispo: Pending Bc Smith MD plan of care discussed with patient and daughter Berna in detail and at length all questions answered they are understanding, agreeable, comfortable with the plan of care (2) HTN (hypertension): (3) Dyslipidemia: (4) CKD (chronic kidney disease) stage 3, GFR 30-59 ml/min: (5) BPH (benign prostatic hyperplasia): Admission and Anticipated Discharge Date Admission Date: May 27, 2025 Subjective seen resting in bed, comfortable States he is still having some dizziness when ambulating today Also reports pain on the left great toe, worse with walking Reports some chills at home No other new symptoms Review of Systems Review of Systems: all noted and negative except for above Physical Exam Physical Exam: General- oriented x 3, not in distress, speaks in sentences with no effort or accessory muscle use Eyes- anicteric Neck- no JVD Lungs- clear breath sounds bilaterally, no rales/wheezes Heart- normal rate, regular rhythm; gr 1 holosytolic murmurs Abdomen- normal bowel sounds, nondistended, soft, nontender Extremities- no pretibial edema, no calf tenderness Left foot-great toe: Mild edema and erythema, mild tenderness, warmth, positive scabbing wound on the nailbed Neuro- alert, oriented x 3; no gross focal neurologic deficits Skin- warm & dry Results & Data Results & Data Vital Signs (Past 12 Hours) Vital Signs Temp Pulse Pulse Resp BP BP Pulse Ox 05/28/25 11:13 36.3 C L 63 18 121/68 97 05/28/25 07:54 36.4 C L 61 18 174/78 H 95 05/28/25 07:00 58 L 05/28/25 03:21 36.6 C 54 L 18 126/81 95 O2 Del Method 05/28/25 11:13 Room Air 05/28/25 07:54 Room Air 05/28/25 07:00 05/28/25 03:21 Room Air all noted and reviewed including below
[2025-05-28] MEDS: ADVANCED PROBIOTIC 625 MG CAPSULE PO SCH (14:47)
[2025-05-28] MEDS: DAPTOmycin 400 MG in SYRINGE 0 ML IV SCH (14:48)
--- NOTE | 2025-05-28 19:19 | Orthopedic Consultation ---
Date of Service May 28, 2025 Assessment & Plan (1) Pain of left great toe: Assessment: Concerns of left great toe cellulitis. Plan: Patient was seen today with Dr. Ferreira. This point in time, there is a low suspicion of any infectious nature to the left great toe. He does admit that he did have his nail removed by an outside physician in which they did this note that he had some sort of acid treatment to prevent any regrowth of the left nail. He is really not having any discomfort to the left great toe and is having no trouble ambulating on it. They may continue antibiotics at this point of primary service wishes but at this point in time, there is a low suspicion of infectious nature to the left great toe. We would recommend that he follows up with this outside physician again for continued management for his left great toe. Would also recommend a follow-up with a chart picker as an outpatient. Medical management and DVT prophylaxis per primary. This point time, we will work on a follow-up from afar with this patient. Please reach out to [facility] orthopedics if patient situation is to change. History of Present Illness Reason for Consultation: . Left great toe infection Requesting Physician: . Attending Physician: Bc Smith MD . Patient is an 85-year-old gentleman who we are asked to see today on consultation for a left great toe cellulitis by the hospitalist team. He notes that about 3 weeks ago, he had a a nail removal of his left great toe. Earlier this morning, the hospitalist service did take a look at his foot in which they were concerned about a little bit of redness/cellulitis to the great toe. They were unable to appreciate any fluctuant masses to suggest abscesses and there is no concerns for osteomyelitis on x-rays. They did start him on daptomycin. They wanted our opinions on him today. Upon our evaluation, he was having no pain whatsoever to his left great toe. We did not appreciate any erythema and/or edema to the left great toe. He is able to ambulate comfortably onto the left foot and is able to perform range of motion without much issue. He denies any fever, chills, nausea, sweating, left foot pain, or any other issues. He denies any other concerns today. Allergies Allergy/AdvReac Type Severity Reaction Status Date / Time Iodinated Contrast Media Allergy Intermediate RASH/HYPOTENSION Verified 05/27/25 14:54 PER [employer] tetracycline Allergy Unknown ON Verified 05/27/25 14:54 [facility] Home Medications Medication Instructions Recorded Confirmed Type arformoterol 15 mcg/2 mL solution 2 ml inhalation BID PRN Shortness 07/23/19 05/27/25 History for nebulization (Brovana) Of Breath Or Wheezing clopidogrel 75 mg tablet (Plavix) 75 mg PO QAM 07/23/19 05/27/25 History cyanocobalamin (vitamin B-12) 1,000 mcg PO QAM 07/23/19 05/27/25 History 1,000 mcg tablet (Vitamin B-12) finasteride 5 mg tablet (Proscar) 5 mg PO QAM 07/23/19 05/27/25 History ketorolac 0.4 % eye drops 1 drp OPL BID 07/23/19 05/27/25 History meclizine 25 mg tablet 25 mg PO TID PRN DIZZY 07/23/19 05/27/25 History metoprolol succinate 25 mg 12.5 mg PO QAM 07/23/19 05/27/25 History tablet,extended release 24 hr (Toprol XL) terazosin 2 mg capsule 2 mg PO HS 07/23/19 05/27/25 History terazosin 5 mg capsule 5 mg PO HS 07/23/19 05/27/25 History acetaminophen 500 mg tablet 500 mg PO Q6H PRN Pain 05/15/20 05/27/25 History (Tylenol Extra Strength) ondansetron HCl 8 mg tablet 8 mg PO TID PRN NAUSEA/VOMITING 10/08/21 05/27/25 History amlodipine 2.5 mg tablet 2.5 mg PO BID 12/20/21 05/27/25 History atorvastatin 20 mg tablet 20 mg PO QAM 06/09/22 05/27/25 History isosorbide mononitrate 60 mg 90 mg PO QAM 06/09/22 05/27/25 History tablet,extended release 24 hr aspirin 81 mg tablet,delayed 81 mg PO DAILY 05/27/25 05/27/25 History release ketoconazole 2 % shampoo 1 ea topical DIRECTED 05/27/25 05/27/25 History Past Med/Surg History Problem List (Updated 05/28/25 @ 19:16 by Michael Lerma PA-C) Pain of left great toe Numbness (Acute) Lung nodule, multiple (Acute) Fall (Acute) Dizziness (Acute) Syncope due to orthostatic hypotension (Acute) SAM (acute kidney injury) Syncope COVID-19 (Acute) Angina pectoris, unspecified (Acute) Encounter for pre-operative examination BPH (benign prostatic hyperplasia) Paresthesia (Acute) Chest pain (Acute) GERD (gastroesophageal reflux disease) (Chronic) CAD (coronary artery disease) (Chronic) CKD (chronic kidney disease) stage 3, GFR 30-59 ml/min (Chronic) Dyslipidemia (Chronic) Moderate aortic stenosis (Chronic) COPD, mild (Chronic) HTN (hypertension) (Chronic) Medical History History of kidney stones Status post myocardial infarction daughter reports [facility] during angioplasty procedure 05/2014 BPH (benign prostatic hyperplasia) Paresthesia Chest pain Bronchitis GERD (gastroesophageal reflux disease) CAD (coronary artery disease) CKD (chronic kidney disease) stage 3, GFR 30-59 ml/min Dyslipidemia Moderate aortic stenosis COPD, mild HTN (hypertension) Surgical History H/O coronary angioplasty "PTCA, CARDIAC ANGIOPLASTY, PERCUTANEOUS, 1 ARTERY performed by Paty Rasheed [place] [facility] [place]" History of back surgery "Lumbar Spine Fusion ,Post Interbody" History of inguinal hernia repair "R inguinal hernia repair with mesh performed by Dr. Vazquez 2005" History of knee surgery History of repair of rotator cuff Hx of right cataract extraction S/P colonoscopy Family History Father Silicosis Brother , 67 Cancer Social History Smoking Status: Former smoker Tobacco Type: Cigarettes Second Hand Exposure: No; Do You Dip or Chew Tobacco: Yes; Hx Alcohol Use: No Hx Substance Use: No Preferred Language: Micronesian Communication Ability: Effective Communication Ability Comment: Very hard of hearing - does not wear hearing aids Roll Mechanic Required: No Beliefs That Will Affect Care: None marital status: / Current Living Situation: Alone Current Living Situation Comment: lives at home alone Feels Safe at Home: Yes Safety Concerns: Feels Safe At This Time Assistive Devices: Cane and Walker Review of Systems All systems reviewed & are unremarkable except as noted in HPI & below. Physical Exam . Physical examination: Constitutional: WD/WN, vitals as above no acute distress Musculoskeletal: On physical examination of the left great toe, there is a eschar over where the left nailbed lies but no erythema, ecchymosis, edema, or other obvious deformities. No tenderness to palpation. Normal range of motion with plantarflexion dorsiflexion of the left great toe. +2 DP and PT pulse. Less than 2-second capillary refill. Normal sensation. Neurovascular intact. Results & Data Results & Data Laboratory Results . Abnormal lab results 05/28/25 Range/Units 07:45 RBC 4.41 L (4.70-6.10) M/uL Hgb 13.2 L (14.0-18.0) g/dl Hct 40.3 L (42.0-52.0) % Creatinine 1.62 H (0.6-1.4) mg/dl Hemoglobin A1c 6.1 H (4.5-5.6) % Diagnostic Findings . Foot X-Ray 05/28/25 12:29 LEFT FOOT 2 VIEWS CLINICAL HISTORY: First toe infection. FINDINGS: AP and lateral views of the left foot are obtained. No prior studies are available for comparison at the time of dictation. The skeletal structures are osteopenic. No fracture is seen. No bony erosion or periostitis is identified. There is moderate osteoarthritic change at the first metatarsophalangeal joint. Mild degenerative change is seen throughout the remainder of the foot. The overlying soft tissues are normal as imaged. IMPRESSION: No acute bony abnormality is identified. Electronically signed by: Taras Vences M.D. 05/28/2025 1:29 PM PG Care Time/CCT Total # of Minutes Spent Total Time Spent with Patient: Total time spent is greater than 50% in coordination of care (as documented) at patient's floor/unit and/or counseling patient: Supervising Physician Co-Signing Physician Notes Patient was seen and examined with the PA. I agree with his documentation. No indication for orthopedic or podiatry inpatient interventions. He can follow-up with the doctor that is caring for him as an outpatient. Coding Level of Care Code 12903 IN/OBS CONSULT LVL 3,45M Diagnoses Pain of left great toe M79.675
--- NOTE | 2025-05-29 03:20 | Communication Note ---
Date of Service: May 29, 2025 Patient with SBP of 180s in AM. Given amlodipine 1 dose. SBP 80s orthostatic vitals as per RN. Hold amlodipine for now. Hytrin dose may need to be decreased if with recurrent orthostasis.
[2025-05-29] MEDS: SODIUM CHLORIDE 0.45 % 1,000 ML IV ONE (06:44)
[2025-05-29 07:29] LABS: Hematocrit (blood only) 39.3 % (42.0-52.0); Hemoglobin 13.2 g/dl (14.0-18.0); Immature Granulocytes # (auto) 0.01 K/uL (0.01-0.20); Immature Granulocytes % (auto) 0.2 %; Mean Corpuscular Hemoglobin 30.8 pg (25.0-34.0); Mean Corpuscular Volume 91.8 fL (80.0-100.0); Platelet Count 186 K/uL (130-400); RDW Standard Deviation 43.9 fL (36.4-46.3); Red Blood Count 4.28 M/uL (4.70-6.10); White Blood Count 6.22 K/ul (4.8-10.8)
[2025-05-29 07:45] LABS: Anion Gap 4.0 (3-11); Blood Urea Nitrogen 23.0 mg/dl (6-23); Calcium 8.7 mg/dl (8.6-10.3); Carbon Dioxide 31.0 mmol/L (21-32); Chloride 107.0 mmol/L (98-107); Creatinine Clr Calc Pharmacy 28.0 ml/min; Glucose 87.0 mg/dl (70-99(Fasting)); Potassium 3.8 mmol/L (3.5-5.1); Sodium 142.0 mmol/L (136-145)
[2025-05-29] MEDS: MECLIZINE HCL 25 MG TAB PO STA (10:58)
[2025-05-29] MEDS: ONDANSETRON INJ 2 MG/ML 2 ML VIAL IV STA (10:58)
--- NOTE | 2025-05-29 11:25 | Hospitalist Progress Note ---
Date of Service May 29, 2025 Assessment & Plan (1) Dizziness: Plan: Patient is a 85year old M with a past medical history of HTN, PVD, COPD, Dyslipidemia, aortic valve stenosis, LAD occlusion, Coronary artery dissection, Femoral artery pseudoaneurysm, History of DVT, h/o myocardial infarction, BPH with LUTS, CKD stage IV presenting with dizziness s/p fall. Reportedly, patient ambulated from his bed to bathroom with mild dizziness last night and then expe rienced dizziness with fall when changing position from sitting on the toilet to standing. He denies loss of consciousness. Reports feeling as though his legs "gave out from under him when standing". Unable to stand up and needed to lay on the bathroom floor all night. Also reports left leg numbness lasting all night with improvement now; however, still has left leg numbness with intact sensation to bottom of foot. #Dizziness, Orthostasis * Admit to [facility] for additional management and workup * Positional dizziness s/p fall with no apparent head injury; now w/ persistent numbness to LLE * Meclizine x 1 given in ED * EKG showing NSR with vent rate 65 bpm, QTc 426. * History of chronic LAD occlusion w/ failed attempt to open occlusion by cardiac catheterization in 2013 d/t femoral artery pseudoaneurysms; patient on aspirin and plavix * No focal deficits with a norm neuro exam; low suspicion for stroke; CT head w/o acute findings; Per external chart review, history DVT to LLE w/ chronic left leg numbness since then * Repeat Echo ordered * PT/OT eval ordered * Discharge planning: Patient lives alone with family support daily for meals and care. Discuss with family needs and possible additional home services for safety 05/28 Echocardiogram noted Blood pressure on the lower side today Hold amlodipine, Imdur, metoprolol Patient's daughter reports patient has lost 11 pounds since September Will likely need to continue only metoprolol Monitor blood pressure trend 05/29 BP trending Amlodipine 2.5mg po daily restarted monitor #Left great toe cellulitis History of nail removal 3 weeks ago as an outpatient Patient as per daughter was not able to complete antibiotic course Appears to be having cellulitis, no appreciable fluctuant mass to suggest abscess Will obtain blood cultures Check foot x-ray to rule out osteomyelitis Start daptomycin Podiatry consult 05/29 foot xray: no osteo blood culture: pending Ortho: no procedures recommended improving continue Dapto #Dizziness possible Vertigo Meclizine PRN PT ordered for [place] Hallpike, Rosie Maneuver #Hypertension * Known hypotensive episodes with adjustments to HTN meds- recent decrease in lisinopril dosing 10 mg-> 5mg per Cardiology record 05/16/25 * Maintain higher BP target d/t history of lability and recent dizziness with mechanical fall - management per above #Dyslipidemia * Continue home Lipitor #CKD Stage III * Renal functioning at baseline; Creatinine 1.6; has been higher to 2.1-2.5 over past 2 years * Follows [facility] closely #BPH * Continue home meds DVT Ppx: SCDs Code status: Full PCP: Dr. Mcdonough Dispo: Pending Bc Smith MD (2) HTN (hypertension): (3) Dyslipidemia: (4) CKD (chronic kidney disease) stage 3, GFR 30-59 ml/min: (5) BPH (benign prostatic hyperplasia): Admission and Anticipated Discharge Date Admission Date: May 27, 2025 Subjective sitting up in bed, not in distress feels dizzy today- room is spinning, worse with moving head (+) some nausea L great toe feels better Review of Systems Review of Systems: all noted and negative except for above Physical Exam Physical Exam: General- oriented x 3, not in distress, speaks in sentences with no effort or accessory muscle use Eyes- anicteric Neck- no JVD Lungs- clear breath sounds bilaterally, no rales/wheezes Heart- normal rate, regular rhythm; mild holosystolic murmur Abdomen- normal bowel sounds, nondistended, soft, nontender Extremities- no pretibial edema, no calf tenderness Neuro- alert, oriented x 3; no gross focal neurologic deficits Skin- warm & dry Results & Data Results & Data Vital Signs (Past 12 Hours) Vital Signs Temp Pulse Resp BP Pulse Ox O2 Del Method 05/29/25 11:10 36.5 C 63 20 160/77 H 96 Room Air 05/29/25 07:56 36.6 C 58 L 18 172/93 H 98 Room Air 05/29/25 06:08 79 88/58 L 05/29/25 06:08 62 143/75 H 05/29/25 05:59 164/82 H 05/29/25 02:41 36.3 C L 55 L 18 187/88 H 98 Room Air all noted and reviewed including below
[2025-05-29] MEDS: diphenhydrAMINE 50 MG/ML VIAL IV STA (13:05)
--- NOTE | 2025-05-29 23:14 | Electrocardiogram Report ---
Test Reason : Blood Pressure : */* mmHG Vent. Rate : 65 BPM Atrial Rate : 65 BPM P-R Int : 164 ms QRS Dur : 60 ms QT Int : 410 ms P-R-T Axes : 87 58 98 degrees QTcB Int : 426 ms Normal sinus rhythm Anteroseptal infarct (cited on or before 19-Nov-2017) Abnormal ECG When compared with ECG of 24-Aug-2023 12:12, Questionable change in initial forces of Septal leads Confirmed by Tyler Hooks ([id number]) on 05/29/2025 11:13:43 PM Referred By: REFERRED SELF Confirmed By: Tyler Hooks
[2025-05-30 08:00] LABS: Hematocrit (blood only) 41.8 % (42.0-52.0); Hemoglobin 13.4 g/dl (14.0-18.0); Immature Granulocytes # (auto) 0.02 K/uL (0.01-0.20); Immature Granulocytes % (auto) 0.3 %; Mean Corpuscular Hemoglobin 29.6 pg (25.0-34.0); Mean Corpuscular Volume 92.3 fL (80.0-100.0); Platelet Count 176 K/uL (130-400); RDW Standard Deviation 44.3 fL (36.4-46.3); Red Blood Count 4.53 M/uL (4.70-6.10); White Blood Count 6.34 K/ul (4.8-10.8)
--- NOTE | 2025-05-30 08:00 | Hospitalist Progress Note ---
Date of Service May 30, 2025 Assessment & Plan (1) Dizziness: Plan: Patient is a 85year old M with a past medical history of HTN, PVD, COPD, Dyslipidemia, aortic valve stenosis, LAD occlusion, Coronary artery dissection, Femoral artery pseudoaneurysm, History of DVT, h/o myocardial infarction, BPH with LUTS, CKD stage IV presenting with dizziness s/p fall. Reportedly, patient ambulated from his bed to bathroom with mild dizziness last night and then expe rienced dizziness with fall when changing position from sitting on the toilet to standing. He denies loss of consciousness. Reports feeling as though his legs "gave out from under him when standing". Unable to stand up and needed to lay on the bathroom floor all night. Also reports left leg numbness lasting all night with improvement now; however, still has left leg numbness with intact sensation to bottom of foot. #Dizziness, Orthostasis * Admit to [facility] for additional management and workup * Positional dizziness s/p fall with no apparent head injury; now w/ persistent numbness to LLE * Meclizine x 1 given in ED * EKG showing NSR with vent rate 65 bpm, QTc 426. * History of chronic LAD occlusion w/ failed attempt to open occlusion by cardiac catheterization in 2013 d/t femoral artery pseudoaneurysms; patient on aspirin and plavix * No focal deficits with a norm neuro exam; low suspicion for stroke; CT head w/o acute findings; Per external chart review, history DVT to LLE w/ chronic left leg numbness since then * Repeat Echo ordered * PT/OT eval ordered * Discharge planning: Patient lives alone with family support daily for meals and care. Discuss with family needs and possible additional home services for safety 05/28 Echocardiogram noted Blood pressure on the lower side today Hold amlodipine, Imdur, metoprolol Patient's daughter reports patient has lost 11 pounds since September Will likely need to continue only metoprolol Monitor blood pressure trend 05/29 BP trending Amlodipine 2.5mg po daily restarted monitor 05/30 still with (+) orthostasis HOLD Terazosin, replaced with Tamsulosin Amlodipine 2.5mg BID monitor closely continue Rosie maneuver with PT appreciate the input Neurologist also consulted discussed with Dr. Murray over the phone recommend Diazepam 1mg po BID as needed for severe dizziness #Left great toe cellulitis History of nail removal 3 weeks ago as an outpatient Patient as per daughter was not able to complete antibiotic course Appears to be having cellulitis, no appreciable fluctuant mass to suggest abscess Will obtain blood cultures Check foot x-ray to rule out osteomyelitis Start daptomycin Podiatry consult 05/29 foot xray: no osteo blood culture: pending Ortho: no procedures recommended improving continue Dapto 05/30 improving change Daptomycin (last dose today, renally dosed) to Cephalexin starting 06/01/25 at 500m q8h outpatient follow up with [employer] #Dizziness possible Vertigo Meclizine PRN PT ordered for Niraj Hallpike, Rosie Maneuver management per above #Hypertension * Known hypotensive episodes with adjustments to HTN meds- recent decrease in lisinopril dosing 10 mg-> 5mg per Cardiology record 05/16/25 * Maintain higher BP target d/t history of lability and recent dizziness with mechanical fall - management per above #Spiculated Lung Nodules seen on CT chest 4. There is a 1.4 cm spiculated right upper lobe pulmonary nodule which is new from 2019. A bronchogenic neoplasm is the diagnosis of exclusion. Pulmonology follow-up is advised. At a minimum, short-term CT follow-up will be required. PET could also be considered. 5. A second 0.8 cm spiculated nodule at the right apex is also new from previous and suspicious. Pulmonology follow-up is advised. At a minimum, short-term CT follow-up will be required. PET could also be considered. Further work up, management, and ff up as outpatient #Dyslipidemia * Continue home Lipitor #CKD Stage III * Renal functioning at baseline; Creatinine 1.6; has been higher to 2.1-2.5 over past 2 years * Follows [facility] closely #BPH * Continue home meds DVT Ppx: SCDs Code status: Full PCP: Dr. Mcdonough Dispo: Pending Bc Smith MD (2) HTN (hypertension): (3) Dyslipidemia: (4) CKD (chronic kidney disease) stage 3, GFR 30-59 ml/min: (5) BPH (benign prostatic hyperplasia): Admission and Anticipated Discharge Date Admission Date: May 27, 2025 Subjective seen resting in bed, not in distress dizziness at rest seems to be better still dizzy when standing up (+) orthostasis this morning mild pain on the L toe no other new symptoms Review of Systems Review of Systems: all noted and negative except for above Physical Exam Physical Exam: General- oriented x 3, not in distress, speaks in sentences with no effort or accessory muscle use Eyes- anicteric Neck- no JVD Lungs- clear breath sounds bilaterally, no rales/wheezes Heart- normal rate, regular rhythm; no murmurs Abdomen- normal bowel sounds, nondistended, soft, nontender Extremities- no pretibial edema, no calf tenderness L great toe: no edema, no erythema, (+) mild tenderness Neuro- alert, oriented x 3; no gross focal neurologic deficits Skin- warm & dry Results & Data Results & Data Vital Signs (Past 12 Hours) Vital Signs Temp Pulse Pulse Resp BP Pulse Ox O2 Del Method 05/30/25 03:50 36.5 C 63 18 158/84 H 94 Room Air 05/29/25 22:35 36.6 C 61 18 162/83 H 95 Room Air 05/29/25 21:45 59 L all noted and reviewed including below
[2025-05-30 08:12] LABS: Anion Gap 6.0 (3-11); Blood Urea Nitrogen 27.0 mg/dl (6-23); Calcium 8.7 mg/dl (8.6-10.3); Carbon Dioxide 30.0 mmol/L (21-32); Chloride 106.0 mmol/L (98-107); Creatinine Clr Calc Pharmacy 23.7 ml/min; Glucose 90.0 mg/dl (70-99(Fasting)); Potassium 3.8 mmol/L (3.5-5.1); Sodium 142.0 mmol/L (136-145)
[2025-05-30] MEDS: MECLIZINE HCL 25 MG TAB PO PRN (08:27)
[2025-05-30 12:08] LABS: Thyroid Stimulating Hormone 1.869 uIu/ml (0.300-4.500)
--- NOTE | 2025-05-30 17:52 | Neurology Consultation ---
Date of Consultation May 30, 2025 Assessment & Plan (1) Dizziness: - Recommend continued blood pressure titration per primary, patient was orthostatics positive - Recommend MR angiogram head and neck to rule out posterior circulation stenoses (creatinine 1.74) - Continue meclizine 25 mg 3 times daily - Continue Zofran 8 mg 3 times daily - Add diazepam 1 mg daily - Continue PT OT vestibular therapies - Please reconsult neurology if patient's dizziness does not improve with the addition of diazepam I discussed my recommendations with Dr. Bc Smith. Thank you for this consult. Please call questions. Telehealth Consultation Telehealth Information Telehealth Information: I performed this visit using a real-time telehealth connection between my location and the patients originating location ([facility]). After connecting through interactive tele-video, patient was identified by name and date of and/or wristband check.Patient (or authorized healthcare renewals representative) was informed that this was a telemedicine visit and it was being conducted confidentially over secure lines. My office door was closed and no one else was present in the room with me.Patient (or authorized healthcare renewals representative) provided consent to proceed with the visit, expressed an understanding of privacy and security of the telemedicine visit, and gave permission to have a hospital renewals representative in the room in order to assist with the visit and to conduct portions of the visit, as needed. I informed the patient (or authorized healthcare renewals representative) that I reviewed their record and presented the opportunity for them to ask any questions regarding the visit today. The patient agreed to participate. History of Present Illness Reason for Consultation: dizziness Attending Physician: Bc Smith MD History of Present Illness Tyler Kulkarni is an 85-year-old male with a past medical history of hypertension, peripheral vascular disease, COPD, hyperlipidemia, aortic valve stenoses, CAD, femoral artery aneurysm, remote history of DVT, MT, BPH, CKD 4, skin cancer who presents to [facility] with acute onset dizziness. The patient's daughter is present for the encounter and helps provide the history. The patient is hard of hearing and a poor historian but he tells me that he has had 3 days of dizziness which he describes as feeling as though he is spinning and the room is spinning. His daughter reports he has complained of lightheadedness and the dizziness is of moderate severity. He denies headache, weakness, numbness, nausea, vomiting, paresthesias, visual changes, language deficits. Per report, he drinks 3-4 glasses of water per day, he does not miss meals, no recent medication changes. He does not have a history of dizziness per report. At baseline he is normally oriented, lives alone, independent with all activities of daily living including eating, bathing, walking, driving, and finances. In the emergency department he was given meclizine 25 mg 3 times daily and Zofran 8 mg p.o. 3 times daily without relief. He had an MRI brain which was negative for an acute infarct. Allergies Allergy/AdvReac Type Severity Reaction Status Date / Time Iodinated Contrast Media Allergy Intermediate RASH/HYPOTENSION Verified 05/27/25 14:54 PER [employer] tetracycline Allergy Unknown ON Verified 05/27/25 14:54 [employer] MED LIST Home Medications Medication Instructions Recorded Confirmed Type arformoterol 15 mcg/2 mL solution 2 ml inhalation BID PRN Shortness 07/23/19 05/27/25 History for nebulization (Brovana) Of Breath Or Wheezing clopidogrel 75 mg tablet (Plavix) 75 mg PO QAM 07/23/19 05/27/25 History cyanocobalamin (vitamin B-12) 1,000 mcg PO QAM 07/23/19 05/27/25 History 1,000 mcg tablet (Vitamin B-12) finasteride 5 mg tablet (Proscar) 5 mg PO QAM 07/23/19 05/27/25 History ketorolac 0.4 % eye drops 1 drp OPL BID 07/23/19 05/27/25 History meclizine 25 mg tablet 25 mg PO TID PRN DIZZY 07/23/19 05/27/25 History metoprolol succinate 25 mg 12.5 mg PO QAM 07/23/19 05/27/25 History tablet,extended release 24 hr (Toprol XL) terazosin 2 mg capsule 2 mg PO HS 07/23/19 05/27/25 History terazosin 5 mg capsule 5 mg PO HS 07/23/19 05/27/25 History acetaminophen 500 mg tablet 500 mg PO Q6H PRN Pain 05/15/20 05/27/25 History (Tylenol Extra Strength) ondansetron HCl 8 mg tablet 8 mg PO TID PRN NAUSEA/VOMITING 10/08/21 05/27/25 History amlodipine 2.5 mg tablet 2.5 mg PO BID 12/20/21 05/27/25 History atorvastatin 20 mg tablet 20 mg PO QAM 06/09/22 05/27/25 History isosorbide mononitrate 60 mg 90 mg PO QAM 06/09/22 05/27/25 History tablet,extended release 24 hr aspirin 81 mg tablet,delayed 81 mg PO DAILY 05/27/25 05/27/25 History release ketoconazole 2 % shampoo 1 ea topical DIRECTED 05/27/25 05/27/25 History Patient History Medical History History of kidney stones Status post myocardial infarction daughter reports MT during angioplasty procedure 05/2014 BPH (benign prostatic hyperplasia) Paresthesia Chest pain Bronchitis GERD (gastroesophageal reflux disease) CAD (coronary artery disease) CKD (chronic kidney disease) stage 3, GFR 30-59 ml/min Dyslipidemia Moderate aortic stenosis COPD, mild HTN (hypertension) Surgical History H/O coronary angioplasty "PTCA, CARDIAC ANGIOPLASTY, PERCUTANEOUS, 1 ARTERY performed by Paty Rasheed MD at [facility] [place] 05/23/14" History of back surgery "Lumbar Spine Fusion ,Post Interbody" History of inguinal hernia repair "R inguinal hernia repair with mesh performed by Dr. Vazquez 2005" History of knee surgery History of repair of rotator cuff Hx of right cataract extraction S/P colonoscopy Family History Father Silicosis Brother , 67 Cancer Social History Smoking Status: Former smoker Tobacco Type: Cigarettes Second Hand Exposure: No; Do You Dip or Chew Tobacco: Yes; Hx Alcohol Use: No Hx Substance Use: No Preferred Language: Welsh Communication Ability: Effective Communication Ability Comment: Very hard of hearing - does not wear hearing aids Hazardous Waste Management Specialist Required: No Beliefs That Will Affect Care: None marital status: / Current Living Situation: Alone Current Living Situation Comment: lives at home alone Feels Safe at Home: Yes Safety Concerns: Feels Safe At This Time Assistive Devices: Cane and Walker Review of Systems ROS reviewed and negative except as above Physical Exam Physical exam General: Patient is laying in bed, confused appearing Mental status: Patient is alert and oriented to his name only. He is unable to state the month, year, city, or state Cranial nerves: Extraocular movements intact and spontaneous, no visual field deficits, face appears symmetric Strength: He has antigravity in his bilateral upper extremities without drift, able to wiggle the toes in the bilateral lower extremities which appears symmetric Sensation: He reports some left leg numbness Results & Data Vital Signs (Past 12 Hours) Vital Signs Temp Pulse Resp BP Pulse Ox O2 Del Method 05/30/25 16:08 36.6 C 69 16 166/79 H 95 Room Air 05/30/25 11:22 36.7 C 67 20 123/71 95 Room Air 05/30/25 08:02 36.4 C L 57 L 20 171/75 H 96 Room Air Laboratory Results 05/28/25 12:57 Aerobic Blood Culture - Preliminary Blood No growth in Aerobic bottle after 48 hours. Anaerobic Blood Culture - Preliminary No growth in Anaerobic bottle after 48 hours. 05/28/25 12:44 Aerobic Blood Culture - Preliminary Blood No growth in Aerobic bottle after 48 hours. Anaerobic Blood Culture - Preliminary No growth in Anaerobic bottle after 48 hours. 05/30/25 07:26 WBC 6.34 RBC 4.53 L Hgb 13.4 L Hct 41.8 L MCV 92.3 MCH 29.6 MCHC 32.1 RDW Std Deviation 44.3 RDW Coeff of Macey 13.1 Plt Count 176 MPV 9.3 L Immature Gran % (Auto) 0.3 Neut % (Auto) 59.6 Lymph % (Auto) 21.6 [place] % (Auto) 9.5 Eos % (Auto) 8.4 Baso % (Auto) 0.6 Neut # (Auto) 3.78 Lymph # (Auto) 1.37 [place] # (Auto) 0.60 H Eos # (Auto) 0.53 H Baso # (Auto) 0.04 Immature Gran # (Auto) 0.02 Sodium 142 Potassium 3.8 Chloride 106 Carbon Dioxide 30 Anion Gap 6 BUN 27 H Creatinine 1.74 H Est Cr Clr Drug Dosing 23.7 eGFR 37.94 BUN/Creatinine Ratio 15.5 Glucose 90 Calcium 8.7 TSH 1.869 Cortisol AM Sample 12.91 Diagnostic Findings MRI brain without contrast 05/27/2025 Impression: Normal brain MRI with and without IV contrast. Medications Administered Home Medications Medication Instructions Recorded Confirmed Last Taken arformoterol 15 mcg/2 mL solution 2 ml inhalation BID PRN Shortness 07/23/19 05/27/25 Unknown for nebulization (Brovana) Of Breath Or Wheezing clopidogrel 75 mg tablet (Plavix) 75 mg PO QAM 07/23/19 05/27/25 05/26/25 cyanocobalamin (vitamin B-12) 1,000 mcg PO QAM 07/23/19 05/27/25 05/26/25 1,000 mcg tablet (Vitamin B-12) finasteride 5 mg tablet (Proscar) 5 mg PO QAM 07/23/19 05/27/25 05/26/25 ketorolac 0.4 % eye drops 1 drp OPL BID 07/23/19 05/27/25 05/26/25 meclizine 25 mg tablet 25 mg PO TID PRN DIZZY 07/23/19 05/27/25 05/15/20 metoprolol succinate 25 mg 12.5 mg PO QAM 07/23/19 05/27/25 05/26/25 tablet,extended release 24 hr (Toprol XL) terazosin 2 mg capsule 2 mg PO HS 07/23/19 05/27/25 05/26/25 terazosin 5 mg capsule 5 mg PO HS 07/23/19 05/27/25 05/26/25 acetaminophen 500 mg tablet 500 mg PO Q6H PRN Pain 05/15/20 05/27/25 05/15/20 09:30 (Tylenol Extra Strength) 1000 mg ondansetron HCl 8 mg tablet 8 mg PO TID PRN NAUSEA/VOMITING 10/08/21 05/27/25 Unknown amlodipine 2.5 mg tablet 2.5 mg PO BID 12/20/21 05/27/25 05/26/25 atorvastatin 20 mg tablet 20 mg PO QAM 06/09/22 05/27/25 05/26/25 isosorbide mononitrate 60 mg 90 mg PO QAM 06/09/22 05/27/25 05/26/25 tablet,extended release 24 hr aspirin 81 mg tablet,delayed 81 mg PO DAILY 05/27/25 05/27/25 05/26/25 release ketoconazole 2 % shampoo 1 ea topical DIRECTED 05/27/25 05/27/25 Unknown Active Medications Generic Name Dose Route Start Last Admin Trade Name Gwen PRN Reason Stop Dose Admin Aspirin 81 mg 05/28/25 09:00 05/30/25 08:07 Aspirin 81 Mg Ectab PO 06/27/25 08:59 81 mg DAILY BRANDI Administration Atorvastatin Calcium 20 mg 05/28/25 09:00 05/28/25 09:26 Atorvastatin 20 Mg Tab PO 06/27/25 08:59 20 mg QAM BRANDI Administration Clopidogrel Bisulfate 75 mg 05/28/25 09:00 05/30/25 08:07 Clopidogrel Bisulfate 75 Mg Tab PO 06/27/25 08:59 75 mg QAM BRANDI Administration Cyanocobalamin 1,000 mcg 05/28/25 09:00 05/30/25 08:07 Cyanocobalamin (B-12) 500 Mcg Tablet PO 06/27/25 08:59 1,000 mcg QAM BRANDI Administration Finasteride 5 mg 05/28/25 09:00 05/30/25 08:07 Finasteride 5 Mg Tab PO 06/27/25 08:59 5 mg QAM BRANDI Administration Ketorolac Tromethamine 1 drops 05/27/25 21:00 05/30/25 08:07 Ketorolac 0.5% Op Soln 5 Ml Btl OPL 06/26/25 20:59 1 drops BID BRANDI Administration Lactobacillus Acidophilus 1,250 mg 05/28/25 09:00 05/30/25 08:07 Advanced Probiotic 625 Mg Capsule PO 06/27/25 08:59 1,250 mg DAILY BRANDI Administration Meclizine HCl 25 mg 05/29/25 10:44 05/30/25 08:27 Meclizine Hcl 25 Mg Tab PO 06/28/25 10:43 25 mg Q6H PRN Administration dizziness Terazosin HCl 5 mg 05/27/25 21:00 05/29/25 19:51 Terazosin Hcl 5 Mg Cap PO 06/26/25 20:59 5 mg HS BRANDI Administration Terazosin HCl 2 mg 05/27/25 21:00 05/29/25 19:51 Terazosin Hcl 1 Mg Cap PO 06/26/25 20:59 2 mg HS BRANDI Administration
[2025-05-30] MEDS ORDERED: PHARMACIST DISCHARGE MED REC CONSULT PRN (17:57)
[2025-05-30] MEDS: TAMSULOSIN HCL 0.4 MG CAP PO SCH (21:04)
--- NOTE | 2025-05-31 00:19 | Magnetic Resonance Report ---
Exam(s): MRA HEAD Without Contrast EXAM: MR Angiography Head Without Intravenous Contrast CLINICAL HISTORY: Reason for exam: dizziness. OTHER: Other Notes: dizziness, fall, low bp lately lt facial numbness left leg numbness TECHNIQUE: Magnetic resonance angiography images of the head without intravenous contrast. COMPARISON: No relevant prior studies available. FINDINGS: Right internal carotid artery: No acute findings. Intracranial segment is patent with no significant stenosis. No aneurysm. Right anterior cerebral artery: Unremarkable. No occlusion or significant stenosis. No aneurysm. Right middle cerebral artery: Unremarkable. No occlusion or significant stenosis. No aneurysm. Right posterior cerebral artery: Unremarkable. No occlusion or significant stenosis. No aneurysm. Right vertebral artery: Unremarkable as visualized. Left internal carotid artery: No acute findings. Intracranial segment is patent with no significant stenosis. No aneurysm. Left anterior cerebral artery: Unremarkable. No occlusion or significant stenosis. No aneurysm. Left middle cerebral artery: Unremarkable. No occlusion or significant stenosis. No aneurysm. Left posterior cerebral artery: Unremarkable. No occlusion or significant stenosis. No aneurysm. Left vertebral artery: Unremarkable as visualized. Basilar artery: Unremarkable. No occlusion or significant stenosis. No aneurysm. IMPRESSION: Negative MRA of the brain. Electronically signed by: Carolyn Haney MD 05/31/25 00:18 AM
--- NOTE | 2025-05-31 00:31 | Magnetic Resonance Report ---
Exam(s): MRA NECK Without Contrast EXAM: MR Angiography Neck Without Intravenous Contrast CLINICAL HISTORY: Reason for exam: dizziness. OTHER: Other Notes: dizziness, fall, low bp lately lt facial numbness left leg numbness TECHNIQUE: Magnetic resonance angiography images of the neck without intravenous contrast. COMPARISON: No relevant prior studies available. FINDINGS: Right common carotid artery: Unremarkable. No significant stenosis. No dissection or occlusion. Right internal carotid artery: There is a 60% stenosis of the proximal ICA. No dissection or occlusion. Right external carotid artery: Unremarkable. No occlusion. Right vertebral artery: Unremarkable. No significant stenosis. No dissection or occlusion. Left common carotid artery: Unremarkable. No significant stenosis. No dissection or occlusion. Left internal carotid artery: Unremarkable. Extracranial segment is patent with no significant stenosis. No dissection or occlusion. Left external carotid artery: Unremarkable. No occlusion. Left vertebral artery: Unremarkable. No significant stenosis. No dissection or occlusion. Soft tissues: Unremarkable as visualized. CAROTID STENOSIS REFERENCE USING NASCET CRITERIA: % ICA stenosis = (1 - narrowest ICA diameter/diameter of distal cervical ICA) x 100. Mild - <50% stenosis. Moderate - 50-69% stenosis. Severe - 70-94% stenosis. Near occlusion - 95-99% stenosis. Occluded - 100% stenosis. IMPRESSION: There is a 60% stenosis of the proximal right ICA. Electronically signed by: Carolyn Haney MD 05/31/25 00:30 AM
[2025-05-31] MEDS: POLYETHYLENE (MIRALAX) 17 GM PACK PO PRN (08:31)
--- NOTE | 2025-05-31 10:08 | Cardiology Consultation ---
Date of Consultation May 31, 2025 Assessment & Plan (1) Dizziness: (2) Vertigo: (3) Orthostatic hypotension: (4) ASCVD (arteriosclerotic cardiovascular disease): (5) Aortic stenosis: (6) Dyslipidemia, goal LDL below 70: Plan Dizziness. History is most suggestive of symptomatic orthostatic hypotension, with documented symptomatic orthostatic hypotension and supine hypertension this admission, occurring in the setting of moderate proximal right internal carotid artery stenosis, moderate aortic valve stenosis, atherosclerotic coronary disease with chronic left anterior descending coronary artery occlusion, stage III chronic kidney disease, and BPH. Will attempt adjustments in therapies as follows: * Resume metoprolol succinate (Toprol XL) at 12.5 mg/day * Resume isosorbide (Imdur) 30 mg/day * Utilize amlodipine (Norvasc) at 2.5 mg at nighttime * Hold terazosin * No lisinopril * Continue antiplatelet therapy and atorvastatin ASCVD. Stable. Continue medical management. Aortic valve stenosis. Repeat resting echocardiography in May 2026. Dyslipidemia. LDL 66 mg/dL on 01/19/2025. Continue atorvastatin 20 mg/day Supervising Physician Co-Signing Physician Notes Patient seen and examined. Past medical history, surgical history, social history and family history have been reviewed. The medical record and all the above studies have been reviewed. Case DW MILES including management. Dizziness - better HTN - suboptimal Orthostatic hypotension HLD CKD CAD R ICAS - moderate correct and f/u electrolytes f/u renal function adjust anti-HTN meds keeping systolic BP between 100-140 mmHg increase metoprolol xl to 25 mg po AM Agree with substituting Terazosin increase po fluid intake avoid hypovolemia keep patient euvolemic DVT prophylaxis History of Present Illness Reason for Consultation: Orthostatic hypotension Requesting Physician: [facility], Dr. Bc Smith MD Attending Physician: [facility], Dr. Bc Smith MD History of Present Illness Tyler Eason is a very pleasant 85-year-old male who presented to [facility] on May 27, 2025 with complaints of dizziness resulting in fall. Patient describes experiencing dizziness after changing position then taking two steps. Symptomatic orthostatic hypotension observed during hospitalization, with supine hypertension. Multiple medication changes have been made. Metoprolol succinate 12.5 mg/day held throughout hospitalization. Isosorbide 90 mg/day held throughout hospitalization. Terazosin has been on hold since the . Amlodipine has been administered sporadically. No overt loss of consciousness. Patient notes recent issues with an ingrown/infected left great toe, with resultant cellulitis, imaging without osteomyelitis. Patient denies chest pain or discomfort. No palpitations. No resting or nocturnal dyspnea. No fluid retention. No change in appetite, denying early satiety, nausea, vomiting, diarrhea. He notes recent issues with constipation though did have a bowel movement this morning. EKG on presentation revealed normal sinus rhythm at 65 bpm, without acute ST segment change. Continuous inpatient telemetry monitoring reveals sinus throughout, without significant bradycardia, heart rates predominantly in the 60s and 70s. Heart rate currently 80 bpm. This morning sinus tachycardia was observed, asymptomatic. Resting echocardiography revealed preserved LV systolic function, EF 55 to 60%, with mild concentric LVH, grade 2 diastolic dysfunction, moderate aortic valve stenosis. Chest x-ray without acute cardiopulmonary findings. CT of the chest this admission notable for a 1.4 cm spiculated right upper lobe pulmonary nodule, second 0.8 cm spiculated nodule in the right apex. Past Medical and Surgical History: Atherosclerotic coronary disease. Chronic left anterior descending occlusion by cardiac catheterization in 2013. 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 Aortic stenosis. Dyslipidemia. COPD History of tobacco abuse, reformed. Stage 3 chronic kidney disease. GERD Tortuous esophagus Iron deficiency anemia BPH Lumbar spine fusion Inguinal hernia status post repair Rotator cuff repair Family History: Father with silicosis. Brother with cancer. Social History: Reformed smoker, 1/2 pack/day x 50 years. No significant alcohol. No illegal drug use. Lives alone. Allergies Allergy/AdvReac Type Severity Reaction Status Date / Time Iodinated Contrast Media Allergy Intermediate RASH/HYPOTENSION Verified 05/27/25 14:54 PER [place] tetracycline Allergy Unknown ON Verified 05/27/25 14:54 [place] MED LIST Home Medications Medication Instructions Recorded Confirmed Type arformoterol 15 mcg/2 mL solution 2 ml inhalation BID PRN Shortness 07/23/19 05/27/25 History for nebulization ([place]) Of Breath Or Wheezing clopidogrel 75 mg tablet (Plavix) 75 mg PO QAM 07/23/19 05/27/25 History cyanocobalamin (vitamin B-12) 1,000 mcg PO QAM 07/23/19 05/27/25 History 1,000 mcg tablet (Vitamin B-12) finasteride 5 mg tablet (Proscar) 5 mg PO QAM 07/23/19 05/27/25 History ketorolac 0.4 % eye drops 1 drp OPL BID 07/23/19 05/27/25 History meclizine 25 mg tablet 25 mg PO TID PRN DIZZY 07/23/19 05/27/25 History metoprolol succinate 25 mg 12.5 mg PO QAM 07/23/19 05/27/25 History tablet,extended release 24 hr (Toprol XL) terazosin 2 mg capsule 2 mg PO HS 07/23/19 05/27/25 History terazosin 5 mg capsule 5 mg PO HS 07/23/19 05/27/25 History acetaminophen 500 mg tablet 500 mg PO Q6H PRN Pain 05/15/20 05/27/25 History (Tylenol Extra Strength) ondansetron HCl 8 mg tablet 8 mg PO TID PRN NAUSEA/VOMITING 10/08/21 05/27/25 History amlodipine 2.5 mg tablet 2.5 mg PO BID 12/20/21 05/27/25 History atorvastatin 20 mg tablet 20 mg PO QAM 06/09/22 05/27/25 History isosorbide mononitrate 60 mg 90 mg PO QAM 06/09/22 05/27/25 History tablet,extended release 24 hr aspirin 81 mg tablet,delayed 81 mg PO DAILY 05/27/25 05/27/25 History release ketoconazole 2 % shampoo 1 ea topical DIRECTED 05/27/25 05/27/25 History Patient History Medical History History of kidney stones Status post myocardial infarction daughter reports AK during angioplasty procedure 05/2014 Bronchitis Surgical History Hx of right cataract extraction S/P colonoscopy History of knee surgery History of repair of rotator cuff Family History Father Silicosis Brother , 67 Cancer Social History Smoking Status: Former smoker Tobacco Type: Cigarettes Second Hand Exposure: No; Do You Dip or Chew Tobacco: Yes; Hx Alcohol Use: No Hx Substance Use: No Preferred Language: Tajik Communication Ability: Effective Communication Ability Comment: Very hard of hearing - does not wear hearing aids 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 Physical Exam Physical Exam: General: A&Ox3. NAD. HENT: Normocephalic. Atraumatic. Eyes: PER. Conjunctiva pink, sclera clear. Neck: Transmitted systolic murmur. No JVD. Heart: Regular at 70 bpm. Grade II/ systolic murmur heard best at the lower left sternal border. No diastolic murmur. Lungs: Diminished. Decreased. Clear to auscultation. No rales. Abdomen: +BS. Soft. Nontender. No masses or organomegaly. Extremities: No edema. No clubbing. No cyanosis. Limited neurological examination is without focal deficits. Pulses: Posterior tibial=1/4. Results & Data Vital Signs (Past 12 Hours) Vital Signs Temp Pulse Pulse Resp BP Pulse Ox O2 Del Method 05/31/25 07:48 37.1 C 79 18 158/72 H 95 Room Air 05/31/25 07:40 69 05/31/25 05:28 159/67 H 05/31/25 03:00 36.8 C 69 18 179/84 H 95 Room Air 05/31/25 01:19 Room Air 05/30/25 22:42 36.4 C L 66 18 176/80 H 94 Room Air 05/30/25 22:29 64 Laboratory Results Intake and Output 05/30/25 05/31/25 05/31/25 22:59 06:59 14:59 Intake Total 240 / 880 Output Total 100 / 650 300 / 650 Balance 140 / 230 -300 / 230 Intake: Oral 240 / 880 Output: Urine 100 / 650 300 / 650 Other: # Unmeasured Voids 1 Weight 54.2 kg Weight Measurement Method Built in [facility] Diagnostic Findings April 14, 2014 Cardiac Catheterization: 100% occlusion of the LAD early in its proximal portion with collateral fill via left to left and right to left collateral flow. Moderate disease of 30-40% in the distal left main and proximal portions of the left circumflex and a large ramus intermedius as well as the left anterior descending prior to its occlusion. 50% eccentric stenosis in the high marginal branch. Dominant left coronary anatomy. Mild aortic stenosis at worst. 05/23/2014 Catheterization Summary: Unsuccessful percutaneous coronary intervention of the mid LAD with residual dissection in the mid segment. The device(s) used included a balloon. March 14, 2025 TTE Interpretation Summary (as per Dr. Green): There was sinus bradycardia during the examination. Rates 48-50 beats per minute. The left ventricular cavity size is normal. The LV wall thickness is mildly increased (concentric). The left ventricular wall motion is normal. The qualitative LV ejection fraction is 55-59% (normal). The left ventricular diastolic function is moderately abnormal (grade II). The left atrium is moderately enlarged (42-48 ml/m^2). The aortic valve is moderately calcified. Moderate aortic valve stenosis is present. Mild mitral regurgitation is present. Moderate tricuspid regurgitation is present. Compared to prior study of December 19, 2023, there is no significant change March 2025 7-day Zio Monitor: Patient had a min HR of 42 bpm, max HR of 179 bpm, and avg HR of 61 bpm. Predominant underlying rhythm was Sinus Rhythm. 6 Supraventricular Tachycardia runs occurred, the run with the fastest interval lasting 11 beats with a max rate of 179 bpm, the longest lasting 12 beats with an avg rate of 111 bpm. Isolated SVEs were rare (<1.0%, 873), SVE Couplets were rare (<1.0%, 57), and SVE Triplets were rare (<1.0%, 13). Isolated VEs were rare (<1.0%), and no VE Couplets or VE Triplets were present. Ventricular Trigeminy was present. No symptoms reported. May 28, 2025 TTE ([facility], Dr. Nevarez): Left ventricular ejection fraction 55 to 60%. Mild concentric LVH. Grade 2 diastolic dysfunction. Moderately dilated left atrium. Calcified aortic valve with moderate aortic valve stenosis. Mild mitral and tricuspid regurgitation. Bubble study negative for ASD or PFO. Multiple imaging studies performed this admission, reviewed, including CT abdomen and pelvis, cervical spine CT, chest CT, chest x-ray, head CT without acute intracranial findings, brain MRI revealing moderate to marked cerebral atrophy, left foot x-ray without acute bony abnormality (osteoarthritic and degenerative change), negative MRA of the brain, neck MRA with 60% proximal right internal carotid artery stenosis. PG Care Time/CCT Total # of Minutes Spent Total Time Spent with Patient: Total time spent is greater than 50% in coordination of care (as documented) at patient's floor/unit and/or counseling patient. I spent a total of 55 minutes on the date of service in preparation, delivery, and documentation of the care provided to this patient excluding any time spent in the performance of separately billed services. This visit was a split-shared visit with the substantive portion of the medical decision making performed by the supervising turbogenerator operator/billing provider, Dr. Reed. Coding Level of Care Code 87204 INT INP/OBS CARE 2/55MIN Diagnoses Dizziness R42 Vertigo R42 Orthostatic hypotension I95.1 ASCVD (arteriosclerotic cardiovascular disease) I25.10 Aortic stenosis I35.0 Dyslipidemia, goal LDL below 70 E78.5
--- NOTE | 2025-05-31 16:06 | Hospitalist Progress Note ---
Date of Service May 31, 2025 Assessment & Plan (1) Dizziness: Plan: Patient is a 85year old M with a past medical history of HTN, PVD, COPD, Dyslipidemia, aortic valve stenosis, LAD occlusion, Coronary artery dissection, Femoral artery pseudoaneurysm, History of DVT, h/o myocardial infarction, BPH with LUTS, CKD stage IV presenting with dizziness s/p fall. Reportedly, patient ambulated from his bed to bathroom with mild dizziness last night and then expe rienced dizziness with fall when changing position from sitting on the toilet to standing. He denies loss of consciousness. Reports feeling as though his legs "gave out from under him when standing". Unable to stand up and needed to lay on the bathroom floor all night. Also reports left leg numbness lasting all night with improvement now; however, still has left leg numbness with intact sensation to bottom of foot. #Dizziness, Orthostasis + Vertigo * Admit to [facility] for additional management and workup * Positional dizziness s/p fall with no apparent head injury; now w/ persistent numbness to LLE * Meclizine x 1 given in ED * EKG showing NSR with vent rate 65 bpm, QTc 426. * History of chronic LAD occlusion w/ failed attempt to open occlusion by cardiac catheterization in 2013 d/t femoral artery pseudoaneurysms; patient on aspirin and plavix * No focal deficits with a norm neuro exam; low suspicion for stroke; CT head w/o acute findings; Per external chart review, history DVT to LLE w/ chronic left leg numbness since then * Repeat Echo ordered * PT/OT eval ordered * Discharge planning: Patient lives alone with family support daily for meals and care. Discuss with family needs and possible additional home services for safety 05/31 orthostatic hypotension somewhat challenging to manage Patient's daughter reports patient has lost 11 pounds since September Echocardiogram: moderate aortic stenosis TSH, Cortisol normal Terazosin changed to Tamsulosin Senior Geotechnical Engineer consulted Metoprolol, Imdur, Amlodipine decreased monitor closely continue Rosie maneuver with PT- seems to be helping appreciate the input Neurologist also consulted discussed with Dr. Murray over the phone recommend Diazepam 1mg po BID as needed for severe dizziness #Left Great Toe cellulitis History of nail removal 3 weeks ago as an outpatient Patient as per daughter was not able to complete antibiotic course Appears to be having cellulitis, no appreciable fluctuant mass to suggest abscess blood culture: negative foot x-ray: no osteomyelitis Ortho: no procedures recommended much improved change Daptomycin (last dose today, renally dosed) to Cephalexin starting 06/01/25 at 500m q8h x 3 more days outpatient follow up with [facility] #Hypertension * Known hypotensive episodes with adjustments to HTN meds- recent decrease in lisinopril dosing 10 mg-> 5mg per Cardiology record 05/16/25 * Maintain higher BP target d/t history of lability and recent dizziness with mechanical fall - management per above #Spiculated Lung Nodules seen on CT chest 4. There is a 1.4 cm spiculated right upper lobe pulmonary nodule which is new from 2019. A bronchogenic neoplasm is the diagnosis of exclusion. Pulmonology follow-up is advised. At a minimum, short-term CT follow-up will be required. PET could also be considered. 5. A second 0.8 cm spiculated nodule at the right apex is also new from previous and suspicious. Pulmonology follow-up is advised. At a minimum, short-term CT follow-up will be required. PET could also be considered. Further work up, management, and ff up as outpatient #Dyslipidemia * Continue home Lipitor #CKD Stage III * Renal functioning at baseline; Creatinine 1.6; has been higher to 2.1-2.5 over past 2 years * Follows [facility] closely #BPH * Continue home meds DVT Ppx: SCDs high risk for bleeding including high risk for falls, already on ASA + Plavix, age, etc Code status: Full PCP: Dr. Mcdonough Dispo: Pending Bc Smith MD (2) HTN (hypertension): (3) Dyslipidemia: (4) CKD (chronic kidney disease) stage 3, GFR 30-59 ml/min: (5) BPH (benign prostatic hyperplasia): Admission and Anticipated Discharge Date Admission Date: May 27, 2025 Subjective seen resting in bed, in good spirits comfortable states dizziness seems to be improving L great toe pain also improving Review of Systems Review of Systems: all noted and negative except for above Physical Exam Physical Exam: General- oriented x 3, not in distress, speaks in sentences with no effort or accessory muscle use Eyes- anicteric Neck- no JVD Lungs- clear breath sounds bilaterally, no rales/wheezes Heart- normal rate, regular rhythm; no murmurs Abdomen- normal bowel sounds, nondistended, soft, nontender Extremities- no pretibial edema, no calf tenderness L great toe: no erythema, edema; mild tenderness but much better, (+) scabbed wound over nailbed Neuro- alert, oriented x 3; no gross focal neurologic deficits Skin- warm & dry Results & Data Results & Data Vital Signs (Past 12 Hours) Vital Signs Temp Pulse Pulse Resp BP Pulse Ox O2 Del Method 05/31/25 15:40 102 H 05/31/25 15:39 36.8 C 81 14 144/78 H 92 Room Air 05/31/25 12:43 37.7 C H 92 H 14 121/54 L 98 Room Air 05/31/25 07:48 37.1 C 79 18 158/72 H 95 Room Air 05/31/25 07:40 69 05/31/25 05:28 159/67 H all noted and reviewed including below
[2025-05-31] MEDS ORDERED: HEPARIN SOD 5,000 UNIT/0.5 ML VIAL SQ SCH (21:00)
[2025-06-01 07:54] LABS: Anion Gap 6.0 (3-11); Blood Urea Nitrogen 27.0 mg/dl (6-23); Calcium 8.8 mg/dl (8.6-10.3); Carbon Dioxide 29.0 mmol/L (21-32); Chloride 105.0 mmol/L (98-107); Creatinine Clr Calc Pharmacy 27.2 ml/min; Glucose 85.0 mg/dl (70-99(Fasting)); Potassium 4.0 mmol/L (3.5-5.1); Sodium 140.0 mmol/L (136-145)
[2025-06-01] MEDS: ISOSORBIDE MONO EXTENDED REL 30 MG TABCR PO SCH (08:32)
[2025-06-01] MEDS: METOPROLOL SUCC 25MG EXT REL TAB PO SCH (08:32)
[2025-06-01] MEDS ORDERED: METOPROLOL SUCC 25MG EXT REL TAB PO SCH (09:00)
[2025-06-01] MEDS: SODIUM CHLORIDE 0.9% 500 ML IV ONE (12:48)
--- NOTE | 2025-06-01 14:32 | Cardiology Progress Note ---
Date of Service June 01, 2025 Assessment & Plan (1) Dizziness: (2) Vertigo: (3) Orthostatic hypotension: (4) ASCVD (arteriosclerotic cardiovascular disease): (5) Aortic stenosis: (6) Dyslipidemia, goal LDL below 70: Plan 85 Y M symptomatic orthostatic hypotension, with documented symptomatic orthostatic hypotension and supine hypertension this admission, occurring in the setting of moderate proximal right internal carotid artery stenosis, moderate aortic valve stenosis, atherosclerotic coronary disease with chronic left anterior descending coronary artery occlusion, stage III chronic kidney disease, and BPH. Dizziness - better HTN - suboptimal Orthostatic hypotension HLD CKD CAD R ICAS - moderate correct and f/u electrolytes f/u renal function adjust anti-HTN meds keeping systolic BP between 100-140 mmHg increase metoprolol xl to 25 mg po AM DC Imdur Agree with substituting Terazosin increase po fluid intake avoid hypovolemia keep patient euvolemic DVT prophylaxis Admission and Anticipated Discharge Date Admission Date: May 27, 2025 Subjective Patient on exam is sitting in chair in NAD; no c/o cp, sob, palpitations, d izziness, LOC; states his dizziness has improved Review of Systems Review of Systems: Complete Review of Systems is as stated above, negative, or noncontributory. Physical Exam Physical Exam: General: A&Ox3. NAD. HENT: Normocephalic. Atraumatic. Eyes: PER. Conjunctiva pink, sclera clear. Neck: Transmitted systolic murmur. No JVD. Heart: S1S2. Grade II/ systolic murmur heard best at the lower left sternal border. No diastolic murmur. Lungs: Clear to auscultation. No rales. no wheezing Abdomen: +BS. Soft. Nontender. No masses or organomegaly. Extremities: No edema. No clubbing. No cyanosis. Limited neurological examination is without focal deficits. Results & Data Vital Signs (Past 12 Hours) Vital Signs Temp Pulse Pulse Resp BP Pulse Ox O2 Del Method 06/01/25 11:14 36.3 C L 86 20 93/53 L 95 Room Air 06/01/25 08:01 36.5 C 70 20 166/82 H 96 Room Air 06/01/25 05:39 59 L 06/01/25 02:55 36.8 C 68 18 169/86 H 93 Room Air Laboratory Results Laboratory Results - last 48 hr 06/01/25 06:11 Sodium 140 Potassium 4.0 Chloride 105 Carbon Dioxide 29 Anion Gap 6 BUN 27 H Creatinine 1.57 H Est Cr Clr Drug Dosing 27.2 eGFR 42.93 BUN/Creatinine Ratio 17.2 Glucose 85 Calcium 8.8 Diagnostic Findings Laboratory Results WBC 6.34 K/ul (4.8-10.8) 05/30/25 07: RBC 4.53 M/uL (4.70-6.10) L 05/30/25 07:26 Hgb 13.4 g/dl (14.0-18.0) L 05/30/25 07: Hct 41.8 % (42.0-52.0) L 05/30/25 07: MCV 92.3 fL (80.0-100.0) 05/30/25 07: MCH 29.6 pg (25.0-34.0) 05/30/25 07: MCHC 32.1 g/dL (32.0-36.0) 05/30/25 07: RDW Std Deviation 44.3 fL (36.4-46.3) 05/30/25 07: RDW Coeff of Macey 13.1 % (11.5-14.5) 05/30/25 07: Plt Count 176 K/uL (130-400) 05/30/25 07: MPV 9.3 fL (9.4-12.4) L 05/30/25 07:26 Immature Gran % (Auto) 0.3 % 05/30/25 07: Neut % (Auto) 59.6 % 05/30/25 07: Lymph % (Auto) 21.6 % 05/30/25 07:26 Sargent % (Auto) 9.5 % 05/30/25 07: Eos % (Auto) 8.4 % 05/30/25 07: Baso % (Auto) 0.6 % 05/30/25 07: Neut # (Auto) 3.78 K/uL (1.40-6.50) 05/30/25 07: Lymph # (Auto) 1.37 K/uL (1.20-3.40) 05/30/25 07:26 Sargent # (Auto) 0.60 K/uL (0.11-0.59) H 05/30/25 07:26 Eos # (Auto) 0.53 K/uL (0.00-0.50) H 05/30/25 07:26 Baso # (Auto) 0.04 K/uL (0.00-0.20) 05/30/25 07:26 Immature Gran # (Auto) 0.02 K/uL (0.01-0.20) 05/30/25 07:26 Sodium 140 mmol/L (136-145) 06/01/25 06:11 Potassium 4.0 mmol/L (3.5-5.1) 06/01/25 06:11 Chloride 105 mmol/L (98-107) 06/01/25 06:11 Carbon Dioxide 29 mmol/L (21-32) 06/01/25 06:11 Anion Gap 6 (3-11) 06/01/25 06:11 BUN 27 mg/dl (6-23) H 06/01/25 06:11 Creatinine 1.57 mg/dl (0.6-1.4) H 06/01/25 06:11 Est Cr Clr Drug Dosing 27.2 ml/min 06/01/25 06:11 eGFR 42.93 06/01/25 06:11 BUN/Creatinine Ratio 17.2 (10-20) 06/01/25 06:11 Glucose 85 mg/dl (70-99(Fasting)) 06/01/25 06:11 Estimat Average Glucose 128 mg/dl 05/28/25 07:45 Hemoglobin A1c 6.1 % (4.5-5.6) H 05/28/25 07:45 Calcium 8.8 mg/dl (8.6-10.3) 06/01/25 06:11 Total Bilirubin 0.7 mg/dl (0.2-1.0) 05/27/25 10:55 AST 18 U/L (13-39) 05/27/25 10:55 ALT 8 U/L (7-52) 05/27/25 10:55 Alkaline Phosphatase 79 U/L (34-104) 05/27/25 10:55 Troponin I High Sens 9.5 pg/ml (0-20) 05/27/25 10:55 Total Protein 6.4 gm/dl (6.0-8.3) 05/27/25 10:55 Albumin 3.6 gm/dl (3.4-5.0) 05/27/25 10:55 Globulin 2.8 gm/dl (2.5-4.0) 05/27/25 10:55 Albumin/Globulin Ratio 1.3 (0.9-2) 05/27/25 10:55 Triglycerides 66 mg/dl (0-150) 05/28/25 07:45 Cholesterol 138 mg/dl (0-200) 05/28/25 07:45 LDL Cholesterol, Calc 72 mg/dl 05/28/25 07:45 VLDL Cholesterol, Calc 13 mg/dl (0-30) 05/28/25 07:45 HDL Cholesterol 53 mg/dl 05/28/25 07:45 Cholesterol/HDL Ratio 2.6 (0-5) 05/28/25 07:45 TSH 1.869 uIu/ml (0.300-4.500) 05/30/25 07:26 Cortisol AM Sample 12.91 mcg/dl (6.2-22.6) 05/30/25 07:26 Urine Color Yellow 05/27/25 10:46 Urine Appearance Cloudy (Clear) A 05/27/25 10:46 Urine pH 7.5 (4.5-7.5) 05/27/25 10:46 Ur Specific [place] 1.014 (1.000-1.030) 05/27/25 10:46 Urine Protein Negative (Negative) 05/27/25 10:46 Urine Glucose (UA) Negative (Negative) 05/27/25 10:46 Urine Ketones Negative (Negative) 05/27/25 10:46 Urine Blood Negative (Negative) 05/27/25 10:46 Urine Nitrite Negative (Negative) 05/27/25 10:46 Urine Bilirubin Negative (Negative) 05/27/25 10:46 Urine Urobilinogen Negative (Negative) 05/27/25 10:46 Ur Leukocyte Esterase Negative (Negative) 05/27/25 10:46 Urine WBC (Auto) 0-5 /hpf (0-5) 05/27/25 10:46 Urine RBC (Auto) 0-2 /hpf (0-2) 05/27/25 10:46 U Hyaline Cast (Auto) 0-2 /lpf (0-2) 05/27/25 10:46 U Epithel Cells (Auto) 0-2 /hpf (0-2) 05/27/25 10:46 Urine Bacteria (Auto) None Seen (None Seen) 05/27/25 10:46 Urine Comment 05/27/25 10:46 Impressions Abdomen/Pelvis CT 05/27/25 10:39 CT OF THE ABDOMEN AND PELVIS WITHOUT CONTRAST CLINICAL HISTORY: Fall. COMPARISON STUDY: Pelvis and left hip radiographs August 24, 2023, CT of the abdomen and pelvis April 20, 2008 . TECHNIQUE: Axial images of the abdomen and pelvis were obtained without IV contrast. Images were reviewed in the axial, sagittal, and coronal planes. Automated exposure control was utilized for the study. A dose lowering technique was utilized adhering to the principles of ALARA. FINDINGS: Please note that the chest CT will be reported separately. Emphysema is incidentally noted within the lower lung bases. No hemoperitoneum or pneumoperitoneum is present. Evaluation of the solid abdominal viscera is suboptimal on this unenhanced exam. There is no evidence for traumatic injury to the liver, spleen, adrenal glands, kidneys or pancreas. The right kidney is markedly atrophic. There is a 9 mm left lower pole renal calculus. There are no ureteral calculi. There is no hydronephrosis. There is colonic diverticulosis without evidence for acute diverticulitis. Moderate amount of stool within the colon and rectum is present. There is trace fluid within the pelvis. There is extensive aortoiliac atherosclerotic plaque. No acute lumbar spine, pelvis or hip fractures are identified. Lumbar spine dextroscoliosis is incidentally noted. No suspicious osseous lesions. IMPRESSION: 1. No acute traumatic findings within the abdomen or pelvis on unenhanced exam. 2. Trace pelvic fluid. 3. 9 mm left renal calculus. Right renal atrophy. 4. Colonic diverticulosis. No evidence for acute diverticulitis. ACT 112: Negative or not required by law. Electronically signed by: Eliseo Mendenhall M.D. 05/27/2025 11:[address] 05/27/25 10:39 CT cervical spine wo con CT DOSE: 1176.71 mGy.cm CLINICAL HISTORY: fall. COMPARISON: 07/23/2019 TECHNIQUE: Multiple axial CT images of the cervical spine were obtained without contrast. A dose lowering technique was utilized adhering to the principles of ALARA. 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 There is grade 1 anterolisthesis of C3 on C4, C7 on T1, and T1 on T2, stable. No cervical spine fracture seen. There are carotid bulb calcifications. IMPRESSION: No cervical spine fracture seen. ACT 112: Negative or not required by law. The above report was generated using voice recognition software. It may contain grammatical, syntax or spelling errors. Electronically signed by: Sean Post M.D. 05/27/2025 11:[address] 05/27/25 10:39 CT SCAN OF THE CHEST WITHOUT IV CONTRAST CLINICAL HISTORY: Fall. COMPARISON STUDY: Chest CT dated 07/23/2019. Chest x-ray dated 05/27/2025. TECHNIQUE: CT scan of the thorax was performed from the thoracic inlet to the upper abdomen. Images are reviewed in the axial, sagittal, and coronal planes. IV contrast was not administered for this examination as per the referring clinician. A dose lowering technique was utilized adhering to the principles of ALARA. CT DOSE: 675.38 mGy.cm FINDINGS: Thyroid: Mild atrophic and heterogeneous. Thoracic aorta: There is atherosclerotic calcification of the thoracic aorta, which is normal in caliber and demonstrates standard 3-vessel arch anatomy. Heart: The heart is enlarged noting a small pericardial effusion. The coronary arteries are densely calcified. Lungs and pleural spaces: There is moderate to advanced emphysema. A 1.4 x 1.2 x 0.6 cm spiculated nodule in the anterior right upper lobe on image #72 is new from 2019 and highly suspicious for a bronchogenic neoplasm. A second 8 mm spiculated nodule in the right apex on image #56 is also new from the prior study. 6 mm right lower lobe nodules seen on images #158 and #189, a 6 mm left lower lobe nodule on image #211, and a 4 mm left upper lobe nodule on image #136 are unchanged from 2019 and of low suspicion. No airspace consolidation no pneumothorax is seen. Trace pleural fluid is seen bilaterally. Scarring/atelectasis is noted at the lung bases A fat-containing Bochdalek he rnia is seen on the right. There are scattered calcified granulomas. Mediastinum: There is no mediastinal hematoma. A mildly enlarged AP window node on image #112 measures 12 mm in short axis. This is unchanged in 2019. No additional enlarged mediastinal lymph nodes are identified. Chio: Not well assessed without IV contrast. Axillae: There is no axillary lymphadenopathy. Upper abdomen: A small hiatal hernia is noted. There is trace perihepatic ascites. Skeletal structures: The skeletal structures are osteopenic. The bony thorax appears intact. Degenerative change is noted in the shoulders and spine. No lytic or blastic bony lesions are seen. IMPRESSION: 1. No acute posttraumatic intrathoracic abnormality is identified. 2. There is no airspace consolidation or pneumothorax. 3. Cardiomegaly and emphysema noting advanced coronary artery atherosclerosis and trace pleural effusions. 4. There is a 1.4 cm spiculated right upper lobe pulmonary nodule which is new from 2019. A bronchogenic neoplasm is the diagnosis of exclusion. Pulmonology follow-up is advised. At a minimum, short-term CT follow-up will be required. PET could also be considered. 5. A second 0.8 cm spiculated nodule at the right apex is also new from previous and suspicious. 6. Additional subcentimeter pulmonary nodules are similar to the prior study and of low suspicion. 7. Additional findings as above. ACT 112: Positive. There are findings on this exam that require communication between the performing entity and the patient following Patient Test Result Information Act ([place] Act 112) guidelines. Electronically signed by: Taras Vences M.D. 05/27/2025 12:04 PM Chest X-Ray 05/27/25 10:39 XR chest 1V portable CLINICAL HISTORY: dizzy, fall COMPARISON STUDY: 08/24/2023 FINDINGS: Heart size and pulmonary vasculature are normal. There are findings of emphysema. No consolidation or pleural effusion. No pneumothorax. No grossly displaced rib fracture seen. IMPRESSION: No acute findings. ACT 112: Negative or not required by law. Electronically signed by: Sean Post M.D. 05/27/2025 11:[address] 05/27/25 10:39 CT SCAN OF THE BRAIN WITHOUT IV CONTRAST CLINICAL HISTORY: Fall. COMPARISON STUDY: MRI of the brain October 08, [address] June 09, 2022. TECHNIQUE: Unenhanced axial CT scan of the brain was performed from the vertex to the skull base. A dose lowering technique was utilized adhering to the principles of ALARA. FINDINGS: Brain parenchyma: No acute intracranial hemorrhage, midline shift or mass effect is present. [place]eda-white matter differentiation is preserved. There are no extra- axial fluid collections. There are no findings to suggest acute dural sinus thrombosis or acute territorial infarct. White matter hypodensities are similar to prior exam and represent small vessel disease. Ventricles, sulci, cisterns: There is no hydrocephalus. The basal cisterns are patent. Calvarium: There are no calvarial fractures. Sinuses and mastoids: The visualized paranasal sinuses are clear. The mastoid air cells are well pneumatized. Orbits: The bony orbits are grossly intact. IMPRESSION: 1. No acute intracranial findings. 2. No calvarial fractures. ACT 112: Negative or not required by law. Electronically signed by: Eliseo Mendenhall M.D. 05/27/2025 11:23 AM Brain MRI 05/27/25 14:57 MRI of the brain performed with and without IV contrast History: Weakness Comparison: 10/08/2021 Technique: Multiplanar T1 weighted, axial T2/FLAIR, and susceptibility images were obtained without intravenous contrast. Following intravenous gadolinium based contrast administration, axial T2 weighted, diffusion, and T1-weighted images were obtained. Findings: No evidence for intracranial mass lesion, mass-effect, midline shift, or abnormal extra-axial fluid collection. Postcontrast images demonstrate no abnormal intracranial enhancement. The orbits are grossly unremarkable. There is moderate to marked cerebral atrophy. No abnormally reduced diffusion or evidence for acute infarct. Normal intravascular flow voids. Impression: Normal brain MRI with and without IV contrast Electronically signed by Michael Isaac 05-27-2025 6:30 PM Foot X-Ray 05/28/25 12:29 LEFT FOOT 2 VIEWS CLINICAL HISTORY: First toe infection. FINDINGS: AP and lateral views of the left foot are obtained. No prior studies are available for comparison at the time of dictation. The skeletal structures are osteopenic. No fracture is seen. No bony erosion or periostitis is identified. There is moderate osteoarthritic change at the first metatarso phalangeal joint. Mild degenerative change is seen throughout the remainder of the foot. The overlying soft tissues are normal as imaged. IMPRESSION: No acute bony abnormality is identified. Electronically signed by: Taras Vences M.D. 05/28/2025 1:29 PM Head MRA 05/30/25 17:58 Exam(s): MRA HEAD Without Contrast EXAM: MR Angiography Head Without Intravenous Contrast CLINICAL HISTORY: Reason for exam: dizziness. OTHER: Other Notes: dizziness, fall, low bp lately lt facial numbness left leg numbness TECHNIQUE: Magnetic resonance angiography images of the head without intravenous contrast. COMPARISON: No relevant prior studies available. FINDINGS: Right internal carotid artery: No acute findings. Intracranial segment is patent with no significant stenosis. No aneurysm. Right anterior cerebral artery: Unremarkable. No occlusion or significant stenosis. No aneurysm. Right middle cerebral artery: Unremarkable. No occlusion or significant stenosis. No aneurysm. Right posterior cerebral artery: Unremarkable. No occlusion or significant stenosis. No aneurysm. Right vertebral artery: Unremarkable as visualized. Left internal carotid artery: No acute findings. Intracranial segment is patent with no significant stenosis. No aneurysm. Left anterior cerebral artery: Unremarkable. No occlusion or significant stenosis. No aneurysm. Left middle cerebral artery: Unremarkable. No occlusion or significant stenosis. No aneurysm. Left posterior cerebral artery: Unremarkable. No occlusion or significant stenosis. No aneurysm. Left vertebral artery: Unremarkable as visualized. Basilar artery: Unremarkable. No occlusion or significant stenosis. No aneurysm. IMPRESSION: Negative MRA of the brain. Electronically signed by: Carolyn Haney MD 05/31/25 00:18 AM Neck MRA 05/30/25 19:01 Exam(s): MRA NECK Without Contrast EXAM: MR Angiography Neck Without Intravenous Contrast CLINICAL HISTORY: Reason for exam: dizziness. OTHER: Other Notes: dizziness, fall, low bp lately lt facial numbness left leg numbness TECHNIQUE: Magnetic resonance angiography images of the neck without intravenous contrast. COMPARISON: No relevant prior studies available. FINDINGS: Right common carotid artery: Unremarkable. No significant stenosis. No dissection or occlusion. Right internal carotid artery: There is a 60% stenosis of the proximal ICA. No dissection or occlusion. Right external carotid artery: Unremarkable. No occlusion. Right vertebral artery: Unremarkable. No significant stenosis. No dissection or occlusion. Left common carotid artery: Unremarkable. No significant stenosis. No dissection or occlusion. Left internal carotid artery: Unremarkable. Extracranial segment is patent with no significant stenosis. No dissection or occlusion. Left external carotid artery: Unremarkable. No occlusion. Left vertebral artery: Unremarkable. No significant stenosis. No dissection or occlusion. Soft tissues: Unremarkable as visualized. CAROTID STENOSIS REFERENCE USING NASCET CRITERIA: % ICA stenosis = (1 - narrowest ICA diameter/diameter of distal cervical ICA) x 100. Mild - <50% stenosis. Moderate - 50-69% stenosis. Severe - 70-94% stenosis. Near occlusion - 95-99% stenosis. Occluded - 100% stenosis. IMPRESSION: There is a 60% stenosis of the proximal right ICA. Electronically signed by: Carolyn Haney MD 05/31/25 00:30 AM PG Care Time/CCT Total # of Minutes Spent Total Time Spent with Patient: Total time spent is greater than 50% in coordination of care (as documented) at patient's floor/unit and/or counseling patient: Coding Level of Care Code 91786 SUB INP/OBS CARE 3/50MIN Diagnoses Dizziness R42 Vertigo R42 Orthostatic hypotension I95.1 ASCVD (arteriosclerotic cardiovascular disease) I25.10 Aortic stenosis I35.0 Dyslipidemia, goal LDL below 70 E78.5
--- NOTE | 2025-06-01 15:43 | Hospitalist Progress Note ---
Date of Service June 01, 2025 Assessment & Plan (1) Orthostatic hypotension: (2) Syncope due to orthostatic hypotension: (3) Aortic stenosis: (4) ASCVD (arteriosclerotic cardiovascular disease): (5) CKD (chronic kidney disease) stage 3, GFR 30-59 ml/min: (6) BPH (benign prostatic hyperplasia): (7) HTN (hypertension): Plan Patient 85-year-old gentleman with dizziness and presyncope due to orthostasis. Cardiology continues to adjust medications, discontinued Imdur Output has been negative, 500 cc fluid bolus today Hold finasteride and tamsulosin in the setting of significant orthostasis [facility] Admission and Anticipated Discharge Date Admission Date: May 27, 2025 Subjective Patient states he feels significantly improved. He denies significant symptoms with standing. Communication with nursing staff they feel he still might be a little unsteady. Definitely orthostatic based on numbers. Physical Exam Physical Exam: Constitutional: Alert HEENT: Mucous membranes moist. Lungs: Clear to auscultation, decreased, no wheezes rales or rhonchi CV: S1-S2, regular Abdomen: Soft, nontender, nondistended Extremities: No significant edema Neuro: No focal deficits Psych: Cooperative, normal mood Results & Data Results & Data Vital Signs (Past 12 Hours) Vital Signs Temp Pulse Pulse Resp BP Pulse Ox O2 Del Method 06/01/25 15:21 36.3 C L 73 20 126/68 98 Room Air 06/01/25 12:55 71 06/01/25 11:14 36.3 C L 86 20 93/53 L 95 Room Air 06/01/25 08:01 36.5 C 70 20 166/82 H 96 Room Air 06/01/25 05:39 59 L Diagnostic Findings Reviewed imaging, laboratory and diagnostic studies. Pertinent findings as below. Electrolytes stable Creatinine 1.57, baseline
--- NOTE | 2025-06-02 09:12 | Discharge Summary ---
Discharge Summary Date of Service June 02, 2025 Principal Dx & Hospital Course #1 = Principal Diagnosis (1) Orthostatic hypotension: (2) Syncope due to orthostatic hypotension: (3) Aortic stenosis: (4) ASCVD (arteriosclerotic cardiovascular disease): (5) CKD (chronic kidney disease) stage 3, GFR 30-59 ml/min: (6) BPH (benign prostatic hyperplasia): (7) HTN (hypertension): (8) Stenosis of right internal carotid artery: 60% Plan Patient is a 85-year-old gentleman who presented to the emergency room with lightheadedness and dizziness and a fall in his bathroom. In the emergency room workup was unremarkable for acute findings, however the patient has been having issues with fluctuating blood pressures. He was referred for further evaluation. Patient was cared for in the hospital. He is monitored telemetry without any significant arrhythmias. Patient underwent MRI of the brain and MRA of the head and neck. These are all unremarkable for acute findings. He did have some 60% stenosis of the right internal carotid. Patient was significantly positive for orthostatics. Cardiology consultation was obtained. They adjusted his medications. Also decreased his medications for his BPH. He was given some IV hydration and with the adjustments of these medications his orthostatic vital signs slowly stabilized. Patient was seen by therapy and is up and down in his hospital room multiple times with no lightheadedness or dizziness. Patient did have some mild cellulitis of the toe which was fully treated here in the hospital. Blood cultures showed no growth. Echocardiogram confirmed a normal ejection fraction with some moderate aortic stenosis. Electrolytes and renal functions were stable. On the day of discharge he was up and ambulatory in his room without any lightheadedness or dizziness. Orthostatic vital signs had stabilized. He can be discharged home with outpatient care and follow-up. Notes For Next Care Provider Monitor orthostatic vital signs and office visits Medication Changes From Visit Imdur discontinued Metoprolol dose adjusted Terazosin dose decreased Finasteride discontinued Admission HPI Per Admitting Provider Patient is a 85year old M with a past medical history of HTN, PVD, COPD, Dyslipidemia, aortic valve stenosis, LAD occlusion, Coronary artery dissection, Femoral artery pseudoaneurysm, History of DVT, h/o myocardial infarction, BPH with LUTS, CKD stage IV presenting with dizziness s/p fall. Reportedly, patient ambulated from his bed to bathroom with mild dizziness last night and then experienced dizziness with fall when changing position from sitting on the toilet to standing. He denies loss of consciousness. Reports feeling as though his legs "gave out from under him when standing". Unable to stand up and needed to lay on the bathroom floor all night. Also reports left leg numbness lasting all night with improvement now; however, still has left leg numbness with intact sensation to bottom of foot. Denies fever, chills, weight loss, headache, cognitive changes, vision/hearing changes, chest pain, SOB, swelling, difficulty breathing, urinary concerns, N/V/D, joint swelling/pain, skin rashes, lesions, bleeding, bruising. In the emergency department, patient was hypertensive 174/90 upon arrival to the ED. Possibly related to not taking morning meds. No fevers reported and no evidence of leukocytosis noted on lab workup.Urine clean. CT of the head without acute findings. CT of the abdomen pelvis without acute findings. Incidental findings on chest CT of right upper lobe spiculated nodules with possible neoplasm etiology. Patient will need outpatient follow-up for this finding and repeat imaging. Patient experienced dizziness when ambulating from the bed to bathroom, but did not fall. No dizziness reported with position change from lying to sitting. As per external chart review, patient follows [facility] and has been reporting dizziness previously. Patient reports Lisinopril was discontinued at last Cardiology appointment, but his last dose taken was in the morning of yesterday's fall. He has a history of hypotension. As per external chart review, patient was seen by [facility] on 05/16/25. 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 Hypotension was discussed at that appointment and lisinopril dosing was decreased from 10mg/day to 5mg/day. Echo interpretation from March 14, 2025 showing sinus bradycardia during the examination. Rates 48-50 beats per minute. The left ventricular cavity size is normal. The LV wall thickness is mildly increased (concentric). The left ventricular wall motion is normal. LVEF 55-59% (normal). The left ventricular diastolic function is moderately abnormal (grade II). The left atrium is moderately enlarged (42-48 ml/m^2). The aortic valve is moderately calcified. Moderate aortic valve stenosis is present. Mild mitral regurgitation is present. Moderate tricuspid regurgitation is present. In March 2025, 7-day Zio Monitor showing predominant sinus Rhythm with 6 runs of SVT. Notation of weight loss noted in patient record. History obtained primarily from the patient and via hospitalization record. External chart review obtained from [facility]. Admission Exam Per Admitting Provider See H&P Discharge Exam Constitutional: Alert HEENT: Mucous membranes moist. Lungs: Clear to auscultation, decreased, no wheezes rales or rhonchi CV: S1-S2, regular, systolic murmur Abdomen: Soft, nontender, nondistended Extremities: No significant edema Neuro: No focal deficits Psych: Cooperative, normal mood Updated Medication List Medication Instructions Recorded Confirmed Type arformoterol 15 mcg/2 mL solution 2 ml inhalation BID PRN Shortness 07/23/19 05/27/25 History for nebulization (Brovana) Of Breath Or Wheezing clopidogrel 75 mg tablet (Plavix) 75 mg PO QAM 07/23/19 05/27/25 History cyanocobalamin (vitamin B-12) 1,000 mcg PO QAM 07/23/19 05/27/25 History 1,000 mcg tablet (Vitamin B-12) finasteride 5 mg tablet (Proscar) 5 mg PO QAM 07/23/19 05/27/25 History ketorolac 0.4 % eye drops 1 drp OPL BID 07/23/19 05/27/25 History meclizine 25 mg tablet 25 mg PO TID PRN DIZZY 07/23/19 05/27/25 History metoprolol succinate 25 mg 12.5 mg PO QAM 07/23/19 05/27/25 History tablet,extended release 24 hr (Toprol XL) terazosin 2 mg capsule 2 mg PO HS 07/23/19 05/27/25 History terazosin 5 mg capsule 5 mg PO HS 07/23/19 05/27/25 History acetaminophen 500 mg tablet 500 mg PO Q6H PRN Pain 05/15/20 05/27/25 History (Tylenol Extra Strength) ondansetron HCl 8 mg tablet 8 mg PO TID PRN NAUSEA/VOMITING 10/08/21 05/27/25 History amlodipine 2.5 mg tablet 2.5 mg PO BID 12/20/21 05/27/25 History atorvastatin 20 mg tablet 20 mg PO QAM 06/09/22 05/27/25 History isosorbide mononitrate 60 mg 90 mg PO QAM 06/09/22 05/27/25 History tablet,extended release 24 hr aspirin 81 mg tablet,delayed 81 mg PO DAILY 05/27/25 05/27/25 History release ketoconazole 2 % shampoo 1 ea topical DIRECTED 05/27/25 05/27/25 History amlodipine 5 mg tablet 5 mg PO QAM #30 tabs 06/02/25 Rx metoprolol succinate 25 mg 25 mg PO QAM #30 tabs 06/02/25 Rx tablet,extended release 24 hr Hospital Stay Data Consultations 05/27/25 14:17 ED Decision to Admit Stat 05/28/25 12:33 Consult Podiatry Routine 05/30/25 10:01 Consult Neurology Routine 05/31/25 08:53 Consult Cardiology Routine Diagnostic Imagining Performed 05/27/25 10:39 CT abd pelvis wo con Stat CT cervical spine wo con Stat CT chest diagnostic wo con Stat CT head/brain wo con Stat 05/27/25 14:57 MRI Brain [MR brain wo/w con] Stat 05/30/25 17:58 MR angio head wo con Urgent 05/30/25 19:01 MR angio neck wo con Routine Reviewed imaging, laboratory and diagnostic studies. Pertinent findings as below. MRI of the brain, no acute ischemic event MRI of the head and neck 60% stenosis right internal carotid Foot x-ray, no acute abnormalities Echocardiogram shows normal ejection fraction, moderate aortic stenosis WBC 6.3 Hemoglobin 13.4 Platelets of 176 Electrolytes within normal range Creatinine 1.57, stable TSH 1.8 Pending Results Patient Have Any Pending Studies at Discharge: No Discharge Instructions Given to Patient (Per Discharging Provider) Take your time when changing positions. Stand up at the edge of the bed or chair for a few minutes before attempting to walk away make sure you are not lightheaded or dizzy Home Health Attestation I certify that this patient is under my care and that I, or a physicians early childhood teacher assistant working with me, had a face to-face encounter that meets the home health [id number] encounter requirements with this patient. The encounter with the patient was in whole, or in part, for the following medical condition, which is the primary reason for home health care (list medical condition): Dizziness I certify that, based on my findings, the following services are medically necessary home health services: My clinical findings support the need for the above services because: Medication Compliance and Monitoring Effective of New Medications Skilled Nsg Assessment Further, I certify that my clinical findings support that this patient is homebound (i.e. absences from home require considerable and taxing effort and are for medical reasons or faith services or infrequently or of short duration when for other reasons) because: Assistance of 1 Person for Ambulation/Activities Poor Endurance; SOB Minimal Exertion Transportation Assistance/Unable to Leave Home Unassisted Certification for Home Health Services: Based on the above findings, I certify that this patient is confined to the home and needs intermittent jail care, physical therapy and/or speech therapy or continues to need occupational therapy. The patient is under my care, and I have initiated the establishment of the plan of care. This patient will be followed by a physician who will periodically review the plan of care. Total Time Total Time Spent Total Time Spent (In Minutes): 33
[2025-06-02] MEDS: SODIUM CHLORIDE 0.9% 1,000 ML IV ONE (10:18)
--- NOTE | 2025-06-02 12:40 | Cardiology Progress Note ---
Date of Service June 02, 2025 Assessment & Plan (1) Dizziness: (2) Vertigo: (3) Orthostatic hypotension: (4) ASCVD (arteriosclerotic cardiovascular disease): (5) Aortic stenosis: (6) Dyslipidemia, goal LDL below 70: Plan 85 Y M symptomatic orthostatic hypotension, with documented symptomatic orthostatic hypotension and supine hypertension this admission, occurring in the setting of moderate proximal right internal carotid artery stenosis, moderate aortic valve stenosis, atherosclerotic coronary disease with chronic left anterior descending coronary artery occlusion, stage III chronic kidney disease, and BPH. Dizziness - better HTN - suboptimal Orthostatic hypotension HLD CKD CAD R ICAS - moderate increase fluid intake improve caloric intake, nutritional status correct and f/u electrolytes f/u renal function adjust anti-HTN meds keeping systolic BP between 100-140 mmHg off Imdur Agree with substituting Terazosin avoid hypovolemia keep patient euvolemic DVT prophylaxis Admission and Anticipated Discharge Date Admission Date: May 27, 2025 Supervising Physician Co-Signing Physician Notes Patient seen and examined. Past medical history, surgical history, social history and family history have been reviewed. The medical record and all the above studies have been reviewed. Case DW MILES including management. Dizziness - better HTN - suboptimal Orthostatic hypotension HLD CKD CAD R ICAS - moderate correct and f/u electrolytes f/u renal function adjust anti-HTN meds keeping systolic BP between 100-140 mmHg increase metoprolol xl to 25 mg po AM Agree with substituting Terazosin increase po fluid intake avoid hypovolemia keep patient euvolemic DVT prophylaxis Subjective Patient on exam is sitting in chair in NAD; no c/o cp, sob, palpitations, dizziness, LOC; patient ambulated to the bathroom by himself this AM with no symptoms. Patient apparently was orthostatic post physical therapy today Review of Systems Review of Systems: Complete Review of Systems is as stated above, negative, or noncontributory. Physical Exam Physical Exam: General: A&Ox3. NAD. HENT: Normocephalic. Atraumatic. Eyes: PER. Conjunctiva pink, sclera clear. Neck: Transmitted systolic murmur. No JVD. Heart: S1S2. Grade II/ systolic murmur heard best at the lower left sternal border. No diastolic murmur. Lungs: Clear to auscultation. No rales. no wheezing Abdomen: +BS. Soft. Nontender. No masses or organomegaly. Extremities: No edema. No clubbing. No cyanosis. Limited neurological examination is without focal deficits. Results & Data Vital Signs (Past 12 Hours) Vital Signs Vital Signs Temp 36.8 C 06/02/25 09:07 Pulse 56 L 06/02/25 10:09 Resp 20 06/02/25 09:07 BP 136/72 06/02/25 10:09 Pulse Ox 96 06/02/25 09:07 O2 Del Method Room Air 06/02/25 08:22 Intake & Output 06/01/25 06/02/25 06/02/25 18:59 06:59 18:59 Intake Total 980 / 1280 300 / 1280 1000 / 1000 Output Total 300 / 801 501 / 801 Balance 680 / 479 -201 / 479 1000 / 1000 Weight 55.9 kg Intake: IV 500 / 500 1000 / 1000 Sodium Chloride 0.9% 1,000 ml @ 500 / 500 1000 / 1000 999 mls/hr IV .Q1H1M ONE Rx#: [id number] Oral 480 / 780 300 / 780 Output: Urine 300 / 800 500 / 800 # Bowel Movements 1 / 1 Other: # Unmeasured Voids 1 1 Temp Pulse Resp BP BP Pulse Ox O2 Del Method 06/02/25 10:09 56 L 136/72 06/02/25 09:07 36.8 C 60 20 126/81 177/83 H 96 06/02/25 08:22 36.8 C 60 20 177/83 H 96 Room Air 06/02/25 08:11 89 169/80 H Laboratory Results Laboratory Results - last 48 hr 06/01/25 06:11 Sodium 140 Potassium 4.0 Chloride 105 Carbon Dioxide 29 Anion Gap 6 BUN 27 H Creatinine 1.57 H Est Cr Clr Drug Dosing 27.2 eGFR 42.93 BUN/Creatinine Ratio 17.2 Glucose 85 Calcium 8.8 Diagnostic Findings Laboratory Results WBC 6.34 K/ul (4.8-10.8) 05/30/25 07:26 RBC 4.53 M/uL (4.70-6.10) L 05/30/25 07:26 Hgb 13.4 g/dl (14.0-18.0) L 05/30/25 07:26 Hct 41.8 % (42.0-52.0) L 05/30/25 07:26 MCV 92.3 fL (80.0-100.0) 05/30/25 07: MCH 29.6 pg (25.0-34.0) 05/30/25 07: MCHC 32.1 g/dL (32.0-36.0) 05/30/25 07: RDW Std Deviation 44.3 fL (36.4-46.3) 05/30/25: RDW Coeff of Macey 13.1 % (11.5-14.5) 05/30/25 07: Plt Count 176 K/uL (130-400) 05/30/25 07: MPV 9.3 fL (9.4-12.4) L 05/30/25 07: Immature Gran % (Auto) 0.3 % 05/30/25 07: Neut % (Auto) 59.6 % 05/30/25 07: Lymph % (Auto) 21.6 % 05/30/25 07: Camas % (Auto) 9.5 % 05/30/25 07: Eos % (Auto) 8.4 % 05/30/25 07: Baso % (Auto) 0.6 % 05/30/25 07: Neut # (Auto) 3.78 K/uL (1.40-6.50) 05/30/25 07: Lymph # (Auto) 1.37 K/uL (1.20-3.40) 05/30/25 07: Camas # (Auto) 0.60 K/uL (0.11-0.59) H 05/30/25 07: Eos # (Auto) 0.53 K/uL (0.00-0.50) H 05/30/25 07:26 Baso # (Auto) 0.04 K/uL (0.00-0.20) 05/30/25 07: Immature Gran # (Auto) 0.02 K/uL (0.01-0.20) 05/30/25 07:26 Sodium 140 mmol/L (136-145) 06/01/25 06:11 Potassium 4.0 mmol/L (3.5-5.1) 06/01/25 06:11 Chloride 105 mmol/L (98-107) 06/01/25 06:11 Carbon Dioxide 29 mmol/L (21-32) 06/01/25 06:11 Anion Gap 6 (3-11) 06/01/25 06:11 BUN 27 mg/dl (6-23) H 06/01/25 06:11 Creatinine 1.57 mg/dl (0.6-1.4) H 06/01/25 06:11 Est Cr Clr Drug Dosing 27.2 ml/min 06/01/25 06:11 eGFR 42.93 06/01/25 06:11 BUN/Creatinine Ratio 17.2 (10-20) 06/01/25 06:11 Glucose 85 mg/dl (70-99(Fasting)) 06/01/25 06:11 Estimat Average Glucose 128 mg/dl 05/28/25 07:45 Hemoglobin A1c 6.1 % (4.5-5.6) H 05/28/25 07:45 Calcium 8.8 mg/dl (8.6-10.3) 06/01/25 06:11 Total Bilirubin 0.7 mg/dl (0.2-1.0) 05/27/25 10:55 AST 18 U/L (13-39) 05/27/25 10:55 ALT 8 U/L (7-52) 05/27/25 10:55 Alkaline Phosphatase 79 U/L (34-104) 05/27/25 10:55 Troponin I High Sens 9.5 pg/ml (0-20) 05/27/25 10:55 Total Protein 6.4 gm/dl (6.0-8.3) 05/27/25 10:55 Albumin 3.6 gm/dl (3.4-5.0) 05/27/25 10:55 Globulin 2.8 gm/dl (2.5-4.0) 05/27/25 10:55 Albumin/Globulin Ratio 1.3 (0.9-2) 05/27/25 10:55 Triglycerides 66 mg/dl (0-150) 05/28/25 07:45 Cholesterol 138 mg/dl (0-200) 05/28/25 07:45 LDL Cholesterol, Calc 72 mg/dl 05/28/25 07:45 VLDL Cholesterol, Calc 13 mg/dl (0-30) 05/28/25 07:45 HDL Cholesterol 53 mg/dl 05/28/25 07:45 Cholesterol/HDL Ratio 2.6 (0-5) 05/28/25 07:45 TSH 1.869 uIu/ml (0.300-4.500) 05/30/25 07:26 Cortisol AM Sample 12.91 mcg/dl (6.2-22.6) 05/30/25 07:26 Urine Color Yellow 05/27/25 10:46 Urine Appearance Cloudy (Clear) A 05/27/25 10:46 Urine pH 7.5 (4.5-7.5) 05/27/25 10:46 Ur Specific [place] 1.014 (1.000-1.030) 05/27/25 10:46 Urine Protein Negative (Negative) 05/27/25 10:46 Urine Glucose (UA) Negative (Negative) 05/27/25 10:46 Urine Ketones Negative (Negative) 05/27/25 10:46 Urine Blood Negative (Negative) 05/27/25 10:46 Urine Nitrite Negative (Negative) 05/27/25 10:46 Urine Bilirubin Negative (Negative) 05/27/25 10:46 Urine Urobilinogen Negative (Negative) 05/27/25 10:46 Ur Leukocyte Esterase Negative (Negative) 05/27/25 10:46 Urine WBC (Auto) 0-5 /hpf (0-5) 05/27/25 10:46 Urine RBC (Auto) 0-2 /hpf (0-2) 05/27/25 10:46 U Hyaline Cast (Auto) 0-2 /lpf (0-2) 05/27/25 10:46 U Epithel Cells (Auto) 0-2 /hpf (0-2) 05/27/25 10:46 Urine Bacteria (Auto) None Seen (None Seen) 05/27/25 10:46 Urine Comment 05/27/25 10:46 Impressions Abdomen/Pelvis CT 05/27/25 10:39 CT OF THE ABDOMEN AND PELVIS WITHOUT CONTRAST CLINICAL HISTORY: Fall. COMPARISON STUDY: Pelvis and left hip radiographs August 24, 2023, CT of the abdomen and pelvis April 20, 2008 . TECHNIQUE: Axial images of the abdomen and pelvis were obtained without IV contrast. Images were reviewed in the axial, sagittal, and coronal planes. Automated exposure control was utilized for the study. A dose lowering max hnique was utilized adhering to the principles of ALARA. FINDINGS: Please note that the chest CT will be reported separately. Emphysema is incidentally noted within the lower lung bases. No hemoperitoneum or pneumoperitoneum is present. Evaluation of the solid abdominal viscera is suboptimal on this unenhanced exam. There is no evidence for traumatic injury to the liver, spleen, adrenal glands, kidneys or pancreas. The right kidney is markedly atrophic. There is a 9 mm left lower pole renal calculus. There are no ureteral calculi. There is no hydronephrosis. There is colonic diverticulosis without evidence for acute diverticulitis. Moderate amount of stool within the colon and rectum is present. There is trace fluid within the pelvis. There is extensive aortoiliac atherosclerotic plaque. No acute lumbar spine, pelvis or hip fractures are identified. Lumbar spine dextroscoliosis is incidentally noted. No suspicious osseous lesions. IMPRESSION: 1. No acute traumatic findings within the abdomen or pelvis on unenhanced exam. 2. Trace pelvic fluid. 3. 9 mm left renal calculus. Right renal atrophy. 4. Colonic diverticulosis. No evidence for acute diverticulitis. ACT 112: Negative or not required by law. Electronically signed by: Eliseo Mendenhall M.D. 05/27/2025 11:[address] 05/27/25 10:39 CT cervical spine wo con CT DOSE: 1176.71 mGy.cm CLINICAL HISTORY: fall. COMPARISON: 07/23/2019 TECHNIQUE: Multiple axial CT images of the cervical spine were obtained without contrast. A dose lowering technique was utilized adhering to the principles of ALARA. 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 There is grade 1 anterolisthesis of C3 on C4, C7 on T1, and T1 on T2, stable. No cervical spine fracture seen. There are carotid bulb calcifications. IMPRESSION: No cervical spine fracture seen. ACT 112: Negative or not required by law. The above report was generated using voice recognition software. It may contain grammatical, syntax or spelling errors. Electronically signed by: Sean Post M.D. 05/27/2025 11:[address] 05/27/25 10:39 CT SCAN OF THE CHEST WITHOUT IV CONTRAST CLINICAL HISTORY: Fall. COMPARISON STUDY: Chest CT dated 07/23/2019. Chest x-ray dated 05/27/2025. TECHNIQUE: CT scan of the thorax was performed from the thoracic inlet to the upper abdomen. Images are reviewed in the axial, sagittal, and coronal planes. IV contrast was not administered for this examination as per the referring clinician. A dose lowering technique was utilized adhering to the principles of ALARA. CT DOSE: 675.38 mGy.cm FINDINGS: Thyroid: Mild atrophic and heterogeneous. Thoracic aorta: There is atherosclerotic calcification of the thoracic aorta, which is normal in caliber and demonstrates standard 3-vessel arch anatomy. Heart: The heart is enlarged noting a small pericardial effusion. The coronary arteries are densely calcified. Lungs and pleural spaces: There is moderate to advanced emphysema. A 1.4 x 1.2 x 0.6 cm spiculated nodule in the anterior right upper lobe on image #72 is new from 2019 and highly suspicious for a bronchogenic neoplasm. A second 8 mm spiculated nodule in the right apex on image #56 is also new from the prior study. 6 mm right lower lobe nodules seen on images #158 and #189, a 6 mm left lower lobe nodule on image #211, and a 4 mm left upper lobe nodule on image #136 are unchanged from 2019 and of low suspicion. No airspace consolidation no pneumothorax is seen. Trace pleural fluid is seen bilaterally. Scarring/atelectasis is noted at the lung bases A fat-containing Bochdalek hernia is seen on the right. There are scattered calcified granulomas. Mediastinum: There is no mediastinal hematoma. A mildly enlarged AP window node on image #112 measures 12 mm in short axis. This is unchanged in 2019. No additional enlarged mediastinal lymph nodes are identified. Chio: Not well assessed without IV contrast. Axillae: There is no axillary lymphadenopathy. Upper abdomen: A small hiatal hernia is noted. There is trace perihepatic a scites. Skeletal structures: The skeletal structures are osteopenic. The bony thorax appears intact. Degenerative change is noted in the shoulders and spine. No lytic or blastic bony lesions are seen. IMPRESSION: 1. No acute posttraumatic intrathoracic abnormality is identified. 2. There is no airspace consolidation or pneumothorax. 3. Cardiomegaly and emphysema noting advanced coronary artery atherosclerosis and trace pleural effusions. 4. There is a 1.4 cm spiculated right upper lobe pulmonary nodule which is new from 2019. A bronchogenic neoplasm is the diagnosis of exclusion. Pulmonology follow-up is advised. At a minimum, short-term CT follow-up will be required. PET could also be considered. 5. A second 0.8 cm spiculated nodule at the right apex is also new from previous and suspicious. 6. Additional subcentimeter pulmonary nodules are similar to the prior study and of low suspicion. 7. Additional findings as above. ACT 112: Positive. There are findings on this exam that require communication between the performing entity and the patient following Patient Test Result Information Act ([place] Act 112) guidelines. Electronically signed by: Taras Vences M.D. 05/27/2025 12:04 PM Chest X-Ray 05/27/25 10:39 XR chest 1V portable CLINICAL HISTORY: dizzy, fall COMPARISON STUDY: 08/24/2023 FINDINGS: Heart size and pulmonary vasculature are normal. There are findings of emphysema. No consolidation or pleural effusion. No pneumothorax. No grossly displaced rib fracture seen. IMPRESSION: No acute findings. ACT 112: Negative or not required by law. Electronically signed by: Sean Post M.D. 05/27/2025 11:[address] 05/27/25 10:39 CT SCAN OF THE BRAIN WITHOUT IV CONTRAST CLINICAL HISTORY: Fall. COMPARISON STUDY: MRI of the brain October 08, [address] June 09, 2022. TECHNIQUE: Unenhanced axial CT scan of the brain was performed from the vertex to the skull base. A dose lowering technique was utilized adhering to the principles of ALARA. FINDINGS: Brain parenchyma: No acute intracranial hemorrhage, midline shift or mass effect is present. [place]eda-white matter differentiation is preserved. There are no extra- axial fluid collections. There are no findings to suggest acute dural sinus thrombosis or acute territorial infarct. White matter hypodensities are similar to prior exam and represent small vessel disease. Ventricles, sulci, cisterns: There is no hydrocephalus. The basal cisterns are patent. Calvarium: There are no calvarial fractures. Sinuses and mastoids: The visualized paranasal sinuses are clear. The mastoid air cells are well pneumatized. Orbits: The bony orbits are grossly intact. IMPRESSION: 1. No acute intracranial findings. 2. No calvarial fractures. ACT 112: Negative or not required by law. Electronically signed by: Eliseo Mendenhall M.D. 05/27/2025 11:23 AM Brain MRI 05/27/25 14:57 MRI of the brain performed with and without IV contrast History: Weakness Comparison: 10/08/2021 Technique: Multiplanar T1 weighted, axial T2/FLAIR, and susceptibility images were obtained without intravenous contrast. Following intravenous gadolinium based contrast administration, axial T2 weighted, diffusion, and T1-weighted images were obtained. Findings: No evidence for intracranial mass lesion, mass-effect, midline shift, or abnormal extra-axial fluid collection. Postcontrast images demonstrate no abnormal intracranial enhancement. The orbits are grossly unremarkable. There is moderate to marked cerebral atrophy. No abnormally reduced diffusion or evidence for acute infarct. Normal intravascular flow voids. Impression: Normal brain MRI with and without IV contrast Electronically signed by Michael Isaac 05-27-2025 6:30 PM Foot X-Ray 05/28/25 12:29 LEFT FOOT 2 VIEWS CLINICAL HISTORY: First toe infection. FINDINGS: AP and lateral views of the left foot are obtained. No prior studies are available for comparison at the time of dictation. The skeletal structures are osteopenic. No fracture is seen. No bony erosion or periostitis is identified. There is moderate osteoarthritic change at the first metatarsophalangeal joint. Mild degenerative change is seen throughout the remainder of the foot. The overlying soft tissues are normal as imaged. IMPRESSION: No acute bony abnormality is identified. Electronically signed by: Taras Vences M.D. 05/28/2025 1:29 PM Head MRA 05/30/25 17:58 Exam(s): MRA HEAD Without Contrast EXAM: MR Angiography Head Without Intravenous Contrast CLINICAL HISTORY: Reason for exam: dizziness. OTHER: Other Notes: dizziness, fall, low bp lately lt facial numbness left leg numbness TECHNIQUE: Magnetic resonance angiography images of the head without intravenous contrast. COMPARISON: No relevant prior studies available. FINDINGS: Right internal carotid artery: No acute findings. Intracranial segment is patent with no significant stenosis. No aneurysm. Right anterior cerebral artery: Unremarkable. No occlusion or significant stenosis. No aneurysm. Right middle cerebral artery: Unremarkable. No occlusion or significant stenosis. No aneurysm. Right posterior cerebral artery: Unremarkable. No occlusion or significant stenosis. No aneurysm. Right vertebral artery: Unremarkable as visualized. Left internal carotid artery: No acute findings. Intracranial segment is patent with no significant stenosis. No aneurysm. Left anterior cerebral artery: Unremarkable. No occlusion or significant stenosis. No aneurysm. Left middle cerebral artery: Unremarkable. No occlusion or significant stenosis. No aneurysm. Left posterior cerebral artery: Unremarkable. No occlusion or significant stenosis. No aneurysm. Left vertebral artery: Unremarkable as visualized. Basilar artery: Unremarkable. No occlusion or significant stenosis. No aneurysm. IMPRESSION: Negative MRA of the brain. Electronically signed by: Carolyn Haney MD 05/31/25 00:18 AM Neck MRA 05/30/25 19:01 Exam(s): MRA NECK Without Contrast EXAM: MR Angiography Neck Without Intravenous Contrast CLINICAL HISTORY: Reason for exam: dizziness. OTHER: Other Notes: dizziness, fall, low bp lately lt facial numbness left leg numbness TECHNIQUE: Magnetic resonance angiography images of the neck without intravenous contrast. COMPARISON: No relevant prior studies available. FINDINGS: Right common carotid artery: Unremarkable. No significant stenosis. No dissection or occlusion. Right internal carotid artery: There is a 60% stenosis of the proximal ICA. No dissection or occlusion. Right external carotid artery: Unremarkable. No occlusion. Right vertebral artery: Unremarkable. No significant stenosis. No dissection or occlusion. Left common carotid artery: Unremarkable. No significant stenosis. No dissection or occlusion. Left internal carotid artery: Unremarkable. Extracranial segment is patent with no significant stenosis. No dissection or occlusion. Left external carotid artery: Unremarkable. No occlusion. Left vertebral artery: Unremarkable. No significant stenosis. No dissection or occlusion. Soft tissues: Unremarkable as visualized. CAROTID STENOSIS REFERENCE USING NASCET CRITERIA: % ICA stenosis = (1 - narrowest ICA diameter/diameter of distal cervical ICA) x 100. Mild - <50% stenosis. Moderate - 50-69% stenosis. Severe - 70-94% stenosis. Near occlusion - 95-99% stenosis. Occluded - 100% stenosis. IMPRESSION: There is a 60% stenosis of the proximal right ICA. Electronically signed by: Carolyn Haney MD 05/31/25 00:30 AM Medications Administered Home Medications Medication Instructions Recorded Confirmed Last Taken arformoterol 15 mcg/2 mL solution 2 ml inhalation BID PRN Shortness 07/23/19 05/27/25 Unknown for nebulization (Brovana) Of Breath Or Wheezing clopidogrel 75 mg tablet (Plavix) 75 mg PO QAM 07/23/19 05/27/25 05/26/25 cyanocobalamin (vitamin B-12) 1,000 mcg PO QAM 07/23/19 05/27/25 05/26/25 1,000 mcg tablet (Vitamin B-12) ketorolac 0.4 % eye drops 1 drp OPL BID 07/23/19 05/27/25 05/26/25 meclizine 25 mg tablet 25 mg PO TID PRN DIZZY 07/23/19 05/27/25 05/15/20 terazosin 2 mg capsule 2 mg PO HS 07/23/19 05/27/25 05/26/25 acetaminophen 500 mg tablet 500 mg PO Q6H PRN Pain 05/15/20 05/27/25 05/15/20 09:30 (Tylenol Extra Strength) 1000 mg ondansetron HCl 8 mg tablet 8 mg PO TID PRN NAUSEA/VOMITING 10/08/21 05/27/25 Unknown atorvastatin 20 mg tablet 20 mg PO QAM 06/09/22 05/27/25 05/26/25 aspirin 81 mg tablet,delayed 81 mg PO DAILY 05/27/25 05/27/25 05/26/25 release ketoconazole 2 % shampoo 1 ea topical DIRECTED 05/27/25 05/27/25 Unknown amlodipine 5 mg tablet 5 mg PO QAM #30 tabs 06/02/25 Unknown metoprolol succinate 25 mg 25 mg PO QAM #30 tabs 06/02/25 Unknown tablet,extended release 24 hr Active Medications Generic Name Dose Route Start Last Admin Trade Name Petrosq PRN Reason Stop Dose Admin Aspirin 81 mg 05/28/25 09:00 06/02/25 08:08 Aspirin 81 Mg Ectab PO 06/27/25 08:59 81 mg DAILY BRANDI Administration Atorvastatin Calcium 20 mg 05/28/25 09:00 05/28/25 09:26 Atorvastatin 20 Mg Tab PO 06/27/25 08:59 20 mg QAM BRANDI Administration Clopidogrel Bisulfate 75 mg 05/28/25 09:00 06/02/25 08:08 Clopidogrel Bisulfate 75 Mg Tab PO 06/27/25 08:59 75 mg QAM BRANDI Administration Cyanocobalamin 1,000 mcg 05/28/25 09:00 06/02/25 08:09 Cyanocobalamin (B-12) 500 Mcg Tablet PO 06/27/25 08:59 1,000 mcg QAM BRANDI Administration Ketorolac Tromethamine 1 drops 05/27/25 21:00 06/02/25 08:09 Ketorolac 0.5% Op Soln 5 Ml Btl OPL 06/26/25 20:59 1 drops BID BRANDI Administration Lactobacillus Acidophilus 1,250 mg 05/28/25 09:00 06/02/25 08:06 Advanced Probiotic 625 Mg Capsule PO 06/27/25 08:59 1,250 mg DAILY BRANDI Administration Meclizine HCl 25 mg 05/29/25 10:44 05/30/25 08:27 Meclizine Hcl 25 Mg Tab PO 06/28/25 10:43 25 mg Q6H PRN Administration dizziness Polyethylene Glycol 17 gm 05/27/25 18:21 05/31/25 08:31 Polyethylene (Miralax) 17 Gm Pack PO 06/26/25 18:20 17 gm DAILY PRN Administration Constipation Terazosin HCl 5 mg 05/27/25 21:00 05/29/25 19:51 Terazosin Hcl 5 Mg Cap PO 06/26/25 20:59 5 mg HS BRANDI Administration Terazosin HCl 2 mg 05/27/25 21:00 05/29/25 19:51 Terazosin Hcl 1 Mg Cap PO 06/26/25 20:59 2 mg HS BRANDI Administration PG Care Time/CCT Total # of Minutes Spent Total Time Spent with Patient: Total time spent is greater than 50% in coordination of care (as documented) at patient's floor/unit and/or counseling patient: Coding Level of Care Code 65079 SUB INP/OBS CARE 3/50MIN Diagnoses Dizziness R42 Vertigo R42 Orthostatic hypotension I95.1 ASCVD (arteriosclerotic cardiovascular disease) I25.10 Aortic stenosis I35.0 Dyslipidemia, goal LDL below 70 E78.5
--- NOTE | 2025-06-02 14:12 | Hospitalist Progress Note ---
Date of Service June 02, 2025 Assessment & Plan (1) Orthostatic hypotension: (2) Syncope due to orthostatic hypotension: (3) Aortic stenosis: (4) ASCVD (arteriosclerotic cardiovascular disease): (5) CKD (chronic kidney disease) stage 3, GFR 30-59 ml/min: (6) BPH (benign prostatic hyperplasia): (7) HTN (hypertension): (8) Stenosis of right internal carotid artery: Plan: 60% Plan Patient was planned for discharge after evaluation release morning. However, with physical therapy patient became quite symptomatic and orthostatic. Patient had significant improvement in his symptoms and orthostatic vital signs after fluid bolus Will make further adjustments to his antihypertensive medications. Give additional fluid bolus Updated daughter Will continue to monitor and reevaluate tomorrow for possible discharge Admission and Anticipated Discharge Date Admission Date: May 27, 2025 Subjective Patient was doing well earlier this morning with asymptomatic orthostatic vital signs. He denied any lightheadedness or dizziness getting up to go to the bathroom this morning and was eating good breakfast. Physical Exam Physical Exam: Constitutional: Alert HEENT: Mucous membranes moist. Lungs: Clear to auscultation, decreased, no wheezes rales or rhonchi CV: S1-S2, regular Abdomen: Soft, nontender, nondistended Extremities: No significant edema Neuro: No focal deficits Psych: Cooperative, normal mood Results & Data Results & Data Vital Signs (Past 12 Hours) Vital Signs Temp Pulse Resp BP BP Pulse Ox O2 Del Method 06/02/25 10:09 56 L 136/72 06/02/25 09:07 36.8 C 60 20 126/81 177/83 H 96 06/02/25 08:22 36.8 C 60 20 177/83 H 96 Room Air 06/02/25 08:11 89 169/80 H Diagnostic Findings Reviewed imaging, laboratory and diagnostic studies. Pertinent findings as below. Orthostatic vital signs reviewed
[2025-06-02] MEDS: SODIUM CHLORIDE 0.9% 500 ML IV ONE (14:40)
[2025-06-03] MEDS: METOPROLOL SUCC 25MG EXT REL TAB PO SCH (07:57)
--- NOTE | 2025-06-03 16:16 | Hospitalist Progress Note ---
Date of Service June 03, 2025 Assessment & Plan (1) Orthostatic hypotension: (2) Syncope due to orthostatic hypotension: (3) Aortic stenosis: (4) ASCVD (arteriosclerotic cardiovascular disease): (5) CKD (chronic kidney disease) stage 3, GFR 30-59 ml/min: (6) BPH (benign prostatic hyperplasia): (7) HTN (hypertension): (8) Stenosis of right internal carotid artery: Plan: 60% Plan Patient's symptomatic orthostasis has significantly improved and on orthostatic vital signs his systolic blood pressure remains above 100. We have made significant progress. However, patient now having issues with BPH symptoms and mild retention due to 5 we have been holding his terazosin and because of his severe orthostasis Daughter at the bedside this afternoon. She reports that patient has known history with urinary retention. They had problems with the terazosin at 10 mg, however he still had retention problems at 5 mg and that is why he is currently on 7 mg. She did state that it has been multiple years since I really tried to adjust this dose at all but he has not had any problems with retention. Restart terazosin. Give 2 mg now, then start 5 mg at bedtime. Hopefully patient will be able to have his symptoms relieved with 5 mg and not impact his blood pressure too much. Will hold off on discharge plans for today. Observe how he responds to the reintroduction of the terazosin. Patient and daughter agreeable to plans Admission and Anticipated Discharge Date Admission Date: May 27, 2025 Subjective Patient seen earlier this morning. No lightheadedness or dizziness with getting up out of bed. Orthostatic vital signs had improved. This afternoon patient had significant problems passing his urine. He has known BPH. His Jones and has been on hold due to his orthostasis. Physical Exam Physical Exam: Constitutional: Alert HEENT: Mucous membranes moist. Lungs: Clear to auscultation, decreased, no wheezes rales or rhonchi CV: S1-S2, regular Abdomen: Soft, nontender, nondistended Extremities: No significant edema Neuro: No focal deficits Psych: Cooperative, normal mood Results & Data Results & Data Vital Signs (Past 12 Hours) Vital Signs Temp Pulse Resp BP Pulse Ox O2 Del Method 06/03/25 08:23 36.5 C 53 L 16 170/82 H 96 Room Air 06/03/25 07:54 36.3 C L 60 18 136/75 95 Room Air Diagnostic Findings Postvoid residual 225 cc
[2025-06-03] MEDS: TERAZOSIN HCL 1 MG CAP PO ONE (16:46)
[2025-06-03] MEDS: ACETAMINOPHEN 325 MG TAB PO PRN (16:47)
--- NOTE | 2025-06-03 18:23 | Cardiology Progress Note ---
Date of Service June 03, 2025 Assessment & Plan (1) Dizziness: (2) Vertigo: (3) Orthostatic hypotension: (4) ASCVD (arteriosclerotic cardiovascular disease): (5) Aortic stenosis: (6) Dyslipidemia, goal LDL below 70: Plan 85 Y M symptomatic orthostatic hypotension, with documented symptomatic orthostatic hypotension and supine hypertension this admission, occurring in the setting of moderate proximal right internal carotid artery stenosis, moderate aortic valve stenosis, atherosclerotic coronary disease with chronic left anterior descending coronary artery occlusion, stage III chronic kidney disease, and BPH. Urinary retention Dizziness - better HTN - suboptimal Orthostatic hypotension HLD CKD CAD R ICAS - moderate increase fluid intake improve caloric intake, nutritional status correct and f/u electrolytes f/u renal function BP meds being adjusted by hospitalist adjust anti-HTN meds keeping systolic BP between 100-140 mmHg off Imdur DVT prophylaxis f/u in cardiology clinic post discharge please recall if needed will sign off Admission and Anticipated Discharge Date Admission Date: May 27, 2025 Subjective Patient on exam is sitting in chair in NAD; no c/o cp, sob, palpitations, dizziness; ambulatory with no symptoms of dizziness, lightheadedness; patient's BP elevated this AM; patient received IVF boluses yesterday apparently for asymptomatic orthostasis; patient developed urinary retenstion and had vasovagal episode on straining to urinate. Review of Systems Review of Systems: as per HPI Physical Exam Physical Exam: General: A&Ox3. NAD. HENT: Normocephalic. Atraumatic. Eyes: Conjunctiva pink, sclera clear. Neck: Transmitted systolic murmur. No JVD. Heart: S1S2. Grade II/ systolic murmur heard best at the lower left sternal border. No diastolic murmur. Lungs: Clear to auscultation. No rales. no wheezing Abdomen: +BS. Soft. Nontender. No masses or organomegaly. Extremities: No edema. No clubbing. No cyanosis. Limited neurological examination is without focal deficits. Results & Data Vital Signs (Past 12 Hours) Vital Signs Temp Pulse Resp BP Pulse Ox O2 Del Method 06/03/25 17:23 36.7 C 74 18 168/84 H 94 Room Air 06/03/25 08:23 36.5 C 53 L 16 170/82 H 96 Room Air 06/03/25 07:54 36.3 C L 60 18 136/75 95 Room Air Laboratory Results Laboratory Results WBC 6.34 K/ul (4.8-10.8) 05/30/25 07: RBC 4.53 M/uL (4.70-6.10) L 05/30/25 07: Hgb 13.4 g/dl (14.0-18.0) L 05/30/25 07: Hct 41.8 % (42.0-52.0) L 05/30/25 07: MCV 92.3 fL (80.0-100.0) 05/30/25 07: MCH 29.6 pg (25.0-34.0) 05/30/25 07: MCHC 32.1 g/dL (32.0-36.0) 05/30/25 07: RDW Std Deviation 44.3 fL (36.4-46.3) 05/30/25 07: RDW Coeff of [place] 13.1 % (11.5-14.5) 05/30/25: Plt Count 176 K/uL (130-400) 05/30/25 07: MPV 9.3 fL (9.4-12.4) L 05/30/25 07: Immature Gran % (Auto) 0.3 % 05/30/25 07: Neut % (Auto) 59.6 % 05/30/25 07: Lymph % (Auto) 21.6 % 05/30/25 07: [place] % (Auto) 9.5 % 05/30/25 07: Eos % (Auto) 8.4 % 05/30/25 07: Baso % (Auto) 0.6 % 05/30/25 07: Neut # (Auto) 3.78 K/uL (1.40-6.50) 05/30/25 07: Lymph # (Auto) 1.37 K/uL (1.20-3.40) 05/30/25 07: [place] # (Auto) 0.60 K/uL (0.11-0.59) H 05/30/25 07: Eos # (Auto) 0.53 K/uL (0.00-0.50) H 05/30/25 07:26 Baso # (Auto) 0.04 K/uL (0.00-0.20) 05/30/25 07:26 Immature Gran # (Auto) 0.02 K/uL (0.01-0.20) 05/30/25 07:26 Sodium 140 mmol/L (136-145) 06/01/25 06:11 Potassium 4.0 mmol/L (3.5-5.1) 06/01/25 06:11 Chloride 105 mmol/L (98-107) 06/01/25 06:11 Carbon Dioxide 29 mmol/L (21-32) 06/01/25 06:11 Anion Gap 6 (3-11) 06/01/25 06:11 BUN 27 mg/dl (6-23) H 06/01/25 06:11 Creatinine 1.57 mg/dl (0.6-1.4) H 06/01/25 06:11 Est Cr Clr Drug Dosing 27.2 ml/min 06/01/25 06:11 eGFR 42.93 06/01/25 06:11 BUN/Creatinine Ratio 17.2 (10-20) 06/01/25 06:11 Glucose 85 mg/dl (70-99(Fasting)) 06/01/25 06:11 Estimat Average Glucose 128 mg/dl 05/28/25 07:45 Hemoglobin A1c 6.1 % (4.5-5.6) H 05/28/25 07:45 Calcium 8.8 mg/dl (8.6-10.3) 06/01/25 06:11 Total Bilirubin 0.7 mg/dl (0.2-1.0) 05/27/25 10:55 AST 18 U/L (13-39) 05/27/25 10:55 ALT 8 U/L (7-52) 05/27/25 10:55 Alkaline Phosphatase 79 U/L (34-104) 05/27/25 10:55 Troponin I High Sens 9.5 pg/ml (0-20) 05/27/25 10:55 Total Protein 6.4 gm/dl (6.0-8.3) 05/27/25 10:55 Albumin 3.6 gm/dl (3.4-5.0) 05/27/25 10:55 Globulin 2.8 gm/dl (2.5-4.0) 05/27/25 10:55 Albumin/Globulin Ratio 1.3 (0.9-2) 05/27/25 10:55 Triglycerides 66 mg/dl (0-150) 05/28/25 07:45 Cholesterol 138 mg/dl (0-200) 05/28/25 07:45 LDL Cholesterol, Calc 72 mg/dl 05/28/25 07:45 VLDL Cholesterol, Calc 13 mg/dl (0-30) 05/28/25 07:45 HDL Cholesterol 53 mg/dl 05/28/25 07:45 Cholesterol/HDL Ratio 2.6 (0-5) 05/28/25 07:45 TSH 1.869 uIu/ml (0.300-4.500) 05/30/25 07:26 Cortisol AM Sample 12.91 mcg/dl (6.2-22.6) 05/30/25 07:26 Urine Color Yellow 05/27/25 10:46 Urine Appearance Cloudy (Clear) A 05/27/25 10:46 Urine pH 7.5 (4.5-7.5) 05/27/25 10:46 Ur Specific [place] 1.014 (1.000-1.030) 05/27/25 10:46 Urine Protein Negative (Negative) 05/27/25 10:46 Urine Glucose (UA) Negative (Negative) 05/27/25 10:46 Urine Ketones Negative (Negative) 05/27/25 10:46 Urine Blood Negative (Negative) 05/27/25 10:46 Urine Nitrite Negative (Negative) 05/27/25 10:46 Urine Bilirubin Negative (Negative) 05/27/25 10:46 Urine Urobilinogen Negative (Negative) 05/27/25 10:46 Ur Leukocyte Esterase Negative (Negative) 05/27/25 10:46 Urine WBC (Auto) 0-5 /hpf (0-5) 05/27/25 10:46 Urine RBC (Auto) 0-2 /hpf (0-2) 05/27/25 10:46 U Hyaline Cast (Auto) 0-2 /lpf (0-2) 05/27/25 10:46 U Epithel Cells (Auto) 0-2 /hpf (0-2) 05/27/25 10:46 Urine Bacteria (Auto) None Seen (None Seen) 05/27/25 10:46 Urine Comment 05/27/25 10:46 Impressions Abdomen/Pelvis CT 05/27/25 10:39 CT OF THE ABDOMEN AND PELVIS WITHOUT CONTRAST CLINICAL HISTORY: Fall. COMPARISON STUDY: Pelvis and left hip radiographs August 24, 2023, CT of the abdomen and pelvis April 20, 2008 . TECHNIQUE: Axial images of the abdomen and pelvis were obtained without IV contrast. Images were reviewed in the axial, sagittal, and coronal planes. Automated exposure control was utilized for the study. A dose lowering technique was utilized adhering to the principles of ALARA. FINDINGS: Please note that the chest CT will be reported separately. Emphysema is incidentally noted within the lower lung bases. No hemoperitoneum or pneumoperitoneum is present. Evaluation of the solid abdominal viscera is suboptimal on this unenhanced exam. There is no evidence for traumatic injury to the liver, spleen, adrenal glands, kidneys or pancreas. The right kidney is markedly atrophic. There is a 9 mm left lower pole renal calculus. There are no ureteral calculi. There is no hydronephrosis. There is colonic diverticulosis without evidence for acute diverticulitis. Moderate amount of stool within the colon and rectum is present. There is trace fluid within the pelvis. There is extensive aortoiliac atherosclerotic plaque. No acute lumbar spine, pelvis or hip fractures are identified. Lumbar spine dextroscoliosis is incidentally noted. No suspicious osseous lesions. IMPRESSION: 1. No acute traumatic findings within the abdomen or pelvis on unenhanced exam. 2. Trace pelvic fluid. 3. 9 mm left renal calculus. Right renal atrophy. 4. Colonic diverticulosis. No evidence for acute diverticulitis. ACT 112: Negative or not required by law. Electronically signed by: Eliseo Mendenhall M.D. 05/27/2025 11:[address] 05/27/25 10:39 CT cervical spine wo con CT DOSE: 1176.71 mGy.cm CLINICAL HISTORY: fall. COMPARISON: 07/23/2019 TECHNIQUE: Multiple axial CT images of the cervical spine were obtained without contrast. A dose lowering technique was utilized adhering to the principles of ALARA. 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 There is grade 1 anterolisthesis of C3 on C4, C7 on T1, and T1 on T2, stable. No cervical spine fracture seen. There are carotid bulb calcifications. IMPRESSION: No cervical spine fracture seen. ACT 112: Negative or not required by law. The above report was generated using voice recognition software. It may contain grammatical, syntax or spelling errors. Electronically signed by: Sean Post M.D. 05/27/2025 11:[address] 05/27/25 10:39 CT SCAN OF THE CHEST WITHOUT IV CONTRAST CLINICAL HISTORY: Fall. COMPARISON STUDY: Chest CT dated 07/23/2019. Chest x-ray dated 05/27/2025. TECHNIQUE: CT scan of the thorax was performed from the thoracic inlet to the upper abdomen. Images are reviewed in the axial, sagittal, and coronal planes. IV contrast was not administered for this examination as per the referring clinician. A dose lowering technique was utilized adhering to the principles of ALARA. CT DOSE: 675.38 mGy.cm FINDINGS: Thyroid: Mild atrophic and heterogeneous. Thoracic aorta: There is atherosclerotic calcification of the thoracic aorta, which is normal in caliber and demonstrates standard 3-vessel arch anatomy. Heart: The heart is enlarged noting a small pericardial effusion. The coronary arteries are densely calcified. Lungs and pleural spaces: There is moderate to advanced emphysema. A 1.4 x 1.2 x 0.6 cm spiculated nodule in the anterior right upper lobe on image #72 is new from 2019 and highly suspicious for a bronchogenic neoplasm. A second 8 mm spiculated nodule in the right apex on image #56 is also new from the prior study. 6 mm right lower lobe nodules seen on images #158 and #189, a 6 mm left lower lobe nodule on image #211, and a 4 mm left upper lobe nodule on image #136 are unchanged from 2019 and of low suspicion. No airspace consolidation no pneumothorax is seen. Trace pleural fluid is seen bilaterally. Scarring/atelectasis is noted at the lung bases A fat-containing [place] herni a is seen on the right. There are scattered calcified granulomas. Mediastinum: There is no mediastinal hematoma. A mildly enlarged AP window node on image #112 measures 12 mm in short axis. This is unchanged in 2019. No additional enlarged mediastinal lymph nodes are identified. [place]: Not well assessed without IV contrast. Axillae: There is no axillary lymphadenopathy. Upper abdomen: A small hiatal hernia is noted. There is trace perihepatic ascites. Skeletal structures: The skeletal structures are osteopenic. The bony thorax appears intact. Degenerative change is noted in the shoulders and spine. No lytic or blastic bony lesions are seen. IMPRESSION: 1. No acute posttraumatic intrathoracic abnormality is identified. 2. There is no airspace consolidation or pneumothorax. 3. Cardiomegaly and emphysema noting advanced coronary artery atherosclerosis and trace pleural effusions. 4. There is a 1.4 cm spiculated right upper lobe pulmonary nodule which is new from 2019. A bronchogenic neoplasm is the diagnosis of exclusion. Pulmonology follow-up is advised. At a minimum, short-term CT follow-up will be required. PET could also be considered. 5. A second 0.8 cm spiculated nodule at the right apex is also new from previous and suspicious. 6. Additional subcentimeter pulmonary nodules are similar to the prior study and of low suspicion. 7. Additional findings as above. ACT 112: Positive. There are findings on this exam that require communication between the performing entity and the patient following Patient Test Result Information Act ([place] Act 112) guidelines. Electronically signed by: Taras Vences M.D. 05/27/2025 12:04 PM Chest X-Ray 05/27/25 10:39 XR chest 1V portable CLINICAL HISTORY: dizzy, fall COMPARISON STUDY: 08/24/2023 FINDINGS: Heart size and pulmonary vasculature are normal. There are findings of emphysema. No consolidation or pleural effusion. No pneumothorax. No grossly displaced rib fracture seen. IMPRESSION: No acute findings. ACT 112: Negative or not required by law. Electronically signed by: Sean Post M.D. 05/27/2025 11:[address] 05/27/25 10:39 CT SCAN OF THE BRAIN WITHOUT IV CONTRAST CLINICAL HISTORY: Fall. COMPARISON STUDY: MRI of the brain October 08, [address] June 09, 2022. TECHNIQUE: Unenhanced axial CT scan of the brain was performed from the vertex to the skull base. A dose lowering technique was utilized adhering to the principles of ALARA. FINDINGS: Brain parenchyma: No acute intracranial hemorrhage, midline shift or mass effect is present. [place][place]-white matter differentiation is preserved. There are no extra- axial fluid collections. There are no findings to suggest acute dural sinus thrombosis or acute territorial infarct. White matter hypodensities are similar to prior exam and represent small vessel disease. Ventricles, sulci, cisterns: There is no hydrocephalus. The basal cisterns are patent. Calvarium: There are no calvarial fractures. Sinuses and mastoids: The visualized paranasal sinuses are clear. The mastoid air cells are well pneumatized. Orbits: The bony orbits are grossly intact. IMPRESSION: 1. No acute intracranial findings. 2. No calvarial fractures. ACT 112: Negative or not required by law. Electronically signed by: Eliseo Mendenhall M.D. 05/27/2025 11:23 AM Brain MRI 05/27/25 14:57 MRI of the brain performed with and without IV contrast History: Weakness Comparison: 10/08/2021 Technique: Multiplanar T1 weighted, axial T2/FLAIR, and susceptibility images were obtained without intravenous contrast. Following intravenous gadolinium based contrast administration, axial T2 weighted, diffusion, and T1-weighted images were obtained. Findings: No evidence for intracranial mass lesion, mass-effect, midline shift, or abnormal extra-axial fluid collection. Postcontrast images demonstrate no abnormal intracranial enhancement. The orbits are grossly unremarkable. There is moderate to marked cerebral atrophy. No abnormally reduced diffusion or evidence for acute infarct. Normal intravascular flow voids. Impression: Normal brain MRI with and without IV contrast Electronically signed by Michael Isaac 05-27-2025 6:30 PM Foot X-Ray 05/28/25 12:29 LEFT FOOT 2 VIEWS CLINICAL HISTORY: First toe infection. FINDINGS: AP and lateral views of the left foot are obtained. No prior studies are available for comparison at the time of dictation. The skeletal structures are osteopenic. No fracture is seen. No bony erosion or periostitis is identified. There is moderate osteoarthritic change at the first metatarsopha langeal joint. Mild degenerative change is seen throughout the remainder of the foot. The overlying soft tissues are normal as imaged. IMPRESSION: No acute bony abnormality is identified. Electronically signed by: Taras Vences M.D. 05/28/2025 1:29 PM Head MRA 05/30/25 17:58 Exam(s): MRA HEAD Without Contrast EXAM: MR Angiography Head Without Intravenous Contrast CLINICAL HISTORY: Reason for exam: dizziness. OTHER: Other Notes: dizziness, fall, low bp lately lt facial numbness left leg numbness TECHNIQUE: Magnetic resonance angiography images of the head without intravenous contrast. COMPARISON: No relevant prior studies available. FINDINGS: Right internal carotid artery: No acute findings. Intracranial segment is patent with no significant stenosis. No aneurysm. Right anterior cerebral artery: Unremarkable. No occlusion or significant stenosis. No aneurysm. Right middle cerebral artery: Unremarkable. No occlusion or significant stenosis. No aneurysm. Right posterior cerebral artery: Unremarkable. No occlusion or significant stenosis. No aneurysm. Right vertebral artery: Unremarkable as visualized. Left internal carotid artery: No acute findings. Intracranial segment is patent with no significant stenosis. No aneurysm. Left anterior cerebral artery: Unremarkable. No occlusion or significant stenosis. No aneurysm. Left middle cerebral artery: Unremarkable. No occlusion or significant stenosis. No aneurysm. Left posterior cerebral artery: Unremarkable. No occlusion or significant stenosis. No aneurysm. Left vertebral artery: Unremarkable as visualized. Basilar artery: Unremarkable. No occlusion or significant stenosis. No aneurysm. IMPRESSION: Negative MRA of the brain. Electronically signed by: Carolyn Haney MD 05/31/25 00:18 AM Neck MRA 05/30/25 19:01 Exam(s): MRA NECK Without Contrast EXAM: MR Angiography Neck Without Intravenous Contrast CLINICAL HISTORY: Reason for exam: dizziness. OTHER: Other Notes: dizziness, fall, low bp lately lt facial numbness left leg numbness TECHNIQUE: Magnetic resonance angiography images of the neck without intravenous contrast. COMPARISON: No relevant prior studies available. FINDINGS: Right common carotid artery: Unremarkable. No significant stenosis. No dissection or occlusion. Right internal carotid artery: There is a 60% stenosis of the proximal ICA. No dissection or occlusion. Right external carotid artery: Unremarkable. No occlusion. Right vertebral artery: Unremarkable. No significant stenosis. No dissection or occlusion. Left common carotid artery: Unremarkable. No significant stenosis. No dissection or occlusion. Left internal carotid artery: Unremarkable. Extracranial segment is patent with no significant stenosis. No dissection or occlusion. Left external carotid artery: Unremarkable. No occlusion. Left vertebral artery: Unremarkable. No significant stenosis. No dissection or occlusion. Soft tissues: Unremarkable as visualized. CAROTID STENOSIS REFERENCE USING NASCET CRITERIA: % ICA stenosis = (1 - narrowest ICA diameter/diameter of distal cervical ICA) x 100. Mild - <50% stenosis. Moderate - 50-69% stenosis. Severe - 70-94% stenosis. Near occlusion - 95-99% stenosis. Occluded - 100% stenosis. IMPRESSION: There is a 60% stenosis of the proximal right ICA. Electronically signed by: Carolyn Haney MD 05/31/25 00:30 AM Intake and Output 06/03/25 06/03/25 06/03/25 06:59 14:59 22:59 Intake Total 150 / 2370 500 / 500 Output Total 1 301 300 / 301 Balance 150 / 2370 499 / 199 -300 / 199 Intake: Oral 150 / 870 500 / 500 Output: Urine 300 / 300 # Bowel Movements Other: # Unmeasured Voids 3 4 Weight 56.727 kg Weight Measurement Method Built in [facility] Medications Administered Home Medications Medication Instructions Recorded Confirmed Last Taken arformoterol 15 mcg/2 mL solution 2 ml inhalation BID PRN Shortness 07/23/19 05/27/25 Unknown for nebulization ([place]rov[place]) Of Breath Or Wheezing clopidogrel 75 mg tablet (Plavix) 75 mg PO QAM 07/23/19 05/27/25 05/26/25 cyanocobalamin (vitamin B-12) 1,000 mcg PO QAM 07/23/19 05/27/25 05/26/25 1,000 mcg tablet (Vitamin B-12) ketorolac 0.4 % eye drops 1 drp OPL BID 07/23/19 05/27/25 05/26/25 meclizine 25 mg tablet 25 mg PO TID PRN DIZZY 07/23/19 05/27/25 05/15/20 terazosin 2 mg capsule 2 mg PO HS 07/23/19 05/27/25 05/26/25 acetaminophen 500 mg tablet 500 mg PO Q6H PRN Pain 05/15/20 05/27/25 05/15/20 09:30 (Tylenol Extra Strength) 1000 mg ondansetron HCl 8 mg tablet 8 mg PO TID PRN NAUSEA/VOMITING 10/08/21 05/27/25 Unknown atorvastatin 20 mg tablet 20 mg PO QAM 06/09/22 05/27/25 05/26/25 aspirin 81 mg tablet,delayed 81 mg PO DAILY 05/27/25 05/27/25 05/26/25 release ketoconazole 2 % shampoo 1 ea topical DIRECTED 05/27/25 05/27/25 Unknown amlodipine 5 mg tablet 5 mg PO QAM #30 tabs 06/02/25 Unknown metoprolol succinate 25 mg 12.5 mg (1/2 x 25 mg) PO QAM #30 06/02/25 Unknown tablet,extended release 24 hr tabs Active Medications Generic Name Dose Route Start Last Admin Trade Name Freq PRN Reason Stop Dose Admin Acetaminophen 650 mg 05/27/25 18:21 06/03/25 16:47 Acetaminophen 325 Mg Tab PO 06/26/25 18:20 650 mg Q4H PRN Administration Pain or Fever Amlodipine Besylate 5 mg 06/03/25 09:00 06/03/25 07:56 Amlodipine Besylate 5 Mg Tab PO 07/03/25 08:59 5 mg QAM BRANDI Administration Aspirin 81 mg 05/28/25 09:00 06/03/25 07:58 Aspirin 81 Mg Ectab PO 06/27/25 08:59 81 mg DAILY BRANDI Administration Atorvastatin Calcium 20 mg 05/28/25 09:00 05/28/25 09:26 Atorvastatin 20 Mg Tab PO 06/27/25 08:59 20 mg QAM BRANDI Administration Clopidogrel Bisulfate 75 mg 05/28/25 09:00 06/03/25 07:57 Clopidogrel Bisulfate 75 Mg Tab PO 06/27/25 08:59 75 mg QAM BRANDI Administration Cyanocobalamin 1,000 mcg 05/28/25 09:00 06/03/25 07:57 Cyanocobalamin (B-12) 500 Mcg Tablet PO 06/27/25 08:59 1,000 mcg QAM BRANDI Administration Ketorolac Tromethamine 1 drops 05/27/25 21:00 06/03/25 07:58 Ketorolac 0.5% Op Soln 5 Ml Btl OPL 06/26/25 20:59 1 drops BID BRANDI Administration Lactobacillus Acidophilus 1,250 mg 05/28/25 09:00 06/03/25 07:57 Advanced Probiotic 625 Mg Capsule PO 06/27/25 08:59 1,250 mg DAILY BRANDI Administration Meclizine HCl 25 mg 05/29/25 10:44 05/30/25 08:27 Meclizine Hcl 25 Mg Tab PO 06/28/25 10:43 25 mg Q6H PRN Administration dizziness Metoprolol Succinate 12.5 mg 06/03/25 09:00 06/03/25 07:57 Metoprolol Succ 25mg Ext Rel Tab PO 07/03/25 08:59 12.5 mg QAM BRANDI Administration Polyethylene Glycol 17 gm 05/27/25 18:21 05/31/25 08:31 Polyethylene (Miralax) 17 Gm Pack PO 06/26/25 18:20 17 gm DAILY PRN Administration Constipation Terazosin HCl 5 mg 05/27/25 21:00 05/29/25 19:51 Terazosin Hcl 5 Mg Cap PO 06/26/25 20:59 5 mg HS BRANDI Administration Terazosin HCl 2 mg 05/27/25 21:00 05/29/25 19:51 Terazosin Hcl 1 Mg Cap PO 06/26/25 20:59 2 mg HS BRANDI Administration PG Care Time/CCT Total # of Minutes Spent Total Time Spent with Patient: Total time spent is greater than 50% in coordination of care (as documented) at patient's floor/unit and/or counseling patient: Coding Level of Care Code 80947 SUB INP/OBS CARE 3/50MIN Diagnoses Dizziness R42 Vertigo R42 Orthostatic hypotension I95.1 ASCVD (arteriosclerotic cardiovascular disease) I25.10 Aortic stenosis I35.0 Dyslipidemia, goal LDL below 70 E78.5
[2025-06-04 07:06] LABS: Anion Gap 6.0 (3-11); Blood Urea Nitrogen 32.0 mg/dl (6-23); Calcium 8.7 mg/dl (8.6-10.3); Carbon Dioxide 29.0 mmol/L (21-32); Chloride 107.0 mmol/L (98-107); Creatinine Clr Calc Pharmacy 28.3 ml/min; Glucose 85.0 mg/dl (70-99(Fasting)); Potassium 3.8 mmol/L (3.5-5.1); Sodium 142.0 mmol/L (136-145)
[2025-06-04] MEDS: MECLIZINE HCL 25 MG TAB PO SCH (09:20)
--- NOTE | 2025-06-04 12:19 | Hospitalist Progress Note ---
Date of Service June 04, 2025 Assessment & Plan (1) Orthostatic hypotension: (2) Vertigo: (3) Syncope due to orthostatic hypotension: (4) Aortic stenosis: (5) ASCVD (arteriosclerotic cardiovascular disease): (6) CKD (chronic kidney disease) stage 3, GFR 30-59 ml/min: (7) BPH (benign prostatic hyperplasia): (8) HTN (hypertension): (9) Stenosis of right internal carotid artery: Plan: 60% Plan Patient reports that he has not had as much trouble passing his urine now that the terazosin has been restarted, continue the 5 mg dose Continue current antihypertensive medications. Make sure orthostatic vital signs done today Patient now seems to be having complaints more consistent with vertigo. Responding to meclizine. Unable to do Rosie maneuvers with PT over the weekend Hopefully will have a balance of treatments for his vertigo, orthostasis, BPH symptoms with his current medical regimen. If patient feels confident with his ability to ambulate in his home anticipate discharge tomorrow Granddaughter at bedside and aware of plan Admission and Anticipated Discharge Date Admission Date: May 27, 2025 Subjective Patient now this morning complaining of symptoms more consistent with vertigo. States that he gets "dizzy when he looks to the left." Physical Exam Physical Exam: Constitutional: Alert, sitting in chair, nontoxic HEENT: Mucous membranes moist. Lungs: Clear to auscultation, decreased, no wheezes rales or rhonchi CV: S1-S2, regular Abdomen: Soft, nontender, nondistended Extremities: No significant edema Neuro: No focal deficits Psych: Cooperative, normal mood Results & Data Results & Data Vital Signs (Past 12 Hours) Vital Signs Temp Pulse Resp BP Pulse Ox O2 Del Method 06/04/25 07:44 36.6 C 59 L 16 138/78 95 Room Air 06/04/25 04:23 36.4 C L 61 18 159/89 H 94 Room Air Diagnostic Findings Reviewed imaging, laboratory and diagnostic studies. Pertinent findings as below. Creatinine 1.53, baseline Electrolytes stable
[2025-06-04 15:22] VITALS: RESP 18
[2025-06-05 00:08] VITALS: TEMP 97.5
[2025-06-05 08:42] VITALS: O2SAT 96
[2025-06-05 12:40] VITALS: PULSE 66
--- NOTE | 2025-06-05 13:34 | Discharge Summary ---
Discharge Summary Date of Service June 05, 2025 Principal Dx & Hospital Course #1 = Principal Diagnosis (1) Orthostatic hypotension: (2) Vertigo: (3) Syncope due to orthostatic hypotension: (4) Aortic stenosis: (5) ASCVD (arteriosclerotic cardiovascular disease): (6) CKD (chronic kidney disease) stage 3, GFR 30-59 ml/min: (7) BPH (benign prostatic hyperplasia): (8) HTN (hypertension): (9) Stenosis of right internal carotid artery: 60% Plan Mr. 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 Patient was evaluated by Cardiology. Imdur was discontinued. Terazosin was discontinued as well briefly, however, patient noted urinary retention. Patients stay prolonged given severity of symptoms, but within last 48 hours improved--however, still with symptoms. Discussed patient's case with daughter. Agreed to continue terazosin with extreme precautions. Recommended bedside urinal and sitting at bedside for 10-15 min prior to standing. Patient verbalizes understanding that if symptoms continue then terazosin is likely to be stopped and would need Urology follow up to consider [place] if necessary. On day of discharge,patient asymptomatic with his orthostasis, wearing latia stockings, eating well, and independent. Talked extensively to daughter about independent living/assisted living, using walker, and follow up importance. Notes For Next Care Provider Urology follow up low threshold to d/c terazosin Medication Changes From Visit discontinued imdur Continue Terazosin with EXTREME CAUTION. Recommended lower dosing, however, historically patient unable to urinate with anything less than 7mg Consolidated amlodipine dosing for ease Admission HPI Per Admitting Provider Patient is a 85year old M with a past medical history of HTN, PVD, COPD, Dyslipidemia, aortic valve stenosis, LAD occlusion, Coronary artery dissection, Femoral artery pseudoaneurysm, History of DVT, h/o myocardial infarction, BPH with LUTS, CKD stage IV presenting with dizziness s/p fall. Reportedly, patient ambulated from his bed to bathroom with mild dizziness last night and then experienced dizziness with fall when changing position from sitting on the toilet to standing. He denies loss of consciousness. Reports feeling as though his legs "gave out from under him when standing". Unable to stand up and needed to lay on the bathroom floor all night. Also reports left leg numbness lasting all night with improvement now; however, still has left leg numbness with intact sensation to bottom of foot. Denies fever, chills, weight loss, headache, cognitive changes, vision/hearing changes, chest pain, SOB, swelling, difficulty breathing, urinary concerns, N/V/D, joint swelling/pain, skin rashes, lesions, bleeding, bruising. In the emergency department, patient was hypertensive 174/90 upon arrival to the ED. Possibly related to not taking morning meds. No fevers reported and no evidence of leukocytosis noted on lab workup.Urine clean. CT of the head without acute findings. CT of the abdomen pelvis without acute findings. Incidental findings on chest CT of right upper lobe spiculated nodules with possible neoplasm etiology. Patient will need outpatient follow-up for this finding and repeat imaging. Patient experienced dizziness when ambulating from the bed to bathroom, but did not fall. No dizziness reported with position change from lying to sitting. As per external chart review, patient follows [facility] and has been reporting dizziness previously. Patient reports Lisinopril was discontinued at last Cardiology appointment, but his last dose taken was in the morning of yesterday's fall. He has a history of hypotension. As per external chart review, patient was seen by [facility] on 05/16/25. 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 Hypotension was discussed at that appointment and lis inopril dosing was decreased from 10mg/day to 5mg/day. Echo interpretation from March 14, 2025 showing sinus bradycardia during the examination. Rates 48-50 beats per minute. The left ventricular cavity size is normal. The LV wall thickness is mildly increased (concentric). The left ventricular wall motion is normal. LVEF 55-59% (normal). The left ventricular diastolic function is moderately abnormal (grade II). The left atrium is moderately enlarged (42-48 ml/m^2). The aortic valve is moderately calcified. Moderate aortic valve stenosis is present. Mild mitral regurgitation is present. Moderate tricuspid regurgitation is present. In March 2025, 7-day Zio Monitor showing predominant sinus Rhythm with 6 runs of SVT. Notation of weight loss noted in patient record. History obtained primarily from the patient and via hospitalization record. External chart review obtained from [facility]. Admission Exam Per Admitting Provider VITALS: Reviewed. WEIGHT/BMI reviewed. GEN: Thin, frail, well-developed, NAD. PSYCH: Good Judgment. AOx3. Normal memory, mood, and affect. HEENT -Head: NC/AT; -Eyes: PERRL, EOMI. No discharge or redn ess; -Ears: External ears are normal. Normal TMs. -Nose: Normal nares. -Mouth and throat: MMM. Normal gums, muc radha, palate,. Good dentition. NECK: Supple, with no masses. CV: RRR, no m/r/g. LUNGS: CTAB, no w/r/c. ABD: Soft, NT/ND, NBS, no masses or organomegaly. : N/A SKIN: Warm, well perfused. No skin rashes or abnormal lesions. MSK: No deformities, Normal gait. EXT: No clubbing, cyanosis, or edema. NEURO: CN II-XII grossly intact. No focal deficits. Discharge Exam Constitutional WD/WN, vitals as above Respiratory normal respiratory effort, lungs clear to auscultation Cardiovascular RRR, no murmur, no edema Gastrointestinal (Abdomen) normal bowel sounds, soft, nontender, no hepatosplenomegaly Updated Medication List Medication Instructions Recorded Confirmed Type arformoterol 15 mcg/2 mL solution 2 ml inhalation BID PRN Shortness 07/23/19 05/27/25 History for nebulization ([place]) Of Breath Or Wheezing clopidogrel 75 mg tablet (Plavix) 75 mg PO QAM 07/23/19 05/27/25 History cyanocobalamin (vitamin B-12) 1,000 mcg PO QAM 07/23/19 05/27/25 History 1,000 mcg tablet (Vitamin B-12) ketorolac 0.4 % eye drops 1 drp OPL BID 07/23/19 05/27/25 History acetaminophen 500 mg tablet 500 mg PO Q6H PRN Pain 05/15/20 05/27/25 History (Tylenol Extra Strength) ondansetron HCl 8 mg tablet 8 mg PO TID PRN NAUSEA/VOMITING 10/08/21 05/27/25 History atorvastatin 20 mg tablet 20 mg PO QAM 06/09/22 05/27/25 History aspirin 81 mg tablet,delayed 81 mg PO DAILY 05/27/25 05/27/25 History release ketoconazole 2 % shampoo 1 ea topical DIRECTED 05/27/25 05/27/25 History amlodipine 5 mg tablet 5 mg PO QAM #30 tabs 06/02/25 Rx metoprolol succinate 25 mg 12.5 mg (1/2 x 25 mg) PO QAM #30 06/02/25 Rx tablet,extended release 24 hr tabs meclizine 25 mg tablet 25 mg PO TID PRN DIZZY #30 tabs 06/04/25 Rx finasteride 5 mg tablet 5 mg PO DAILY #30 tabs 06/05/25 Rx terazosin 2 mg capsule 2 mg PO HS #30 caps 06/05/25 Rx terazosin 5 mg capsule 5 mg PO HS 30 days #30 caps 06/05/25 Rx Hospital Stay Data Consultations 05/27/25 14:17 ED Decision to Admit Stat 05/28/25 12:33 Consult Podiatry Routine 05/30/25 10:01 Consult Neurology Routine 05/31/25 08:53 Consult Cardiology Routine Diagnostic Imagining Performed 05/27/25 10:39 CT abd pelvis wo con Stat CT cervical spine wo con Stat CT chest diagnostic wo con Stat CT head/brain wo con Stat 05/27/25 14:57 MRI Brain [MR brain wo/w con] Stat 05/30/25 17:58 MR angio head wo con Urgent 05/30/25 19:01 MR angio neck wo con Routine Pending Results Patient Have Any Pending Studies at Discharge: No Discharge Instructions Given to Patient (Per Discharging Provider) Orthostatic hypotension is a quick drop in blood pressure. It happens when you get up from sitting or lying down. You may feel faint, lightheaded, or dizzy. When a person sits up or stands up, the body changes the way it pumps blood. This can slow the flow of blood to the brain for a very short time. And that can make you feel lightheaded. Many medicines can cause this problem, especially in older people. Lack of fluids (dehydration) or illnesses such as diabetes or heart disease also can cause it. Follow-up care is a anderson part of your treatment and safety.Be sure to make and go to all appointments, and call your doctor if you are having problems. It's also a good idea to know your test results and keep a list of the medicines you take. How can you care for yourself at home? * Be safe with medicines. Call your doctor if you think you are having a problem with your medicine. * If you feel dizzy or lightheaded, sit down or lie down for a few minutes. Or you can sit down and put your head between your knees. This will help your blood pressure go back to normal and help your symptoms go away. * Follow your doctor's suggestions for ways to prevent symptoms like dizziness. These suggestions may include: * Get up slowly from bed or after sitting for a long time. If you are in bed, roll to your side and swing your legs over the edge of the bed and onto the floor. Push your body up to a sitting position. Wait for a while before you slowly stand up. * Drink plenty of fluids. Choose water and other clear liquids. If you have kidney, heart, or liver disease and have to limit fluids, talk with your doctor before you increase the amount of fluids you drink. * Wear compression stockings to help improve blood flow. When should you call for help? [id number] you think you may need emergency care. For example, call if: * You passed out (lost consciousness). Watch closely for changes in your health, and be sure to contact your doctor if: * You do not get better as expected. CHANGE: RESUME WITH CAUTION: Terazosin 7mg at bedtime; Please discuss with PCP and consider urgent Urology follow up as this contributes significantly to orthostasis Take Amlodipine 5mg once daily (rather than 2.5mg two times a day) STOP THE FOLLOWING MEDICATIONS Imdur (Isosorbide Mononitrate) 90mg CONTINUE: Metoprolol 12.5mg daily Atorvastatin 20mg daily Plavix 75mg daily Finasteride 5mg Total Time Total Time Spent Total Time Spent (In Minutes): 65
[2025-06-05 14:07] VITALS: BP 118/68
== END 2025-06-05 16:56 | disposition home health service (06) | DRG 312 ==
LOC: ED 10:29 → SUATTDRO 15:05 → 2N 15:05